=== PATIENT | male | born 1940 | race Caucasian/White ===

== ENCOUNTER → 2016-04-17 | Outpatient (CLI) | payer MEDICARE, OTHER ==
[~2016-04-17] MED LIST: AMLO5TAB2 PO; COUM10TA PO; COUM1TAB17 PO; COUM7.5T PO; FENO145T PO; FERR325T PO; FISH1000 PO; FLAG500T PO; GLIP-163 PO; LASI20TA PO; LASI40TA PO; LISI10TA4 PO; MAGN400T5 PO; METO-209 PO; SIMV40TA2 PO; SITA50TAB PO; SUCR1TA PO; SUCR1TAB56 PO; VITMTA PO; WARF-21 PO; WARF-23 PO; XALA0.002 OU; ZANT1TAB PO; ZETI10TA2 PO; ZYLO300T4 PO
--- NOTE | 2016-04-17 11:36 | REP ---
CHEST, TWO VIEWS: HISTORY: Bladder carcinoma. The lungs are clear. The heart is upper limits of normal in size. The pulmonary vasculature is normal in appearance. Degenerative change is present in the thoracic spine. A prosthetic heart valve is present. IMPRESSION: No acute disease. Signed by Gideon Pate MD 04/17/2016 11:41 A
[2016-04-17 14:20] LABS: MEAN CORPUSCULAR HEMOGLOBIN 30.2 pg (27.0-33.0); MEAN CORPUSCULAR VOLUME 91.5 fl (80.0-96.0); RED CELL DISTRIBUTION WIDTH 14.7 % (11.5-14.5); WHITE BLOOD COUNT 12.6 K/mm3 (4.0-10.0)
[2016-04-17 14:22] LABS: INR 2.14
[2016-04-17 14:42] LABS: CALCIUM LEVEL 9.1 MG/DL (8.8-10.2); CREATININE FOR GFR 1.6 MG/DL (0.70-1.30); GLOMERULAR FILTRATION RATE 45.1 (>42); POTASSIUM SERUM 4.6 MEQ/L (3.5-5.1)
== END ==
LOC: M SMT 10:49
PROVIDERS: ATTEND Specialist
DX: Z01.818 Encounter for other preprocedural examination (principal); C67.9 Malignant neoplasm of bladder, unspecified; Z79.899 Other long term (current) drug therapy

== ENCOUNTER → 2016-04-25 | Outpatient (CLI) | payer MEDICARE, OTHER ==
--- NOTE | 2016-04-25 13:34 | REP ---
Urinary tract sonography: History: Elevated creatinine. History of bladder cancer. Findings: Scanning at the level of the urinary bladder is only slightly filled. Renal cortical echogenicity pattern is normal and renal contours are smooth on both sides. Right kidney measures 13.3 x 6.1 x 5.7 cm and left renal dimensions are 12.7 x 6.3 x 6.2 cm. There is a 1.0 cm cyst in the lower pole left kidney. No mass or other cyst is seen on either side. No hydronephrosis or calculus seen. Impression: Small cyst lower pole left kidney. Otherwise negative urinary tract sonography. Signed by Neil Vaz MD 04/25/2016 04:22 P
== END ==
LOC: M RAD 12:06
PROVIDERS: ATTEND Specialist
DX: R79.89 Other specified abnormal findings of blood chemistry (principal)

== ENCOUNTER → 2016-05-12 | Day surgery (SDC) | payer MEDICARE, OTHER ==
[~2016-05-12] VITALS: Ht 172.7 cm; Wt 117.9 kg
[~2016-05-12] MED LIST changes: +ALBUTEROL SULFATE 2.5 MG/0.5 ML INH NEB SOLN As Ordered ONE; +ALBUTEROL SULFATE 2.5 MG/0.5 ML INH NEB SOLN INH ONE; +LIDOCAINE 2% 5ML JELLY UROJET As Ordered ONE; +LOVE0.6I2 SC; +LR 1,000 ML IV SCH; +ceFAZolin 2 GM/D5W 50 ML IV BAG (J0690) As Ordered ONE
[2016-05-12 06:24] VITALS: BP 154/74
[2016-05-12 06:49] LABS: MEAN CORPUSCULAR HGB CONC 33.4 g/dl (32.0-36.5); MEAN CORPUSCULAR VOLUME 92.9 fl (80.0-96.0); RED CELL DISTRIBUTION WIDTH 15.2 % (11.5-14.5); WHITE BLOOD COUNT 10.3 K/mm3 (4.0-10.0)
[2016-05-12 06:55] LABS: INR 1.24
--- NOTE | 2016-05-12 08:58 | REP ---
Bilateral lower extremity Duplex Doppler venous ultrasound: Real time compression and duplex Doppler interrogation of the bilateral lower extremity deep venous system is performed. Bilaterally, the common femoral, superficial femoral and popliteal veins are fully compressible with transducer pressure and demonstrate normal spontaneous and phasic flow, without evidence of deep venous thrombosis. Impression: No evidence of deep venous thrombosis of the bilateral lower extremity femoral popliteal venous system. Signed by Jeffrey Watt MD 05/12/2016 08:49 A
== END | disposition home or self-care (01) ==
LOC: M SDC 05:30
PROVIDERS: ATTEND Specialist
DX: C67.9 Malignant neoplasm of bladder, unspecified (principal); M79.89 Other specified soft tissue disorders; Z79.01 Long term (current) use of anticoagulants; Z53.09 Procedure and treatment not carried out because of other contraindication
CPT/HCPCS: 36415; 85027; 85610; 85730; 93970; J0690

== ENCOUNTER → 2016-05-16 | Day surgery (SDC) | payer MEDICARE, OTHER ==
[~2016-05-16] VITALS: Ht 172.7 cm; Wt 117.0 kg
[~2016-05-16] MED LIST changes: -ALBUTEROL SULFATE 2.5 MG/0.5 ML INH NEB SOLN As Ordered ONE; -ALBUTEROL SULFATE 2.5 MG/0.5 ML INH NEB SOLN INH ONE; +GLYCOPYRROLATE INJ 0.2 MG/ML 2 ML VIAL As Ordered ONE; +LIDOCAINE 2% 5ML JELLY UROJET XX ONE; +LIDOCAINE 2% INJ 100 MG/5 ML SDV (FOR ANES.) As Ordered ONE; +MEPERIDINE INJ 25 MG/ML VIAL (J2175) IV PRN; +METOCLOPRAMIDE INJ 10MG/2ML VIAL (J2765) IV PRN; +MIDAZOLAM INJ 2 MG/2 ML VIAL (J2250) As Ordered ONE; +NEOSTIGMINE 1MG/ML 5 ML SYRINGE (J2710) As Ordered ONE; +ONDANSETRON 4MG/2ML VIAL (J2405) As Ordered ONE; +ONDANSETRON 4MG/2ML VIAL (J2405) IV PRN; +PERCOCET 5MG/325MG TAB PO PRN; +PROPOFOL 200 MG/20 ML VIAL As Ordered ONE; +ROCURONIUM BROMIDE 50 MG/5 ML VIAL As Ordered ONE; -ceFAZolin 2 GM/D5W 50 ML IV BAG (J0690) As Ordered ONE; +ePHEDrine SULFATE 25 MG/5 ML(5MG/ML) SYRINGE As Ordered ONE; +fentaNYL 100 MCG/2 ML INJECTION (J3010) As Ordered ONE; +fentaNYL 100 MCG/2 ML INJECTION (J3010) IV PRN; +mitoMYcin 40 MG VIAL (J9280) INTRAVESIC ONE
[2016-05-16 18:40] VITALS: BP 138/62
--- NOTE | 2016-05-17 08:14 | RO ---
DATE OF PROCEDURE: 05/16/2016 PREPROCEDURE DIAGNOSIS: Recurrent transitional cell carcinoma of the bladder. POSTPROCEDURE DIAGNOSIS: Recurrent transitional cell carcinoma of the bladder. PROCEDURE: Cystoscopy, transurethral resection of bladder tumor and mitomycin instillation post procedurally. SURGEON: Dr. Wilma Aggarwal [employer]: ANESTHESIA: General. MEDICATIONS: Ancef 2 grams preoperatively and mitomycin 40 mg in 50 mL of normal saline. SPECIMEN: Bladder biopsy and TURBT specimen. DRAINS: The patient was sent to the postoperative area with an 18-Namibian Nunez catheter, which was plugged because the mitomycin was in the bladder. INDICATIONS FOR PROCEDURE: The patient is a 75-year-old gentleman who had come in for a surveillance cystoscopy on 04/12/2016 and was found to have recurrence of a transitional cell carcinoma of the bladder medial to his previous resection site on the left hand side. He had undergone a TURBT on 12/22/2015, which showed high-grade TCC of the bladder, probably a T1. He did have six treatments of BCG with very little reaction. Because of these findings it was decided to bring him back to the operating room for definitive management of the recurrence. All options, alternatives, risks and benefits were discussed and informed consent was obtained in both verbal and written form. PROCEDURE: The patient was brought into the operating room. Sequential compression devices and YAMILET stockings were in place. The patient was given preoperative antibiotics. Next, general anesthesia was induced. He was then placed in the lithotomy position and careful attention was paid that his pressure points were well padded and protected. He was prepped and draped in the usual fashion. Next, a 21-Namibian cystoscope was inserted and the urethra was noted to be open without any evidence of lesions or strictures. The prostatic urethra did have some bilateral hypertrophy and a slightly high bladder neck with some trilobular hypertrophy. Upon entering the bladder, both ureteral orifices were seen. There were no stones. There were two or three very small papillary lesions seen medial to the previous resection site, and the previous resection site has a small area of scar. At this point, a 25-Namibian continuous flow resectoscope was placed and the papillary tumors actually were easily scraped off and appeared to be very superficial. At this point though, using cutting, I used a loop to go into the first layer of the bladder to make sure this was completely removed. This area was then cauterized and the specimen is sent for pathology. The patient's bladder was emptied and a 16-Namibian Nunez catheter was placed. Next, mitomycin 40 mg in 50 mL of normal saline was placed in the bladder and this will be left in place for 60 minutes in the recovery room and then drained. The patient will come in for followup in several weeks and depending on the pathology we may want to continue with either maintenance BCG or another full course of BCG.
== END | disposition home or self-care (01) ==
LOC: M SDC 13:49
PROVIDERS: ATTEND Specialist
DX: C67.9 Malignant neoplasm of bladder, unspecified (principal); I12.9 Hypertensive chronic kidney disease with stage 1 through stage 4 chronic kidney disease, or unspecified chronic kidney disease; E78.5 Hyperlipidemia, unspecified; I48.91 Unspecified atrial fibrillation; I71.4 Abdominal aortic aneurysm, without rupture; I73.9 Peripheral vascular disease, unspecified; E11.9 Type 2 diabetes mellitus without complications; N18.9 Chronic kidney disease, unspecified; K21.9 Gastro-esophageal reflux disease without esophagitis; M12.9 Arthropathy, unspecified; M10.9 Gout, unspecified; Z79.899 Other long term (current) drug therapy; Z79.891 Long term (current) use of opiate analgesic; Z79.01 Long term (current) use of anticoagulants; Z87.19 Personal history of other diseases of the digestive system
CPT/HCPCS: 51720; 52234; 88305; J0690; J2250; J2405; J2710; J3010; J9280

== ENCOUNTER → 2016-05-31 | Outpatient (REF) | payer MEDICARE, OTHER ==
[~2016-05-31] MED LIST changes: -GLYCOPYRROLATE INJ 0.2 MG/ML 2 ML VIAL As Ordered ONE; -LIDOCAINE 2% 5ML JELLY UROJET As Ordered ONE; -LIDOCAINE 2% 5ML JELLY UROJET XX ONE; -LIDOCAINE 2% INJ 100 MG/5 ML SDV (FOR ANES.) As Ordered ONE; -LR 1,000 ML IV SCH; -MEPERIDINE INJ 25 MG/ML VIAL (J2175) IV PRN; -METOCLOPRAMIDE INJ 10MG/2ML VIAL (J2765) IV PRN; -MIDAZOLAM INJ 2 MG/2 ML VIAL (J2250) As Ordered ONE; -NEOSTIGMINE 1MG/ML 5 ML SYRINGE (J2710) As Ordered ONE; -ONDANSETRON 4MG/2ML VIAL (J2405) As Ordered ONE; -ONDANSETRON 4MG/2ML VIAL (J2405) IV PRN; -PERCOCET 5MG/325MG TAB PO PRN; -PROPOFOL 200 MG/20 ML VIAL As Ordered ONE; -ROCURONIUM BROMIDE 50 MG/5 ML VIAL As Ordered ONE; -ePHEDrine SULFATE 25 MG/5 ML(5MG/ML) SYRINGE As Ordered ONE; -fentaNYL 100 MCG/2 ML INJECTION (J3010) As Ordered ONE; -fentaNYL 100 MCG/2 ML INJECTION (J3010) IV PRN; -mitoMYcin 40 MG VIAL (J9280) INTRAVESIC ONE
[2016-05-31 14:22] LABS: BACTERIA, URINE NONE SEEN; HYALINE CAST, URINE NONE SEEN /lpf (0-1); MICROSCOPIC EXAM PERFORMED; SQUAMOUS EPITHELIAL CELL URINE SMALL AMOUNT /hpf (SMALL AMT)
== END ==
LOC: M SMT 13:08
PROVIDERS: ATTEND Specialist
DX: C67.9 Malignant neoplasm of bladder, unspecified (principal); R35.0 Frequency of micturition
CPT/HCPCS: 81015; 87086; G0463

== ENCOUNTER → 2016-07-10 | Outpatient (REF) | payer MEDICARE, OTHER | LOC: M SMT 17:09 | PROVIDERS: ATTEND Specialist | DX: C67.9 Malignant neoplasm of bladder, unspecified (principal); Z79.899 Other long term (current) drug therapy ==

== ENCOUNTER → 2016-07-13 | Outpatient (REF) | payer MEDICARE, OTHER ==
[2016-07-13 16:16] LABS: CREATININE FOR GFR 1.66 MG/DL (0.70-1.30); GLOMERULAR FILTRATION RATE 43.2 (>42)
== END ==
LOC: M LABDRAW1 15:37
PROVIDERS: ATTEND Orthopaedic Surgery
DX: M75.41 Impingement syndrome of right shoulder (principal)

== ENCOUNTER → 2016-07-28 | Outpatient (REF) | payer MEDICARE, OTHER | LOC: M SMT 16:48 | PROVIDERS: ATTEND Nurse Practitioner Women's Health | DX: N39.0 Urinary tract infection, site not specified (principal) ==

== ENCOUNTER → 2016-08-11 | Outpatient (REF) | payer MEDICARE, OTHER | LOC: M SMT 13:06 | PROVIDERS: ATTEND Nurse Practitioner Women's Health | DX: N39.0 Urinary tract infection, site not specified (principal) ==

== ENCOUNTER → 2016-09-15 | Outpatient (CLI) | payer MEDICARE, OTHER ==
[~2016-09-15] MED LIST changes: +PROBCAP4 PO; +VITA500C3 PO
[2016-09-15 13:31] LABS: MEAN CORPUSCULAR HEMOGLOBIN 31.6 pg (27.0-33.0); MEAN CORPUSCULAR HGB CONC 34.3 g/dl (32.0-36.5); MEAN CORPUSCULAR VOLUME 92.1 fl (80.0-96.0); RED CELL DISTRIBUTION WIDTH 14.5 % (11.5-14.5); WHITE BLOOD COUNT 10.9 K/mm3 (4.0-10.0)
[2016-09-15 14:34] LABS: ALBUMIN 3.2 GM/DL (3.2-5.2); ALBUMIN/GLOBULIN RATIO 0.86 (1.00-1.93); BILIRUBIN,TOTAL 0.7 MG/DL (0.2-1.0); CALCIUM LEVEL 8.6 MG/DL (8.8-10.2); CREATININE FOR GFR 1.38 MG/DL (0.70-1.30); GLOMERULAR FILTRATION RATE 53.5 (>42); POTASSIUM SERUM 4.7 MEQ/L (3.5-5.1); TOTAL PROTEIN 6.9 GM/DL (6.4-8.2)
== END ==
LOC: M SMT 10:12
PROVIDERS: ATTEND Specialist
DX: C67.9 Malignant neoplasm of bladder, unspecified (principal); Z79.899 Other long term (current) drug therapy

== ENCOUNTER 2016-09-19 17:11 | Emergency (ER) | payer MEDICARE, OTHER ==
[~2016-09-19] VITALS: Ht 172.7 cm; Wt 127.4 kg
[~2016-09-19 17:11] MED LIST changes: -PROBCAP4 PO; -VITA500C3 PO
[2016-09-19] MEDS ORDERED: PROBCAP4 PO (17:29)
[2016-09-19] MEDS ORDERED: VITA500C3 PO (17:29)
[2016-09-19 18:14] LABS: BASO % 0.3 % (0.0-1.0); EOS # 0.2 K/mm3 (0.0-0.50); EOS % 2.6 % (0.0-3.0); LARGE UNSTAINED CELL # 0.3 K/mm3 (0.0-0.4); LARGE UNSTAINED CELL % 3.6 % (0.0-4.0); LYMPH # 1.1 K/mm3 (1.5-4.5); LYMPH % 9.8 % (24.0-44.0); MEAN CORPUSCULAR HGB CONC 34.2 g/dl (32.0-36.5); MEAN CORPUSCULAR VOLUME 90.6 fl (80.0-96.0); MONO # 0.7 K/mm3 (0.0-0.8); MONO % 8.2 % (0.0-5.0); NEUTROPHILS # 6.3 K/mm3 (1.8-7.7); NEUTROPHILS % 75.5 % (36.0-66.0); PLATELET COUNT, AUTOMATED 159 k/mm3 (150-450); RED CELL DISTRIBUTION WIDTH 14.7 % (11.5-14.5); WHITE BLOOD COUNT 8.3 K/mm3 (4.0-10.0)
[2016-09-19 18:26] LABS: INR 1.25
[2016-09-19 18:28] VITALS: BP 124/60
[2016-09-19 18:49] LABS: ANION GAP 8 MEQ/L (8-16); BLOOD UREA NITROGEN 29 MG/DL (7-18); CALCIUM LEVEL 9.2 MG/DL (8.8-10.2); CARBON DIOXIDE LEVEL 31 MEQ/L (21-32); CHLORIDE LEVEL 96 MEQ/L (98-107); CREATININE FOR GFR 1.63 MG/DL (0.70-1.30); GLOMERULAR FILTRATION RATE 44.1 (>42); GLUCOSE, FASTING 130 MG/DL (83-110); POTASSIUM SERUM 3.4 MEQ/L (3.5-5.1); SODIUM LEVEL 135 MEQ/L (136-145)
== END 2016-09-19 19:40 | disposition home or self-care (01) ==
LOC: M ED 17:11
DX: N18.3 Chronic kidney disease, stage 3 (moderate) (principal); R53.1 Weakness; I25.10 Atherosclerotic heart disease of native coronary artery without angina pectoris; I12.9 Hypertensive chronic kidney disease with stage 1 through stage 4 chronic kidney disease, or unspecified chronic kidney disease; Z98.61 Coronary angioplasty status; Z79.01 Long term (current) use of anticoagulants

== ENCOUNTER → 2016-09-21 | Outpatient (CLI) | payer MEDICARE, OTHER ==
[~2016-09-21] MED LIST changes: +FERR1TAB8 PO; -FERR325T PO; -METO-209 PO; +METO1TAB33 PO; +PROBCAP4 PO; +VITA500C3 PO; -XALA0.002 OU; +XALA0.007 OU; -ZETI10TA2 PO; +ZETI10TA30 PO
== END ==
LOC: M LAB 14:37
PROVIDERS: ATTEND Emergency Medicine
DX: D50.9 Iron deficiency anemia, unspecified (principal); C67.9 Malignant neoplasm of bladder, unspecified
CPT/HCPCS: 36415; 51720; 85014; 85018; J9031

== ENCOUNTER → 2016-10-26 | Outpatient (REF) | payer MEDICARE, OTHER ==
[2016-10-26 16:42] LABS: CREATININE FOR GFR 1.71 MG/DL (0.70-1.30); GLOMERULAR FILTRATION RATE 41.6 (>42)
== END ==
LOC: M LABDRAW1 15:55
PROVIDERS: ATTEND Internal Medicine Endocrinology, Diabetes & Metabolism
DX: M54.5 Low back pain (principal)

== ENCOUNTER → 2016-11-03 | Outpatient (CLI) | payer MEDICARE, OTHER ==
--- NOTE | 2016-11-03 17:12 | REP ---
MRI THORACIC SPINE WITHOUT AND WITH CONTRAST: HISTORY: Back pain. CONTRAST: ProHance 12 mL A small central disc protrusion is present at the T7-8 level. There is minimal effacement of the thecal sac without spinal cord compression. The T7 neural foramina are patent. A small central disc protrusion is present at the T8-9 level. There is minimal effacement of the thecal sac without spinal cord compression. The T8 neural foramina are patent. A small central disc protrusion is present at the T9-10 level. There is minimal effacement of the thecal sac without spinal cord compression. The T9 neural foramina are patent. A small right paracentral disc protrusion is present at the T12-L1 level. There is minimal effacement of the thecal sac without spinal cord compression. The T12 neural foramina are patent. There is no other disc bulge or herniation. The remaining neural foramina are patent. The spinal cord is normal in signal intensity. Normal signal intensity is present in the thoracic vertebral bodies. IMPRESSION: Small disc protrusions at the T7-8 through T9-10 and T12-L1 levels without spinal cord compression. Signed by Gideon Pate MD 11/13/2016 08:41 A
--- NOTE | 2016-11-03 17:27 | REP ---
MRI LUMBAR SPINE WITHOUT AND WITH CONTRAST: HISTORY: Back pain. CONTRAST: ProHance 12 mL Decreased signal intensity on T2-weighted images is present in the L2-3 through L5-S1 intervertebral discs. The L3-4 through L5-S1 intervertebral discs are decreased in height. These findings are consistent with disc degeneration. There is no disc bulge or herniation at the L1-2 level. The L1 nerves exit the neural foramina without compression. A diffuse disc bulge is present at the L2-3 level. There is minimal compression of the thecal sac. There is hypertrophy of the posterior articulating facets. The L2 nerves exit the neural foramina without compression. A diffuse disc bulge is present at the L3-4 level. There is minimal compression of the thecal sac. There is hypertrophy of the posterior articulating facets. The L3 nerves exit the neural foramina without compression. A diffuse disc bulge and small right paracentral disc protrusion are present at the L4-5 level. There is minimal compression of the thecal sac. There is hypertrophy of the ligamenta flava and posterior articulating facets. The L4 nerves exit the neural foramina without compression. A diffuse disc bulge is present at the L5-S1 level. This abuts the thecal sac and S1 nerves. There is hypertrophy of the posterior articulating facets. The L5 nerves exit the neural foramina without compression. A small right paracentral disc protrusion is present at the T12-L1 level. There is minimal effacement of the thecal sac. The conus medullaris is normal in appearance terminating at the level of the T12-L1 intervertebral disc. Normal signal intensity is present in the lumbar vertebral bodies. IMPRESSION: 1. Diffuse disc bulges at the L2-3 and L3-4 levels with minimal thecal sac compression. 2. Diffuse disc bulge and small right paracentral disc protrusion at the L4-5 level with minimal thecal sac compression. 3. Diffuse disc bulge at the L5-S1 level. This abuts the thecal sac and S1 nerves. Signed by Gideon Pate MD 11/13/2016 08:42 A
== END ==
LOC: M RAD 14:14
PROVIDERS: ATTEND Orthopaedic Surgery
DX: M51.26 Other intervertebral disc displacement, lumbar region (principal); M51.27 Other intervertebral disc displacement, lumbosacral region; M51.24 Other intervertebral disc displacement, thoracic region; M51.25 Other intervertebral disc displacement, thoracolumbar region
CPT/HCPCS: 72157; 72158; A9576

== ENCOUNTER → 2016-11-09 | Outpatient (REF) | payer MEDICARE, OTHER ==
[2016-11-10 14:05] LABS: FREE T4 1.12 NG/DL (0.76-1.46)
== END ==
LOC: M LAB REF 15:20
PROVIDERS: ATTEND Internal Medicine Nephrology
DX: R60.0 Localized edema (principal)

== ENCOUNTER → 2017-02-09 | Outpatient (REF) | payer MEDICARE, OTHER ==
[2017-02-09 20:23] LABS: ALBUMIN 3.3 GM/DL (3.2-5.2); ALBUMIN/GLOBULIN RATIO 0.87 (1.00-1.93); BILIRUBIN,DIRECT 0.3 MG/DL (0.0-0.2); BILIRUBIN,TOTAL 0.6 MG/DL (0.2-1.0); TOTAL PROTEIN 7.1 GM/DL (6.4-8.2)
== END ==
LOC: M LAB REF 17:15
PROVIDERS: ATTEND Internal Medicine Nephrology
DX: Z01.818 Encounter for other preprocedural examination (principal)

== ENCOUNTER → 2017-03-20 | Outpatient (CLI) | payer MEDICARE, OTHER ==
[2017-03-20 16:33] LABS: MEAN CORPUSCULAR HEMOGLOBIN 29.6 pg (27.0-33.0); MEAN CORPUSCULAR HGB CONC 33.1 g/dl (32.0-36.5); MEAN CORPUSCULAR VOLUME 89.3 fl (80.0-96.0); PLATELET COUNT, AUTOMATED 218 10^3/uL (150-450); RED CELL DISTRIBUTION WIDTH 15.5 % (11.5-14.5); WHITE BLOOD COUNT 11.9 10^3/uL (4.0-10.0)
[2017-03-20 17:00] LABS: ALBUMIN 3.7 GM/DL (3.2-5.2); ALBUMIN/GLOBULIN RATIO 0.84 (1.00-1.93); BILIRUBIN,TOTAL 0.6 MG/DL (0.2-1.0); CALCIUM LEVEL 8.6 MG/DL (8.8-10.2); CREATININE FOR GFR 2.04 MG/DL (0.70-1.30); POTASSIUM SERUM 4.2 MEQ/L (3.5-5.1); TOTAL PROTEIN 8.1 GM/DL (6.4-8.2)
== END ==
LOC: M SMT 14:52
PROVIDERS: ATTEND Specialist
DX: C67.9 Malignant neoplasm of bladder, unspecified (principal); Z79.899 Other long term (current) drug therapy

== ENCOUNTER → 2017-07-18 | Outpatient (REF) | payer MEDICARE, OTHER ==
[2017-07-19 13:53] LABS: APPEARANCE, URINE CLEAR (CLEAR); BACTERIA, URINE AUTO NEGATIVE (NEGATIVE); BILIRUBIN, URINE AUTO NEGATIVE (NEGATIVE); BLOOD, URINE BLOOD NEGATIVE (NEGATIVE); COLOR, URINE STRAW (YELLOW); GLUCOSE, URINE (UA) AUTO 1+ mg/dL (NEGATIVE); KETONE, URINE AUTO NEGATIVE (NEGATIVE); LEUKOCYTE ESTERASE, URINE AUTO NEGATIVE (NEGATIVE); NITRITE, URINE AUTO NEGATIVE (NEGATIVE); PROTEIN, URINE AUTO NEGATIVE (NEGATIVE); RBC, URINE AUTO 0 /HPF (0-3); SPECIFIC GRAVITY URINE AUTO 1.008 (1.002-1.035); SQUAMOUS EPITHELIAL CELL UR AU 0 /HPF (0-6); UROBILINOGEN, URINE AUTO 0.2 mg/dL (0.0-2.0); WBC, URINE AUTO 0 /HPF (0-3)
== END ==
LOC: M SMT 07-19 13:10
DX: C67.9 Malignant neoplasm of bladder, unspecified (principal); R82.8 Abnormal findings on cytological and histological examination of urine
CPT/HCPCS: 81001

== ENCOUNTER → 2017-10-08 | Outpatient (REF) | payer MEDICARE, OTHER ==
[2017-10-08 15:57] LABS: HEMATOCRIT 46.1 % (42.0-52.0); HEMOGLOBIN 15.3 g/dl (13.5-17.5); MEAN CORPUSCULAR HGB CONC 33.2 g/dl (32.0-36.5); MEAN CORPUSCULAR VOLUME 90.4 fl (80.0-96.0); PLATELET COUNT, AUTOMATED 223 10^3/uL (150-450); RED CELL DISTRIBUTION WIDTH 14.6 % (11.5-14.5); WHITE BLOOD COUNT 10.2 10^3/uL (4.0-10.0)
[2017-10-08 16:21] LABS: ALBUMIN 3.5 GM/DL (3.2-5.2); ALBUMIN/GLOBULIN RATIO 0.92 (1.00-1.93); ALKALINE PHOSPHATASE 58 U/L (45-117); ALT/SGPT 23 U/L (12-78); ANION GAP 11 MEQ/L (8-16); AST/SGOT 37 U/L (7-37); BILIRUBIN,TOTAL 0.8 MG/DL (0.2-1.0); BLOOD UREA NITROGEN 47 MG/DL (7-18); CALCIUM LEVEL 9.1 MG/DL (8.8-10.2); CARBON DIOXIDE LEVEL 26 MEQ/L (21-32); CHLORIDE LEVEL 102 MEQ/L (98-107); GLOMERULAR FILTRATION RATE 41.9 (>42); GLUCOSE, FASTING 105 MG/DL (70-100); POTASSIUM SERUM 4.8 MEQ/L (3.5-5.1); SODIUM LEVEL 139 MEQ/L (136-145); TOTAL PROTEIN 7.3 GM/DL (6.4-8.2)
== END ==
LOC: M LABDRAW1 12:33
DX: C67.9 Malignant neoplasm of bladder, unspecified (principal)
CPT/HCPCS: 80053

== ENCOUNTER → 2017-11-01 | Outpatient (REF) | payer MEDICARE, OTHER | LOC: M SMT 17:07 | DX: C67.9 Malignant neoplasm of bladder, unspecified (principal) | CPT/HCPCS: 88108 ==

== ENCOUNTER → 2017-11-02 | Outpatient (REF) | payer MEDICARE, OTHER ==
[2017-11-02 11:04] LABS: HEMATOCRIT 46.1 % (42.0-52.0); HEMOGLOBIN 15.2 g/dl (13.5-17.5); MEAN CORPUSCULAR HEMOGLOBIN 29.7 pg (27.0-33.0); PLATELET COUNT, AUTOMATED 187 10^3/uL (150-450); RED BLOOD COUNT 5.12 10^6/uL (4.30-6.10); WHITE BLOOD COUNT 12.1 10^3/uL (4.0-10.0)
[2017-11-02 11:06] LABS: APPEARANCE, URINE CLEAR (CLEAR); BACTERIA, URINE AUTO NEGATIVE (NEGATIVE); BILIRUBIN, URINE AUTO NEGATIVE (NEGATIVE); BLOOD, URINE BLOOD NEGATIVE (NEGATIVE); COLOR, URINE YELLOW (YELLOW); GLUCOSE, URINE (UA) AUTO NEGATIVE (NEGATIVE); KETONE, URINE AUTO NEGATIVE (NEGATIVE); LEUKOCYTE ESTERASE, URINE AUTO NEGATIVE (NEGATIVE); NITRITE, URINE AUTO NEGATIVE (NEGATIVE); PROTEIN, URINE AUTO NEGATIVE (NEGATIVE); RBC, URINE AUTO 0 /HPF (0-3); SPECIFIC GRAVITY URINE AUTO 1.008 (1.002-1.035); SQUAMOUS EPITHELIAL CELL UR AU 0 /HPF (0-6); UROBILINOGEN, URINE AUTO 0.2 mg/dL (0.0-2.0); WBC, URINE AUTO 1 /HPF (0-3)
[2017-11-02 11:36] LABS: ALBUMIN 3.6 GM/DL (3.2-5.2); ALBUMIN/GLOBULIN RATIO 0.95 (1.00-1.93); ALKALINE PHOSPHATASE 55 U/L (45-117); ALT/SGPT 20 U/L (12-78); ANION GAP 7 MEQ/L (8-16); AST/SGOT 28 U/L (7-37); BILIRUBIN,TOTAL 0.6 MG/DL (0.2-1.0); BLOOD UREA NITROGEN 33 MG/DL (7-18); CALCIUM LEVEL 8.9 MG/DL (8.8-10.2); CARBON DIOXIDE LEVEL 27 MEQ/L (21-32); CHLORIDE LEVEL 105 MEQ/L (98-107); CREATININE FOR GFR 1.94 MG/DL (0.70-1.30); GLOMERULAR FILTRATION RATE 35.9 (>42); GLUCOSE, FASTING 109 MG/DL (70-100); POTASSIUM SERUM 4.4 MEQ/L (3.5-5.1); SODIUM LEVEL 139 MEQ/L (136-145); TOTAL PROTEIN 7.4 GM/DL (6.4-8.2)
== END ==
LOC: M LABDRAW1 10:41
DX: C67.9 Malignant neoplasm of bladder, unspecified (principal)
CPT/HCPCS: 80053

== ENCOUNTER → 2017-12-06 | Outpatient (CLI) | payer MEDICARE, OTHER | LOC: M RAD 12:48 | DX: C67.9 Malignant neoplasm of bladder, unspecified (principal); R79.89 Other specified abnormal findings of blood chemistry | CPT/HCPCS: 76775 ==

== ENCOUNTER → 2018-02-28 | Outpatient (CLI) | payer MEDICARE, OTHER ==
[2018-02-28 13:42] LABS: HEMATOCRIT 48.9 % (42.0-52.0); HEMOGLOBIN 15.6 g/dl (13.5-17.5); MEAN CORPUSCULAR HEMOGLOBIN 29.8 pg (27.0-33.0); MEAN CORPUSCULAR HGB CONC 31.9 g/dl (32.0-36.5); MEAN CORPUSCULAR VOLUME 93.5 fl (80.0-96.0); PLATELET COUNT, AUTOMATED 226 10^3/uL (150-450); RED BLOOD COUNT 5.23 10^6/uL (4.30-6.10); RED CELL DISTRIBUTION WIDTH 14.5 % (11.5-14.5); WHITE BLOOD COUNT 11.1 10^3/uL (4.0-10.0)
[2018-02-28 13:52] LABS: INR 3.01; PROTHROMBIN TIME 31.9 SECONDS (12.1-14.4)
[2018-02-28 13:53] LABS: PARTIAL THROMBOPLASTIN TIME 63.3 SECONDS (25.4-37.6)
[2018-02-28 14:05] LABS: ANION GAP 6 MEQ/L (8-16); BLOOD UREA NITROGEN 36 MG/DL (7-18); CALCIUM LEVEL 8.7 MG/DL (8.8-10.2); CARBON DIOXIDE LEVEL 31 MEQ/L (21-32); CHLORIDE LEVEL 104 MEQ/L (98-107); CREATININE FOR GFR 1.63 MG/DL (0.70-1.30); GLOMERULAR FILTRATION RATE 43.9 (>42); GLUCOSE, FASTING 82 MG/DL (70-100); POTASSIUM SERUM 5.1 MEQ/L (3.5-5.1); SODIUM LEVEL 141 MEQ/L (136-145)
== END ==
LOC: M SMT 10:19
DX: Z01.818 Encounter for other preprocedural examination (principal); C67.9 Malignant neoplasm of bladder, unspecified
CPT/HCPCS: 80048

== ENCOUNTER 2018-03-11 11:48 | Day surgery (SDC) | payer MEDICARE, OTHER ==
[~2018-03-11 11:48] MED LIST changes: -AMLO5TAB2 PO; -COUM10TA PO; -COUM1TAB17 PO; -COUM7.5T PO; -FENO145T PO; -FERR1TAB8 PO; -FISH1000 PO; -FLAG500T PO; -GLIP-163 PO; -LASI20TA PO; -LASI40TA PO; +LIDOCAINE 2% INJ 100 MG/5 ML SDV (FOR ANES.) As Ordered; -LISI10TA4 PO; -LOVE0.6I2 SC; -MAGN400T5 PO; -METO1TAB33 PO; +MIDAZOLAM INJ 2 MG/2 ML VIAL (J2250) As Ordered; -PROBCAP4 PO; +PROPOFOL 200 MG/20 ML VIAL As Ordered; -SIMV40TA2 PO; -SITA50TAB PO; -SUCR1TA PO; -SUCR1TAB56 PO; -VITA500C3 PO; -VITMTA PO; -WARF-21 PO; -WARF-23 PO; -XALA0.007 OU; -ZANT1TAB PO; -ZETI10TA30 PO; -ZYLO300T4 PO; +fentaNYL 250 MCG/5 ML INJECTION (J3010) As Ordered
[2018-03-11] MEDS: LR 1,000 ML IV (12:35)
[2018-03-11 12:44] LABS: BEDSIDE GLUCOSE 119 MG/DL (83-110)
[2018-03-11 12:50] LABS: INR 1.71; PROTHROMBIN TIME 20.4 SECONDS (12.1-14.4)
[2018-03-11] MEDS: LIDOCAINE 2% 5ML JELLY UROJET As Ordered (13:47)
[2018-03-11] MEDS: LIDOCAINE 1% MDV INJ 50 ML VIAL As Ordered (13:47)
[2018-03-11] MEDS ORDERED: KETOROLAC 60 MG/2 ML VIAL (J1885) As Ordered (13:56)
[2018-03-11] MEDS ORDERED: ONDANSETRON 4MG/2ML VIAL (J2405) As Ordered (13:56)
== END 2018-03-11 16:00 | disposition home or self-care (01) ==
LOC: M SDC 11:48
DX: D49.4 Neoplasm of unspecified behavior of bladder (principal); Z85.50 Personal history of malignant neoplasm of unspecified urinary tract organ; I10 Essential (primary) hypertension; I48.0 Paroxysmal atrial fibrillation; E11.51 Type 2 diabetes mellitus with diabetic peripheral angiopathy without gangrene; E78.5 Hyperlipidemia, unspecified; M10.9 Gout, unspecified; K21.9 Gastro-esophageal reflux disease without esophagitis; I73.9 Peripheral vascular disease, unspecified; R60.0 Localized edema; M12.9 Arthropathy, unspecified; R06.02 Shortness of breath; E66.9 Obesity, unspecified; Z68.39 Body mass index [BMI] 39.0-39.9, adult; Z79.899 Other long term (current) drug therapy; Z79.01 Long term (current) use of anticoagulants; Z95.4 Presence of other heart-valve replacement; Z95.5 Presence of coronary angioplasty implant and graft; Z87.891 Personal history of nicotine dependence; Z96.1 Presence of intraocular lens
CPT/HCPCS: 52214

== ENCOUNTER → 2018-03-25 | Outpatient (REF) | payer MEDICARE, OTHER ==
[~2018-03-25] MED LIST changes: +AMLO5TAB6 PO; +COUM10TA PO; +COUM1TAB17 PO; +COUM7.5T PO; +FENO145T13 PO; +FERR1TAB8 PO; +FISH1000 PO; +FISH120016 PO; +FISH7.5C PO; +FLAG500T PO; +GLIP-163 PO; +LASI20TA3 PO; +LASI40TA9 PO; -LIDOCAINE 2% INJ 100 MG/5 ML SDV (FOR ANES.) As Ordered; +LISI10TA4 PO; +LOVE0.6I2 SC; +MAGN400T5 PO; +METO1TAB33 PO; -MIDAZOLAM INJ 2 MG/2 ML VIAL (J2250) As Ordered; +PROBCAP4 PO; -PROPOFOL 200 MG/20 ML VIAL As Ordered; +SIMV40TA2 PO; +SITA50TAB PO; +SUCR1TA PO; +SUCR1TAB56 PO; +TIAZ1CAP4 PO; +VITA500C3 PO; +VITMTA PO; +WARF-21 PO; +WARF-23 PO; +XALA0.007 OU; +ZANT150T15 PO; +ZETI10TA30 PO; +ZYLO300T6 PO; -fentaNYL 250 MCG/5 ML INJECTION (J3010) As Ordered
[2018-03-25 14:59] LABS: APPEARANCE, URINE HAZY (CLEAR); BACTERIA, URINE AUTO 1+ (NEGATIVE); BILIRUBIN, URINE AUTO NEGATIVE (NEGATIVE); BLOOD, URINE BLOOD 3+ (NEGATIVE); COLOR, URINE YELLOW (YELLOW); GLUCOSE, URINE (UA) AUTO 1+ mg/dL (NEGATIVE); KETONE, URINE AUTO NEGATIVE (NEGATIVE); LEUKOCYTE ESTERASE, URINE AUTO 2+ (NEGATIVE); MUCUS, URINE SMALL (NEGATIVE); NITRITE, URINE AUTO NEGATIVE (NEGATIVE); PROTEIN, URINE AUTO 1+ mg/dL (NEGATIVE); RBC, URINE AUTO 63 /HPF (0-3); SPECIFIC GRAVITY URINE AUTO 1.013 (1.002-1.035); SQUAMOUS EPITHELIAL CELL UR AU 0 /HPF (0-6); UROBILINOGEN, URINE AUTO 0.2 mg/dL (0.0-2.0); WBC, URINE AUTO 53 /HPF (0-3)
== END ==
LOC: M SMT 13:01
PROVIDERS: ATTEND Specialist
DX: R30.0 Dysuria (principal)

== ENCOUNTER → 2018-04-08 | Outpatient (REF) | payer MEDICARE, OTHER ==
[2018-04-08 19:22] LABS: AMORPHOUS SEDIMENT SMALL (NEGATIVE); APPEARANCE, URINE CLOUDY (CLEAR); BACTERIA, URINE AUTO 1+ (NEGATIVE); BILIRUBIN, URINE AUTO NEGATIVE (NEGATIVE); BLOOD, URINE BLOOD 2+ (NEGATIVE); COLOR, URINE AMBER (YELLOW); GLUCOSE, URINE (UA) AUTO NEGATIVE (NEGATIVE); KETONE, URINE AUTO NEGATIVE (NEGATIVE); LEUKOCYTE ESTERASE, URINE AUTO 2+ (NEGATIVE); MUCUS, URINE SMALL (NEGATIVE); NITRITE, URINE AUTO NEGATIVE (NEGATIVE); PROTEIN, URINE AUTO 1+ mg/dL (NEGATIVE); RBC, URINE AUTO 26 /HPF (0-3); SPECIFIC GRAVITY URINE AUTO 1.016 (1.002-1.035); SQUAMOUS EPITHELIAL CELL UR AU 0 /HPF (0-6); WBC, URINE AUTO 77 /HPF (0-3)
== END ==
LOC: M SMT 17:23
PROVIDERS: ATTEND Nurse Practitioner Women's Health
DX: N39.0 Urinary tract infection, site not specified (principal)

== ENCOUNTER → 2018-05-27 | Outpatient (REF) | payer MEDICARE, OTHER ==
[2018-05-27 18:53] LABS: BACTERIA, URINE AUTO NEGATIVE (NEGATIVE); MUCUS, URINE SMALL (NEGATIVE); RBC, URINE AUTO TNTC /HPF (0-3); SQUAMOUS EPITHELIAL CELL UR AU 0 /HPF (0-6); WBC, URINE AUTO 22 /HPF (0-3)
== END ==
LOC: M SMT 17:19
PROVIDERS: ATTEND Specialist
DX: R31.0 Gross hematuria (principal)
CPT/HCPCS: 51798; 81015; 87086; 88108; G0463

== ENCOUNTER 2018-08-06 07:32 | Inpatient (IN) | payer MEDICARE, OTHER ==
[~2018-08-06] VITALS: Ht 172.7 cm; Wt 119.9 kg
[2018-08-06] MEDS ORDERED: ONDANSETRON 4MG/2ML VIAL (J2405) IV ONE (08:00)
[2018-08-06] MEDS: MORPHINE 4 MG/ML 1ML VIAL/SYRINGE (J2270) IV PRN ×3 (08:21→17:20)
[2018-08-06 08:32] LABS: BASO # 0.1 10^3/uL (0.0-0.2); BASO % 0.5 % (0.0-1.0); EOS # 0.3 10^3/uL (0.0-0.50); EOS % 3.1 % (0.0-3.0); HEMATOCRIT 31.6 % (42.0-52.0); HEMOGLOBIN 9.6 g/dl (13.5-17.5); LYMPH # 0.7 10^3/uL (1.5-4.5); LYMPH % 6.4 % (24.0-44.0); MEAN CORPUSCULAR HEMOGLOBIN 28.9 pg (27.0-33.0); MEAN CORPUSCULAR HGB CONC 30.4 g/dl (32.0-36.5); MEAN CORPUSCULAR VOLUME 95.2 fl (80.0-96.0); MONO # 0.8 10^3/uL (0.0-0.8); NEUTROPHILS # 9.1 10^3/uL (1.8-7.7); NEUTROPHILS % 82.6 % (36.0-66.0); PLATELET COUNT, AUTOMATED 262 10^3/uL (150-450); RED BLOOD COUNT 3.32 10^6/uL (4.30-6.10)
[2018-08-06 08:53] LABS: ALBUMIN 2.8 GM/DL (3.2-5.2); BILIRUBIN,TOTAL 0.5 MG/DL (0.2-1.0); C REACTIVE PROTEIN QUANTITATIV 2.13 MG/DL (0.00-0.30); CALCIUM LEVEL 8.5 MG/DL (8.8-10.2); CREATININE FOR GFR 1.73 MG/DL (0.70-1.30); POTASSIUM SERUM 4.1 MEQ/L (3.5-5.1); TOTAL PROTEIN 6.3 GM/DL (6.4-8.2)
[2018-08-06 09:01] LABS: ERYTHROCYTE SEDIMENTATION RATE 83 mm/hr (0-20)
[2018-08-06] MEDS ORDERED: ALIG4CAP (09:13)
[2018-08-06] MEDS ORDERED: ATOR80TA59 PO (09:13)
[2018-08-06] MEDS ORDERED: ENOX120I3 (09:13)
[2018-08-06] MEDS ORDERED: CARV6.25 (09:13)
[2018-08-06] MEDS ORDERED: CLOP75TA2 PO (09:13)
[2018-08-06] MEDS ORDERED: WARF-23 PO ×2 (09:13→14:46)
[2018-08-06] MEDS ORDERED: ASPI81TA21 PO (09:13)
[2018-08-06] MEDS ORDERED: SITA50TAB PO (09:13)
[2018-08-06] MEDS ORDERED: TIAZ1CAP2 (09:13)
[2018-08-06] MEDS ORDERED: TIZA2CAP6 PO (09:13)
[2018-08-06] MEDS ORDERED: PANT40TA3 PO (09:13)
[2018-08-06] MEDS ORDERED: NITR0.4S14 (09:13)
--- NOTE | 2018-08-06 09:30 | REP ---
Pelvis right hip: Three views. History: Pain. Right leg numbness. Findings: AP view of the pelvis shows an intact bony pelvic ring. There are multiple surgical clips in the periaortic region and in both inguinal regions. Vascular calcification is noted. No fractures seen. Sacrum appears intact. There are moderate osteoarthritic changes in the hips bilaterally. No acute bony abnormality is seen. Impression: Bilateral hip osteoarthritis. Periaortic and bilateral inguinal surgical clips. Vascular calcification. Electronically Signed by Neil Vaz MD 08/06/2018 09:22 A
[2018-08-06] MEDS ORDERED: HYDROMORPHONE HCL 0.5 MG/ 0.5 ML SYRINGE (J1170 PER 1) IV PRN (11:30)
[2018-08-06] MEDS ORDERED: MAALOX 30 ML SUSP *UDC PO PRN (14:45)
[2018-08-06] MEDS ORDERED: MOM 30ML SUSPENSION UDC PO PRN (14:45)
[2018-08-06] MEDS ORDERED: ACETAMINOPHEN TAB 650MG DOSE (2X325MG) PO PRN (14:45)
[2018-08-06] MEDS ORDERED: CARV12.5 PO (14:46)
[2018-08-06] MEDS ORDERED: TIZA2TAB4 PO (14:46)
[2018-08-06] MEDS ORDERED: ALIG4CAP PO (14:46)
[2018-08-06] MEDS ORDERED: ASPI81CH33 PO (14:46)
[2018-08-06] MEDS ORDERED: MAGN400T2 PO (14:46)
[2018-08-06] MEDS ORDERED: NITR4TASL SL (14:46)
[2018-08-06] MEDS ORDERED: PROAAER10 INH (14:46)
[2018-08-06] MEDS ORDERED: DILT90TA PO (14:46)
[2018-08-06] MEDS ORDERED: DAILTAB51 PO (14:46)
[2018-08-06 15:15] VITALS: BP_SYST 140; BP_SYST 146; BP_DIAS 74; BP_DIAS 84
--- NOTE | 2018-08-06 15:22 | HPEPDOC ---
General Date of Admission August 06, 2018 at 14:45 Attending Physician: RADHA FUENTES MD Chief Complaint The patient is a 77-year-old male admitted with a reason for visit of Paresthesia Of Rt Leg. Source: Patient Exam Limitations: No limitations Timing/Duration: Day(s) Severity: Severe Associated Symptoms: Other (weakness of the right lower extremity) Home Medications Scheduled Allopurinol (Zyloprim) 300 Mg Tab, 300 MG PO DAILY, (Reported) Aspirin (Aspirin) 81 Mg Tab.chew, 81 MG PO DAILY, (Reported) Atorvastatin Calcium (Atorvastatin Calcium) 80 Mg Tablet, 80 MG PO QHS, (Reported) Bifidobacterium Infantis (Align) 4 Mg Capsule, 4 MG PO DAILY, (Reported) Carvedilol (Carvedilol) 12.5 Mg Tablet, 12.5 MG PO BID, (Reported) Clopidogrel Bisulfate (Clopidogrel) 75 Mg Tablet, 75 MG PO DAILY, (Reported) Diltiazem HCl (Diltiazem HCl) 90 Mg Tablet, 90 MG PO Q8H, (Reported) Ezetimibe (Zetia) 10 Mg Tab, 10 MG PO DAILY, (Reported) Furosemide (Lasix) 40 Mg Tab, 40 MG PO DAILY Glipizide (Glipizide Xl) 2.5 Mg Tab, 2.5 MG PO DAILY, (Reported) Latanoprost (Xalatan) 0.005 % Sanjuana, 1 DROP OU QHS, (Reported) Magnesium Oxide (Magnesium Oxide) 400 Mg Tablet, 400 MG PO BID, (Reported) Multivitamin (Daily Mauro) 1 Each Tablet, 1 TAB PO DAILY, (Reported) Pantoprazole Sodium (Pantoprazole Sodium) 40 Mg Tablet.dr, 40 MG PO BID, (Reported) Sitagliptin (Januvia) 50 Mg Tablet, 50 MG PO DAILY, (Reported) Warfarin Sodium (Warfarin Sodium) 5 Mg Tablet, 5 MG PO 4XWK, (Reported) MON,WED,FRI,SUN Warfarin Sodium (Warfarin Sodium) 5 Mg Tablet, 7.5 MG PO 3XW, (Reported) TU,TH,SAT Scheduled PRN Albuterol Sulfate (Proair Hfa) 8.5 Gm Hfa.aer.ad, 2 PUFF INH Q4H PRN for SOB/WHEEZING, (Reported) Nitroglycerin (Nitrostat) 0.4 Mg Tab.subl, 0.4 MG SL NITRO PRN for CHEST PAIN, (Reported) Tizanidine HCl (Tizanidine HCl) 2 Mg Tablet, 2 MG PO Q8H PRN for MUSCLE SPASMS, (Reported) Allergies Coded Allergies: No Known Allergies (Verified , 09/19/16) Past Medical History Medical History Diabetes mellitus, CAD status post cardiac stents placed in, also stent in the stomach, coronary Surgical History Bilateral inguinal hernia repair Social History * Smoker: Denies Alcohol: Denies Drugs: denies A-FIB/CHADSVASC A-FIB History Current/History of A-Fib/PAF?: No Review of Systems Constitutional: Denies: Chills, Fever, Malaise, Night Sweats, Weakness, Fatigue, Weight Loss, Lethargy, Other Eyes: Denies: Pain, Vision change, Conjunctivae inflammation, Eyelid inflammation, Redness, Other ENT: Denies: Head Aches, Ear Pain, Dysphagia, Sinus Congestion, Post Nasal Dr ip, Sore Throat, Epistaxis, Other Symptoms Skin: Denies: Rash, Lesions, Jaundice, Bruising, Itching, Dry, Breakdown, Nail Changes, Other Pulmonary: Denies: Dyspnea, Cough, Pleuritic Chest Pain, Other Symptoms Cardiovascular: Denies: Chest Pain, Palpitations, Orthopnea, Paroxysmal Noc. Dyspnea, Edema, Lt Headedness, Other Symptoms Gastrointestinal: Denies: Nausea, Vomiting, Abdominal Pain, Diarrhea, Constipation, Melena, Hematochezia, Other Symptoms Genitourinary: Denies: Dysuria, Frequency, Incontinence, Hematuria, Retention, Other Symptoms Hematologic: Denies: Bruising, Bleeding Excessively, Petecchia, Purpura, Enlarged Lymph Nodes, Other Hematologic Endocrine: Denies: Polydipsia, Polyphagia, Polyuria, Heat Intolerance, Cold Intolerance, Other Endocrine Sx Musculoskeletal: Reports: Other Symptoms Neurological: Reports: Other Symptoms (sensory deficit from inguinal canal to just above the right knee and also motor deficit, 2/5 at the right upper extremity); Denies: Weakness, Numbness, Incoordination, Change in speech, Confusion, Seizures Physical Examination General Exam: Positive: Alert, Cooperative Eye Exam: Positive: PERRLA, Conjunctiva & lids normal ENT Exam: Positive: Atraumatic, Mucous membr. moist/pink Neck Exam: Positive: Supple Chest Exam: Positive: Clear to auscultation, Normal air movement Heart Exam: Positive: Rate Normal, Normal S1, Normal S2 Abdomen Exam: Positive: Normal bowel sounds, Soft, Tenderness, Hepatospenomegaly Skin Exam: Positive: Nl turgor and temperature Neuro Exam: Positive: Normal Speech, Other (motor strength 2/5 at the right lower extremity secondary to pain. Sensory deficit from right inguinal canal to just above the right knee on the right lower extremity. DTRs equal bilaterally) Psych Exam: Positive: Mental status NL, Mood NL Vital Signs Vital Signs Date Time Temp Pulse Resp B/P (MAP) Pulse Ox O2 Delivery O2 Flow Rate FiO2 08/06/18 11:35 16 08/06/18 11:32 52 96 08/06/18 11:31 131/63 (85) 08/06/18 07:38 97.5 Room Air Laboratory Data Labs 24H Laboratory Tests 2 08/06/18 08:05: 08/06/18 08:15: Immature Granulocyte % (Auto) 0.4, White Blood Count 11.0H, Red Blood Count 3.32L, Hemoglobin 9.6L, Hematocrit 31.6L, Mean Corpuscular Volume 95.2, Mean Corpuscular Hemoglobin 28.9, Mean Corpuscular Hemoglobin Concent 30.4L, Red Cell Distribution Width 16.6H, Platelet Count 262, Neutrophils (%) (Auto) 82.6H, Lymphocytes (%) (Auto) 6.4L, Monocytes (%) (Auto) 7.0H, Eosinophils (%) (Auto) 3.1H, Basophils (%) (Auto) 0.5, Neutrophils # (Auto) 9.1H, Lymphocytes # (Auto) 0.7L, Monocytes # (Auto) 0.8, Eosinophils # (Auto) 0.3, Basophils # (Auto) 0.1, Nucleated Red Blood Cells % (auto) 0.0, Erythrocyte Sedimentation Rate 83H, Anion Gap 6L, Glomerular Filtration Rate 41.0L, Blood Urea Nitrogen 26H, Creatinine 1.73H, Sodium Level 136, Potassium Level 4.1, Chloride Level 99, Carbon Dioxide Level 31, Calcium Level 8.5L, Aspartate Amino Transf (AST/SGOT) 24, Alanine Aminotransferase (ALT/SGPT) 17, Alkaline Phosphatase 86, Total Bilirubin 0.5, Total Protein 6.3L, Albumin 2.8L, C-Reactive Protein, Quantitative 2.13H, Albumin/Globulin Ratio 0.80L CBC/BMP Laboratory Tests 08/06/18 08:15 Red Blood Count 3.32 L, Mean Corpuscular Volume 95.2, Mean Corpuscular Hemoglobin 28.9, Mean Corpuscular Hemoglobin Concent 30.4 L, Red Cell Distribution Width 16.6 H, Neutrophils (%) (Auto) 82.6 H, Lymphocytes (%) (Auto) 6.4 L, Monocytes (%) (Auto) 7.0 H, Eosinophils (%) (Auto) 3.1 H, Basophils (%) (Auto) 0.5, Neutrophils # (Auto) 9.1 H, Lymphocytes # (Auto) 0.7 L, Monocytes # (Auto) 0.8, Eosinophils # (Auto) 0.3, Basophils # (Auto) 0.1, Calcium Level 8.5 L, Aspartate Amino Transf (AST/SGOT) 24, Alanine Aminotransferase (ALT/SGPT) 17, Alkaline Phosphatase 86, Total Bilirubin 0.5, Total Protein 6.3 L, Albumin 2.8 L Problems (1) Weakness Status: Acute Response to Treatment: Stable Problem Text: 77 years old white male with past medical history of diabetes mellitus, CAD status post cardiac stent and stomach stent placed in 2 weeks ago, came in with chief complaints of sudden onset of numbness of right lower extremity and difficulty eating out of recliner chair's. Patient is unable to ambulate is a right lower extremity due to severe pain. Patient being admitted to medical floor for further workup as etiology could not be as ascertained Admit to medical floor Nothing by mouth until further orders IVF normal saline 75 mL per hour Pain management with morphine sulfate Bed rest CT of right hip CT of brain Depending on the pending radiological work related request proper consultation Will review the home meds and if necessary will continue all DVT prophylaxis with Lovenox Plan / VTE VTE Prophylaxis Ordered?: Yes RADHA FUENTES MD August 06, 2018 15:22
[2018-08-06 15:31] LABS: FOLATE 14.3 NG/ML
--- NOTE | 2018-08-06 15:38 | REP ---
CT Head without contrast HISTORY: Right knee weakness COMPARISON: None Areas of decreased attenuation are present in the periventricular white matter. This represents small-vessel ischemic disease. There is no intraparenchymal hemorrhage, acute infarct, mass or midline shift. The ventricular system and cortical sulci are dilated consistent with mild volume loss. There is no extra cerebral collection. There is no fracture. The visualized sinuses are clear. IMPRESSION: 1. Small vessel ischemic disease. 2. Mild volume loss. Electronically Signed by Gideon Pate MD 08/06/2018 03:30 P
--- NOTE | 2018-08-06 15:53 | REP ---
MR LUMBAR SPINE WITHOUT CONTRAST: HISTORY: Weakness. Decreased signal intensity on T2-weighted images is present in the L4-5 and L5-S1 intervertebral discs. The L3-4 through L4-5 intervertebral discs are decreased in height. These findings are consistent with disc degeneration. There is no disc bulge or herniation at the L1-2 and L2-3 levels. The nerves exit the neural foramina without compression. There is hypertrophy of the posterior articulating facets at the L2-3 level. A diffuse disc bulge is present at the L3-4 level. There is minimal compression of the thecal sac. There is hypertrophy of the posterior articulating facets. The L3 nerves exit the neural foramina without compression. A diffuse disc bulge is present at the L4-5 level. There is minimal compression of the thecal sac. There is hypertrophy of the posterior articulating facets. The L4 nerves exit the neural foramina without compression. A diffuse disc bulge is present at the L5-S1 level. This abuts the thecal sac and S1 nerves. There is hypertrophy of the posterior articulating facets. The L5 nerves exit the neural foramina without compression. The conus medullaris is normal in appearance terminating at the level of the T12-L1 intervertebral disc. Normal signal intensity is present in the lumbar vertebral bodies. IMPRESSION: 1. Diffuse disc bulges at the L3-4 and L4-5 levels with minimal thecal sac compression. 2. Diffuse disc bulge at the L5-S1 level. This abuts the thecal sac and S1 nerves. Electronically Signed by Gideon Pate MD 08/06/2018 03:54 P
[2018-08-06 15:57] LABS: INR 1.19; PROTHROMBIN TIME 15.2 SECONDS (12.1-14.4)
[2018-08-06 16:01] VITALS: BP 149/84
--- NOTE | 2018-08-06 16:15 | REP ---
Right lower extremity deep vein duplex ultrasound: Comparison is 05/12/2016 (bilateral). The deep veins of the right lower extremity demonstrate normal compression, normal Doppler color flow and normal Doppler waveforms with respiration and augmentation from the popliteal vein to the common femoral vein. Impression: There is no right lower extremity deep vein thrombus. Electronically Signed by Jeffrey Max MD 08/06/2018 04:06 P
[2018-08-06] MEDS: ENOXAPARIN 40 MG/0.4 ML SYRINGE (J1650) SC SCH (16:32)
--- NOTE | 2018-08-06 17:17 | REP ---
CT study of the right hip without contrast: History: Pain. Comparison is made with imaging from CT study of the pelvis December 20, 2015. CT technique: Helical scanning is acquired. 3 mm axial images are generated reviewed at bone and soft-tissue window settings. Coronal and sagittal multiplanar reef May rios images are generated and reviewed. CT findings: There is a right iliac artery graft in place. Postsurgical changes are seen in the right groin. There are a few scattered normal-sized lymph nodes in the right groin. No soft tissue mass or cyst is seen. There is fairly advanced osteoarthritis of the right hip with superior joint space narrowing, well established femoral and acetabular osteophyte formation, subcortical cyst formation in the superior acetabulum and to a lesser extent superolateral femoral head. There is tendon insertion site spurring on the greater and lesser trochanters. There are are fragmented osteophytes medial and posterior to the femoral neck. These findings are not new. The joint space narrowing slightly more advanced than on the December 20, 2015 prior study. No bony destructive lesion or fracture is seen. Impression: Advanced right hip joint osteoarthritis. Electronically Signed by Neil Vaz MD 08/06/2018 05:08 P
[2018-08-06 22:00] VITALS: BP 128/70
[2018-08-06] MEDS ORDERED: D5W 1,000 ML IV ONE (22:15)
[2018-08-06] MEDS: DOCUSATE SODIUM 100 MG CAP PO SCH (22:23)
[2018-08-07] MEDS: MORPHINE 4 MG/ML 1ML VIAL/SYRINGE (J2270) IV PRN ×4 (00:19→18:41)
[2018-08-07] MEDS: ONDANSETRON 4MG/2ML VIAL (J2405) IV PRN ×3 (00:20→18:55)
[2018-08-07 06:00] VITALS: BP 132/68
[2018-08-07 06:20] LABS: HEMATOCRIT 29.7 % (42.0-52.0); HEMOGLOBIN 9.1 g/dl (13.5-17.5); MEAN CORPUSCULAR HEMOGLOBIN 28.6 pg (27.0-33.0); MEAN CORPUSCULAR HGB CONC 30.6 g/dl (32.0-36.5); MEAN CORPUSCULAR VOLUME 93.4 fl (80.0-96.0); PLATELET COUNT, AUTOMATED 217 10^3/uL (150-450); RED BLOOD COUNT 3.18 10^6/uL (4.30-6.10); WHITE BLOOD COUNT 10.2 10^3/uL (4.0-10.0)
[2018-08-07 06:45] LABS: CALCIUM LEVEL 8.5 MG/DL (8.8-10.2); CREATININE FOR GFR 1.26 MG/DL (0.70-1.30); GLOMERULAR FILTRATION RATE 59.1 (>42); MAGNESIUM LEVEL 1.9 MG/DL (1.8-2.4); POTASSIUM SERUM 3.9 MEQ/L (3.5-5.1)
[2018-08-07] MEDS ORDERED: DEXTROSE 50% 50 ML SYRINGE IV PRN (10:45)
[2018-08-07] MEDS ORDERED: GLUCAGON FOR INJ 1 MG VIAL (J1610) SC PRN (10:45)
[2018-08-07] MEDS ORDERED: GLUCOSE 4 GM CHEW TABLET PO PRN (10:45)
[2018-08-07] MEDS: DOCUSATE SODIUM 100 MG CAP PO SCH ×2 (11:09→22:15)
[2018-08-07] MEDS: ENOXAPARIN 40 MG/0.4 ML SYRINGE (J1650) SC SCH (11:09)
[2018-08-07] MEDS ORDERED: NITROGLYCERIN 0.4 MG SUBL TABLET SL PRN (12:30)
[2018-08-07 13:08] LABS: INR 1.2; PROTHROMBIN TIME 15.4 SECONDS (12.1-14.4)
--- NOTE | 2018-08-07 13:28 | IPNPDOC ---
Subjective Date Seen The patient was seen on 08/07/18. Subjective Chief Complaint/HPI Still feels numbness of the right lower extremity and unable to move his leg General: Denies: ROS Unobtainable, Chills, Night Sweats, Fatigue, Malaise, Normal Appetite, Other Symptoms Constitutional: Denies: Chills, Fever, Malaise, Night Sweats, Weakness, Fatigue, Weight Loss, Lethargy, Other Eyes: Denies: Pain, Vision change, Conjunctivae inflammation, Eyelid inflammation, Redness, Other ENT: Denies: Head Aches, Ear Pain, Dysphagia, Sinus Congestion, Post Nasal Drip, Sore Throat, Epistaxis, Other Symptoms Skin: Denies: Rash, Lesions, Jaundice, Bruising, Itching, Dry, Breakdown, Nail Changes, Other Pulmonary: Denies: Dyspnea, Cough, Pleuritic Chest Pain, Other Symptoms Cardiovascular: Denies: Chest Pain, Palpitations, Orthopnea, Paroxysmal Noc. Dyspnea, Edema, Lt Headedness, Other Symptoms Gastrointestinal: Denies: Nausea, Vomiting, Abdominal Pain, Diarrhea, Constipation, Melena, Hematochezia, Other Symptoms Genitourinary: Denies: Dysuria, Frequency, Incontinence, Hematuria, Retention, Other Symptoms Hematologic: Denies: Bruising, Bleeding Excessively, Petecchia, Purpura, Enlarged Lymph Nodes, Other Hematologic Musculoskeletal: Reports: Other Symptoms Neurological: Reports: Other Symptoms (and neck right hip, numbness, loss of sensory right leg and and weakness, right leg) Psych: Denies: Mood Normal, Anxiety, Depression, Memory Issues, Thoughts of Self Harm, Anger, Thoughts of Harming Other, Other Psych Objective Physical Examination General Exam: Positive: Alert, Cooperative Eye Exam: Positive: PERRLA, Conjunctiva & lids normal ENT Exam: Positive: Atraumatic, Mucous membr. moist/pink Neck Exam: Positive: Supple Chest Exam: Positive: Clear to auscultation, Normal air movement Heart Exam: Positive: Rate Normal, Normal S1, Normal S2 Abdomen Exam: Positive: Normal bowel sounds, Soft, Tenderness, Hepatospenomegaly Skin Exam: Positive: Nl turgor and temperature Neuro Exam: Positive: Normal Speech, Other (motor strength 2/5 at the right lower extremity secondary to pain. Sensory deficit from right inguinal canal to just above the right knee on the right lower extremity. DTRs equal bilaterally) Psych Exam: Positive: Mental status NL, Mood NL A-FIB/CHADSVASC A-FIB History Current/History of A-Fib/PAF?: No Assessment /Plan Problems (1) Weakness Status: Acute Response to Treatment: Stable Problem Text: 77 years old white male with past medical history of diabetes mellitus, CAD status post cardiac stent and stomach stent placed in 2 weeks ago, came in with chief complaints of sudden onset of numbness of right lower extre mity and difficulty eating out of recliner chair's. Patient is unable to ambulate is a right lower extremity due to severe pain. Patient being admitted to medical floor for further workup as etiology could not be as ascertained Patient is still a lot of pain secondary to right hip, unable to ambulate and also sensory loss of right lower extremity CT of the right hip shows advanced degenerative joint disease of right hip but no other abnormality Orthopedic consult, Dr. Dr. vo and neuro consult with Dr. Palm was called and discussed Awaiting input from consultants Continue all home meds , Coumadin 5 mg by mouth daily and will order INR daily and adjust dose accordingly PT was called to evaluate patient for weightbearing status Plan/VTE VTE Prophylaxis Ordered?: Yes VS, I&O, 24H, Fishbone Vital Signs/I&O Vital Signs Date Time Temp Pulse Resp B/P (MAP) Pulse Ox O2 Delivery O2 Flow Rate FiO2 08/07/18 06:37 18 08/07/18 06:00 98.5 101 132/68 (89) 91 08/06/18 15:55 Room Air I&O- Last 24 Hours up to 6 AM 08/07/18 06:00 Intake Total 580 ml Output Total 1050 ml Balance -470 ml Laboratory Data 24H LABS Laboratory Tests 2 08/06/18 15:40: Prothrombin Time 15.2H, Prothromb Time International Ratio 1.19 08/06/18 16:36: Bedside Glucose (Misc Panel) 113H 08/06/18 21:21: Bedside Glucose (Misc Panel) 76L 08/07/18 05:42: Nucleated Red Blood Cells % (auto) 0.0, Anion Gap 5L, Glomerular Filtration Rate 59.1, Blood Urea Nitrogen 20H, Creatinine 1.26, Sodium Level 135L, Potassium Level 3.9, Chloride Level 98, Carbon Dioxide Level 32, Calcium Level 8.5L, Magnesium Level 1.9 08/07/18 11:35: Bedside Glucose (Misc Panel) 126H 08/07/18 12:32: Prothrombin Time 15.4H, Prothromb Time International Ratio 1.20 CBC/BMP Laboratory Tests 08/07/18 05:42 Red Blood Count 3.18 L, Mean Corpuscular Volume 93.4, Mean Corpuscular Hemoglobin 28.6, Mean Corpuscular Hemoglobin Concent 30.6 L, Red Cell Distribution Width 16.8 H, Calcium Level 8.5 L RADHA FUENTES MD August 07, 2018 13:28
[2018-08-07] MEDS: HumaLOG INSULIN (NovoLOG) PER UNIT SC SCH ×3 (13:45→21:00)
[2018-08-07] MEDS: FUROSEMIDE 40 MG TAB PO SCH (13:48)
[2018-08-07] MEDS: CLOPIDOGREL 75 MG TAB PO SCH (13:49)
[2018-08-07] MEDS: MAGNESIUM OXIDE 400 MG TAB (MAG-OX) PO SCH (13:49)
[2018-08-07] MEDS: EZETIMIBE 10 MG TAB (ZETIA) PO SCH (13:49)
[2018-08-07] MEDS: PANTOPRAZOLE 40MG TAB (PROTONIX) PO SCH ×2 (13:49→22:15)
[2018-08-07] MEDS: ALLOPURINOL 300 MG TAB PO SCH (13:49)
[2018-08-07] MEDS: SITagliptin 50 MG TAB (JANUVIA) PO SCH (13:50)
[2018-08-07 14:00] VITALS: BP 119/56
--- NOTE | 2018-08-07 14:06 | CR ---
DATE OF CONSULTATION: 08/07/2018 REASON FOR CONSULTATION: I was asked to see the patient for right thigh numbness. HISTORY OF PRESENT ILLNESS: He is a 77-year-old male who was recently discharged from [facility] six days ago after undergoing a cardiac stent placement as well as some type of vascular procedure to his stomach, he describes. The stents were placed through his arm. The other procedure was done through the left groin. He was apparently doing okay until Sunday when he developed some soreness in his right hip area that he describes and then on Sunday he was walking around doing errands then he started having a feeling of weakness and numbness in that right leg associated with increasing pain. He was admitted through the emergency room and evaluated by the emergency room staff and admitted to the hospitalist service. He had extensive workup in the emergency room which consisted of a head CT, which was unremarkable and x-rays of his hip showing some arthritis as well as a CT scan showing no acute fractures. Lumbar spine MR scans showed some bulging discs in the lower levels, but no acute herniated discs. Bowel and bladder function were apparently unremarkable. He has gotten some relief from the pain from pain medicines but he has complained mainly of weakness and dense numbness in his right thigh he point to. So, the hospitalist called me this morning to evaluate this. He has an extensive past medical history of peripheral vascular disease status post abdominal aortic aneurysm repair in 2001, history of gout, history of hypercholesterolemia, hypertension, [id number]-[id number] diabetes, gastric reflux. His medications including allopurinol, baby aspirin, atorvastatin, carvedilol, Plavix, Coumadin, diltiazem, Zetia, Lasix, glipizide, Xalatan eye drops. He also has a history of some asthma and he takes albuterol as needed and nitroglycerin and tizanidine for muscle spasms. ALLERGIES: 1. CODEINE. Surgical history is hernia repair as well as abdominal aortic aneurysm repair. He does not smoke or drink alcohol excessively. He retired. He used to service [employer]. He lives here in [place]. Dr. Gilmore cares for his medically. When I examine him today, he is alert and he is oriented, lying in his bed, again complaining of mainly the numbness and weakness of that right leg. His temperature is 98.5, pulse is 101, respiratory rate 18, blood pressure 132/68, pulse 91. He a large longitudinal well healed incision anteriorly from cardiac bypasses and his aneurysm repair, and his umbilical hernia noted. Both lower extremities have chronic venous stasis changes around the lower legs, around his ankles. His pulses were not palpable, but I could get them easily with Doppler of the dorsalis pedis bilaterally and equally. Left leg was benign. He could lift it up off the bed without trouble or pain or soreness. The right leg he clearly had quadriceps muscle weakness and hip flexor weakness with dense numbness in the anterior aspect of the thigh and skin down to the lower leg on the outside part, and a little bit medially as well, but below the knee down along the lower leg the sensation was normal on the top of his foot and the plantar surface of his foot. He could dorsiflex and plantar flex his EHL well, good capillary refill noted. There was no significant severe irritability with logroll or internal/external rotation of the right hip. In other words, it did not appear to be synovitis in the hip joint. LABORATORY STUDIES: His white count was 10.2, hematocrit of 29.7, platelets 217. Sed rate was 83 yesterday with a CRP of 2.13, sodium 135, potassium 3.9, chloride 98, bicarb 32, BUN 20, creatinine 1.26, glucose 131, and calcium 8.5, magnesium 1.9. Ultrasound of his lower extremity did not show evidence of deep vein thrombosis (DVT). His hip and pelvis showed some arthritis of the hips. Lumbar spine MRI scan showed some basically some bulging discs at the lower lumbar levels. He has some discogenic narrowing at L5-S1 on my read. A large anterior syndesmophyte is seen on the CT scan. CT scan of the hip did not show a fracture, just some arthritis. IMPRESSION: 77-year-old male with right leg quadriceps and hip flexor weakness with numbness in the thigh, was associated with some pain in the right hip area. He does have some elevation of his sed rate and CRP, may be due to recent surgery. It does not appear to be an infected hip, it is not synovitic, although there is arthritis, but that would not explain the weakness in his leg and the numbness down the leg, and the reason why his leg ernesto making it difficult for him to walk. There may be some type of radiculopathic process or some type of a neurogenic process, or neuralgia. It is a bit unclear at this point. I think having the neurology evaluation to help us sort out the diagnosis and treatment recommendations are needed, and that apparently has been ordered by the hospitalist already because there was an order in the chart for a neurology consultation. I would recommend that for the time being we will follow him along clinically and see how his symptoms evolve. So, we look forward the neurology opinion and evaluation.
[2018-08-07] MEDS: WARFARIN SOD 5 MG TAB PO SCH (17:07)
--- NOTE | 2018-08-07 19:59 | REP ---
CT pelvis without contrast: History: Right lumbosacral plexopathy. Iliopsoas hematoma. Comparison CT study of the right hip is from August 06, 2018. Comparison CT abdomen and pelvis exam is from December 20, 2015. Technique: Helical scanning is acquired. 3 mm axial images are generated. Coronal and sagittal multiplanar reformation images are generated and reviewed. CT findings: There is heterogeneous swelling and increased attenuation in the right iliopsoas musculature along the anterolateral aspect of the right pelvic sidewall extending down in front of the femoral head to the level of the lesser trochanter of the right hip. This extends cranially to the level of the iliac crest. It is a new finding when compared with the 2016 study. It measures up to 3 cm in transverse dimension. No other hematoma is visible. The patient is status post aortobifemoral stent graft placement. Urinary bladder, seminal vesicles and prostate are unremarkable. There is sigmoid colon diverticulosis without CT evidence of diverticulitis. Bone window settings demonstrate fused anterior discogenic osteophyte formation along the right side anteriorly at the L5-S1 disc. These osteophytes are fairly large. There is osteoarthritic facet disease bilaterally at L4-5 and L5-S1. No bony destructive lesion is appreciated. There is moderate osteoarthritic hip articulation disease with joint space narrowing superiorly, right greater than left. Acetabular and femoral head osteophyte formation is seen again right more advanced than left. There are two or three periarticular ossicles medial to the femoral neck on the right. Sacrum and SI joints appear intact. Symphysis pubis is unremarkable. Impression: Somewhat elongate right iliopsoas hematoma as described above. No other acute abnormality. Moderate bilateral hip joint osteoarthritis. Electronically Signed by Neil Vaz MD 08/08/2018 07:44 A
[2018-08-07 22:00] VITALS: BP 139/67
[2018-08-07] MEDS: ATORVASTATIN 20 MG TAB PO SCH (22:05)
[2018-08-07] MEDS: CARVedilol 12.5 MG TAB PO SCH (22:12)
[2018-08-07] MEDS: LATANOPROST 0.005% OPHTH SOLN 2.5 ML OU SCH (22:15)
[2018-08-08] MEDS: MORPHINE 4 MG/ML 1ML VIAL/SYRINGE (J2270) IV PRN ×2 (01:05→15:34)
[2018-08-08] MEDS: ONDANSETRON 4MG/2ML VIAL (J2405) IV PRN (01:05)
[2018-08-08 06:48] VITALS: BP 102/58
[2018-08-08] MEDS: HumaLOG INSULIN (NovoLOG) PER UNIT SC SCH ×4 (07:30→21:00)
--- NOTE | 2018-08-08 07:31 | CR ---
DATE OF CONSULTATION: 08/07/2018 REFERRING PHYSICIAN: Dr. Constantino Sandoval REASON FOR CONSULTATION: Right leg numbness and weakness. HISTORY OF PRESENT ILLNESS: Mani Gomez is a 77-year-old man who was admitted at [facility] due to right leg pain, numbness and weakness. The patient had a cardiac catheterization on July 30 and had two cardiac stents. The next day he had catheterization and stent placed from his left groin into what sounds like mesenteric artery. The patient states that he had blockade of blood vessel in his abdomen or aorta. It was attempted through right groin but it could not be done. It was done through the left groin. It is unclear if it was cardiac or abdominal catheterization which was attempted through right groin. The patient was at his baseline state of health until Sunday night when he suddenly developed extreme right hip pain which was 10/10 in intensity, sharp and shooting in character and developed numbness and weakness in his right eye. He cannot stand on his right leg without assistance. He has had off and on the right hip pain but this pain is much different and much more severe. He has mild intermittent back pain. He denies any neck. Headaches. Problems in his arms or left leg. The patient has history of mechanical heart valve and has been on Coumadin since 2001. Coumadin was changed to Lovenox before his cardiac and abdominal catheterization and stents. He denies any falls or loss of consciousness. He denies dysphagia, dysarthria, diplopia, urinary incontinence, seizures or injuries. PAST MEDICAL HISTORY: Diabetes, mechanical heart valve, gout, dyslipidemia, diabetes type 2, coronary artery disease, intact arterial disease, bilateral inguinal hernia repair. CURRENT MEDICATIONS: Plavix 75 mg by mouth daily, Coumadin 5 mg alternating with 7.5 mg daily, Januvia 50 mg by mouth daily, Protonix 40 mg by mouth twice a day, multivitamin 1 tablet by mouth daily, magnesium oxide 400 mg by mouth twice a day, Xalatan eye drop, glipizide 2.5 mg by mouth daily, Lasix 40 mg by mouth daily, Zetia 10 mg by mouth daily, diltiazem 90 mg by mouth every 8 hours, carvedilol 12.5 mg by mouth twice a day, Lipitor 80 mg by mouth daily, aspirin 81 mg by mouth daily which she states he was supposed to stop, allopurinol 300 mg by mouth daily. SOCIAL HISTORY: He denies smoking, alcohol or illicit drugs. FAMILY HISTORY: Noncontributory. PHYSICAL EXAMINATION: Temperature 98.1, pulse 99, respiratory 80, blood pressure one 119/56, 92% saturation on room air. Heart: Regular rate rhythm. Lungs: Clear to auscultation. Abdomen: Soft, nontender, nondistended. No pedal edema. No musculoskeletal abnormalities. No rash. No signs of meningeal irritation. The patient is awake, alert, oriented to place, person and time. Normal speech comprehension and repetition. Extraoral muscles are intact. No facial weakness. Tongue and uvula are midline. No nystagmus. Recent and distant memory is intact. 5/5 strength in bilateral arms and left leg throughout. Strength in his right iliopsoas is 1-2/5 and right quadriceps is 3/5. Rest of the strength in his right leg is 5/5. He has decreased cold and pinprick sensation in his right thigh and medial aspect of right rios. The patient states the sensation is intact in his right foot. Sensation in the rest of his body is normal. Deep tendon flexes 1+ in arms and left knee and absent at the right knee and ankle. Plantars are downgoing. Gait is unsteady. He cannot stand without assistance. DIAGNOSTIC STUDIES: MRI scan of lumbosacral spine was reviewed and showed mild disc bulges at L3-L4, L4-L5, L5-S1 without spinal or foraminal stenosis. CRP was 2.13, erythrocyte sedimentation rate 83, blood glucose was 168 and creatinine was 1.7 but decreased to 1.2. Vitamin B12 level was 690 with folic acid 14.3. ASSESSMENT: 1. Right lumbar plexopathy. 2. 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 3. Rule out right iliopsoas hematoma causing right lumbar plexopathy as the patient had recent catheterization and has been on anticoagulation and aspirin and Plavix. 4. Right leg pain, numbness, weakness related to above. 5. Incidental mild lumbosacral spondylosis. PLAN: 1. CT scan of pelvis to rule out right iliopsoas hematoma. 2. Physical and occupational therapy. 3. Check Lyme antibody although my suspicion of index is low in the absence of typical rash for Lyme disease. 4. If iliopsoas hematoma is ruled out with may consider prednisone for 7-10 days for pain control. 5. Consider inpatient rehabilitation and follow with our office in 2-4 weeks after hospital discharge. 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
[2018-08-08] MEDS: SITagliptin 50 MG TAB (JANUVIA) PO SCH (09:14)
[2018-08-08] MEDS: FUROSEMIDE 40 MG TAB PO SCH (09:14)
[2018-08-08] MEDS: ALLOPURINOL 300 MG TAB PO SCH (09:14)
[2018-08-08] MEDS: DOCUSATE SODIUM 100 MG CAP PO SCH ×2 (09:14→21:49)
[2018-08-08] MEDS: MAGNESIUM OXIDE 400 MG TAB (MAG-OX) PO SCH (09:15)
[2018-08-08] MEDS: EZETIMIBE 10 MG TAB (ZETIA) PO SCH (09:15)
[2018-08-08] MEDS: CARVedilol 12.5 MG TAB PO SCH ×2 (09:15→21:50)
[2018-08-08] MEDS: ENOXAPARIN 40 MG/0.4 ML SYRINGE (J1650) SC SCH (09:16)
[2018-08-08] MEDS: PANTOPRAZOLE 40MG TAB (PROTONIX) PO SCH ×2 (09:16→21:49)
[2018-08-08] MEDS: CLOPIDOGREL 75 MG TAB PO SCH (09:16)
[2018-08-08 10:19] LABS: INR 1.2; PROTHROMBIN TIME 15.4 SECONDS (12.1-14.4)
--- NOTE | 2018-08-08 11:38 | IPNPDOC ---
Subjective Date Seen The patient was seen on 08/08/18. Subjective Chief Complaint/HPI Patient is slightly more strength in right lower extremity, but is still numbness. Positive General: Denies: ROS Unobtainable, Chills, Night Sweats, Fatigue, Malaise, Normal Appetite, Other Symptoms Constitutional: Denies: Chills, Fever, Malaise, Night Sweats, Weakness, Fatigue, Weight Loss, Lethargy, Other Eyes: Denies: Pain, Vision change, Conjunctivae inflammation, Eyelid inflammation, Redness, Other ENT: Denies: Head Aches, Ear Pain, Dysphagia, Sinus Congestion, Post Nasal Drip, Sore Throat, Epistaxis, Other Symptoms Pulmonary: Denies: Dyspnea, Cough, Pleuritic Chest Pain, Other Symptoms Cardiovascular: Denies: Chest Pain, Palpitations, Orthopnea, Paroxysmal Noc. Dyspnea, Edema, Lt Headedness, Other Symptoms Gastrointestinal: Denies: Nausea, Vomiting, Abdominal Pain, Diarrhea, Constipation, Melena, Hematochezia, Other Symptoms Genitourinary: Denies: Dysuria, Frequency, Incontinence, Hematuria, Retention, Other Symptoms Hematologic: Denies: Bruising, Bleeding Excessively, Petecchia, Purpura, Enlarged Lymph Nodes, Other Hematologic Endocrine: Denies: Polydipsia, Polyphagia, Polyuria, Heat Intolerance, Cold Intolerance, Other Endocrine Sx Musculoskeletal: Denies: Neck Pain, Back Pain, Shoulder Pain, Arm Pain, Hand Pain, Leg Pain, Foot Pain, Joint Pain, Muscle Pain, Spasms, Other Symptoms Neurological: Reports: Other Symptoms (numbness of right lower extremity and also weakness of right lower) Psych: Reports: Mood Normal Objective Physical Examination General Exam: Positive: Alert, Cooperative Eye Exam: Positive: PERRLA, Conjunctiva & lids normal ENT Exam: Positive: Atraumatic, Mucous membr. moist/pink Neck Exam: Positive: Supple Chest Exam: Positive: Clear to auscultation, Normal air movement Heart Exam: Positive: Rate Normal, Normal S1, Normal S2 Abdomen Exam: Positive: Normal bowel sounds, Soft, Tenderness, Hepatospenomegaly Skin Exam: Positive: Nl turgor and temperature Neuro Exam: Positive: Normal Speech, Other (motor strength 2/5 at the right lower extremity secondary to pain. Sensory deficit from right inguinal canal to just above the right knee on the right lower extremity. DTRs equal bilaterally) Psych Exam: Positive: Mental status NL, Mood NL A-FIB/CHADSVASC A-FIB History Current/History of A-Fib/PAF?: No Assessment /Plan Problems (1) Hematoma of iliopsoas muscle Status: Acute Problem Text: Iliopsoas hematoma of the right on right side secondary to possible complication of a procedure done 2 weeks ago as patient is on Coumadin as well as Plavix I discussed case with Dr. vo from orthopedic as no orthopedic intervention is needed at this time Neurology consult with Dr. Palm is greatly appreciated Secondary to patient's metallic prosthesis and recent history of stent placement. I'm reluctant to DC his Coumadin and Plavix I have placed a call to Dr. Howell [phone] , his intervention well tester to further discuss regarding anticoagulation in this patient's case. Callback is awaited Physical therapy and pain management will be continued Plan/VTE VTE Prophylaxis Ordered?: Yes VS, I&O, 24H, Fishbone Vital Signs/I&O Vital Signs Date Time Temp Pulse Resp B/P (MAP) Pulse Ox O2 Delivery O2 Flow Rate FiO2 08/08/18 09:15 60 115/60 08/08/18 06:48 98.4 18 92 08/06/18 15:55 Room Air I&O- Last 24 Hours up to 6 AM 08/08/18 06:00 Intake Total 1240 ml Output Total 1650 ml Balance -410 ml Laboratory Data 24H LABS Laboratory Tests 2 08/07/18 11:35: Bedside Glucose (Misc Panel) 126H 08/07/18 12:32: Prothrombin Time 15.4H, Prothromb Time International Ratio 1.20 08/07/18 16:53: Bedside Glucose (Misc Panel) 153H 08/07/18 20:33: Bedside Glucose (Misc Panel) 169H 08/08/18 09:44: Prothrombin Time 15.4H, Prothromb Time International Ratio 1.20 RADHA FUENTES MD August 08, 2018 11:38
[2018-08-08 14:00] VITALS: BP 140/67
[2018-08-08] MEDS ORDERED: WARFARIN SOD 7.5 MG TAB PO SCH (17:00)
--- NOTE | 2018-08-08 19:04 | ECGEPIP ---
Stationary ECG Study [facility] Test Date: 2018-08-07 Pat Name: BHUMI VICKERS Department: Room: [place] [address] Gender: M Vein Access Technician: TEA : [id number] Requested By: RADHA FUENTES Order Number: [id number] Reading MD: Segundo Cox Measurements Intervals [place] Rate: 100 P: -89 [place]: 196 QRS: 7 QRSD: 157 T: 8 QT: 442 QTc: 573 Interpretive Statements PROBABLY SINUS TACHYCARDIA RIGHT BUNDLE BRANCH BLOCK SINCE 12/20/15 HR IS FASTER AND P WAVES ARE LESS APPARENT Electronically Signed On 08-08-2018 19:04:27 EDT by Segundo Cox
[2018-08-08] MEDS: ATORVASTATIN 20 MG TAB PO SCH (21:54)
[2018-08-08] MEDS: LATANOPROST 0.005% OPHTH SOLN 2.5 ML OU SCH (21:55)
[2018-08-08 22:00] VITALS: BP 116/63
[2018-08-09 00:06] LABS: Lyme Disease IgG Ab 18 kDa Ban Present (.); Lyme Disease IgG Ab 23 kDa Ban Absent (.); Lyme Disease IgG Ab 28 kDa Ban Absent (.); Lyme Disease IgG Ab 30 kDa Ban Absent (.); Lyme Disease IgG Ab 39 kDa Ban Present (.); Lyme Disease IgG Ab 41 kDa Ban Present (.); Lyme Disease IgG Ab 45 kDa Ban Absent (.); Lyme Disease IgG Ab 58 kDa Ban Present (.); Lyme Disease IgG Ab 66 kDa Ban Absent (.); Lyme Disease IgG Ab 93 kDa Ban Absent (.); Lyme Disease IgG West Blot Int Negative (.); Lyme Disease IgG/IgM Antibodie 3.19 ISR (0.00-0.90); Lyme Disease IgM Ab 23 kDa Ban Present (.); Lyme Disease IgM Ab 39 kDa Ban Absent (.); Lyme Disease IgM Ab 41 kDa Ban Absent (.); Lyme Disease IgM Ab Quantitati 1.11 index (0.00-0.79); Lyme Disease IgM West Blot Int Negative (.)
[2018-08-09] MEDS: MORPHINE 4 MG/ML 1ML VIAL/SYRINGE (J2270) IV PRN ×2 (01:36→08:41)
[2018-08-09 06:00] VITALS: BP 102/65
[2018-08-09] MEDS ORDERED: glipiZIDE (GLUCOTROL) 5 MG TAB PO SCH (07:30)
[2018-08-09] MEDS ORDERED: MOM 30ML SUSPENSION UDC PO PRN (08:15)
[2018-08-09] MEDS ORDERED: BISACODYL 10 MG SUPP PR PRN (08:15)
[2018-08-09 08:24] LABS: BASO % 0.3 % (0.0-1.0); EOS # 0.3 10^3/uL (0.0-0.50); HEMATOCRIT 27.9 % (42.0-52.0); HEMOGLOBIN 8.6 g/dl (13.5-17.5); LYMPH # 0.6 10^3/uL (1.5-4.5); LYMPH % 5.8 % (24.0-44.0); MEAN CORPUSCULAR HEMOGLOBIN 28.9 pg (27.0-33.0); MEAN CORPUSCULAR HGB CONC 30.8 g/dl (32.0-36.5); MEAN CORPUSCULAR VOLUME 93.6 fl (80.0-96.0); MONO # 0.8 10^3/uL (0.0-0.8); MONO % 6.9 % (0.0-5.0); NEUTROPHILS # 9.2 10^3/uL (1.8-7.7); NEUTROPHILS % 83.7 % (36.0-66.0); PLATELET COUNT, AUTOMATED 189 10^3/uL (150-450); RED BLOOD COUNT 2.98 10^6/uL (4.30-6.10); WHITE BLOOD COUNT 10.9 10^3/uL (4.0-10.0)
[2018-08-09 08:34] LABS: INR 1.21; PROTHROMBIN TIME 15.5 SECONDS (12.1-14.4)
[2018-08-09 08:35] LABS: PARTIAL THROMBOPLASTIN TIME 43.5 SECONDS (25.4-37.6)
[2018-08-09 08:41] LABS: CALCIUM LEVEL 8.4 MG/DL (8.8-10.2); CREATININE FOR GFR 1.25 MG/DL (0.70-1.30); GLOMERULAR FILTRATION RATE 59.6 (>42); POTASSIUM SERUM 4.2 MEQ/L (3.5-5.1)
[2018-08-09] MEDS: HumaLOG INSULIN (NovoLOG) PER UNIT SC SCH ×4 (08:41→21:00)
[2018-08-09] MEDS: CARVedilol 12.5 MG TAB PO SCH ×2 (09:00→21:00)
[2018-08-09] MEDS ORDERED: BISACODYL 5 MG TAB PO SCH (10:00)
[2018-08-09] MEDS: MOM 30ML SUSPENSION UDC PO SCH (10:14)
[2018-08-09] MEDS: GABAPENTIN 100 MG CAP PO SCH ×3 (10:15→21:17)
[2018-08-09] MEDS: MAGNESIUM OXIDE 400 MG TAB (MAG-OX) PO SCH (10:15)
[2018-08-09] MEDS ORDERED: BISACODYL 5 MG TAB PO ONE (10:15)
[2018-08-09] MEDS: PANTOPRAZOLE 40MG TAB (PROTONIX) PO SCH ×2 (10:15→21:19)
[2018-08-09] MEDS: EZETIMIBE 10 MG TAB (ZETIA) PO SCH (10:15)
[2018-08-09] MEDS: SITagliptin 50 MG TAB (JANUVIA) PO SCH (10:15)
[2018-08-09] MEDS: ALLOPURINOL 300 MG TAB PO SCH (10:15)
[2018-08-09] MEDS: CLOPIDOGREL 75 MG TAB PO SCH (10:15)
[2018-08-09] MEDS: FUROSEMIDE 40 MG TAB PO SCH (10:16)
[2018-08-09] MEDS: tiZANidine 4 MG TAB PO SCH ×3 (10:16→21:17)
[2018-08-09] MEDS: ENOXAPARIN 40 MG/0.4 ML SYRINGE (J1650) SC SCH (10:20)
[2018-08-09] MEDS: glipiZIDE XL 5 MG TABCR PO SCH (10:24)
--- NOTE | 2018-08-09 10:52 | REP ---
CT pelvis without contrast: History: Iliopsoas hematoma. Comparison CT pelvis study is from [address] findings: The area of swelling and heterogeneous increased attenuation in the right iliopsoas muscle is again seen essentially unchanged from the study done August 07, 2018. No new hemorrhage is seen. Aortobifemoral vascular graft is again noted. No new bony abnormality is seen. Impression: Stable right iliopsoas hematoma. Electronically Signed by Neil Vaz MD 08/09/2018 06:22 P
[2018-08-09 14:00] VITALS: BP 132/67
--- NOTE | 2018-08-09 16:43 | IPNPDOC ---
Subjective Date Seen The patient was seen on 08/09/18. Subjective Chief Complaint/HPI Patient continues to complain of numbness and aching of his right leg, Pain and spasm when he moves around. No fever or chills, no bowel movemnt . No chest pain or shortness of breath. Objective Physical Examination General Exam: Positive: Alert, Cooperative, No Acute Distress Eye Exam: Positive: PERRLA, Conjunctiva & lids normal ENT Exam: Positive: Atraumatic, Mucous membr. moist/pink Neck Exam: Positive: Supple Chest Exam: Positive: Clear to auscultation, Normal air movement Heart Exam: Positive: Rate Normal, Normal S1, Normal S2; Negative: Murmurs, Rubs Abdomen Exam: Positive: Normal bowel sounds, Soft, Tenderness, Hepatospenomegaly Extremity Exam: Positive: Edema; Negative: Clubbing, Cyanosis Skin Exam: Positive: Nl turgor and temperature, Other skin issue (bilateral venous stasis changes. ) Neuro Exam: Positive: Normal Speech, Other (motor strength 2/5 at the right lower extremity secondary to pain. Sensory deficit from right inguinal canal to just above the right knee on the right lower extremity. 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 who was admitted at [facility] due to right leg pain, numbness and weakness. The patient had a cardiac catheterization on July 30 and had two cardiac stents. The next day he had catheterization and stent placed from his left groin into what sounds like mesenteric artery. The patient states that he had blockade of blood vessel in his abdomen or aorta. It was first attempted through right groin but it could not be done. It was done through the left groin. It is unclear if it was cardiac or abdominal catheterization which was attempted through right groin. The patient was at his baseline state of health until Sunday night 08/05/2018 when he suddenly developed extreme right hip pain which was 10/10 in intensity, sharp and shooting in character and developed numbness and weakness in his right leg. He could not stand on his right leg without assistance. He has had off and on the right hip pain but this pain is much different and much more severe. The patient has history of mechanical heart valve and has been on Coumadin since 2001. Coumadin was changed to Lovenox before his cardiac and abdominal catheterization and stents. He was found to have right ileopsoas hematoma causing right lumber plexopathy. Right ileopsoas hematoma causing right lumber plexopathy continue morphine prn. will also start percocet, tizanidine, gabapentin and bowel regimen continue Plavix and coumadin as patient with new stents and metallic cardiac valve. Monitor ileopsoas hematoma by follow up CT scan Follow up CT scan shows stable hematoma with no new bleeding. continue PT Diabetes with possible diabetic neuropathy continue januvia and glipizide lispro ac and hs CAD s/p cabg and cardiac stents continue plavix, statin, betablocker Hypertension continue diltiazem, coreg Hyperlipidemia continue zetia and statin metallic cardiac valve continue coumadin. INR subtherapeutic will adjust dose. Gout continue allopurinol GERD continue PPI, mylanta MARIANELA resolved Chronic bilateral venous stasis with stasis dermatitis. will continue lasix. Plan/VTE VTE Prophylaxis Ordered?: Yes VS, I&O, 24H, Fishbone Vital Signs/I&O Vital Signs Date Time Temp Pulse Resp B/P (MAP) Pulse Ox O2 Delivery O2 Flow Rate FiO2 08/09/18 06:00 97.9 101 19 102/65 (77) 92 08/06/18 15:55 Room Air I&O- Last 24 Hours up to 6 AM 08/09/18 06:00 Intake Total 1560 ml Output Total 2275 ml Balance -715 ml Laboratory Data 24H LABS Laboratory Tests 2 08/08/18 09:44: Prothrombin Time 15.4H, Prothromb Time International Ratio 1.20 08/08/18 11:39: Bedside Glucose (Misc Panel) 217H 08/08/18 16:36: Bedside Glucose (Misc Panel) 119H 08/08/18 19:42: Bedside Glucose (Misc Panel) 156H 08/09/18 05:45: Bedside Glucose (Misc Panel) 175H JESSENIA CLARK MD August 09, 2018 08:06
[2018-08-09] MEDS: WARFARIN SOD 5 MG TAB PO SCH (17:38)
[2018-08-09] MEDS: ATORVASTATIN 20 MG TAB PO SCH (21:17)
[2018-08-09] MEDS: SENOKOT S TAB PO SCH (21:18)
[2018-08-09] MEDS: PERCOCET 5MG/325MG TAB PO PRN (21:19)
[2018-08-09] MEDS: LATANOPROST 0.005% OPHTH SOLN 2.5 ML OU SCH (21:20)
[2018-08-09 22:00] VITALS: BP 113/56
[2018-08-10 06:00] VITALS: BP 122/67
[2018-08-10 06:52] VITALS: BP 126/62
[2018-08-10] MEDS: HumaLOG INSULIN (NovoLOG) PER UNIT SC SCH ×4 (08:34→23:33)
[2018-08-10] MEDS: ENOXAPARIN 40 MG/0.4 ML SYRINGE (J1650) SC SCH (08:34)
[2018-08-10] MEDS: glipiZIDE XL 5 MG TABCR PO SCH (08:35)
[2018-08-10] MEDS: PERCOCET 5MG/325MG TAB PO PRN ×2 (08:39→23:31)
[2018-08-10] MEDS ORDERED: BISACODYL 5 MG TAB PO PRN (09:00)
[2018-08-10 09:30] VITALS: BP 128/78
[2018-08-10 09:46] LABS: BASO % 0.4 % (0.0-1.0); EOS # 0.4 10^3/uL (0.0-0.50); EOS % 3.9 % (0.0-3.0); HEMATOCRIT 29.6 % (42.0-52.0); LYMPH % 10.3 % (24.0-44.0); MEAN CORPUSCULAR HEMOGLOBIN 29.8 pg (27.0-33.0); MEAN CORPUSCULAR HGB CONC 30.4 g/dl (32.0-36.5); MONO # 0.6 10^3/uL (0.0-0.8); MONO % 6.8 % (0.0-5.0); NEUTROPHILS # 7.4 10^3/uL (1.8-7.7); NEUTROPHILS % 78.4 % (36.0-66.0); PLATELET COUNT, AUTOMATED 214 10^3/uL (150-450); RED BLOOD COUNT 3.02 10^6/uL (4.30-6.10); WHITE BLOOD COUNT 9.5 10^3/uL (4.0-10.0)
[2018-08-10 09:56] LABS: INR 1.22; PROTHROMBIN TIME 15.6 SECONDS (12.1-14.4)
[2018-08-10 09:57] LABS: PARTIAL THROMBOPLASTIN TIME 47.7 SECONDS (25.4-37.6)
[2018-08-10] MEDS ORDERED: NITROGLYCERIN 0.4 MG SUBL TABLET SL PRN (10:00)
[2018-08-10] MEDS: HEPARIN DRIP 25,000 UNITS in APPROPRIATE DILUENT 1 EA IV SCH (10:08)
[2018-08-10 10:51] LABS: CALCIUM LEVEL 7.9 MG/DL (8.8-10.2); CREATININE FOR GFR 1.46 MG/DL (0.70-1.30); GLOMERULAR FILTRATION RATE 49.8 (>42); MAGNESIUM LEVEL 2.2 MG/DL (1.8-2.4); POTASSIUM SERUM 4.2 MEQ/L (3.5-5.1)
[2018-08-10] MEDS: SENOKOT S TAB PO SCH ×2 (11:14→23:28)
[2018-08-10] MEDS: MOM 30ML SUSPENSION UDC PO SCH (11:14)
[2018-08-10] MEDS: CLOPIDOGREL 75 MG TAB PO SCH (11:15)
[2018-08-10] MEDS: SITagliptin 50 MG TAB (JANUVIA) PO SCH (11:15)
[2018-08-10] MEDS: ALLOPURINOL 300 MG TAB PO SCH (11:16)
[2018-08-10] MEDS: MAGNESIUM OXIDE 400 MG TAB (MAG-OX) PO SCH (11:16)
[2018-08-10] MEDS: tiZANidine 4 MG TAB PO SCH ×3 (11:16→23:30)
[2018-08-10] MEDS: EZETIMIBE 10 MG TAB (ZETIA) PO SCH (11:17)
[2018-08-10] MEDS: PANTOPRAZOLE 40MG TAB (PROTONIX) PO SCH ×2 (11:17→23:32)
[2018-08-10] MEDS: CARVedilol 12.5 MG TAB PO SCH ×2 (11:18→23:32)
[2018-08-10] MEDS: FUROSEMIDE 40 MG TAB PO SCH (11:18)
[2018-08-10] MEDS: GABAPENTIN 100 MG CAP PO SCH ×3 (11:19→23:29)
--- NOTE | 2018-08-10 12:17 | IPNPDOC ---
Text Note Date of Service The patient was seen on 08/10/18. 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 on 07/31/18), HTN, DM2, DLP, Diabetic Neuropathy, Gout, AAA s/p repair (2001), Bilateral inguinal hernia repair who [facility] pain, numbness and weakness. Patient has reported that upon catheterization on 07/31/18 the had difficulty in the right groin and subsequently used the left groin. Patient was discharged home after procedures but presented on 08/05 with severe pain. Patient was found to have right ileopsoas hematoma causing right lumber plexopathy. . She was admitted to the hospital service for further evaluation and treatment. Orthopedic surgery and neurology were called on consultation. Patient was seen and examined at the bedside. Patient reports that his right leg pain has improved, however, his weakness and sensory loss have not changed significantly. Patient is continue to work with physical therapy in order to help improve his stability. . Currently, he denies chest pain, shortness of breath, palpitations, has not expense any nausea or vomiting and does not express any urinary discomfort. Objective: Vitals (See below) General: Lying in bed, no acute distress, comfortable, AAOx3 HEENT: NC, AT CVS: RRR, +S1S2 Lungs: Fair air entry b/l, -w/r/r Abdomen: Soft, ND, NT Extremities: - Edema, - Calf tenderness Neuro: 5/5 strength at R foot, 1/5 strength at R hip, 3-4/5 at R knee, 5/5 at entire LL Assessment and plan: Right leg pain / weakness / numbness - likely 2/2 Right iliopsoas hematoma with right lumber plexopathy - Patient is reported that there has been improvement in his right leg pain - Physical still reveals sensory loss and weakness - MRI lumbar spine 08/06: 1. Diffuse disc bulges at the L3-4 and L4-5 levels with minimal thecal sac compression. 2. Diffuse disc bulge at the L5-S1 level. This abuts the thecal sac and S1 nerves. - CT pelvis 08/07: Somewhat elongate right iliopsoas hematoma as described above. No other acute abnormality. Moderate bilateral hip joint osteoarthritis. - CT pelvis 08/09: Stable right iliopsoas hematoma. - c/w Dilaudid PRN, Percocet PRN, c/w Tizanidine and Gabapentin - c/w Plavix and Coumadin; dose has been increased to achieve therapeutic INR - c/w physical therapy s/p Leukocytosis - likely 2/2 reactive etiology; less likely 2/2 infectious etiology - No fevers noted - Has remained hemodynamically stable - will hold of antibiotic therapy s/p Constipation - c/w Bowel regimen DM2 with Diabetic neuropathy - c/w ISS and Gabapentin - c/w Sitagliptin and Glipizide CAD s/p CABG and stent (07/30/18) - c/w Plavix, Carvedilol, Atorvastatin HTN - BP appears well controlled - c/w Diltiazem and Carvedilol DLP - c/w Atorvastatin and Ezetimibe Mechanical Aortic valve - Model # [id number]; Serial # [id number] - Patient has indicated that his INR target is 2.5 to 3.5 - Currently he is sub-therapeutic - Will start Heparin drip - c/w Coumadin; will increase dose - I have discussed with the patient that starting anticoagulation may increase change of bleeding / worsen hematoma of his right leg; however the risk of clot development while having a sub-therapeutic INR is high; patient has verbalized understanding and would like to continue with anticoagulation at this time Gout - c/w Allopurinol GERD -c/w Protonix Elevation of Cr - likely 2/2 CKD3 - Baseline Cr of 1.3-1.6 - Currently appears to be at baseline Chronic bilateral venous stasis with stasis dermatitis. - c/w Furosemide DVT prophylaxis - Will DC Lovenox - c/w Coumadin; will start heparin drip Disposition: - Will continue with physical therapy Grant ARCE, I+O Grant ARCE, I+O Laboratory Tests 08/10/18 09:06 Red Blood Count 3.02 L, Mean Corpuscular Volume 98.0 H, Mean Corpuscular Hemoglobin 29.8, Mean Corpuscular Hemoglobin Concent 30.4 L, Red Cell Distribution Width 17.0 H, Neutrophils (%) (Auto) 78.4 H, Lymphocytes (%) (Auto) 10.3 L, Monocytes (%) (Auto) 6.8 H, Eosinophils (%) (Auto) 3.9 H, Basophils (%) (Auto) 0.4, Neutrophils # (Auto) 7.4, Lymphocytes # (Auto) 1.0 L, Monocytes # (Auto) 0.6, Eosinophils # (Auto) 0.4, Basophils # (Auto) 0.0, Calcium Level 7.9 L Vital Signs Date Time Temp Pulse Resp B/P (MAP) Pulse Ox O2 Delivery O2 Flow Rate FiO2 08/10/18 09:30 95.8 89 17 128/78 (95) 94 08/06/18 15:55 Room Air I&O- Last 24 Hours up to 6 AM 08/10/18 06:00 Intake Total 1450 ml Output Total 650 ml Balance 800 ml JA RUBIN MD August 10, 2018 12:17
[2018-08-10 14:00] VITALS: BP 111/59
[2018-08-10] MEDS: WARFARIN SOD 5 MG TAB PO SCH (16:55)
[2018-08-10 22:00] VITALS: BP 119/57
[2018-08-10] MEDS: ATORVASTATIN 20 MG TAB PO SCH (23:30)
[2018-08-11] MEDS: HEPARIN DRIP 25,000 UNITS in APPROPRIATE DILUENT 1 EA IV SCH (00:22)
[2018-08-11] MEDS: LATANOPROST 0.005% OPHTH SOLN 2.5 ML OU SCH ×2 (01:39→20:44)
[2018-08-11 06:00] VITALS: BP 107/61
[2018-08-11 06:41] LABS: BASO % 0.3 % (0.0-1.0); EOS # 0.4 10^3/uL (0.0-0.50); EOS % 4.7 % (0.0-3.0); HEMATOCRIT 27.2 % (42.0-52.0); HEMOGLOBIN 8.4 g/dl (13.5-17.5); LYMPH # 0.8 10^3/uL (1.5-4.5); LYMPH % 10.4 % (24.0-44.0); MEAN CORPUSCULAR HEMOGLOBIN 29.9 pg (27.0-33.0); MEAN CORPUSCULAR HGB CONC 30.9 g/dl (32.0-36.5); MEAN CORPUSCULAR VOLUME 96.8 fl (80.0-96.0); MONO # 0.6 10^3/uL (0.0-0.8); MONO % 7.3 % (0.0-5.0); NEUTROPHILS # 6.1 10^3/uL (1.8-7.7); NEUTROPHILS % 76.9 % (36.0-66.0); PLATELET COUNT, AUTOMATED 209 10^3/uL (150-450); RED BLOOD COUNT 2.81 10^6/uL (4.30-6.10); WHITE BLOOD COUNT 7.9 10^3/uL (4.0-10.0)
[2018-08-11 06:54] LABS: PARTIAL THROMBOPLASTIN TIME 106.9 SECONDS (25.4-37.6)
[2018-08-11 07:00] LABS: ALBUMIN 2.1 GM/DL (3.2-5.2); BILIRUBIN,TOTAL 0.6 MG/DL (0.2-1.0); CALCIUM LEVEL 8.1 MG/DL (8.8-10.2); CREATININE FOR GFR 1.44 MG/DL (0.70-1.30); GLOMERULAR FILTRATION RATE 50.6 (>42); MAGNESIUM LEVEL 2.5 MG/DL (1.8-2.4); POTASSIUM SERUM 4.7 MEQ/L (3.5-5.1); TOTAL PROTEIN 6.3 GM/DL (6.4-8.2)
[2018-08-11 07:39] LABS: INR 1.17; PROTHROMBIN TIME 15.1 SECONDS (12.1-14.4)
[2018-08-11] MEDS: SENOKOT S TAB PO SCH ×2 (08:33→20:44)
[2018-08-11] MEDS: CLOPIDOGREL 75 MG TAB PO SCH (08:33)
[2018-08-11] MEDS: tiZANidine 4 MG TAB PO SCH ×3 (08:34→20:44)
[2018-08-11] MEDS: MAGNESIUM OXIDE 400 MG TAB (MAG-OX) PO SCH (08:34)
[2018-08-11] MEDS: FUROSEMIDE 40 MG TAB PO SCH (08:34)
[2018-08-11] MEDS: SITagliptin 50 MG TAB (JANUVIA) PO SCH (08:34)
[2018-08-11] MEDS: EZETIMIBE 10 MG TAB (ZETIA) PO SCH (08:34)
[2018-08-11] MEDS: glipiZIDE XL 5 MG TABCR PO SCH (08:34)
[2018-08-11] MEDS: PANTOPRAZOLE 40MG TAB (PROTONIX) PO SCH ×2 (08:34→20:44)
[2018-08-11] MEDS: ALLOPURINOL 300 MG TAB PO SCH (08:34)
[2018-08-11] MEDS: HumaLOG INSULIN (NovoLOG) PER UNIT SC SCH ×4 (08:35→21:00)
[2018-08-11] MEDS: GABAPENTIN 100 MG CAP PO SCH ×3 (08:35→20:44)
[2018-08-11] MEDS: CARVedilol 12.5 MG TAB PO SCH ×2 (08:36→20:47)
[2018-08-11] MEDS: MOM 30ML SUSPENSION UDC PO SCH (08:37)
--- NOTE | 2018-08-11 11:20 | IPNPDOC ---
Text Note Date of Service The patient was seen on 08/11/18. 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 on 07/31/18), HTN, DM2, DLP, Diabetic Neuropathy, Gout, AAA s/p repair (2001), Bilateral inguinal hernia repair who presented to [facility] because of right leg pain, numbness and weakness. Patient has reported that upon catheterization on 07/31/18 the had difficulty in the right groin and subsequently used the left groin. Patient was discharged home after procedures but presented on 08/05 with severe pain. Patient was found to have right ileopsoas hematoma causing right lumber plexopathy. . She was admitted to the hospital service for further evaluation and treatment. Orthopedic surgery and neurology were called on consultation. Patient was seen and examined at the bedside. Patient reports that his right hip pain is doing significantly better. Still has loss of sensation and weakness of his right hip. Reports that his pain is tolerable with Percocet. He is looking for to working with physical therapy tomorrow. Advised him that he will likely require rehabilitation prior to discharge home. Test chest pain, shortness of breath or palpitations. Denies nausea, vomiting, abdominal pain or urinary discomfort. Objective: Vitals (See below) General: Lying in bed, no acute distress, comfortable, AAOx3 HEENT: NC, AT CVS: RRR, +S1S2 Lungs: Fair air entry b/l, no evidence of wheezing, rales or rhonchi Abdomen: Soft, ND, NT Extremities: No evidence of edema, - Calf tenderness Neuro: 5/5 strength at R foot, 1/5 strength at R hip, 3-4/5 at R knee, 5/5 at entire LL - remains unchanged Assessment and plan: Right leg pain / weakness / numbness - likely 2/2 Right iliopsoas hematoma with right lumber plexopathy - Patient is reported that there has been improvement in his right leg pain; still reports sensory loss - Physical remains relatively unchanged - MRI lumbar spine 08/06: 1. Diffuse disc bulges at the L3-4 and L4-5 levels with minimal thecal sac compression. 2. Diffuse disc bulge at the L5-S1 level. This abuts the thecal sac and S1 nerves. - CT pelvis 08/07: Somewhat elongate right iliopsoas hematoma as described above. No other acute abnormality. Moderate bilateral hip joint osteoarthritis. - CT pelvis 08/09: Stable right iliopsoas hematoma. - c/w Dilaudid PRN, Percocet PRN, c/w Tizanidine and Gabapentin - c/w Plavix and Coumadin; will provide higher dose today - c/w physical therapy s/p Leukocytosis - likely 2/2 reactive etiology; less likely 2/2 infectious etiology - No fevers noted - Has remained hemodynamically stable - Will hold of antibiotic therapy s/p Constipation - c/w Bowel regimen DM2 with Diabetic neuropathy - c/w ISS and Gabapentin - c/w Sitagliptin and Glipizide CAD s/p CABG and stent (07/30/18) - c/w Plavix, Carvedilol, Atorvastatin HTN - BP appears well controlled - c/w Diltiazem and Carvedilol DLP - c/w Atorvastatin and Ezetimibe Mechanical Aortic valve - Model # [id number]; Serial # [id number] - Patient has indicated that his INR target is 2.5 to 3.5 - Currently he is sub-therapeutic - c/w Coumadin; will again increase dose - c/w Heparin drip while INR is subtherapeutic - I have discussed with the patient that starting anticoagulation may increase change of bleeding / worsen hematoma of his right leg; however the risk of clot development while having a sub-therapeutic INR is high; patient has verbalized understanding and would like to continue with anticoagulation at this time Gout - c/w Allopurinol GERD -c/w Protonix Elevation of Cr - likely 2/2 CKD3 - Baseline Cr of 1.3-1.6 - Currently appears to be at baseline Chronic bilateral venous stasis with stasis dermatitis. - c/w Furosemide DVT prophylaxis - s/p Lovenox - c/w Coumadin (INR subtherapeutic) and Heparin drip Disposition: - Will continue with physical therapy - Anticipate rehabilitation VS,Fishbone, I+O VS, Fishbone, I+O Laboratory Tests 08/11/18 06:24 Red Blood Count 2.81 L, Mean Corpuscular Volume 96.8 H, Mean Corpuscular Hemoglobin 29.9, Mean Corpuscular Hemoglobin Concent 30.9 L, Red Cell Distribution Width 16.7 H, Neutrophils (%) (Auto) 76.9 H, Lymphocytes (%) (Auto) 10.4 L, Monocytes (%) (Auto) 7.3 H, Eosinophils (%) (Auto) 4.7 H, Basophils (%) (Auto) 0.3, Neutrophils # (Auto) 6.1, Lymphocytes # (Auto) 0.8 L, Monocytes # (Auto) 0.6, Eosinophils # (Auto) 0.4, Basophils # (Auto) 0.0, Calcium Level 8.1 L, Aspartate Amino Transf (AST/SGOT) 65 H, Alanine Aminotransferase (ALT/SGPT) 23, Alkaline Phosphatase 70, Total Bilirubin 0.6, Total Protein 6.3 L, Albumin 2.1 L Vital Signs Date Time Temp Pulse Resp B/P (MAP) Pulse Ox O2 Delivery O2 Flow Rate FiO2 08/11/18 08:36 84 116/62 08/11/18 06:00 97.3 18 92 08/06/18 15:55 Room Air I&O- Last 24 Hours up to 6 AM 08/11/18 06:00 Intake Total 1560 ml Output Total 1225 ml Balance 335 ml JA RUBIN MD August 11, 2018 11:19
[2018-08-11 14:00] VITALS: BP 117/58
[2018-08-11] MEDS ORDERED: WARFARIN SOD 5 MG TAB PO ONE (17:00)
[2018-08-11] MEDS: WARFARIN SOD 5 MG TAB PO SCH (17:27)
[2018-08-11] MEDS: HEPARIN SOD (PORCINE) 5000 UNITS/ML VIAL IV PRN (20:42)
[2018-08-11] MEDS: ATORVASTATIN 20 MG TAB PO SCH (20:44)
[2018-08-11] MEDS: PERCOCET 5MG/325MG TAB PO PRN (21:31)
[2018-08-11 22:00] VITALS: BP 119/57
[2018-08-12] MEDS: HEPARIN DRIP 25,000 UNITS in APPROPRIATE DILUENT 1 EA IV SCH (00:29)
[2018-08-12 02:58] LABS: BASO % 0.2 % (0.0-1.0); EOS # 0.4 10^3/uL (0.0-0.50); EOS % 4.8 % (0.0-3.0); HEMATOCRIT 27.3 % (42.0-52.0); HEMOGLOBIN 8.3 g/dl (13.5-17.5); LYMPH % 10.5 % (24.0-44.0); MEAN CORPUSCULAR HEMOGLOBIN 29.2 pg (27.0-33.0); MEAN CORPUSCULAR HGB CONC 30.4 g/dl (32.0-36.5); MEAN CORPUSCULAR VOLUME 96.1 fl (80.0-96.0); MONO # 0.6 10^3/uL (0.0-0.8); MONO % 7.1 % (0.0-5.0); NEUTROPHILS % 77.2 % (36.0-66.0); PLATELET COUNT, AUTOMATED 230 10^3/uL (150-450); RED BLOOD COUNT 2.84 10^6/uL (4.30-6.10); WHITE BLOOD COUNT 9.1 10^3/uL (4.0-10.0)
[2018-08-12 03:11] LABS: INR 1.41; PROTHROMBIN TIME 17.5 SECONDS (12.1-14.4)
[2018-08-12 04:06] LABS: ALBUMIN 2.3 GM/DL (3.2-5.2); BILIRUBIN,TOTAL 0.4 MG/DL (0.2-1.0); CALCIUM LEVEL 7.8 MG/DL (8.8-10.2); CREATININE FOR GFR 1.68 MG/DL (0.70-1.30); GLOMERULAR FILTRATION RATE 42.4 (>42); MAGNESIUM LEVEL 1.9 MG/DL (1.8-2.4); POTASSIUM SERUM 4.8 MEQ/L (3.5-5.1); TOTAL PROTEIN 5.8 GM/DL (6.4-8.2)
[2018-08-12 06:00] VITALS: BP 114/58
[2018-08-12] MEDS: PERCOCET 5MG/325MG TAB PO PRN ×2 (06:19→20:54)
[2018-08-12] MEDS: HumaLOG INSULIN (NovoLOG) PER UNIT SC SCH ×4 (08:26→20:48)
[2018-08-12] MEDS: EZETIMIBE 10 MG TAB (ZETIA) PO SCH (08:28)
[2018-08-12] MEDS: SENOKOT S TAB PO SCH ×2 (08:28→20:47)
[2018-08-12] MEDS: MOM 30ML SUSPENSION UDC PO SCH (08:28)
[2018-08-12] MEDS: MAGNESIUM OXIDE 400 MG TAB (MAG-OX) PO SCH (08:28)
[2018-08-12] MEDS: CLOPIDOGREL 75 MG TAB PO SCH (08:29)
[2018-08-12] MEDS: SITagliptin 50 MG TAB (JANUVIA) PO SCH (08:29)
[2018-08-12] MEDS: tiZANidine 4 MG TAB PO SCH ×3 (08:29→20:47)
[2018-08-12] MEDS: GABAPENTIN 100 MG CAP PO SCH ×3 (08:29→20:47)
[2018-08-12] MEDS: glipiZIDE XL 5 MG TABCR PO SCH (08:29)
[2018-08-12] MEDS: CARVedilol 12.5 MG TAB PO SCH ×2 (08:29→20:48)
[2018-08-12] MEDS: ALLOPURINOL 300 MG TAB PO SCH (08:30)
[2018-08-12] MEDS: PANTOPRAZOLE 40MG TAB (PROTONIX) PO SCH ×2 (08:30→20:47)
--- NOTE | 2018-08-12 11:40 | IPNPDOC ---
Text Note Date of Service The patient was seen on 08/12/18. 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 on 07/31/18), HTN, DM2, DLP, Diabetic Neuropathy, Gout, AAA s/p repair (2001), Bilateral inguinal hernia repair who presented to [facility] because of right leg pain, numbness and weakness. Patient has reported that upon catheterization on 07/31/18 the had difficulty in the right groin and subsequently used the left groin. Patient was discharged home after procedures but presented on 08/05 with severe pain. Patient was found to have right ileopsoas hematoma causing right lumber plexopathy. . She was admitted to the hospital service for further evaluation and treatment. Orthopedic surgery and neurology were called on consultation. Patient was seen and examined at the bedside. Patient reports that his pain is doing better. He will be continuing to work with physical therapy today, but that sensation and weakness appeared to be relatively unchanged. Denies chest pain, shortness of breath or palpitations. Has noted that the current pain medications are doing well. Denies any urinary discomfort. Objective: Vitals (See below) General: Lying in bed, no acute distress, comfortable, AAOx3 HEENT: NC, AT CVS: RRR, +S1S2 Lungs: Air entry is fair bilaterally without evidence of rhonchi, rales or wheezing Abdomen: Soft, ND, NT Extremities: Lower extremities are without edema and there does not appear to be any calf tenderness Neuro: Weakness of right leg noted; right foot with 5/5 strength; LLE is 5/5 Assessment and plan: Right leg pain / weakness / numbness - likely 2/2 Right iliopsoas hematoma with right lumber plexopathy - Patient is reported that there has been improvement in his right leg pain; still reports sensory loss - Physical remains relatively unchanged - MRI lumbar spine 08/06: 1. Diffuse disc bulges at the L3-4 and L4-5 levels with minimal thecal sac compression. 2. Diffuse disc bulge at the L5-S1 level. This abuts the thecal sac and S1 nerves. - CT pelvis 08/07: Somewhat elongate right iliopsoas hematoma as described above. No other acute abnormality. Moderate bilateral hip joint osteoarthritis. - CT pelvis 08/09: Stable right iliopsoas hematoma. - c/w Dilaudid PRN, Percocet PRN, c/w Tizanidine and Gabapentin - c/w Plavix and Coumadin; will provide higher dose today - c/w physical therapy; patient will continue to progress with physical therapy and will likely require rehabilitation moving forward s/p Leukocytosis - likely 2/2 reactive etiology; less likely 2/2 infectious etiology - No fevers noted - Has remained hemodynamically stable - Will hold of antibiotic therapy s/p Constipation - c/w Bowel regimen DM2 with Diabetic neuropathy - c/w ISS and Gabapentin - c/w Sitagliptin and Glipizide CAD s/p CABG and stent (07/30/18) - c/w Plavix, Carvedilol, Atorvastatin HTN - BP appears well controlled - c/w Diltiazem and Carvedilol DLP - c/w Atorvastatin and Ezetimibe Mechanical Aortic valve - Model # [id number]; Serial # [id number] - Patient has indicated that his INR target is 2.5 to 3.5 - Currently he is sub-therapeutic; although improving - c/w Coumadin; will again increase dose - c/w Heparin drip while INR is subther apeutic - I have discussed with the patient that starting anticoagulation may increase change of bleeding / worsen hematoma of his right leg; however the risk of clot development while having a sub-therapeutic INR is high; patient has verbalized understanding and would like to continue with anticoagulation at this time Gout - c/w Allopurinol GERD -c/w Protonix Elevation of Cr - likely 2/2 CKD3 - Baseline Cr of 1.3-1.6 - Currently appears to be at baseline; slightly elevated from baseline - Will hold diuretics Chronic bilateral venous stasis with stasis dermatitis - Will hold Furosemide DVT prophylaxis - s/p Lovenox - c/w Coumadin (INR subtherapeutic) and Heparin drip Disposition: - Will continue with physical therapy - Anticipate rehabilitation VS,Fishbone, I+O VS, Fishbone, I+O Laboratory Tests 08/12/18 02:47 Red Blood Count 2.84 L, Mean Corpuscular Volume 96.1 H, Mean Corpuscular Hemoglobin 29.2, Mean Corpuscular Hemoglobin Concent 30.4 L, Red Cell Distribution Width 16.7 H, Neutrophils (%) (Auto) 77.2 H, Lymphocytes (%) (Auto) 10.5 L, Monocytes (%) (Auto) 7.1 H, Eosinophils (%) (Auto) 4.8 H, Basophils (%) (Auto) 0.2, Neutrophils # (Auto) 7.0, Lymphocytes # (Auto) 1.0 L, Monocytes # (Auto) 0.6, Eosinophils # (Auto) 0.4, Basophils # (Auto) 0.0, Calcium Level 7.8 L, Aspartate Amino Transf (AST/SGOT) 59 H, Alanine Aminotransferase (ALT/SGPT) 23, Alkaline Phosphatase 67, Total Bilirubin 0.4, Total Protein 5.8 L, Albumin 2.3 L Vital Signs Date Time Temp Pulse Resp B/P (MAP) Pulse Ox O2 Delivery O2 Flow Rate FiO2 08/12/18 08:29 75 119/72 08/12/18 06:49 16 08/12/18 06:00 96.8 92 08/06/18 15:55 Room Air I&O- Last 24 Hours up to 6 AM 08/12/18 05:59 Intake Total 2125 ml Output Total 1450 ml Balance 675 ml JA RUBIN MD August 12, 2018 11:40
[2018-08-12 14:00] VITALS: BP 104/58
[2018-08-12] MEDS: WARFARIN SOD 5 MG TAB PO SCH (17:01)
[2018-08-12] MEDS: ATORVASTATIN 20 MG TAB PO SCH (20:47)
[2018-08-12] MEDS: LATANOPROST 0.005% OPHTH SOLN 2.5 ML OU SCH (20:49)
[2018-08-12 22:00] VITALS: BP 113/64
[2018-08-13] MEDS: HEPARIN DRIP 25,000 UNITS in APPROPRIATE DILUENT 1 EA IV SCH (00:23)
[2018-08-13 05:53] LABS: BASO % 0.5 % (0.0-1.0); EOS # 0.5 10^3/uL (0.0-0.50); EOS % 5.5 % (0.0-3.0); HEMATOCRIT 27.1 % (42.0-52.0); HEMOGLOBIN 8.2 g/dl (13.5-17.5); LYMPH % 11.8 % (24.0-44.0); MEAN CORPUSCULAR HEMOGLOBIN 29.2 pg (27.0-33.0); MEAN CORPUSCULAR HGB CONC 30.3 g/dl (32.0-36.5); MEAN CORPUSCULAR VOLUME 96.4 fl (80.0-96.0); MONO # 0.6 10^3/uL (0.0-0.8); MONO % 7.8 % (0.0-5.0); NEUTROPHILS # 6.1 10^3/uL (1.8-7.7); PLATELET COUNT, AUTOMATED 246 10^3/uL (150-450); RED BLOOD COUNT 2.81 10^6/uL (4.30-6.10); WHITE BLOOD COUNT 8.2 10^3/uL (4.0-10.0)
[2018-08-13 06:00] VITALS: BP 96/59
[2018-08-13 06:05] LABS: INR 1.65; PROTHROMBIN TIME 19.8 SECONDS (12.1-14.4)
[2018-08-13 06:27] LABS: ALBUMIN 2.2 GM/DL (3.2-5.2); BILIRUBIN,TOTAL 0.3 MG/DL (0.2-1.0); CALCIUM LEVEL 8.3 MG/DL (8.8-10.2); CREATININE FOR GFR 1.74 MG/DL (0.70-1.30); GLOMERULAR FILTRATION RATE 40.7 (>42); MAGNESIUM LEVEL 2.3 MG/DL (1.8-2.4); POTASSIUM SERUM 4.7 MEQ/L (3.5-5.1); TOTAL PROTEIN 6.3 GM/DL (6.4-8.2)
[2018-08-13 07:05] LABS: PARTIAL THROMBOPLASTIN TIME 124.3 SECONDS (25.4-37.6)
[2018-08-13] MEDS ORDERED: NS 1,000 ML IV SCH (07:15)
[2018-08-13] MEDS: HumaLOG INSULIN (NovoLOG) PER UNIT SC SCH ×4 (07:30→21:00)
[2018-08-13] MEDS: CLOPIDOGREL 75 MG TAB PO SCH (08:38)
[2018-08-13] MEDS: MOM 30ML SUSPENSION UDC PO SCH (08:38)
[2018-08-13] MEDS: GABAPENTIN 100 MG CAP PO SCH ×3 (08:38→21:53)
[2018-08-13] MEDS: glipiZIDE XL 5 MG TABCR PO SCH (08:38)
[2018-08-13] MEDS: EZETIMIBE 10 MG TAB (ZETIA) PO SCH (08:39)
[2018-08-13] MEDS: SENOKOT S TAB PO SCH ×2 (08:39→21:53)
[2018-08-13] MEDS: MAGNESIUM OXIDE 400 MG TAB (MAG-OX) PO SCH (08:40)
[2018-08-13] MEDS: PANTOPRAZOLE 40MG TAB (PROTONIX) PO SCH ×2 (08:40→21:52)
[2018-08-13] MEDS: tiZANidine 4 MG TAB PO SCH ×3 (08:40→21:53)
[2018-08-13] MEDS: SITagliptin 50 MG TAB (JANUVIA) PO SCH (08:40)
[2018-08-13] MEDS: ALLOPURINOL 300 MG TAB PO SCH (08:40)
[2018-08-13] MEDS: CARVedilol 12.5 MG TAB PO SCH ×2 (08:41→21:00)
--- NOTE | 2018-08-13 10:58 | IPNPDOC ---
Text Note Date of Service The patient was seen on 08/13/18. 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 Patient has reported that upon catheterization on 07/31/18 the had difficulty in the right groin and subsequently used the left groin. Patient was discharged home after procedures but presented on 08/05 with severe pain. Patient was found to have right ileopsoas hematoma causing right lumber plexopathy. . She was admitted to the hospital service for further evaluation and treatment. Orthopedic surgery and neurology were called on consultation. Patient was seen and examined at the bedside. Patient hasn't received that his right-sided hip pain is doing slightly better than yesterday. He has been working with physical therapy yesterday, and was able to sit up at the side of the bed. Denies any lightheadedness or dizziness. Denies any chest pain or shortness breath. . She does report dry mouth. Denies any lower extremity swelling. Continues to experience weakness of his right leg including sensory loss. This morning patient was noted to have a blood pressure that was on the lower limits of normal. Patient remains asymptomatic. Objective: Vitals (See below) General: Lying in bed, no acute distress, comfortable, AAOx3 HEENT: NC, AT CVS: RRR, +S1S2 Lungs: There appears to be fair air entry bilaterally, without auscultated evidence of rhonchi, rales or wheezing Abdomen: Abdomen remains soft without distention or tenderness, is obese Extremities: There is no calf tenderness, chronic venous stasis changes noted, no evidence of pitting edema Neuro: Weakness of right leg noted; right foot with 5/5 strength; LLE is 5/5 - neuro exam remains unchanged Assessment and plan: Right leg pain / weakness / numbness - likely 2/2 Right iliopsoas hematoma with right lumber plexopathy - Patient is reported that there has been improvement in his right leg pain; still reports sensory loss - Physical remains relatively unchanged - MRI lumbar spine 08/06: 1. Diffuse disc bulges at the L3-4 and L4-5 levels with minimal thecal sac compression. 2. Diffuse disc bulge at the L5-S1 level. This abuts the thecal sac and S1 nerves. - CT pelvis 08/07: Somewhat elongate right iliopsoas hematoma as described above. No other acute abnormality. Moderate bilateral hip joint osteoarthritis. - CT pelvis 08/09: Stable right iliopsoas hematoma. - Will repeat CT pelvis today for evaluation of hematoma - c/w Percocet PRN, c/w Tizanidine and Gabapentin; s/p Morphine and Dilaudid - c/w Plavix and Coumadin - c/w physical therapy; patient will continue to progress with physical therapy and will likely require rehabilitation moving forward s/p Leukocytosis - likely 2/2 reactive etiology; less likely 2/2 infectious etiology - No fevers noted - Has remained hemodynamically stable - Will hold of antibiotic therapy s/p Constipation - c/w Bowel regimen DM2 with Diabetic neuropathy - c/w ISS and Gabapentin - c/w Sitagliptin and Glipizide CAD s/p CABG and stent (07/30/18) - c/w Plavix, Carvedilol, Atorvastatin HTN - BP appears well controlled - In the lower limits of normal today - c/w Diltiazem and Carvedilol DLP - c/w Atorvastatin and Ezetimibe Mechanical Aortic valve - Model # [id number]; Serial # [id number] - Patient has indicated that his INR target is 2.5 to 3.5 - Currently he is sub-therapeutic; although improving - c/w Coumadin and Heparin drip while INR is subtherapeutic - I have discussed with the patient that starting anticoagulation may increase change of bleeding / worsen hematoma of his right leg; however the risk of clot development while having a sub-therapeutic INR is high; patient has verbalized understanding and would like to continue with anticoagulation at this time Gout - c/w Allopurinol GERD -c/w Protonix Elevation of Cr - likely 2/2 CKD3 - Baseline Cr of 1.3-1.6 - Currently appears to be at baseline; above baseline - Will hold diuretics and start IV fluid hydration (gentle) Chronic bilateral venous stasis with stasis dermatitis - Will hold Furosemide DVT prophylaxis - s/p Lovenox - c/w Coumadin (INR subtherapeutic) and Heparin drip Disposition: - Will continue with physical therapy - Awaiting therapeutic INR - Anticipate rehabilitation (SSV vs. ARU) VS,Fishbone, I+O VS, Fishbone, I+O Laboratory Tests 08/13/18 05:27 Red Blood Count 2.81 L, Mean Corpuscular Volume 96.4 H, Mean Corpuscular Hemoglobin 29.2, Mean Corpuscular Hemoglobin Concent 30.3 L, Red Cell Distribution Width 16.6 H, Neutrophils (%) (Auto) 74.0 H, Lymphocytes (%) (Auto) 11.8 L, Monocytes (%) (Auto) 7.8 H, Eosinophils (%) (Auto) 5.5 H, Basophils (%) (Auto) 0.5, Neutrophils # (Auto) 6.1, Lymphocytes # (Auto) 1.0 L, Monocytes # (Auto) 0.6, Eosinophils # (Auto) 0.5, Basophils # (Auto) 0.0, Calcium Level 8.3 L, Aspartate Amino Transf (AST/SGOT) 38 H, Alanine Aminotransferase (ALT/SGPT) 16, Alkaline Phosphatase 69, Total Bilirubin 0.3, Total Protein 6.3 L, Albumin 2.2 L Vital Signs Date Time Temp Pulse Resp B/P (MAP) Pulse Ox O2 Delivery O2 Flow Rate FiO2 08/13/18 08:41 92 99/61 08/13/18 06:00 97.8 17 92 I&O- Last 24 Hours up to 6 AM 08/13/18 05:59 Intake Total 1474 ml Output Total 900 ml Balance 574 ml JA RUBIN MD August 13, 2018 10:58
--- NOTE | 2018-08-13 12:21 | REP ---
CT PELVIS WITHOUT IV CONTRAST: CT pelvis performed without IV contrast. Sagittal and coronal reconstruction images are performed. Comparison is made to the prior study of 08/09/2018. Intramuscular hematoma involving the right iliac and iliopsoas muscle is unchanged compared to the prior study of 08/09/2018. There is again a small umbilical hernia containing fat. Tiny calcification again seen in the lower pole of the left renal collecting system. There are degenerative changes of the lower lumbar spine. Tiny amount of free fluid is seen in the posterior pelvis. There are no other new findings. IMPRESSION: Stable hematoma involving the right iliacus and iliopsoas muscles compared to prior CT of 08/09/2018. Electronically Signed by Jeffrey Watt MD 08/14/2018 09:15 A
[2018-08-13] MEDS ORDERED: WARF-22 PO (12:53)
[2018-08-13] MEDS ORDERED: TIZA4TAB4 PO (12:53)
[2018-08-13] MEDS ORDERED: GABA-1171 PO (12:53)
[2018-08-13] MEDS ORDERED: PERCOCET PO (12:53)
[2018-08-13] MEDS ORDERED: NS 500 ML IV ONE ×2 (13:00→14:45)
[2018-08-13 14:00] VITALS: BP 111/56
[2018-08-13] MEDS: HEPARIN SOD (PORCINE) 5000 UNITS/ML VIAL IV PRN (14:01)
[2018-08-13 14:46] VITALS: BP 90/52
[2018-08-13] MEDS ORDERED: NS 1,000 ML IV ONE (15:00)
[2018-08-13] MEDS: WARFARIN SOD 5 MG TAB PO SCH (16:17)
[2018-08-13] MEDS: NS 1,000 ML IV SCH (17:14)
[2018-08-13] MEDS: ATORVASTATIN 20 MG TAB PO SCH (21:54)
[2018-08-13] MEDS: LATANOPROST 0.005% OPHTH SOLN 2.5 ML OU SCH (21:55)
[2018-08-13] MEDS: PERCOCET 5MG/325MG TAB PO PRN (21:57)
[2018-08-13 22:00] VITALS: BP 122/63
[2018-08-14] MEDS: HEPARIN DRIP 25,000 UNITS in APPROPRIATE DILUENT 1 EA IV SCH ×2 (01:25→23:21)
[2018-08-14] MEDS: NS 1,000 ML IV SCH (01:39)
[2018-08-14 06:00] VITALS: BP 146/78
[2018-08-14 06:02] LABS: BASO % 0.5 % (0.0-1.0); EOS # 0.5 10^3/uL (0.0-0.50); EOS % 5.7 % (0.0-3.0); HEMATOCRIT 27.6 % (42.0-52.0); HEMOGLOBIN 8.4 g/dl (13.5-17.5); LYMPH # 0.8 10^3/uL (1.5-4.5); LYMPH % 9.6 % (24.0-44.0); MEAN CORPUSCULAR HEMOGLOBIN 29.5 pg (27.0-33.0); MEAN CORPUSCULAR HGB CONC 30.4 g/dl (32.0-36.5); MEAN CORPUSCULAR VOLUME 96.8 fl (80.0-96.0); MONO # 0.6 10^3/uL (0.0-0.8); MONO % 7.3 % (0.0-5.0); NEUTROPHILS # 6.3 10^3/uL (1.8-7.7); NEUTROPHILS % 76.4 % (36.0-66.0); PLATELET COUNT, AUTOMATED 273 10^3/uL (150-450); RED BLOOD COUNT 2.85 10^6/uL (4.30-6.10); WHITE BLOOD COUNT 8.2 10^3/uL (4.0-10.0)
[2018-08-14 06:10] LABS: INR 2.14; PROTHROMBIN TIME 24.3 SECONDS (12.1-14.4)
[2018-08-14 06:17] LABS: ALBUMIN 2.2 GM/DL (3.2-5.2); ALT/SGPT 16 U/L (12-78); BILIRUBIN,TOTAL 0.4 MG/DL (0.2-1.0); BLOOD UREA NITROGEN 36 MG/DL (7-18); CARBON DIOXIDE LEVEL 30 MEQ/L (21-32); CHLORIDE LEVEL 105 MEQ/L (98-107); CREATININE FOR GFR 1.14 MG/DL (0.70-1.30); GLOMERULAR FILTRATION RATE > 60.0 (>42); GLUCOSE, FASTING 106 MG/DL (70-100); MAGNESIUM LEVEL 2.4 MG/DL (1.8-2.4); POTASSIUM SERUM 4.7 MEQ/L (3.5-5.1); SODIUM LEVEL 139 MEQ/L (136-145); TOTAL PROTEIN 6.6 GM/DL (6.4-8.2)
[2018-08-14] MEDS: glipiZIDE XL 5 MG TABCR PO SCH (07:30)
[2018-08-14] MEDS: GABAPENTIN 100 MG CAP PO SCH ×3 (10:19→21:39)
[2018-08-14] MEDS: EZETIMIBE 10 MG TAB (ZETIA) PO SCH (10:19)
[2018-08-14] MEDS: SENOKOT S TAB PO SCH ×2 (10:19→21:39)
[2018-08-14] MEDS: ALLOPURINOL 300 MG TAB PO SCH (10:19)
[2018-08-14] MEDS: MOM 30ML SUSPENSION UDC PO SCH (10:19)
[2018-08-14] MEDS: tiZANidine 4 MG TAB PO SCH ×3 (10:20→21:39)
[2018-08-14] MEDS: CLOPIDOGREL 75 MG TAB PO SCH (10:20)
[2018-08-14] MEDS: SITagliptin 50 MG TAB (JANUVIA) PO SCH (10:20)
[2018-08-14] MEDS ORDERED: WARF-22 PO (10:20)
[2018-08-14] MEDS: MAGNESIUM OXIDE 400 MG TAB (MAG-OX) PO SCH (10:21)
[2018-08-14] MEDS: PANTOPRAZOLE 40MG TAB (PROTONIX) PO SCH ×2 (10:21→21:40)
[2018-08-14] MEDS: CARVedilol 12.5 MG TAB PO SCH ×2 (10:21→21:40)
[2018-08-14] MEDS ORDERED: LASI40TA9 PO (10:22)
[2018-08-14] MEDS: HumaLOG INSULIN (NovoLOG) PER UNIT SC SCH ×4 (10:22→21:00)
[2018-08-14] MEDS: PERCOCET 5MG/325MG TAB PO PRN ×2 (10:28→21:41)
--- NOTE | 2018-08-14 10:42 | DS.PDOC ---
Discharge Summary General Date of Admission August 07, 2018 at 13:22 Date of Discharge 08/14/2018 Discharge Summary PROCEDURES PERFORMED DURING STAY: [None]. ADMITTING DIAGNOSES / DISCHARGE DIAGNOSES: Right leg pain / weakness / numbness - likely 2/2 Right iliopsoas hematoma with right lumber plexopathy s/p Leukocytosis - likely 2/2 reactive etiology; less likely 2/2 infectious etiology s/p Constipation DM2 with Diabetic neuropathy CAD s/p CABG and stent (07/30/18) HTN DLP Mechanical Aortic valve Gout GERD Elevation of Cr - likely 2/2 CKD3 Chronic bilateral venous stasis with stasis dermatitis DVT prophylaxis COMPLICATIONS/CHIEF COMPLAINT: Numbness / Weakness of leg HISTORY OF PRESENT ILLNESS: Patient is a 77-year-old male with a PMHx of Mechanical AV replacement (2001 - on Coumadin), CAD s/p stent x2 (07/30/18), PVD, 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 on 07/31/18), HTN, DM2, DLP, Diabetic Neuropathy, Gout, AAA s/p repair (2001), Bilateral inguinal hernia repair who presented to [facility] because of right leg pain, numbness and weakness. Patient has reported that upon catheterization on 07/31/18 the had difficulty in the right groin and subsequently used the left groin. Patient was discharged home after procedures but presented on 08/05 with severe pain. Patient was found to have right ileopsoas hematoma causing right lumber plexopathy. . She was admitted to the hospital service for further evaluation and treatment. Orthopedic surgery and neurology were called on consultation. HOSPITAL COURSE: Right leg pain / weakness / numbness - likely 2/2 Right iliopsoas hematoma with right lumber plexopathy - Patient is reported that there has been improvement in his right leg pain; still reports sensory loss - Physical remains relatively unchanged - MRI lumbar spine 08/06: 1. Diffuse disc bulges at the L3-4 and L4-5 levels with minimal thecal sac compression. 2. Diffuse disc bulge at the L5-S1 level. This abuts the thecal sac and S1 nerves. - CT pelvis 08/07: Somewhat elongate right iliopsoas hematoma as described above. No other acute abnormality. Moderate bilateral hip joint osteoarthritis. - CT pelvis 08/09: Stable right iliopsoas hematoma. - Will repeat CT pelvis today for evaluation of hematoma - c/w Percocet PRN, c/w Tizanidine and Gabapentin; s/p Morphine and Dilaudid - c/w Plavix and Coumadin - c/w Physical therapy; patient will continue with PT at ARU s/p Leukocytosis - likely 2/2 reactive etiology; less likely 2/2 infectious etiology - No fevers noted - Has remained hemodynamically stable - Will hold of antibiotic therapy s/p Constipation - c/w Bowel regimen DM2 with Diabetic neuropathy - c/w ISS and Gabapentin - c/w Sitagliptin and Glipizide CAD s/p CABG and stent (07/30/18) - c/w Plavix, Carvedilol, Atorvastatin HTN - BP appears well controlled - In the lower limits of normal today - c/w Diltiazem and Carvedilol DLP - c/w Atorvastatin and Ezetimibe Mechanical Aortic valve - Model # [id number]; Serial # [id number] - Patient has indicated that his INR target is 2.5 to 3.5 - Currently he is sub-therapeutic; has been approaching therapeutic range - c/w Coumadin and Heparin drip while INR is subtherapeutic; Coumadin dose will be 10mg for now - will need to be adjusted - I have discussed with the patient that starting anticoagulation may increase change of bleeding / worsen hematoma of his right leg; however the risk of clot development while having a sub-therapeutic INR is high; patient has verbalized understanding and would like to continue with anticoagulation at this time Gout - c/w Allopurinol GERD -c/w Protonix Elevation of Cr - likely 2/2 CKD3 - Baseline Cr of 1.3-1.6 - Cr has improved significantly - Will DC IV fluids and resume standing Furosemide tomorrow (08/15/18) Chronic bilateral venous stasis with stasis dermatitis - Will restart Furosemide DVT prophylaxis - s/p Lovenox - c/w Coumadin (INR subtherapeutic) and Heparin drip DISCHARGE MEDICATIONS: Please see below. ALLERGIES: Please see below. PHYSICAL EXAMINATION ON DISCHARGE: Vitals (See below) General: Lying in bed, no acute distress, comfortable, AAOx3 HEENT: NC, AT CVS: RRR, +S1S2 Lungs: There appears to be fair air entry bilaterally, without auscultated evidence of rhonchi, rales or wheezing Abdomen: Abdomen remains soft without distention or tenderness, is obese Extremities: There is no calf tenderness, chronic venous stasis changes noted, no evidence of pitting edema Neuro: Weakness of right leg noted; right foot with 5/5 strength; LLE is 5/5 - neuro exam remains unchanged LABORATORY DATA: Please see below. ACTIVITY: [As tolerated]. DISCHARGE PLAN: Follow up with Dr. Espinal in ARU Remain compliant with treatment plan and medications Return to the ER if you experience any problems DISPOSITION: Transfer to ARU DISCHARGE CONDITION: [Stable]. TIME SPENT ON DISCHARGE: 39 minutes Vital Signs/I&Os Vital Signs Date Time Temp Pulse Resp B/P (MAP) Pulse Ox O2 Delivery O2 Flow Rate FiO2 08/14/18 10:28 18 08/14/18 10:21 96 142/72 08/14/18 06:00 98.1 93 I&O- Last 24 Hours up to 6 AM 08/14/18 06:00 Intake Total 2595 ml Output Total 3370 ml Balance -775 ml Laboratory Data Labs 24H Laboratory Tests 2 08/13/18 12:16: Bedside Glucose (Misc Panel) 153H 08/13/18 12:54: Activated Partial Thromboplast Time 55.8H 08/13/18 16:45: Bedside Glucose (Misc Panel) 138H 08/13/18 20:13: Activated Partial Thromboplast Time 83.0H 08/13/18 20:47: Bedside Glucose (Misc Panel) 139H 08/14/18 01:46: Activated Partial Thromboplast Time 118.8H 08/14/18 05:32: Immature Granulocyte % (Auto) 0.5, White Blood Count 8.2, Red Blood Count 2.85L, Hemoglobin 8.4L, Hematocrit 27.6L, Mean Corpuscular Volume 96.8H, Mean Corpuscular Hemoglobin 29.5, Mean Corpuscular Hemoglobin Concent 30.4L, Red Cell Distribution Width 16.7H, Platelet Count 273, Neutrophils (%) (Auto) 76.4H, Lymphocytes (%) (Auto) 9.6L, Monocytes (%) (Auto) 7.3H, Eosinophils (%) (Auto) 5.7H, Basophils (%) (Auto) 0.5, Neutrophils # (Auto) 6.3, Lymphocytes # (Auto) 0.8L, Monocytes # (Auto) 0.6, Eosinophils # (Auto) 0.5, Basophils # (Auto) 0.0, Nucleated Red Blood Cells % (auto) 0.0, Prothrombin Time 24.3H, Prothromb Time International Ratio 2.14, Anion Gap 4L, Glomerular Filtration Rate > 60.0, Blood Urea Nitrogen 36H, Creatinine 1.14, Sodium Level 139, Potassium Level 4.7, Chloride Level 105, Carbon Dioxide Level 30, Calcium Level 8.0L, Aspartate Amino Transf (AST/SGOT) 32, Alanine Aminotransferase (ALT/SGPT) 16, Alkaline Ph osphatase 71, Total Bilirubin 0.4, Total Protein 6.6, Albumin 2.2L, Magnesium Level 2.4, Albumin/Globulin Ratio 0.50L 08/14/18 07:50: Activated Partial Thromboplast Time 83.5H CBC/BMP Laboratory Tests 08/14/18 05:32 Red Blood Count 2.85 L, Mean Corpuscular Volume 96.8 H, Mean Corpuscular Hemoglobin 29.5, Mean Corpuscular Hemoglobin Concent 30.4 L, Red Cell Distribution Width 16.7 H, Neutrophils (%) (Auto) 76.4 H, Lymphocytes (%) (Auto) 9.6 L, Monocytes (%) (Auto) 7.3 H, Eosinophils (%) (Auto) 5.7 H, Basophils (%) (Auto) 0.5, Neutrophils # (Auto) 6.3, Lymphocytes # (Auto) 0.8 L, Monocytes # (Auto) 0.6, Eosinophils # (Auto) 0.5, Basophils # (Auto) 0.0, Calcium Level 8.0 L, Aspartate Amino Transf (AST/SGOT) 32, Alanine Aminotransferase (ALT/SGPT) 16, Alkaline Phosphatase 71, Total Bilirubin 0.4, Total Protein 6.6, Albumin 2.2 L FSBS Laboratory Tests Test 08/13/18 12:16 08/13/18 16:45 08/13/18 20:47 Range/Units Bedside Glucose (Misc Panel) 153 138 139 83-110 MG/DL Microbiology Microbiology 08/12/18 Stool Occult Blood (GUILHERME) - Final, Complete 08/10/18 Stool Occult Blood (GUILHERME) - Final, Complete Discharge Medications Scheduled Allopurinol (Zyloprim) 300 Mg Tab, 300 MG PO DAILY, (Reported) Aspirin (Aspirin) 81 Mg Tab.chew, 81 MG PO DAILY, (Reported) Atorvastatin Calcium (Atorvastatin Calcium) 80 Mg Tablet, 80 MG PO QHS, (Reported) Bifidobacterium Infantis (Align) 4 Mg Capsule, 4 MG PO DAILY, (Reported) Carvedilol (Carvedilol) 12.5 Mg Tablet, 12.5 MG PO BID, (Reported) Clopidogrel Bisulfate (Clopidogrel) 75 Mg Tablet, 75 MG PO DAILY, (Reported) Diltiazem HCl (Diltiazem HCl) 90 Mg Tablet, 90 MG PO Q8H, (Reported) Ezetimibe (Zetia) 10 Mg Tab, 10 MG PO DAILY, (Reported) Furosemide (Lasix) 40 Mg Tab, 40 MG PO BID Gabapentin (Gabapentin) 100 Mg Capsule, 200 MG PO TID Glipizide (Glipizide Xl) 2.5 Mg Tab, 5 MG PO DAILY, (Reported) Latanoprost (Xalatan) 0.005 % Sanjuana, 1 DROP OU QHS, (Reported) Magnesium Oxide (Magnesium Oxide) 400 Mg Tablet, 400 MG PO DAILY, (Reported) Multivitamin (Daily Mauro) 1 Each Tablet, 1 TAB PO DAILY, (Reported) Pantoprazole Sodium (Pantoprazole Sodium) 40 Mg Tablet.dr, 40 MG PO BID, (Reported) Sitagliptin (Januvia) 50 Mg Tablet, 50 MG PO DAILY, (Reported) Tizanidine HCl (Tizanidine HCl) 4 Mg Tablet, 2 MG PO TID Warfarin Sodium (Warfarin Sodium) 10 Mg Tablet, 10 MG PO DAILY Scheduled PRN Albuterol Sulfate (Proair Hfa) 8.5 Gm Hfa.aer.ad, 2 PUFF INH Q4H PRN for SOB/WHEEZING, (Reported) Nitroglycerin (Nitrostat) 0.4 Mg Tab.subl, 0.4 MG SL NITRO PRN for CHEST PAIN, (Reported) Oxycodone/Acetaminophen (Oxycodone-Acetaminophen 5-325) 1 Each Tablet, 1-2 TAB PO Q6HP PRN for SEVERE PAIN (PS 8-10) Tizanidine HCl (Tizanidine HCl) 2 Mg Tablet, 2 MG PO Q8H PRN for MUSCLE SPASMS Allergies Coded Allergies: No Known Allergies (Verified , 09/19/16) JA RUBIN MD August 14, 2018 10:42
[2018-08-14 12:10] VITALS: BP 139/73
[2018-08-14 14:00] VITALS: BP 135/69
[2018-08-14] MEDS ORDERED: LEVALBUTEROL 1.25 MG/0.5 ML CONCENTRATE NEB NEB STA (14:07)
[2018-08-14] MEDS: HEPARIN SOD (PORCINE) 5000 UNITS/ML VIAL IV PRN (15:35)
[2018-08-14] MEDS ORDERED: FUROSEMIDE 40 MG/4 ML VIAL (J1940) IV ONE ×2 (16:00→21:30)
--- NOTE | 2018-08-14 16:14 | REP ---
Chest one-view HISTORY: Wheezing Comparison: 04/17/2016 Patchy densities are present in the lower lobes consistent with bibasilar atelectasis or infiltrates. The heart is normal in size. The pulmonary vasculature is normal in appearance. Impression: Bibasilar atelectasis or infiltrates. Electronically Signed by Gidoen Pate MD 08/14/2018 04:04 P
--- NOTE | 2018-08-14 16:27 | IPNPDOC ---
Text Note Date of Service The patient was seen on 08/14/18. 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 on 07/31/18), HTN, DM2, DLP, Diabetic Neuropathy, Gout, AAA s/p repair (2001), Bilateral inguinal hernia repair who presented to [facility] because of right leg pain, numbness and weakness. Patient has reported that upon catheterization on 07/31/18 the had difficulty in the right groin and subsequently used the left groin. Patient was discharged home after procedures but presented on 08/05 with severe pain. Patient was found to have right ileopsoas hematoma causing right lumber plexopathy. . She was admitted to the hospital service for further evaluation and treatment. Orthopedic surgery and neurology were called on consultation. Patient was seen and examined at the bedside. Patient had no new events overnight. He has continued to work with physical therapy. Has been making transitions to the chair during the day. Denies any nausea, vomiting. Denies abdominal pain. Does experience some shortness of breath and cough. Reports some LE swelling. Objective: Vitals (See below) General: Lying in bed, no acute distress, comfortable, AAOx3 HEENT: NC, AT CVS: RRR, +S1S2 Lungs: There appears to be fair air entry bilaterally, without auscultated evidence of rhonchi, rales or wheezing Abdomen: No distention or tenderness, remains soft Extremities: There is no calf tenderness, venous stasis changes noted, trace edema noted Neuro: Improvement of strength and sensation noted on right side Assessment and plan: Right leg pain / weakness / numbness - likely 2/2 Right iliopsoas hematoma with right lumber plexopathy - Patient is reported that there has been improvement in his right leg pain; still reports sensory loss - Physical remains relatively unchanged - MRI lumbar spine 08/06: 1. Diffuse disc bulges at the L3-4 and L4-5 levels with minimal thecal sac compression. 2. Diffuse disc bulge at the L5-S1 level. This abuts the thecal sac and S1 nerves. - CT pelvis 08/07: Somewhat elongate right iliopsoas hematoma as described above. No other acute abnormality. Moderate bilateral hip joint osteoarthritis. - CT pelvis 08/09: Stable right iliopsoas hematoma. - Will repeat CT pelvis today for evaluation of hematoma - c/w Percocet PRN, c/w Tizanidine and Gabapentin; s/p Morphine and Dilaudid - c/w Plavix and Coumadin - c/w Physical therapy; patient will continue with PT at ARU s/p Leukocytosis - likely 2/2 reactive etiology; less likely 2/2 infectious etiology - No fevers noted - Has remained hemodynamically stable - Will hold of antibiotic therapy s/p Constipation - c/w Bowel regimen DM2 with Diabetic neuropathy - c/w ISS and Gabapentin - c/w Sitagliptin and Glipizide CAD s/p CABG and stent (07/30/18) - c/w Plavix, Carvedilol, Atorvastatin HTN - BP appears well controlled - In the lower limits of normal today - c/w Diltiazem and Carvedilol DLP - c/w Atorvastatin and Ezetimibe Mechanical Aortic valve - Model # [id number]; Serial # [id number] - Patient has indicated that his INR target is 2.5 to 3.5 - Currently he is sub-therapeutic; has been approaching therapeutic range - c/w Coumadin and Heparin drip while INR is subtherapeutic; Coumadin dose will be 10mg for now - will need to be adjusted - I have discussed with the patient that starting anticoagulation may increase change of bleeding / worsen hematoma of his right leg; however the risk of clot development while having a sub-therapeutic INR is high; patient has verbalized understanding and would like to continue with anticoagulation at this time Gout - c/w Allopurinol GERD -c/w Protonix Elevation of Cr - likely 2/2 CKD3 - Baseline Cr of 1.3-1.6 - Cr has improved significantly - Will DC IV fluids and resume standing Furosemide tomorrow (08/15/18) Chronic bilateral venous stasis with stasis dermatitis - Will restart Furosemide; will give low dose Furosemide today DVT prophylaxis - s/p Lovenox - c/w Coumadin (INR subtherapeutic) and Heparin drip Disposition: - Will continue with physical therapy - Awaiting therapeutic INR - Anticipate rehabilitation (SSV vs. ARU); has been rescheduled until tomorrow VS,Curtbone, I+O VS, Curtbone, I+O Laboratory Tests 08/14/18 05:32 Red Blood Count 2.85 L, Mean Corpuscular Volume 96.8 H, Mean Corpuscular Hemoglobin 29.5, Mean Corpuscular Hemoglobin Concent 30.4 L, Red Cell Distribution Width 16.7 H, Neutrophils (%) (Auto) 76.4 H, Lymphocytes (%) (Auto) 9.6 L, Monocytes (%) (Auto) 7.3 H, Eosinophils (%) (Auto) 5.7 H, Basophils (%) (Auto) 0.5, Neutrophils # (Auto) 6.3, Lymphocytes # (Auto) 0.8 L, Monocytes # (Auto) 0.6, Eosinophils # (Auto) 0.5, Basophils # (Auto) 0.0, Calcium Level 8.0 L, Aspartate Amino Transf (AST/SGOT) 32, Alanine Aminotransferase (ALT/SGPT) 16, Alkaline Phosphatase 71, Total Bilirubin 0.4, Total Protein 6.6, Albumin 2.2 L Vital Signs Date Time Temp Pulse Resp B/P (MAP) Pulse Ox O2 Delivery O2 Flow Rate FiO2 08/14/18 14:22 100 156/75 08/14/18 12:10 97.6 15 93 I&O- Last 24 Hours up to 6 AM 08/14/18 06:00 Intake Total 2595 ml Output Total 3370 ml Balance -775 ml JA RUBIN MD August 14, 2018 16:27
[2018-08-14] MEDS: WARFARIN SOD 5 MG TAB PO SCH (16:49)
[2018-08-14] MEDS: ALBUTEROL 90 MCG/ACT 8GM HFA INHALER INH PRN (21:14)
[2018-08-14] MEDS: LATANOPROST 0.005% OPHTH SOLN 2.5 ML OU SCH (21:37)
[2018-08-14] MEDS: ATORVASTATIN 20 MG TAB PO SCH (21:37)
[2018-08-14 22:00] VITALS: BP 137/75
[2018-08-15 04:52] LABS: BASO % 0.4 % (0.0-1.0); EOS # 0.6 10^3/uL (0.0-0.50); EOS % 6.3 % (0.0-3.0); HEMATOCRIT 30.1 % (42.0-52.0); HEMOGLOBIN 8.9 g/dl (13.5-17.5); LYMPH # 0.9 10^3/uL (1.5-4.5); LYMPH % 10.2 % (24.0-44.0); MEAN CORPUSCULAR HEMOGLOBIN 28.8 pg (27.0-33.0); MEAN CORPUSCULAR HGB CONC 29.6 g/dl (32.0-36.5); MEAN CORPUSCULAR VOLUME 97.4 fl (80.0-96.0); MONO # 0.8 10^3/uL (0.0-0.8); MONO % 8.4 % (0.0-5.0); NEUTROPHILS # 6.8 10^3/uL (1.8-7.7); NEUTROPHILS % 74.4 % (36.0-66.0); PLATELET COUNT, AUTOMATED 313 10^3/uL (150-450); RED BLOOD COUNT 3.09 10^6/uL (4.30-6.10); WHITE BLOOD COUNT 9.2 10^3/uL (4.0-10.0)
[2018-08-15 05:02] LABS: INR 2.37; PROTHROMBIN TIME 26.4 SECONDS (12.1-14.4)
[2018-08-15 05:03] LABS: PARTIAL THROMBOPLASTIN TIME 63.5 SECONDS (25.4-37.6)
[2018-08-15 05:12] LABS: ALBUMIN 2.5 GM/DL (3.2-5.2); BILIRUBIN,TOTAL 0.4 MG/DL (0.2-1.0); CALCIUM LEVEL 8.6 MG/DL (8.8-10.2); CREATININE FOR GFR 1.29 MG/DL (0.70-1.30); GLOMERULAR FILTRATION RATE 57.5 (>42); MAGNESIUM LEVEL 2.1 MG/DL (1.8-2.4); POTASSIUM SERUM 4.9 MEQ/L (3.5-5.1); TOTAL PROTEIN 6.8 GM/DL (6.4-8.2)
[2018-08-15 06:00] VITALS: BP 146/81
[2018-08-15] MEDS: ALBUTEROL 90 MCG/ACT 8GM HFA INHALER INH PRN (08:01)
[2018-08-15] MEDS: PANTOPRAZOLE 40MG TAB (PROTONIX) PO SCH (09:42)
[2018-08-15] MEDS: MOM 30ML SUSPENSION UDC PO SCH (09:42)
[2018-08-15] MEDS: EZETIMIBE 10 MG TAB (ZETIA) PO SCH (09:42)
[2018-08-15] MEDS: GABAPENTIN 100 MG CAP PO SCH (09:42)
[2018-08-15 09:43] VITALS: BP 153/80
[2018-08-15] MEDS: CARVedilol 12.5 MG TAB PO SCH (09:43)
[2018-08-15] MEDS: ALLOPURINOL 300 MG TAB PO SCH (09:43)
[2018-08-15] MEDS: SENOKOT S TAB PO SCH (09:43)
[2018-08-15] MEDS: SITagliptin 50 MG TAB (JANUVIA) PO SCH (09:45)
[2018-08-15] MEDS: tiZANidine 4 MG TAB PO SCH (09:45)
[2018-08-15] MEDS: CLOPIDOGREL 75 MG TAB PO SCH (09:45)
[2018-08-15] MEDS: MAGNESIUM OXIDE 400 MG TAB (MAG-OX) PO SCH (09:45)
[2018-08-15] MEDS: glipiZIDE XL 5 MG TABCR PO SCH (09:46)
[2018-08-15] MEDS: HumaLOG INSULIN (NovoLOG) PER UNIT SC SCH (09:47)
[2018-08-15] MEDS ORDERED: TIZA2TAB4 PO (10:04)
[2018-08-15] MEDS ORDERED: LASI40TA9 PO (10:04)
--- NOTE | 2018-08-15 14:51 | DS.PDOC ---
Discharge Summary General Date of Admission August 07, 2018 at 13:22 Date of Discharge 08/15/2018 Discharge Summary PROCEDURES PERFORMED DURING STAY: [None]. ADMITTING DIAGNOSES / DISCHARGE DIAGNOSES: Right leg pain / weakness / numbness - likely 2/2 Right iliopsoas hematoma with right lumber plexopathy s/p Leukocytosis - likely 2/2 reactive etiology; less likely 2/2 infectious etiology s/p Constipation DM2 with Diabetic neuropathy CAD s/p CABG and stent (07/30/18) HTN DLP Mechanical Aortic valve Gout GERD Elevation of Cr - likely 2/2 CKD3 Chronic bilateral venous stasis with stasis dermatitis DVT prophylaxis COMPLICATIONS/CHIEF COMPLAINT: Numbness / Weakness of leg HISTORY OF PRESENT ILLNESS: Patient is a 77-year-old male with a PMHx of Mechanical AV replacement (2001 - on Coumadin), CAD s/p stent x2 (07/30/18), PVD, 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 Patient has reported that upon catheterization on 07/31/18 the had difficulty in the right groin and subsequently used the left groin. Patient was discharged home after procedures but presented on 08/05 with severe pain. Patient was found to have right ileopsoas hematoma causing right lumber plexopathy. . She was admitted to the hospital service for further evaluation and treatment. Orthopedic surgery and neurology were called on consultation. HOSPITAL COURSE: Right leg pain / weakness / numbness - likely 2/2 Right iliopsoas hematoma with right lumber plexopathy - Patient has had clinical improvement and has noted improvement - MRI lumbar spine 08/06: 1. Diffuse disc bulges at the L3-4 and L4-5 levels with minimal thecal sac compression. 2. Diffuse disc bulge at the L5-S1 level. This abuts the thecal sac and S1 nerves. - CT pelvis 08/07: Somewhat elongate right iliopsoas hematoma as described above. No other acute abnormality. Moderate bilateral hip joint osteoarthritis. - CT pelvis 08/09: Stable right iliopsoas hematoma. - c/w Percocet PRN, c/w Tizanidine and Gabapentin; s/p Morphine and Dilaudid - c/w Plavix and Coumadin - c/w Physical therapy; patient will continue with PT at ARU s/p Leukocytosis - likely 2/2 reactive etiology; less likely 2/2 infectious etiology - No fevers noted - Has remained hemodynamically stable - Will hold of antibiotic therapy s/p Constipation - c/w Bowel regimen DM2 with Diabetic neuropathy - c/w ISS and Gabapentin - c/w Sitagliptin and Glipizide CAD s/p CABG and stent (07/30/18) - c/w Plavix, Carvedilol, Atorvastatin HTN - BP appears well controlled - c/w Diltiazem and Carvedilol DLP - c/w Atorvastatin and Ezetimibe Mechanical Aortic valve - Model # [id number]; Serial # [id number] - Patient has indicated that his INR target is 2.5 to 3.5 - Currently he is sub-therapeutic; has been approaching therapeutic range - c/w Coumadin and Heparin drip; INR close to therapeutic - I have discussed with the patient that starting anticoagulation may increase change of bleeding / worsen hematoma of his right leg; however the risk of clot development while having a sub-therapeutic INR is high; patient has verbalized understanding and would like to continue with anticoagulation at this time Gout - c/w Allopurinol GERD -c/w Protonix Elevation of Cr - likely 2/2 CKD3 - Baseline Cr of 1.3-1.6 - Cr has improved significantly - s/p fluids; c/w Furosemide Chronic bilateral venous stasis with stasis dermatitis - c/w Furosemide DVT prophylaxis - s/p Lovenox - c/w Coumadin (INR subtherapeutic) and Heparin drip DISCHARGE MEDICATIONS: Please see below. ALLERGIES: Please see below. PHYSICAL EXAMINATION ON DISCHARGE: Vitals (See below) General: Lying in bed, no acute distress, comfortable, AAOx3 HEENT: NC, AT CVS: RRR, +S1S2 Lungs: Fair b/l, no rhonchi / rales / wheezing Abdomen: Soft, -distention / tenderness, midline scar Extremities: There is no calf tenderness, chronic venous stasis changes noted, - edema Neuro: Weakness of right leg noted; right foot with 5/5 strength; LLE is 5/5 - neuro exam remains unchanged LABORATORY DATA: Please see below. ACTIVITY: [As tolerated]. DISCHARGE PLAN: Follow up with Dr. Espinal in ARU Remain compliant with treatment plan and medications Return to the ER if you experience any problems DISPOSITION: Transfer to ARU DISCHARGE CONDITION: [Stable]. TIME SPENT ON DISCHARGE: 40 minutes Vital Signs/I&Os Vital Signs Date Time Temp Pulse Resp B/P (MAP) Pulse Ox O2 Delivery O2 Flow Rate FiO2 08/15/18 09:43 100 153/80 08/15/18 06:00 96.8 17 97 2.0 I&O- Last 24 Hours up to 6 AM 08/15/18 06:00 Intake Total 2040 ml Output Total 3325 ml Balance -1285 ml Laboratory Data Labs 24H Laboratory Tests 2 08/14/18 17:05: Bedside Glucose (Misc Panel) 141H 08/14/18 20:16: Bedside Glucose (Misc Panel) 129H 08/14/18 21:37: Activated Partial Thromboplast Time 144.6*H 08/15/18 04:36: Activated Partial Thromboplast Time 63.5H, Immature Granulocyte % (Auto) 0.3, White Blood Count 9.2, Red Blood Count 3.09L, Hemoglobin 8.9L, Hematocrit 30.1L, Mean Corpuscular Volume 97.4H, Mean Corpuscular Hemoglobin 28.8, Mean Corpuscular Hemoglobin Concent 29.6L, Red Cell Distribution Width 17.1H, Platelet Count 313, Neutrophils (%) (Auto) 74.4H, Lymphocytes (%) (Auto) 10.2L, Monocytes (%) (Auto) 8.4H, Eosinophils (%) (Auto) 6.3H, Basophils (%) (Auto) 0.4, Neutrophils # (Auto) 6.8, Lymphocytes # (Auto) 0.9L, Monocytes # (Auto) 0.8, Eosinophils # (Auto) 0.6H, Basophils # (Auto) 0.0, Nucleated Red Blood Cells % (auto) 0.0, Prothrombin Time 26.4H, Prothromb Time International Ratio 2.37, Anion Gap 5L, Glomerular Filtration Rate 57.5, Blood Urea Nitrogen 32H, Creatinine 1.29, Sodium Level 142, Potassium Level 4.9, Chloride Level 104, Carbon Dioxide Level 33H, Calcium Level 8.6L, Aspartate Amino Transf (AST/SGOT) 32, Alanine Aminotransferase (ALT/SGPT) 19, Alkaline Phosphatase 77, Total Bilirubin 0.4, Total Protein 6.8, Albumin 2.5L, Magnesium Level 2.1, Albumin /Globulin Ratio 0.58L 08/15/18 10:14: Activated Partial Thromboplast Time 69.6H CBC/BMP Laboratory Tests 08/15/18 04:36 Red Blood Count 3.09 L, Mean Corpuscular Volume 97.4 H, Mean Corpuscular Hemoglobin 28.8, Mean Corpuscular Hemoglobin Concent 29.6 L, Red Cell Distribution Width 17.1 H, Neutrophils (%) (Auto) 74.4 H, Lymphocytes (%) (Auto) 10.2 L, Monocytes (%) (Auto) 8.4 H, Eosinophils (%) (Auto) 6.3 H, Basophils (%) (Auto) 0.4, Neutrophils # (Auto) 6.8, Lymphocytes # (Auto) 0.9 L, Monocytes # (Auto) 0.8, Eosinophils # (Auto) 0.6 H, Basophils # (Auto) 0.0, Calcium Level 8.6 L, Aspartate Amino Transf (AST/SGOT) 32, Alanine Aminotransferase (ALT/SGPT) 19, Alkaline Phosphatase 77, Total Bilirubin 0.4, Total Protein 6.8, Albumin 2.5 L FSBS Laboratory Tests Test 08/14/18 17:05 08/14/18 20:16 Range/Units Bedside Glucose (Misc Panel) 141 129 83-110 MG/DL Microbiology Microbiology 08/12/18 Stool Occult Blood (GUILHERME) - Final, Complete 08/10/18 Stool Occult Blood (GUILHERME) - Final, Complete Discharge Medications Scheduled Allopurinol (Zyloprim) 300 Mg Tab, 300 MG PO DAILY, (Reported) Aspirin (Aspirin) 81 Mg Tab.chew, 81 MG PO DAILY, (Reported) Atorvastatin Calcium (Atorvastatin Calcium) 80 Mg Tablet, 80 MG PO QHS, (Reported) Bifidobacterium Infantis (Align) 4 Mg Capsule, 4 MG PO DAILY, (Reported) Carvedilol (Carvedilol) 12.5 Mg Tablet, 12.5 MG PO BID, (Reported) Clopidogrel Bisulfate (Clopidogrel) 75 Mg Tablet, 75 MG PO DAILY, (Reported) Diltiazem HCl (Diltiazem HCl) 90 Mg Tablet, 90 MG PO Q8H, (Reported) Ezetimibe (Zetia) 10 Mg Tab, 10 MG PO DAILY, (Reported) Furosemide (Lasix) 40 Mg Tab, 40 MG PO BID Gabapentin (Gabapentin) 100 Mg Capsule, 200 MG PO TID Glipizide (Glipizide Xl) 2.5 Mg Tab, 5 MG PO DAILY, (Reported) Latanoprost (Xalatan) 0.005 % Sanjuana, 1 DROP OU QHS, (Reported) Magnesium Oxide (Magnesium Oxide) 400 Mg Tablet, 400 MG PO DAILY, (Reported) Multivitamin (Daily Mauro) 1 Each Tablet, 1 TAB PO DAILY, (Reported) Pantoprazole Sodium (Pantoprazole Sodium) 40 Mg Tablet.dr, 40 MG PO BID, (Reported) Sitagliptin (Januvia) 50 Mg Tablet, 50 MG PO DAILY, (Reported) Tizanidine HCl (Tizanidine HCl) 4 Mg Tablet, 2 MG PO TID Warfarin Sodium (Warfarin Sodium) 10 Mg Tablet, 10 MG PO DAILY Scheduled PRN Albuterol Sulfate (Proair Hfa) 8.5 Gm Hfa.aer.ad, 2 PUFF INH Q4H PRN for SOB/WHEEZING, (Reported) Nitroglycerin (Nitrostat) 0.4 Mg Tab.subl, 0.4 MG SL NITRO PRN for CHEST PAIN, (Reported) Oxycodone/Acetaminophen (Oxycodone-Acetaminophen 5-325) 1 Each Tablet, 1-2 TAB PO Q6HP PRN for SEVERE PAIN (PS 8-10) Tizanidine HCl (Tizanidine HCl) 2 Mg Tablet, 2 MG PO Q8H PRN for MUSCLE SPASMS Allergies Coded Allergies: No Known Allergies (Verified , 09/19/16) JA RUBIN MD August 15, 2018 14:51
[2018-08-15] MEDS ORDERED: WARFARIN SOD 5 MG TAB PO SCH (17:00)
== END 2018-08-15 11:27 | DRG 315 ==
LOC: M ED 07:32 → EDBD 07:32 → M ED INP 14:45 → M MSPAV 16:01 → OBSVTOIN 08-07 13:22
PROVIDERS: ADMIT Internal Medicine; ATTEND Internal Medicine
DX: T82.898A Other specified complication of vascular prosthetic devices, implants and grafts, initial encounter (principal); N17.9 Acute kidney failure, unspecified; M96.841 Postprocedural hematoma of a musculoskeletal structure following other procedure; E11.44 Type 2 diabetes mellitus with diabetic amyotrophy; E11.51 Type 2 diabetes mellitus with diabetic peripheral angiopathy without gangrene; I25.10 Atherosclerotic heart disease of native coronary artery without angina pectoris; M10.9 Gout, unspecified; E78.5 Hyperlipidemia, unspecified; I12.9 Hypertensive chronic kidney disease with stage 1 through stage 4 chronic kidney disease, or unspecified chronic kidney disease; R53.1 Weakness; E11.42 Type 2 diabetes mellitus with diabetic polyneuropathy; K21.9 Gastro-esophageal reflux disease without esophagitis; M16.0 Bilateral primary osteoarthritis of hip; N18.3 Chronic kidney disease, stage 3 (moderate); M47.817 Spondylosis without myelopathy or radiculopathy, lumbosacral region; E11.22 Type 2 diabetes mellitus with diabetic chronic kidney disease; K59.00 Constipation, unspecified; R26.81 Unsteadiness on feet; J45.909 Unspecified asthma, uncomplicated; Z88.5 Allergy status to narcotic agent; Z79.02 Long term (current) use of antithrombotics/antiplatelets; Z95.2 Presence of prosthetic heart valve; Z95.5 Presence of coronary angioplasty implant and graft; Z79.82 Long term (current) use of aspirin; Z79.01 Long term (current) use of anticoagulants; Z79.84 Long term (current) use of oral hypoglycemic drugs; Z79.899 Other long term (current) drug therapy; Y83.1 Surgical operation with implant of artificial internal device as the cause of abnormal reaction of the patient, or of later complication, without mention of misadventure at the time of the procedure

== ENCOUNTER 2018-08-14 09:45 | Inpatient (IN) | payer MEDICARE, OTHER ==
[~2018-08-14] VITALS: Ht 172.7 cm; Wt 113.5 kg
[~2018-08-14 09:45] MED LIST changes: +ALIG4CAP; +ALIG4CAP PO; +ASPI81CH33 PO; +ASPI81TA21 PO; +ATOR80TA59 PO; +CARV12.5 PO; +CARV6.25; +CLOP75TA2 PO; +DAILTAB51 PO; +DILT90TA PO; +ENOX120I3; +GABA-1171 PO; +MAGN400T2 PO; +NITR0.4S14; +NITR4TASL SL; +PANT40TA3 PO; +PERCOCET PO; +PROAAER10 INH; +TIAZ1CAP2; +TIZA2CAP6 PO; +TIZA2TAB4 PO; +TIZA4TAB4 PO; +WARF-22 PO
[2018-08-14] MEDS ORDERED: WARF-22 PO (10:20)
[2018-08-14] MEDS ORDERED: LASI40TA9 PO (10:22)
[2018-08-15] MEDS ORDERED: LASI40TA9 PO (10:04)
[2018-08-15] MEDS ORDERED: TIZA2TAB4 PO (10:04)
[2018-08-15] MEDS ORDERED: GLUCAGON FOR INJ 1 MG VIAL (J1610) SC PRN (11:15)
[2018-08-15] MEDS ORDERED: NITROGLYCERIN 0.4 MG SUBL TABLET SL PRN (11:15)
[2018-08-15] MEDS ORDERED: DEXTROSE 50% 50 ML SYRINGE IV PRN (11:15)
[2018-08-15] MEDS ORDERED: ACETAMINOPHEN TAB 650MG DOSE (2X325MG) PO PRN (11:15)
[2018-08-15] MEDS ORDERED: MAALOX 30 ML SUSP *UDC PO PRN (11:15)
[2018-08-15] MEDS ORDERED: oxyCODONE 5MG TAB PO PRN (11:15)
[2018-08-15] MEDS ORDERED: BISACODYL 10 MG SUPP PR PRN (11:15)
[2018-08-15] MEDS ORDERED: GLUCOSE 4 GM CHEW TABLET PO PRN (11:15)
[2018-08-15] MEDS ORDERED: MOM 30ML SUSPENSION UDC PO PRN (11:15)
[2018-08-15 11:30] VITALS: BP 121/62
[2018-08-15] MEDS: ALBUTEROL SULFATE 2.5 MG/0.5 ML INH NEB SOLN NEB SCH ×2 (12:00→22:29)
[2018-08-15] MEDS: HumaLOG INSULIN (NovoLOG) PER UNIT SC SCH ×3 (13:48→21:00)
[2018-08-15 14:00] VITALS: BP 122/58
[2018-08-15] MEDS ORDERED: HEPARIN SOD (PORCINE) 5000 UNITS/ML VIAL IV ONE ×2 (14:00→14:15)
[2018-08-15] MEDS ORDERED: HEPARIN DRIP 25,000 UNITS in APPROPRIATE DILUENT 1 EA IV SCH ×4 (14:05)
[2018-08-15] MEDS ORDERED: HEPARIN SOD (PORCINE) 5000 UNITS/ML VIAL IV PRN (14:15)
[2018-08-15 14:35] LABS: HEMATOCRIT 32.3 % (42.0-52.0); HEMOGLOBIN 9.5 g/dl (13.5-17.5); MEAN CORPUSCULAR HEMOGLOBIN 29.1 pg (27.0-33.0); MEAN CORPUSCULAR HGB CONC 29.4 g/dl (32.0-36.5); MEAN CORPUSCULAR VOLUME 98.8 fl (80.0-96.0); PLATELET COUNT, AUTOMATED 369 10^3/uL (150-450); RED BLOOD COUNT 3.27 10^6/uL (4.30-6.10); WHITE BLOOD COUNT 11.6 10^3/uL (4.0-10.0)
--- NOTE | 2018-08-15 15:22 | CR.PDOC ---
General Date of Consultation: August 15, 2018 Consultation REASON FOR CONSULTATION/CHIEF COMPLAINT: Right thigh and lower extremity pain from right ilopsoas hematoma HISTORY OF PRESENT ILLNESS: Patient is a 77-year-old male with a PMHx of Mechanical AV replacement, CAD s/p stent x2, PVD, Intraabdominal arterial disease, HTN, DM2, DLP, Diabetic Neuropathy, Gout, s/p AAA s/p repair, and s/p ilateral inguinal hernia repair who presented to [facility] because of sudden on-set sharp/shooting intermittent 10/10 right hip pain with numbness and weakness on 08/05. Patient reported he underwent catheterization on 07/31/18 with 2 stents placement; there was difficulty in the right groin thus the the left groin was used instead. Patient was discharged home after procedures but presented on 08/05 with severe pain. He was found to have right ileopsoas hematoma causing right lumber plexopathy. Orthopedic surgery and neurology were called on consultation. He was found to be sub-therapeutic for his mechanical valve with INR 1.19 thus was started on IV heparin bridging to warfarin. Pt was then subsequently d/c to rehab. Pt currently reported numbness even when sitting still, and 6/10 burning pain in medial and lateral right thigh while walking /movement only. Denies any fever, chills, nausea, vomiting, abdominal pain, diarrhea, constipation, hematochezia, or melena ALLERGIES: Please see below. HOME MEDICATIONS: Please see below. PAST MEDICAL HISTORY: 1. Right leg pain / weakness / numbness, likely 2/2 Right iliopsoas hematoma with right lumber plexopathy 2. Constipation 3. DM2 with Diabetic neuropathy 4. CAD s/p CABG and stent (07/30/18) 5. HTN 6. DLP 7. Mechanical Aortic valve 8. Gout 9. GERD 10. Elevation of Cr - likely 2/2 CKD3 11. Chronic bilateral venous stasis with stasis dermatitis PAST SURGICAL HISTORY: 1. CABG and 2 stents placement 2. Bilateral inguinal hernia repair 3. Stent placement likely in mesenteric artery FAMILY HISTORY: Sister has lung cancer, and one sister has cholecystectomy SOCIAL HISTORY: Denies smoking, alcohol, or recreational drug use REVIEW OF SYSTEMS: CONSTITUTIONAL: Denies fever or chills CARDIOVASCULAR: Denies any chest pain, palpation RESPIRATORY: Denies any dyspnea GENITOURINARY: Denies any urinary retention MUSCULOSKELETAL: Reported right anterior lateral and medial thigh pain during activities GASTROINTESTINAL: Denies abdominal pain, diarrhea, constipation, hematochezia, or melena SKIN: Denies any ecchymosis NEUROLOGICAL: Numbness and tingling in dorsal right foot, right leg, and medial and lateral right thigh HEMATOLOGIC/LYMPHATIC: Denies easy bruising/easy bleeding PHYSICAL EXAMINATION: VITAL SIGNS: Please see below. GENERAL APPEARANCE: alert and awake, not in acute distress HEENT: Head normocephalic, atraumatic, conjunctiva and lids normal RESPIRATORY: CTA b/l, no rales, wheezing, or rhonchi CARDIOVASCULAR: RRR, no murmur, normal S1 and S2 ABDOMEN: soft, no guarding, bowel sound aus in all 4 quadrants EXTREMITIES: No obvious ecchymosis or lesions noted in b/l lower extremities. Chronic stasis dermatitis noted NEUROLOGICAL: Decreased sensation in anterior right leg and dorsal right foot SKIN: No obvious ecchymosis in lumbar region LABORATORY DATA: Please see below. ASSESSMENT/PLAN: 1. Right leg pain / weakness / numbness, 2/2 right iliopsoas hematoma with right lumber plexopathy - Patient is reported right thigh pain during movement has been no change compared to 2 days ago; still reports sensory loss and numbness - Physical remains relatively unchanged - MRI lumbar spine showed diffuse disc bulges at the L3-4 and L4-5 levels with minimal thecal sac compression and diffuse disc bulge at the L5-S1 level - CT pelvis 08/07 showed elongate right iliopsoas hematoma; no other acute abnormality. Moderate bilateral hip joint OA - CT pelvis 08/09 repeat showed stable right iliopsoas hematoma. - Cont Percocet PRN, c/w Tizanidine and Gabapentin; s/p Morphine and Dilaudid - Cont Plavix. On heparin drip bridging to Coumadin; once INR wnl goal range 2.5-3.5; will d/c heparin drip - Cont Physical therapy; patient will continue with PT at ARU 2. DM2 with Diabetic neuropathy - Cont ISS and Gabapentin - Cont Sitagliptin and Glipizide 3. CAD s/p CABG and stent (07/30/18) - Cont Plavix, Carvedilol, Atorvastatin 4. HTN - BP grossly wnl - Cont Diltiazem and Carvedilol 5. DLP - Cont Atorvastatin and Ezetimibe 6. Mechanical Aortic valve - Model # [id number]; Serial # [id number] - Patient has indicated that his INR target is 2.5 to 3.5 - Initially presented as sub-therapeutic; has been approaching therapeutic range after started on heparin drip - Cont Coumadin and Heparin drip while INR is subtherapeutic; Coumadin dose will be 10mg for now - will need to be adjusted based on INR 7. Gout - Cont Allopurinol 8. GERD -Cont Protonix 9. Elevation of Cr - likely due to MARIANELA - GFR 56; >60 yesterday, cont to monitor with BMP - Cr has returned to normal range - s/p IV fluids; home med Furosemide resumed 10. Chronic bilateral venous stasis with stasis dermatitis - Cont home med Furosemide DVT prophylaxis - s/p Lovenox - Cont Coumadin; cont heparin drip until INR wnl goal range 2.5 to 3.5 Vital Signs/I&O Vital Signs Date Time Temp Pulse Resp B/P (MAP) Pulse Ox O2 Delivery O2 Flow Rate FiO2 08/15/18 13:48 85 122/58 08/15/18 11:30 96.9 18 93 Laboratory Data Labs 24H Laboratory Tests 2 08/15/18 12:04: Bedside Glucose (Misc Panel) 127H 08/15/18 14:19: Nucleated Red Blood Cells % (auto) 0.0, Activated Partial Thromboplast Time 66.5H CBC/BMP Laboratory Tests 08/15/18 14:19 Red Blood Count 3.27 L, Mean Corpuscular Volume 98.8 H, Mean Corpuscular Hem oglobin 29.1, Mean Corpuscular Hemoglobin Concent 29.4 L, Red Cell Distribution Width 17.0 H Allergies Coded Allergies: No Known Allergies (Verified , 09/19/16) Home Medications Scheduled Allopurinol (Zyloprim) 300 Mg Tab, 300 MG PO DAILY, (Reported) Aspirin (Aspirin) 81 Mg Tab.chew, 81 MG PO DAILY, (Reported) Atorvastatin Calcium (Atorvastatin Calcium) 80 Mg Tablet, 80 MG PO QHS, (Reported) Bifidobacterium Infantis (Align) 4 Mg Capsule, 4 MG PO DAILY, (Reported) Carvedilol (Carvedilol) 12.5 Mg Tablet, 12.5 MG PO BID, (Reported) Clopidogrel Bisulfate (Clopidogrel) 75 Mg Tablet, 75 MG PO DAILY, (Reported) Diltiazem HCl (Diltiazem HCl) 90 Mg Tablet, 90 MG PO Q8H, (Reported) Ezetimibe (Zetia) 10 Mg Tab, 10 MG PO DAILY, (Reported) Furosemide (Lasix) 40 Mg Tab, 40 MG PO BID, #60 Gabapentin (Gabapentin) 100 Mg Capsule, 200 MG PO TID for 30 Days, #180 Glipizide (Glipizide Xl) 2.5 Mg Tab, 5 MG PO DAILY, (Reported) Latanoprost (Xalatan) 0.005 % Sanjuana, 1 DROP OU QHS, (Reported) Magnesium Oxide (Magnesium Oxide) 400 Mg Tablet, 400 MG PO DAILY, (Reported) Multivitamin (Daily Mauro) 1 Each Tablet, 1 TAB PO DAILY, (Reported) Pantoprazole Sodium (Pantoprazole Sodium) 40 Mg Tablet.dr, 40 MG PO BID, (Reported) Sitagliptin (Januvia) 50 Mg Tablet, 50 MG PO DAILY, (Reported) Tizanidine HCl (Tizanidine HCl) 4 Mg Tablet, 2 MG PO TID for 5 Days, #30 Warfarin Sodium (Warfarin Sodium) 10 Mg Tablet, 10 MG PO DAILY for 10 Days, #10 Scheduled PRN Albuterol Sulfate (Proair Hfa) 8.5 Gm Hfa.aer.ad, 2 PUFF INH Q4H PRN for SOB/WHEEZING, (Reported) Nitroglycerin (Nitrostat) 0.4 Mg Tab.subl, 0.4 MG SL NITRO PRN for CHEST PAIN, (Reported) Oxycodone/Acetaminophen (Oxycodone-Acetaminophen 5-325) 1 Each Tablet, 1-2 TAB PO Q6HP PRN for SEVERE PAIN (PS 8-10) for 5 Days, #30 Tizanidine HCl (Tizanidine HCl) 2 Mg Tablet, 2 MG PO Q8H PRN for MUSCLE SPASMS, #15 GME ATTESTATION GME ATTESTATION My faculty preceptor for this patient encounter was physically present during the encounter and was fully available. All aspects of the patient interview, examination, medical decision making process, and medical care plan development were reviewed and approved by the faculty preceptor. The faculty preceptor is aware and concurs with the plan as stated in the body of this note and will attest to such by his/her cosignature. ATTENDING NOTE I, Eveline Rubin, have both independently examined this patient as well as reviewed the documentation. I have discussed in detail with the resident the findings and plan of treatment as documented by the resident. I agree with their findings and treatment plan. I will continue to follow the patient and offer fu rther guidance to the patients care as necessary during this hospital stay. JOHN DEAN DO August 15, 2018 15:22 EVELINE RUBIN MD August 15, 2018 16:54
[2018-08-15] MEDS ORDERED: WARFARIN SOD 5 MG TAB PO ONE (17:00)
[2018-08-15] MEDS: GABAPENTIN 100 MG CAP PO SCH ×2 (18:03→20:19)
[2018-08-15 19:34] LABS: INR 2.47; PROTHROMBIN TIME 27.3 SECONDS (12.1-14.4)
[2018-08-15 19:36] LABS: PARTIAL THROMBOPLASTIN TIME 74.3 SECONDS (25.4-37.6)
[2018-08-15] MEDS ORDERED: FUROSEMIDE 20 MG/2 ML VIAL (J1940) IV ONE (19:45)
[2018-08-15 20:00] VITALS: BP 147/65
[2018-08-15] MEDS: ACETAMINOPHEN 500 MG TAB PO SCH (20:19)
[2018-08-15] MEDS: ATORVASTATIN 20 MG TAB PO SCH (20:20)
[2018-08-15] MEDS: CARVedilol 12.5 MG TAB PO SCH (20:20)
[2018-08-15] MEDS: DOCUSATE SODIUM 100 MG CAP PO SCH (20:20)
[2018-08-15] MEDS: LATANOPROST 0.005% OPHTH SOLN 2.5 ML OU SCH (20:21)
[2018-08-15] MEDS: PANTOPRAZOLE 40MG TAB (PROTONIX) PO SCH (20:34)
[2018-08-15] MEDS: SENNA 8.6 MG TAB (SENOKOT) PO SCH (20:34)
[2018-08-16] MEDS: ALBUTEROL 90 MCG/ACT 8GM HFA INHALER INH PRN ×2 (04:19→11:11)
[2018-08-16 06:00] VITALS: BP 137/64
[2018-08-16 07:04] LABS: APPEARANCE, URINE CLEAR (CLEAR); BACTERIA, URINE AUTO 1+ (NEGATIVE); BILIRUBIN, URINE AUTO NEGATIVE (NEGATIVE); BLOOD, URINE BLOOD NEGATIVE (NEGATIVE); COLOR, URINE YELLOW (YELLOW); GLUCOSE, URINE (UA) AUTO NEGATIVE (NEGATIVE); KETONE, URINE AUTO NEGATIVE (NEGATIVE); LEUKOCYTE ESTERASE, URINE AUTO NEGATIVE (NEGATIVE); NITRITE, URINE AUTO NEGATIVE (NEGATIVE); PROTEIN, URINE AUTO NEGATIVE (NEGATIVE); RBC, URINE AUTO 0 /HPF (0-3); SPECIFIC GRAVITY URINE AUTO 1.013 (1.002-1.035); SQUAMOUS EPITHELIAL CELL UR AU 0 /HPF (0-6); UROBILINOGEN, URINE AUTO 0.2 mg/dL (0.0-2.0); WBC, URINE AUTO 1 /HPF (0-3)
[2018-08-16] MEDS: HumaLOG INSULIN (NovoLOG) PER UNIT SC SCH ×4 (07:30→21:00)
[2018-08-16 07:50] LABS: BASO % 0.5 % (0.0-1.0); EOS # 0.5 10^3/uL (0.0-0.50); EOS % 5.5 % (0.0-3.0); HEMATOCRIT 30.7 % (42.0-52.0); LYMPH # 0.8 10^3/uL (1.5-4.5); LYMPH % 9.6 % (24.0-44.0); MEAN CORPUSCULAR HEMOGLOBIN 28.8 pg (27.0-33.0); MEAN CORPUSCULAR HGB CONC 29.3 g/dl (32.0-36.5); MEAN CORPUSCULAR VOLUME 98.1 fl (80.0-96.0); MONO # 0.6 10^3/uL (0.0-0.8); MONO % 7.1 % (0.0-5.0); NEUTROPHILS # 6.7 10^3/uL (1.8-7.7); NEUTROPHILS % 76.8 % (36.0-66.0); PLATELET COUNT, AUTOMATED 324 10^3/uL (150-450); RED BLOOD COUNT 3.13 10^6/uL (4.30-6.10); WHITE BLOOD COUNT 8.8 10^3/uL (4.0-10.0)
[2018-08-16] MEDS: ALBUTEROL SULFATE 2.5 MG/0.5 ML INH NEB SOLN NEB SCH (07:56)
[2018-08-16 08:07] LABS: INR 2.51; PROTHROMBIN TIME 27.6 SECONDS (12.1-14.4)
[2018-08-16 08:10] LABS: ALBUMIN 2.6 GM/DL (3.2-5.2); BILIRUBIN,TOTAL 0.4 MG/DL (0.2-1.0); CALCIUM LEVEL 8.6 MG/DL (8.8-10.2); CREATININE FOR GFR 1.28 MG/DL (0.70-1.30); POTASSIUM SERUM 4.6 MEQ/L (3.5-5.1); TOTAL PROTEIN 6.9 GM/DL (6.4-8.2)
[2018-08-16] MEDS: DOCUSATE SODIUM 100 MG CAP PO SCH ×2 (08:36→22:01)
[2018-08-16] MEDS: ALLOPURINOL 300 MG TAB PO SCH (08:37)
[2018-08-16] MEDS: glipiZIDE XL 5 MG TABCR PO SCH (08:37)
[2018-08-16] MEDS: GABAPENTIN 100 MG CAP PO SCH ×3 (08:37→22:01)
[2018-08-16] MEDS: ACETAMINOPHEN 500 MG TAB PO SCH ×3 (08:38→22:02)
[2018-08-16] MEDS: SITagliptin 50 MG TAB (JANUVIA) PO SCH (08:39)
[2018-08-16] MEDS: MAGNESIUM OXIDE 400 MG TAB (MAG-OX) PO SCH (08:39)
[2018-08-16] MEDS: PANTOPRAZOLE 40MG TAB (PROTONIX) PO SCH ×2 (08:39→22:03)
[2018-08-16] MEDS: CARVedilol 12.5 MG TAB PO SCH ×2 (08:39→22:03)
[2018-08-16] MEDS: EZETIMIBE 10 MG TAB (ZETIA) PO SCH (08:39)
[2018-08-16] MEDS: CLOPIDOGREL 75 MG TAB PO SCH (08:44)
[2018-08-16 11:15] VITALS: BP 135/70
[2018-08-16] MEDS: FUROSEMIDE 40 MG TAB PO SCH ×2 (11:16→17:15)
--- NOTE | 2018-08-16 11:50 | IPNPDOC ---
Text Note Date of Service The patient was seen on 08/16/18. NOTE REASON FOR CONSULTATION/CHIEF COMPLAINT: Right thigh and lower extremity pain from right ilopsoas hematoma HISTORY OF PRESENT ILLNESS: Patient is a 77-year-old male with a PMHx of Mechanical AV replacement, CAD s/p stent x2, PVD, Intraabdominal arterial disease, HTN, DM2, DLP, Diabetic Neuropathy, Gout, s/p AAA s/p repair, and s/p ilateral inguinal hernia repair who presented to [facility] because of sudden on-set sharp/shooting intermittent 10/10 right hip pain with numbness and weakness on 08/05. Patient reported he underwent catheterization on 07/31/18 with 2 stents placement; there was difficulty in the right groin thus the the left groin was used instead. Patient was discharged home after procedures but presented on 08/05 with severe pain. He was found to have right ileopsoas hematoma causing right lumber plexopathy. Orthopedic surgery and neurology were called on consultation. He was found to be sub-therapeutic for his mechanical valve with INR 1.19 thus was started on IV heparin bridging to warfarin. Pt was then subsequently d/c to rehab. Pt continue to report numbness even when sitting still, and burning pain in medial and lateral right thigh while walking/movement only. He reported that his thigh pain has increased mildly after activities yesterday. Denies any fever, chills, nausea, vomiting, abdominal pain, diarrhea, or constipation REVIEW OF SYSTEMS: CONSTITUTIONAL: Denies fever or chills CARDIOVASCULAR: Denies any chest pain RESPIRATORY: Denies any dyspnea MUSCULOSKELETAL: Reported right anterior lateral and medial thigh pain during activities GASTROINTESTINAL: Denies abdominal pain, diarrhea, or constipation SKIN: Denies any ecchymosis NEUROLOGICAL: Numbness and tingling in dorsal right foot, right leg, and medial and lateral right thigh. Pain in medial and lateral right thigh with activities HEMATOLOGIC/LYMPHATIC: Denies easy bruising/easy bleeding PHYSICAL EXAMINATION: VITAL SIGNS: Please see below. GENERAL APPEARANCE: alert and awake, not in acute distress. He is sitting on the chair at the time of examination HEENT: Head normocephalic, atraumatic, conjunctiva and lids normal RESPIRATORY: Mild b/l wheezing aus, no rales or rhonchi CARDIOVASCULAR: RRR, no murmur, normal S1 and S2 ABDOMEN: soft, no guarding, bowel sound aus in all 4 quadrants EXTREMITIES: No obvious ecchymosis or lesions noted in b/l lower extremities. Chronic stasis dermatitis noted. Trace non-pitting edema about NEUROLOGICAL: Decreased sensation in anterior right leg and dorsal right foot SKIN: No obvious ecchymosis in lumbar region LABORATORY DATA: Please see below. ASSESSMENT/PLAN: 1. Right leg pain / weakness / numbness, 2/2 right iliopsoas hematoma with right lumber plexopathy - Patient is reported right thigh pain during movement has mildly increased compared to yesterday; still reports sensory loss and numbness - Physical remains relatively unchanged - MRI lumbar spine showed diffuse disc bulges at the L3-4 and L4-5 levels with minimal thecal sac compression and diffuse disc bulge at the L5-S1 level - CT pelvis 08/07 showed elongate right iliopsoas hematoma; no other acute abnormality. Moderate bilateral hip joint OA - CT pelvis 08/09 repeat showed stable right iliopsoas hematoma. - Cont Percocet PRN, c/w Tizanidine and Gabapentin; s/p Morphine and Dilaudid - Cont Plavix. S/p heparin drip bridging to Coumadin; heparin drip d/c as most recent INR 2.51. - Cont Physical therapy; patient will continue with PT at ARU 2. DM2 with Diabetic neuropathy - Cont ISS and Gabapentin - Cont Sitagliptin and Glipizide 3. CAD s/p CABG and stent (07/30/18) - Cont Plavix, Carvedilol, Atorvastatin 4. HTN - BP grossly wnl - Cont Diltiazem and Carvedilol 5. DLP - Cont Atorvastatin and Ezetimibe 6. Mechanical Aortic valve - Model # [id number]; Serial # [id number] - Patient has indicated that his INR target is 2.5 to 3.5 - Initially presented as sub-therapeutic; S/p heparin drip. Heparin drip d/c as pt most recent INR 2.51, within therapeutic range. - Cont Coumadin dose 10mg, will need to be adjusted based on INR 7. Gout - Cont Allopurinol 8. GERD - Cont Protonix 9. Elevation of Cr - likely due to MARIANELA - GFR 58, improved compared to yesterday; >60 on 08/14, cont to monitor with BMP - Cr has returned to normal range - s/p IV fluids; home med Furosemide resumed 10. Chronic bilateral venous stasis with stasis dermatitis - Cont home med Furosemide - Trace non-pitting edema in b/l lower extremities. DVT prophylaxis - s/p Lovenox - S/p heparin drip, d/c as INR within therapeutic range. Cont Coumadin and follow up with INR A-FIB/CHADSVASC A-FIB History Current/History of A-Fib/PAF?: No VS,Fishbone, I+O VS, Fishbone, I+O Laboratory Tests 08/15/18 14:19 Red Blood Count 3.27 L, Mean Corpuscular Volume 98.8 H, Mean Corpuscular Hemoglobin 29.1, Mean Corpuscular Hemoglobin Concent 29.4 L, Red Cell Distribution Width 17.0 H 08/16/18 07:23 Red Blood Count 3.13 L, Mean Corpuscular Volume 98.1 H, Mean Corpuscular Hemoglobin 28.8, Mean Corpuscular Hemoglobin Concent 29.3 L, Red Cell Distribution Width 17.1 H, Neutrophils (%) (Auto) 76.8 H, Lymphocytes (%) (Auto) 9.6 L, Monocytes (%) (Auto) 7.1 H, Eosinophils (%) (Auto) 5.5 H, Basophils (%) (Auto) 0.5, Neutrophils # (Auto) 6.7, Lymphocytes # (Auto) 0.8 L, Monocytes # (Auto) 0.6, Eosinophils # (Auto) 0.5, Basophils # (Auto) 0.0, Calcium Level 8.6 L, Aspartate Amino Transf (AST/SGOT) 29, Alanine Aminotransferase (ALT/SGPT) 14, Alkaline Phosphatase 80, Total Bilirubin 0.4, Total Protein 6.9, Albumin 2.6 L Vital Signs Date Time Temp Pulse Resp B/P (MAP) Pulse Ox O2 Delivery O2 Flow Rate FiO2 08/16/18 11:15 70 22 135/70 (91) 96 1.0 08/16/18 06:00 97.8 I&O- Last 24 Hours up to 6 AM 08/16/18 05:59 Intake Total 600 ml Output Total 975 ml Balance -375 ml GME ATTESTATION GME ATTESTATION My faculty preceptor for this patient encounter was physically present during the encounter and was fully available. All aspects of the patient interview, examination, medical decision making process, and medical care plan development were reviewed and approved by the faculty preceptor. The faculty preceptor is a bernard and concurs with the plan as stated in the body of this note and will attest to such by his/her cosignature. ATTENDING NOTE I, Eveline Rubin, have both independently examined this patient as well as reviewed the documentation. I have discussed in detail with the resident the findings and plan of treatment as documented by the resident. I agree with their findings and treatment plan. I will continue to follow the patient and offer further guidance to the patients care as necessary during this hospital stay. JOHN DEAN DO August 16, 2018 11:50 EVELINE RUBIN MD August 16, 2018 15:43
[2018-08-16 14:00] VITALS: BP 131/59
--- NOTE | 2018-08-16 14:03 | HPEPDOC ---
Disease Case Manager Note DATE OF ADMISSION: August 15, 2018 at 11:30 SOURCE OF ADMISSION INFORMATION: patient and [facility] records CHIEF COMPLAINT: acute right lumbosacral compression plexopathy in setting of iliopsoas hematoma HISTORY OF PRESENT ILLNESS: 77M pmh DM, mechanical aortic valve, CAD s/p and mesenteric artery stenting July 30, 2018 with catheterization through the right groin after which he developed onset of right lower extremity weakness, pain, and paresthesias presenting to [facility] ED on 08/06/18. Upon arrival lumbar MRI was ordered which was unremarkable for neural- foramina compression, hip X-ray revealed hip osteoarthritis, Doppler was negative for DVT, and CTH was unremarkable. 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 Patient was also found to have a subtherapeutic INR on admission and was placed on a heparin drip while his Coumadin dosing was adjusted, with repeat CT pelvis showing stable size in hematoma. He developed fluid overload and was diuresed, provided with breathing treatments and supplemental oxygen. Lyme titers were ordered as well per neuro recs which came back positive. Patient was evaluated by therapy, found to have significant right lower extremity weakness, difficulty ambulating and performing ADLs. He was considered medically appropriate and an excellent candidate ARU level of care where he was discharged to on 08/15/18. REVIEW OF SYSTEMS: The following is a completed review of systems and has been reviewed. Review of systems otherwise unremarkable. PAIN: Patient self reports ache in right leg EYES: Negative for recent vision changes EARS, NOSE, & THROAT: denies dysphagia, hearing difficulty, or throat pain CARDIOVASCULAR: denies chest pain or palpitations PULMONARY: denies cough, +mild dyspnea at rest GASTROINTESTINAL: Negative for diarrhea or constipation GENITOURINARY: Negative for dysuria MUSCULOSKELETAL: right LE weakness NEUROLOGICAL: right lumbosacral plexopathy SKIN: +hyperpigmented calves PSYCHIATRIC: Unremarkable All other review of systems found to be negative. PAST MEDICAL HISTORY: as per HPI PAST SURGICAL HISTORY: as per HPI ALLERGIES: Please see below. MEDICATIONS: Please see below. SOCIAL HISTORY: smoked 1-2 packs a day up until one year ago, +ETOH use, no illicit drugs DIET: low sodium, 1800cc fluid restrict PHYSICAL EXAMINATION: VITAL SIGNS: Please see below. GENERAL: Pleasant and cooperative. No acute distress. HEENT: PERRL. Extraocular movements intact. Clear conjunctiva CARDIOVASCULAR: Regular rate and rhythm. No murmurs, rubs, or gallops LUNGS: decreased breath sounds at bases. No wheezes. No rhonchi ABDOMEN: Soft, nontender, nondistended. Positive bowel sounds. Normal active bowel sounds NEUROLOGICAL: Alert and oriented times three. Cranial nerves II through XII grossly intact. Sensation grossly intact in bilat UE and left LE, diminished in the anterior right thigh and lateral calf EXTREMITIES: 5\5 strength bilateral upper extremities. 5\5 strength right ankle DF, EHL and PF, 2/5 hip flexion and knee extension 5/5 strength in left lower extremity. -bilat LE edema SKIN: +hyperpigmented calves with IMAGING: Imaging documentation personally reviewed by record FUNCTIONAL STATUS: Premorbid: Independent with all activities of daily life as well as mobility On Admission: Min assist for functional transfers, total assist for ambulation due to right leg weakness, total for dressing. GOALS: Mod-I with walker for ambulation household distances, Mod- for functional transfers, bed mobility, toileting, bathing, grooming, medical optimization, assess for DMEs, home eval, caregiver training, possible bracing. ASSESSMENT:77-year-old M with past medical history of mechanical aortic valve replacement who presents status post cardiac/mesenteric artery stenting complicated by iliopsoas hematoma with right lumbosacral plexopathy PLAN: 1. rehab: PT, OT, assess for DMEs 2. Neuro: acute onset right lumbosacral compression plexothapy causing profound RLE paralysis and decreased sensation- will refer to outpatient neurology for NCS/EMG 3. CArdio: pmh mechanical aortic valve- on heparin drip bridging to couamdin, c/u to monitor APTT and d/c drip once at goal INR 2.5-3.5- medicine consulted - clinical suspicion for congestive heart failure- patient currently short of breath at rest, will order IV lasix x1 -c/u home meds 4. Resp: ex-smoker with COPD, c/u breathing treatments and supplemental oxygen 5. Endo: pmh DM c/u home meds and ISS- monitor and adjust prn 6. GI px: protnix BID 7. DVT ppx: on warfarin 8. Pain: change tizanidine to prn for recent drops in BPs while on inpatient, avoid opioids, add tylenol 1000mg standing and c/u gabapentin -trazodone prn for insomnia 9. Dispo: tbd POST ADMISSION PHYSICIAN EVALUATION: Medical and functional status: Description of medical status, medical assessment: As above. Rehabilitation diagnosis and current and prior cold morbid medical conditions as above. Risk of complications and plans to mitigate them as above. Description of functional status current status is as above. Prior status as above. Status compared to preadmission: There are no clinically significant differences between the patient's current status and the information described on the preadmission screening document. Treatment plan anticipated: Treatment plan is as described above. Required disciplines including physical therapy, occupational therapy, others as noted above Intensity of services: 3 hours a day, 6 days a week. Special considerations: There are no specific special or safety considerations that would likely preclude immediate implementation of an intensive rehabilita tion program or subsequently influence the plan of care ATTESTATION: Considering all the information above, it is my best judgment that this patient requires intensive rehabilitation therapy as described above and an inpatient hospital environment due to the complexity of nursing, medical, and rehabilitation needs required by the patient. Furthermore, this patient can reasonably be expected to participate in an benefit from an inpatient rehabilitation stay with an interdisciplinary team approach to the delivery of rehabilitation care under the direction and supervision of rehabilitation physi joyce PROGNOSIS: Excellent ESTIMATED LENGTH OF STAY:14-16 days. PROJECTED DISCHARGE DESTINATION: Home with family support and any durable medical equipment required to increase functional safety and mobility TIME SPENT COUNSELING AND COORDINATING INITIAL CARE: Greater than 70 minutes. Vital Signs Vital Sign - Last 24 Hours 08/15/18 08/15/18 08/15/18 08/15/18 13:48 14:00 20:00 20:00 Temp 97.1 97.1 Pulse 85 85 72 Resp 18 18 B/P (MAP) 122/58 122/58 (79) 147/65 (92) Pulse Ox 92 97 O2 Flow Rate 2.0 2.0 08/15/18 08/15/18 08/16/18 08/16/18 20:20 22:16 06:00 06:07 Temp 97.8 Pulse 72 93 80 80 Resp 18 B/P (MAP) 147/65 134/60 137/64 (88) 137/64 Pulse Ox 95 O2 Flow Rate 2.0 08/16/18 08/16/18 08:39 11:15 Pulse 80 70 Resp 22 B/P (MAP) 137/64 135/70 (91) Pulse Ox 96 O2 Flow Rate 1.0 Laboratory Data CBC/BMP Laboratory Tests 08/15/18 14:19 Red Blood Count 3.27 L, Mean Corpuscular Volume 98.8 H, Mean Corpuscular Hemoglobin 29.1, Mean Corpuscular Hemoglobin Concent 29.4 L, Red Cell Distribution Width 17.0 H 08/16/18 07:23 Red Blood Count 3.13 L, Mean Corpuscular Volume 98.1 H, Mean Corpuscular Hemoglobin 28.8, Mean Corpuscular Hemoglobin Concent 29.3 L, Red Cell Distribution Width 17.1 H, Neutrophils (%) (Auto) 76.8 H, Lymphocytes (%) (Auto) 9.6 L, Monocytes (%) (Auto) 7.1 H, Eosinophils (%) (Auto) 5.5 H, Basophils (%) (Auto) 0.5, Neutrophils # (Auto) 6.7, Lymphocytes # (Auto) 0.8 L, Monocytes # (Auto) 0.6, Eosinophils # (Auto) 0.5, Basophils # (Auto) 0.0, Calcium Level 8.6 L, Aspartate Amino Transf (AST/SGOT) 29, Alanine Aminotransferase (ALT/SGPT) 14, Alkaline Phosphatase 80, Total Bilirubin 0.4, Total Protein 6.9, Albumin 2.6 L Labs 24H Laboratory Tests 2 08/15/18 14:19: Nucleated Red Blood Cells % (auto) 0.0, Activated Partial Thromboplast Time 66. 5H 08/15/18 17:03: Bedside Glucose (Misc Panel) 133H 08/15/18 19:11: Activated Partial Thromboplast Time 74.3H, Prothrombin Time 27.3H, Prothromb Time International Ratio 2.47 08/15/18 20:31: Bedside Glucose (Misc Panel) 134H 08/16/18 06:46: Urine Appearance CLEAR, Urine Color YELLOW, Urine pH 5.0, Urine Specific [place] 1.013, Urine Protein NEGATIVE, Urine Glucose (UA) NEGATIVE, Urine Ketones NEGATIVE, Urine Urobilinogen 0.2, Urine Bilirubin NEGATIVE, Urine Leukocyte Esterase NEGATIVE, Urine Blood NEGATIVE, Urine Nitrite NEGATIVE, Urine WBC (Auto) 1, Urine RBC (Auto) 0, Urine Hyaline Casts (Auto) 1, Urine Bacteria (Auto) 1+H, Urine Squamous Epithelial Cells 0, Urine Sperm (Auto) 08/16/18 07:09: Bedside Glucose (Misc Panel) 104 08/16/18 07:23: Immature Granulocyte % (Auto) 0.5, White Blood Count 8.8, Red Blood Count 3.13L, Hemoglobin 9.0L, Hematocrit 30.7L, Mean Corpuscular Volume 98.1H, Mean Corpuscular Hemoglobin 28.8, Mean Corpuscular Hemoglobin Concent 29.3L, Red Cell Distribution Width 17.1H, Platelet Count 324, Neutrophils (%) (Auto) 76.8H, Lymphocytes (%) (Auto) 9.6L, Monocytes (%) (Auto) 7.1H, Eosinophils (%) (Auto) 5.5H, Basophils (%) (Auto) 0.5, Neutrophils # (Auto) 6.7, Lymphocytes # (Auto) 0.8L, Monocytes # (Auto) 0.6, Eosinophils # (Auto) 0.5, Basophils # (Auto) 0.0, Nucleated Red Blood Cells % (auto) 0.0, Prothrombin Time 27.6H, Prothromb Time International Ratio 2.51, Activated Partial Thromboplast Time 111.0H, Anion Gap 5L, Glomerular Filtration Rate 58.0, Blood Urea Nitrogen 35H, Creatinine 1.28, Sodium Level 141, Potassium Level 4.6, Chloride Level 103, Carbon Dioxide Level 33H, Calcium Level 8.6L, Aspartate Amino Transf (AST/SGOT) 29, Alanine Aminotransferase (ALT/SGPT) 14, Alkaline Phosphatase 80, Total Bilirubin 0.4, Total Protein 6.9, Albumin 2.6L, Albumin/Globulin Ratio 0.60L 08/16/18 12:43: Bedside Glucose (Misc Panel) 130H FSBS Laboratory Tests Test 08/15/18 17:03 08/15/18 20:31 08/16/18 07:09 08/16/18 12:43 Range/Units Bedside Glucose (Misc Panel) 133 134 104 130 83-110 MG/DL Microbiology Microbiology 08/16/18 Urine Culture, Received Pending Home Medications Scheduled Allopurinol (Zyloprim) 300 Mg Tab, 300 MG PO DAILY, (Reported) Aspirin (Aspirin) 81 Mg Tab.chew, 81 MG PO DAILY, (Reported) Atorvastatin Calcium (Atorvastatin Calcium) 80 Mg Tablet, 80 MG PO QHS, (Reported) Bifidobacterium Infantis (Align) 4 Mg Capsule, 4 MG PO DAILY, (Reported) Carvedilol (Carvedilol) 12.5 Mg Tablet, 12.5 MG PO BID, (Reported) Clopidogrel Bisulfate (Clopidogrel) 75 Mg Tablet, 75 MG PO DAILY, (Reported) Diltiazem HCl (Diltiazem HCl) 90 Mg Tablet, 90 MG PO Q8H, (Reported) Ezetimibe (Zetia) 10 Mg Tab, 10 MG PO DAILY, (Reported) Furosemide (Lasix) 40 Mg Tab, 40 MG PO BID Gabapentin (Gabapentin) 100 Mg Capsule, 200 MG PO TID Glipizide (Glipizide Xl) 2.5 Mg Tab, 5 MG PO DAILY, (Reported) Latanoprost (Xalatan) 0.005 % Sanjuana, 1 DROP OU QHS, (Reported) Magnesium Oxide (Magnesium Oxide) 400 Mg Tablet, 400 MG PO DAILY, (Reported) Multivitamin (Daily Mauro) 1 Each Tablet, 1 TAB PO DAILY, (Reported) Pantoprazole Sodium (Pantoprazole Sodium) 40 Mg Tablet.dr, 40 MG PO BID, (Reported) Sitagliptin (Januvia) 50 Mg Tablet, 50 MG PO DAILY, (Reported) Tizanidine HCl (Tizanidine HCl) 4 Mg Tablet, 2 MG PO TID Warfarin Sodium (Warfarin Sodium) 10 Mg Tablet, 10 MG PO DAILY Scheduled PRN Albuterol Sulfate (Proair Hfa) 8.5 Gm Hfa.aer.ad, 2 PUFF INH Q4H PRN for SOB/WHEEZING, (Reported) Nitroglycerin (Nitrostat) 0.4 Mg Tab.subl, 0.4 MG SL NITRO PRN for CHEST PAIN, (Reported) Oxycodone/Acetaminophen (Oxycodone-Acetaminophen 5-325) 1 Each Tablet, 1-2 TAB PO Q6HP PRN for SEVERE PAIN (PS 8-10) Tizanidine HCl (Tizanidine HCl) 2 Mg Tablet, 2 MG PO Q8H PRN for MUSCLE SPASMS Allergies Coded Allergies: No Known Allergies (Verified , 09/19/16) A-FIB/CHADSVASC A-FIB History Current/History of A-Fib/PAF?: No THIERRY PRICE MD August 16, 2018 14:03
--- NOTE | 2018-08-16 14:08 | IPNPDOC ---
PM&R Progress Note DATE OF SERVICE: August 16, 2018 Machine Finisher Progress Note Subjective: APtient reports he did not sleep well last night because he felt short of breath. REVIEW OF SYSTEMS: The following is a completed review of systems and has been reviewed. Review of systems otherwise unremarkable. PAIN: Patient self reports ache in right leg EYES: Negative for recent vision changes EARS, NOSE, & THROAT: denies dysphagia, hearing difficulty, or throat pain CARDIOVASCULAR: denies chest pain or palpitations PULMONARY: denies cough, +mild dyspnea at rest GASTROINTESTINAL: Negative for diarrhea or constipation GENITOURINARY: Negative for dysuria MUSCULOSKELETAL: right LE weakness NEUROLOGICAL: right lumbosacral plexopathy SKIN: +hyperpigmented calves PSYCHIATRIC: Unremarkable All other review of systems found to be negative. PHYSICAL EXAMINATION: VITAL SIGNS: Please see below. GENERAL: Pleasant and cooperative. No acute distress. HEENT: PERRL. Extraocular movements intact. Clear conjunctiva CARDIOVASCULAR: Regular rate and rhythm. No murmurs, rubs, or gallops LUNGS: decreased breath sounds at bases. + wheezes. No rhonchi ABDOMEN: Soft, nontender, nondistended. Positive bowel sounds. Normal active bowel sounds NEUROLOGICAL: Alert and oriented times three. Cranial nerves II through XII grossly intact. Sensation grossly intact in bilat UE and left LE, diminished in the anterior right thigh and lateral calf EXTREMITIES: 5\5 strength bilateral upper extremities. 5\5 strength right ankle DF, EHL and PF, 2/5 hip flexion and knee extension 5/5 strength in left lower extremity. -bilat LE edema SKIN: +hyperpigmented calves with ASSESSMENT:77-year-old M with past medical history of mechanical aortic valve replacement who presents status post cardiac/mesenteric artery stenting complicated by iliopsoas hematoma with right lumbosacral plexopathy PLAN: 1. rehab: PT, OT, assess for DMEs, encourage RLE bracing for knee support and hip-hiking techniques in therapy to clear right leg for ambulation safely 2. Neuro: acute onset right lumbosacral compression plexothapy causing profound RLE paralysis and decreased sensation- will refer to outpatient neurology for NCS/EMG -positive Lyme titers, will discuss results with ID 3. CArdio: pmh mechanical aortic valve- on heparin drip bridging to Coumadin, c/u to monitor APTT and d/c drip once at goal INR 2.5-3.5- medicine consulted - clinical suspicion for congestive heart failure- patient currently short of breath at rest s/p IV lasix last night, medicine ordered 40mg po BID- recs appreciated -c/u home meds 4. Resp: ex-smoker with COPD, c/u breathing treatments and supplemental oxygen, will increase frequency of Duonebs 5. Endo: pmh DM c/u home meds and ISS- monitor and adjust prn 6. GI px: protnix BID 7. DVT ppx: on warfarin 8. Pain: change tizanidine to prn for recent drops in BPs while on inpatient, avoid opioids, add tylenol 1000mg standing and c/u gabapentin -trazodone prn for insomnia 9. Skin: acewrap and elevate legs while in bed 9. Dispo: tbd Allergies Coded Allergies: No Known Allergies (Verified , 09/19/16) Vital Signs Vital Signs Date Time Temp Pulse Resp B/P (MAP) Pulse Ox O2 Delivery O2 Flow Rate FiO2 08/16/18 11:15 70 22 135/70 (91) 96 1.0 08/16/18 06:00 97.8 Laboratory Data CBC/BMP Laboratory Tests 08/15/18 14:19 Red Blood Count 3.27 L, Mean Corpuscular Volume 98.8 H, Mean Corpuscular Hemoglobin 29.1, Mean Corpuscular Hemoglobin Concent 29.4 L, Red Cell Distribution Width 17.0 H 08/16/18 07:23 Red Blood Count 3.13 L, Mean Corpuscular Volume 98.1 H, Mean Corpuscular Hem oglobin 28.8, Mean Corpuscular Hemoglobin Concent 29.3 L, Red Cell Distribution Width 17.1 H, Neutrophils (%) (Auto) 76.8 H, Lymphocytes (%) (Auto) 9.6 L, Monocytes (%) (Auto) 7.1 H, Eosinophils (%) (Auto) 5.5 H, Basophils (%) (Auto) 0.5, Neutrophils # (Auto) 6.7, Lymphocytes # (Auto) 0.8 L, Monocytes # (Auto) 0.6, Eosinophils # (Auto) 0.5, Basophils # (Auto) 0.0, Calcium Level 8.6 L, Aspartate Amino Transf (AST/SGOT) 29, Alanine Aminotransferase (ALT/SGPT) 14, Alkaline Phosphatase 80, Total Bilirubin 0.4, Total Protein 6.9, Albumin 2.6 L Labs 24H Laboratory Tests 2 08/15/18 14:19: Nucleated Red Blood Cells % (auto) 0.0, Activated Partial Thromboplast Time 66.5H 08/15/18 17:03: Bedside Glucose (Misc Panel) 133H 08/15/18 19:11: Activated Partial Thromboplast Time 74.3H, Prothrombin Time 27.3H, Prothromb Tera e International Ratio 2.47 08/15/18 20:31: Bedside Glucose (Misc Panel) 134H 08/16/18 06:46: Urine Appearance CLEAR, Urine Color YELLOW, Urine pH 5.0, Urine Specific [place] 1.013, Urine Protein NEGATIVE, Urine Glucose (UA) NEGATIVE, Urine Ketones NEGATIVE, Urine Urobilinogen 0.2, Urine Bilirubin NEGATIVE, Urine Leukocyte Esterase NEGATIVE, Urine Blood NEGATIVE, Urine Nitrite NEGATIVE, Urine WBC (Auto) 1, Urine RBC (Auto) 0, Urine Hyaline Casts (Auto) 1, Urine Bacteria (Auto) 1+H, Urine Squamous Epithelial Cells 0, Urine Sperm (Auto) 08/16/18 07:09: Bedside Glucose (Misc Panel) 104 08/16/18 07:23: Immature Granulocyte % (Auto) 0.5, White Blood Count 8.8, Red Blood Count 3.13L, Hemoglobin 9.0L, Hematocrit 30.7L, Mean Corpuscular Volume 98.1H, Mean Corpuscular Hemoglobin 28.8, Mean Corpuscular Hemoglobin Concent 29.3L, Red Cell Distribution Width 17.1H, Platelet Count 324, Neutrophils (%) (Auto) 76.8H, Lym phocytes (%) (Auto) 9.6L, Monocytes (%) (Auto) 7.1H, Eosinophils (%) (Auto) 5.5H, Basophils (%) (Auto) 0.5, Neutrophils # (Auto) 6.7, Lymphocytes # (Auto) 0.8L, Monocytes # (Auto) 0.6, Eosinophils # (Auto) 0.5, Basophils # (Auto) 0.0, Nucleated Red Blood Cells % (auto) 0.0, Prothrombin Time 27.6H, Prothromb Time International Ratio 2.51, Activated Partial Thromboplast Time 111.0H, Anion Gap 5L, Glomerular Filtration Rate 58.0, Blood Urea Nitrogen 35H, Creatinine 1.28, Sodium Level 141, Potassium Level 4.6, Chloride Level 103, Carbon Dioxide Level 33H, Calcium Level 8.6L, Aspartate Amino Transf (AST/SGOT) 29, Alanine Aminotransferase (ALT/SGPT) 14, Alkaline Phosphatase 80, Total Bilirubin 0.4, Total Protein 6.9, Albumin 2.6L, Albumin/Globulin Ratio 0.60L 08/16/18 12:43: Bedside Glucose (Misc Panel) 130H Microbiology Microbiology 08/16/18 Urine Culture, Received Pending Current Medications Current Medications Current Medications Acetaminophen (Tylenol Tab) 650 mg Q4HP PRN PO MILD PAIN (PS 1-4); Start 08/15/18 at 11:15; Stop 08/15/18 at 19:45; Status DC Acetaminophen (Tylenol Tab) 1,000 mg TID PO Last administered on 08/16/18at 08:38; Start 08/15/18 at 21:00 Al Hydrox/Mg Hydrox/Simethicone (Mylanta) 30 ml Q4HP PRN PO DYSPEPSIA; Start 08/15/18 at 11:15 Albuterol Sulfate (Proventil Neb) 2.5 mg RBID NEB Last administered on 08/15/18at 12:00; Start 08/15/18 at 20:00 Albuterol Sulfate (Proventil, Ventolin Hfa) 2 puff Q4HP PRN INH SHORTNESS OF BREATH Last administered on 08/16/18at 11:11; Start 08/15/18 at 11:15 Allopurinol (Zyloprim) 300 mg DAILY PO Last administered on 08/16/18at 08:37; Start 08/16/18 at 09:00 Atorvastatin Calcium (Lipitor) 80 mg QHS PO Last administered on 08/15/18at 20:20; Start 08/15/18 at 21:00 Bisacodyl (Dulcolax Suppository) 10 mg DAILYPRN PRN MA CONSTIPATION; Start 08/15/18 at 11:15 Carvedilol (COReg) 12.5 mg BID PO Last administered on 08/16/18at 08:39; Start 08/15/18 at 21:00 Clopidogrel Bisulfate (PLAVix) 75 mg DAILY PO Last administered on 08/16/18at 08:44; Start 08/16/18 at 09:00 Dextrose (Dextrose 50%) 25 ml ASDIRECTED PRN IV SEE LABEL COMMENTS; Start 08/15/18 at 11:15 Diltiazem HCl (Cardizem) 90 mg Q8H PO Last administered on 08/16/18at 06:07; Start 08/15/18 at 14:00 Docusate Sodium (Colace) 100 mg BID PO Last administered on 08/16/18at 08:36; Start 08/15/18 at 21:00 EZETIMIBE (Zetia) 10 mg DAILY PO Last administered on 08/16/18at 08:39; Start 08/16/18 at 09:00 Furosemide (Lasix) 40 mg BID@09,17 PO Last administered on 08/16/18at 11:16; Start 08/16/18 at 09:00 Gabapentin (Neurontin) 200 mg TID PO Last administered on 08/16/18at 08:37; Start 08/15/18 at 16:00 Glipizide (Glucotrol Xl) 5 mg DAILY@0730 PO Last administered on 08/16/18at 08:37; Start 08/16/18 at 07:30 Glucagon (Glucagon) 1 mg ASDIRECTED PRN SC SEE LABEL COMMENTS; Start 08/15/18 at 11:15 Glucose (Glucose) 16 GM ASDIRECTED PRN PO SEE LABEL COMMENTS; Start 08/15/18 at 11:15 Heparin Sodium (Porcine) (Heparin) ASDIRECTED PRN IV SEE LABEL COMMENTS; Start 08/15/18 at 14:15; Stop 08/16/18 at 08:34; Status DC Heparin Sodium (Porcine) 57201 units/IV Miscellaneous Supplies 250 ml @ 0 mls/hr Q0M IV Last administered on 08/15/18at 12:00; Start 08/15/18 at 14:05; Stop 08/16/18 at 08:34; Status DC Heparin Sodium (Porcine) 11826 units/IV Miscellaneous Supplies 250 ml @ 0 mls/hr Q0M IV ; Start 08/15/18 at 14:05; Status UNV Insulin Human Lispro (HumaLOG INSULIN) SEE PROTOCOL TABLE AC SC Last administered on 08/16/18at 12:55; Start 08/15/18 at 12:00 Insulin Human Lispro (HumaLOG INSULIN) SEE PROTOCOL TABLE QHS SC ; Start 9 at 21:00 Latanoprost (Xalatan 0.005% Op Soln) 1 drop QHS OU Last administered on 08/15/18at 20:21; Start 08/15/18 at 21:00 Magnesium Hydroxide (Milk Of Magnesia) 30 ml DAILYPRN PRN PO CONSTIPATION; Start 08/15/18 at 11:15 Magnesium Oxide (Mag-Ox) 400 mg DAILY PO Last administered on 08/16/18at 08:39; Start 08/16/18 at 09:00 Nitroglycerin (Nitrostat (1/ 150)) 0.4 mg Q5MP PRN SL CHEST PAIN; Start 08/15/18 at 11:15 Non-Formulary Medication (Heparin Iv Rate Change Documentation ml/ Hr) ASDIRECT ED XX ; Start 08/15/18 at 14:15; Stop 08/16/18 at 08:34; Status DC Oxycodone HCl (Roxicodone, Oxyir) 5 mg Q4HP PRN PO PAIN; Start 08/15/18 at 11:15; Stop 08/15/18 at 19:45; Status DC Pantoprazole Sodium (Protonix) 40 mg BID PO Last administered on 08/16/18 08:39; Start 08/15/18 at 21:00 Senna (Senokot) 1 tab QHS PO Last administered on 08/15/18at 20:34; Start 08/15/18 at 21:00 Sitagliptin Phosphate (Januvia) 50 mg DAILY PO Last administered on 08/16/18at 08:39; Start 08/16/18 at 09:00 Tizanidine HCl (Zanaflex) 2 mg TIDP PRN PO SPASMS; Start 08/15/18 at 11:15 Warfarin Sodium (Coumadin) 10 mg DAILY@1700 PO ; Start 08/16/18 at 17:00 THIERRY PRICE MD August 16, 2018 14:08
[2018-08-16] MEDS ORDERED: WARFARIN SOD 5 MG TAB PO SCH (17:00)
[2018-08-16] MEDS: IPRATROPIUM 0.5MG/ALBUTEROL 2.5MG INH SOL UD 3ML (DUONEB)(J7620) NEB SCH (19:57)
[2018-08-16 20:00] VITALS: BP 131/66
[2018-08-16] MEDS: ATORVASTATIN 20 MG TAB PO SCH (22:01)
[2018-08-16] MEDS: LATANOPROST 0.005% OPHTH SOLN 2.5 ML OU SCH (22:02)
[2018-08-16] MEDS: SENNA 8.6 MG TAB (SENOKOT) PO SCH (22:03)
[2018-08-17 06:00] VITALS: BP 107/58
[2018-08-17 07:01] LABS: INR 2.79
[2018-08-17 08:11] VITALS: BP 118/58
[2018-08-17] MEDS: HumaLOG INSULIN (NovoLOG) PER UNIT SC SCH ×4 (08:12→21:00)
[2018-08-17] MEDS: PANTOPRAZOLE 40MG TAB (PROTONIX) PO SCH ×2 (08:12→21:44)
[2018-08-17] MEDS: DOCUSATE SODIUM 100 MG CAP PO SCH ×2 (08:13→21:44)
[2018-08-17] MEDS: ALLOPURINOL 300 MG TAB PO SCH (08:13)
[2018-08-17] MEDS: ACETAMINOPHEN 500 MG TAB PO SCH ×3 (08:13→21:44)
[2018-08-17] MEDS: GABAPENTIN 100 MG CAP PO SCH ×3 (08:13→21:44)
[2018-08-17] MEDS: FUROSEMIDE 40 MG TAB PO SCH ×2 (08:13→17:00)
[2018-08-17] MEDS: CLOPIDOGREL 75 MG TAB PO SCH (08:13)
[2018-08-17] MEDS: MAGNESIUM OXIDE 400 MG TAB (MAG-OX) PO SCH (08:13)
[2018-08-17] MEDS: SITagliptin 50 MG TAB (JANUVIA) PO SCH (08:13)
[2018-08-17] MEDS: CARVedilol 12.5 MG TAB PO SCH ×2 (08:14→21:43)
[2018-08-17] MEDS: EZETIMIBE 10 MG TAB (ZETIA) PO SCH (08:14)
[2018-08-17] MEDS: glipiZIDE XL 5 MG TABCR PO SCH (08:14)
[2018-08-17] MEDS: IPRATROPIUM 0.5MG/ALBUTEROL 2.5MG INH SOL UD 3ML (DUONEB)(J7620) NEB SCH ×3 (08:24→20:10)
[2018-08-17 14:00] VITALS: BP 119/63
[2018-08-17 16:59] VITALS: BP 114/59
[2018-08-17] MEDS ORDERED: WARFARIN SOD 2.5 MG TAB PO SCH (17:00)
[2018-08-17 21:30] VITALS: BP 126/54
[2018-08-17] MEDS: SENNA 8.6 MG TAB (SENOKOT) PO SCH (21:43)
[2018-08-17] MEDS: ATORVASTATIN 20 MG TAB PO SCH (21:43)
[2018-08-17] MEDS: LATANOPROST 0.005% OPHTH SOLN 2.5 ML OU SCH (21:44)
[2018-08-18 06:08] VITALS: BP 135/65
[2018-08-18 07:51] LABS: INR 2.47; PROTHROMBIN TIME 27.3 SECONDS (12.1-14.4)
[2018-08-18] MEDS: IPRATROPIUM 0.5MG/ALBUTEROL 2.5MG INH SOL UD 3ML (DUONEB)(J7620) NEB SCH ×3 (08:01→20:52)
[2018-08-18] MEDS: FUROSEMIDE 40 MG TAB PO SCH ×2 (08:27→16:49)
[2018-08-18] MEDS: CARVedilol 12.5 MG TAB PO SCH ×2 (08:27→21:04)
[2018-08-18] MEDS: ALLOPURINOL 300 MG TAB PO SCH (08:27)
[2018-08-18] MEDS: DOCUSATE SODIUM 100 MG CAP PO SCH ×2 (08:27→21:00)
[2018-08-18] MEDS: EZETIMIBE 10 MG TAB (ZETIA) PO SCH (08:27)
[2018-08-18] MEDS: GABAPENTIN 100 MG CAP PO SCH ×3 (08:27→21:05)
[2018-08-18] MEDS: SITagliptin 50 MG TAB (JANUVIA) PO SCH (08:27)
[2018-08-18] MEDS: CLOPIDOGREL 75 MG TAB PO SCH (08:27)
[2018-08-18] MEDS: HumaLOG INSULIN (NovoLOG) PER UNIT SC SCH ×4 (08:27→21:00)
[2018-08-18] MEDS: ACETAMINOPHEN 500 MG TAB PO SCH ×3 (08:28→21:05)
[2018-08-18] MEDS: glipiZIDE XL 5 MG TABCR PO SCH (08:28)
[2018-08-18] MEDS: MAGNESIUM OXIDE 400 MG TAB (MAG-OX) PO SCH (08:28)
[2018-08-18] MEDS: PANTOPRAZOLE 40MG TAB (PROTONIX) PO SCH ×2 (08:28→21:03)
--- NOTE | 2018-08-18 08:31 | IPN ---
DATE OF SERVICE: 08/17/2018 Mani Gomze is a 77-year-old male who was admitted to the acute rehabilitation unit on the . He has a history of mechanical AV valve replacement, coronary artery disease status-post stent times two. Peripheral vascular disease, intraabdominal arterial disease, hypertension, diabetes type [id number] dependant, diabetic neuropathy, gout, history of abdominal aortic aneurysm repair and history of bilateral inguinal hernia repair who came to the ER secondary to intense sharp, shooting pain intermittently in his right hip. He has undergone a cardiac cath 07/31/2018 with two stent placements. There were difficulty in the right groin and the left groin was used. Patient was discharged home after procedures but presented on 08/15 with severe pain. He was found to have an iliopsoas hematoma causing right lumbar plexopathy. He has been stabilized and admitted to the acute rehabilitation. REVIEW OF SYSTEMS: Today he states that he is feeling better. He still has minimal feeling and has numbness in the right thigh and lower leg but is slightly improving. Otherwise review of systems was essentially negative. LABS: INR was 2.79. He was to receive 10 mg of Coumadin was decreased to 7.5. Will need to continue to monitor the INR as he has a valve but needs to be 2.5-3.5. WBC was 8.8, hemoglobin 9, hematocrit 30.7, platelets were 324, electrolytes were normal. BUN 35, creatinine 1.25, fasting blood sugar was 128. OBJECTIVE: Blood pressure 118/58, pulse 90, respirations 18, oxygen saturation 95% on 1 liter. Patient is alert and oriented times three. Pharynx, tongue, and gums are pink and moist. Tongue is midline. Neck is supple without lymphadenopathy. Carotids were 2+ without bruit. Chest has decreased breath sounds. No wheezes or retractions. Heart is regular. Abdomen is benign, bowel sounds are positive. and rectal not done. Extremities bilateral chronic stasis dermatitis noted. No open areas. Continued decreased sensation in the anterior right lower leg and foot. IMPRESSION AND PLAN: Right leg pain weakness an numbness secondary to hematoma with right lung plexopathy. Continue with physical therapy. Diabetic neuropathy continue diet. Continue Januvia and glipizide. Currently clinically stable. Coronary artery disease status-post CABG and stent. Continue Plavix, Coreg, Atorvastatin. Clinically stable and no complaints of chest pain. Hypertension stable continue medications. Hypercholesterolemia continue atorvastatin mechanical valve. Continue Warfarin, monitor PT/INR target 2.5-3.5. Gout no recent flare ups. Continue allopurinol. GERD continue Protonix. Elevation in BUN and creatinine secondary to chronic kidney disease. Patient follows with nephrology. Currently clinically stable. Venous stasis dermatitis. DVT prophylaxis. Currently on Coumadin. Continue followup and monitor INR. Adjust as needed. Patient is clinically stable doing well.
[2018-08-18 13:47] VITALS: BP 128/62
--- NOTE | 2018-08-18 14:20 | IPNPDOC ---
Text Note Date of Service The patient was seen on 08/18/18. 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 on 07/31/18), HTN, DM2, DLP, Diabetic Neuropathy, Gout, AAA s/p repair (2001), Bilateral inguinal hernia repair who presented to [facility] because of right leg pain, numbness and weakness. Patient has reported that upon catheterization on 07/31/18 the had difficulty in the right groin and subsequently used the left groin. Patient was discharged home after procedures but presented on 08/05 with severe pain. Patient was found to have right ileopsoas hematoma causing right lumber plexopathy. He was admitted to the hospital service for further evaluation and treatment. Orthopedic surgery and neurology were called on consultation. He was transitioned to ARU on 08/15 under the care of Dr. Espinal for continued rehabilitation. Patient was seen and examined at the bedside. Currently reports that he's feeling better, has been making progress with physical therapy. Denies any lightheadedness, dizziness, still reports some right hip pain. Denies nausea, vomiting, abdominal pain, constipation, diarrhea, or urinary discomfort. Objective: Vitals (See below) General: Sitting up in chair, appears comfortable, no acute distress, AAOx3 HEENT: NC, AT CVS: RRR, +S1S2 Lungs: Air entry is fair bilaterally without rhonchi, rales or wheezing Abdomen: No distention or tenderness, remains soft Extremities: There is no calf tenderness, venous stasis changes noted, again there is trace edema still appreciated Imaging: - MRI lumbar spine 08/06: 1. Diffuse disc bulges at the L3-4 and L4-5 levels with minimal thecal sac compression. 2. Diffuse disc bulge at the L5-S1 level. This abuts the thecal sac and S1 nerves. - CT pelvis 08/07: Somewhat elongate right iliopsoas hematoma as described above. No other acute abnormality. Moderate bilateral hip joint osteoarthritis. - CT pelvis 08/09: Stable right iliopsoas hematoma. - CT pelvis 08/13: Stable hematoma involving the right iliacus and iliopsoas muscles compared to prior CT of 08/09/2018. Assessment and plan: Right leg pain / weakness / numbness - likely 2/2 Right iliopsoas hematoma with right lumber plexopathy - Patient is reported that there has been improvement in his right leg pain; still reports sensory loss - Physical remains relatively unchanged - c/w Tizanidine and Gabapentin - pain control as per ARU / Dr. Espinal - c/w Plavix and Coumadin - c/w Physical therapy as per ARU / Dr. Espinal s/p Leukocytosis - likely 2/2 reactive etiology; less likely 2/2 infectious etiology - No fevers noted s/p Constipation - c/w Bowel regimen DM2 with Diabetic neuropathy - c/w ISS and Gabapentin - c/w Sitagliptin and Glipizide CAD s/p CABG and stent (07/30/18) - c/w Plavix, Carvedilol, Atorvastatin HTN - BP appears well controlled - In the lower limits of normal today - c/w Diltiazem and Carvedilol DLP - c/w Atorvastatin and Ezetimibe Mechanical Aortic valve - Model # [id number]; Serial # [id number] - Patient has indicated that his INR target is 2.5 to 3.5 - INR has been within normal range; will adjust Coumadin today to maintain therapeutic levels - s/p Heparin drip Gout - c/w Allopurinol GERD -c/w Protonix Elevation of Cr - likely 2/2 CKD3 - Baseline Cr of 1.3-1.6 - Cr has improved significantly - s/p IV fluids Chronic bilateral venous stasis with stasis dermatitis - c/w Furosemide 40 BID DVT prophylaxis - c/w Coumadin Disposition: - c/w PT / OT - Disposition plan as per ARU VS,Curtbone, I+O VS, Fishbone, I+O Vital Signs Date Time Temp Pulse Resp B/P (MAP) Pulse Ox O2 Delivery O2 Flow Rate FiO2 08/18/18 13:49 97 128/62 08/18/18 13:47 97.3 18 94 08/18/18 06:08 1.0 I&O- Last 24 Hours up to 6 AM 08/18/18 06:00 Intake Total 1620 ml Output Total 3050 ml Balance -1430 ml JA RUBIN MD August 18, 2018 14:20
[2018-08-18] MEDS: WARFARIN SOD 5 MG TAB PO SCH (16:49)
[2018-08-18 20:00] VITALS: BP 117/55
[2018-08-18] MEDS: SENNA 8.6 MG TAB (SENOKOT) PO SCH (21:00)
[2018-08-18] MEDS: RAMELTEON 8 MG TAB (ROZEREM) PO SCH (21:03)
[2018-08-18] MEDS: tiZANidine 4 MG TAB PO PRN (21:03)
[2018-08-18] MEDS: ATORVASTATIN 20 MG TAB PO SCH (21:04)
[2018-08-18] MEDS: LATANOPROST 0.005% OPHTH SOLN 2.5 ML OU SCH (21:06)
[2018-08-19 06:00] VITALS: BP 118/56
[2018-08-19] MEDS: IPRATROPIUM 0.5MG/ALBUTEROL 2.5MG INH SOL UD 3ML (DUONEB)(J7620) NEB SCH ×3 (07:07→20:03)
[2018-08-19 07:40] LABS: CREATININE FOR GFR 1.34 MG/DL (0.70-1.30)
[2018-08-19 07:41] LABS: CALCIUM LEVEL 8.5 MG/DL (8.8-10.2); INR 2.23; MAGNESIUM LEVEL 1.6 MG/DL (1.8-2.4); PROTHROMBIN TIME 25.1 SECONDS (12.1-14.4)
[2018-08-19] MEDS: CLOPIDOGREL 75 MG TAB PO SCH (08:06)
[2018-08-19] MEDS: SITagliptin 50 MG TAB (JANUVIA) PO SCH (08:06)
[2018-08-19] MEDS: ALLOPURINOL 300 MG TAB PO SCH (08:06)
[2018-08-19] MEDS: glipiZIDE XL 5 MG TABCR PO SCH (08:06)
[2018-08-19] MEDS: PANTOPRAZOLE 40MG TAB (PROTONIX) PO SCH ×2 (08:07→21:05)
[2018-08-19] MEDS: FUROSEMIDE 40 MG TAB PO SCH ×2 (08:07→16:54)
[2018-08-19] MEDS: EZETIMIBE 10 MG TAB (ZETIA) PO SCH (08:07)
[2018-08-19] MEDS: GABAPENTIN 100 MG CAP PO SCH ×3 (08:07→21:04)
[2018-08-19] MEDS: CARVedilol 12.5 MG TAB PO SCH ×2 (08:07→21:09)
[2018-08-19] MEDS: ACETAMINOPHEN 500 MG TAB PO SCH ×3 (08:07→21:05)
[2018-08-19] MEDS: MAGNESIUM OXIDE 400 MG TAB (MAG-OX) PO SCH ×2 (08:07→21:08)
[2018-08-19] MEDS: DOCUSATE SODIUM 100 MG CAP PO SCH ×2 (08:08→21:00)
[2018-08-19] MEDS: HumaLOG INSULIN (NovoLOG) PER UNIT SC SCH ×4 (08:08→21:00)
[2018-08-19 14:00] VITALS: BP 115/54
[2018-08-19 14:10] VITALS: BP 121/59
[2018-08-19] MEDS: WARFARIN SOD 5 MG TAB PO SCH (16:54)
[2018-08-19 20:00] VITALS: BP 111/54
[2018-08-19] MEDS: SENNA 8.6 MG TAB (SENOKOT) PO SCH (21:00)
[2018-08-19] MEDS: ATORVASTATIN 20 MG TAB PO SCH (21:04)
[2018-08-19] MEDS: tiZANidine 4 MG TAB PO PRN (21:04)
[2018-08-19] MEDS: LATANOPROST 0.005% OPHTH SOLN 2.5 ML OU SCH (21:04)
[2018-08-19] MEDS: RAMELTEON 8 MG TAB (ROZEREM) PO SCH (21:05)
[2018-08-20 05:44] VITALS: BP 121/58
[2018-08-20 06:40] LABS: INR 2.28; PROTHROMBIN TIME 25.6 SECONDS (12.1-14.4)
[2018-08-20 06:59] LABS: CALCIUM LEVEL 8.1 MG/DL (8.8-10.2); CREATININE FOR GFR 1.34 MG/DL (0.70-1.30); POTASSIUM SERUM 3.9 MEQ/L (3.5-5.1)
[2018-08-20] MEDS: IPRATROPIUM 0.5MG/ALBUTEROL 2.5MG INH SOL UD 3ML (DUONEB)(J7620) NEB SCH ×3 (07:18→19:03)
[2018-08-20] MEDS: MAGNESIUM OXIDE 400 MG TAB (MAG-OX) PO SCH ×2 (08:42→20:20)
[2018-08-20] MEDS: glipiZIDE XL 5 MG TABCR PO SCH (08:42)
[2018-08-20] MEDS: ALLOPURINOL 300 MG TAB PO SCH (08:43)
[2018-08-20] MEDS: SITagliptin 50 MG TAB (JANUVIA) PO SCH (08:43)
[2018-08-20] MEDS: FUROSEMIDE 40 MG TAB PO SCH ×2 (08:43→16:57)
[2018-08-20] MEDS: PANTOPRAZOLE 40MG TAB (PROTONIX) PO SCH ×2 (08:43→20:19)
[2018-08-20] MEDS: EZETIMIBE 10 MG TAB (ZETIA) PO SCH (08:43)
[2018-08-20] MEDS: CLOPIDOGREL 75 MG TAB PO SCH (08:43)
[2018-08-20] MEDS: ACETAMINOPHEN 500 MG TAB PO SCH ×3 (08:43→20:19)
[2018-08-20] MEDS: CARVedilol 12.5 MG TAB PO SCH ×2 (08:43→20:20)
[2018-08-20] MEDS: HumaLOG INSULIN (NovoLOG) PER UNIT SC SCH ×4 (08:44→20:07)
[2018-08-20] MEDS: DOCUSATE SODIUM 100 MG CAP PO SCH ×2 (08:44→20:19)
[2018-08-20] MEDS: GABAPENTIN 100 MG CAP PO SCH ×3 (08:44→20:20)
[2018-08-20] MEDS: tiZANidine 4 MG TAB PO PRN (08:52)
[2018-08-20 14:00] VITALS: BP 135/60
[2018-08-20] MEDS ORDERED: WARFARIN SOD 4 MG TAB PO ONE (17:00)
--- NOTE | 2018-08-20 17:28 | IPNPDOC ---
PM&R Progress Note DATE OF SERVICE: August 20, 2018 Senior Sales Director Progress Note Subjective: Patient reports he is breathing better during the day, but feels short of breath at night even with head of bed up. He would like to try nocturnal 02. REVIEW OF SYSTEMS: The following is a completed review of systems and has been reviewed. Review of systems otherwise unremarkable. PAIN: Patient self reports ache in right leg EYES: Negative for recent vision changes EARS, NOSE, & THROAT: denies dysphagia, hearing difficulty, or throat pain CARDIOVASCULAR: denies chest pain or palpitations PULMONARY: denies cough, +mild dyspnea at rest (improving during the day) GASTROINTESTINAL: Negative for diarrhea or constipation GENITOURINARY: Negative for dysuria MUSCULOSKELETAL: right LE weakness (gradually improving) NEUROLOGICAL: right lumbosacral plexopathy SKIN: +hyperpigmented calves PSYCHIATRIC: Unremarkable All other review of systems found to be negative. PHYSICAL EXAMINATION: VITAL SIGNS: Please see below. GENERAL: Pleasant and cooperative. No acute distress. HEENT: PERRL. Extraocular movements intact. Clear conjunctiva CARDIOVASCULAR: Regular rate and rhythm. No murmurs, rubs, or gallops LUNGS: decreased breath sounds at bases. no wheeze, No rhonchi ABDOMEN: Soft, nontender, nondistended. Positive bowel sounds. Normal active bowel sounds NEUROLOGICAL: Alert and oriented times three. Cranial nerves II through XII grossly intact. Sensation grossly intact in bilat UE and left LE, diminished in the anterior right thigh and lateral calf EXTREMITIES: 5\5 strength bilateral upper extremities. 5\5 strength right ankle DF, EHL and PF, 2/5 hip flexion and 3-/5 knee extension 5/5 strength in left lower extremity. -bilat LE edema SKIN: +hyperpigmented calves ASSESSMENT:77-year-old M with past medical history of mechanical aortic valve replacement who presents status post cardiac/mesenteric artery stenting complicated by iliopsoas hematoma with right lumbosacral plexopathy PLAN: 1. rehab: PT, OT, assess for DMEs, encourage RLE bracing for knee support and hip-hiking techniques in therapy to clear right leg for ambulation safely 2. Neuro: acute onset right lumbosacral compression plexothapy causing profound RLE paralysis and decreased sensation- will refer to outpatient neurology for NCS/EMG -positive Lyme titers, will discuss results with ID 3. CArdio: pmh mechanical aortic valve-s/p heparin drip bridge, now on COumadin goal 2.5-3.5 medicine consulted to manage - clinical suspicion for congestive heart failure- c/u lasix 40mg po BID- recs appreciated, patient requesting oxygen at night- will order CXR and c/u fluid restrict -c/u home meds 4. Resp: ex-smoker with COPD, c/u breathing treatments and supplemental oxygen, c/u Duonebs, patient requesting oxygen at night 5. Endo: pmh DM c/u home meds and ISS- monitor and adjust prn 6. GI px: protnix BID 7. DVT ppx: on warfarin 8. Pain: avoid opioids, c/u tylenol 1000mg standing and c/u gabapentin, stopped tizanidine as not effective -trazodone standing for insomnia 9. Skin: acewrap and elevate legs while in bed, moisturize with Eucerin 9. Dispo: 08/30/18 to home Allergies Coded Allergies: No Known Allergies (Verified , 09/19/16) Vital Signs Vital Signs Date Time Temp Pulse Resp B/P (MAP) Pulse Ox O2 Delivery O2 Flow Rate FiO2 08/20/18 14:46 96 135/60 08/20/18 14:00 97.1 18 95 08/18/18 06:08 1.0 Laboratory Data CBC/BMP Laboratory Tests 08/20/18 06:07 Calcium Level 8.1 L Labs 24H Laboratory Tests 2 08/19/18 20:20: Bedside Glucose (Misc Panel) 148H 08/20/18 06:07: Prothrombin Time 25.6H, Prothromb Time International Ratio 2.28, Anion Gap 7L, Glomerular Filtration Rate 55.0, Blood Urea Nitrogen 42H, Creatinine 1.34H, Sodium Level 141, Potassium Level 3.9, Chloride Level 102, Carbon Dioxide Level 32, Calcium Level 8.1L 08/20/18 11:41: Bedside Glucose (Misc Panel) 166H 08/20/18 16:31: Bedside Glucose (Misc Panel) 100 Microbiology Microbiology 08/16/18 Urine Culture - Final, Complete Current Medications Current Medications Current Medications Acetaminophen (Tylenol Tab) 650 mg Q4HP PRN PO MILD PAIN (PS 1-4); Start 08/15/18 at 11:15; Stop 08/15/18 at 19:45; Status DC Acetaminophen (Tylenol Tab) 1,000 mg TID PO Last administered on 08/20/18 16:57; Start 08/15/18 at 21:00 Al Hydrox/Mg Hydrox/Simethicone (Mylanta) 30 ml Q4HP PRN PO DYSPEPSIA; Start 08/15/18 at 11:15 Albuterol Sulfate (Proventil Neb) 2.5 mg RBID NEB Last administered on 08/15/18at 12:00; Start 08/15/18 at 20:00; Stop 08/16/18 at 16:59; Status DC Albuterol Sulfate (Proventil, Ventolin Hfa) 2 puff Q4HP PRN INH SHORTNESS OF BREATH Last administered on 08/16/18 11:11; Start 08/15/18 at 11:15 Albuterol/ Ipratropium (Duoneb (Ipr 0.5mg/Alb 2.5mg)) 3 ml RTID NEB Last administered on 08/20/18 13:58; Start 08/16/18 at 20:00 Allopurinol (Zyloprim) 300 mg DAILY PO Last administered on 08/20/18 08:43; Start 08/16/18 at 09:00 Atorvastatin Calcium (Lipitor) 80 mg QHS PO Last administered on 08/19/18 21:04; Start 08/15/18 at 21:00 Bisacodyl (Dulcolax Suppository) 10 mg DAILYPRN PRN [place] CONSTIPATION; Start 08/15/18 at 11:15 Carvedilol (COReg) 12.5 mg BID PO Last administered on 08/20/18 08:43; Start 08/15/18 at 21:00 Clopidogrel Bisulfate (PLAVix) 75 mg DAILY PO Last administered on 08/20/18 08:43; Start 08/16/18 at 09:00 Dextrose (Dextrose 50%) 25 ml ASDIRECTED PRN IV SEE LABEL COMMENTS; Start 08/15/18 at 11:15 Diltiazem HCl (Cardizem) 90 mg Q8H PO Last administered on 08/20/18 14:46; Start 08/15/18 at 14:00 Docusate Sodium (Colace) 100 mg BID PO Last administered on 08/17/18 21:44; Start 08/15/18 at 21:00 EZETIMIBE (Zetia) 10 mg DAILY PO Last administered on 08/20/18at 08:43; Start 08/16/18 at 09:00 Furosemide (Lasix) 40 mg BID@09,17 PO Last administered on 08/20/18at 16:57; Start 08/16/18 at 09:00 Gabapentin (Neurontin) 200 mg TID PO Last administered on 08/20/18at 16:57; Start 08/15/18 at 16:00 Glipizide (Glucotrol Xl) 5 mg DAILY@0730 PO Last administered on 08/20/18at 08:42; Start 08/16/18 at 07:30 Glucagon (Glucagon) 1 mg ASDIRECTED PRN SC SEE LABEL COMMENTS; Start 08/15/18 at 11:15 Glucose (Glucose) 16 GM ASDIRECTED PRN PO SEE LABEL COMMENTS; Start 08/15/18 at 11:15 Heparin Sodium (Porcine) (Heparin) ASDIRECTED PRN IV SEE LABEL COMMENTS; Start 08/15/18 at 14:15; Stop 08/16/18 at 08:34; Status DC Heparin Sodium (Porcine) 24629 units/IV Miscellaneous Supplies 250 ml @ 0 mls/hr Q0M IV Last administered on 08/15/18at 12:00; Start 08/15/18 at 14:05; Stop 08/16/18 at 08:34; Status DC Heparin Sodium (Porcine) 18395 units/IV Miscellaneous Supplies 250 ml @ 0 mls/hr Q0M IV ; Start 08/15/18 at 14:05; Status UNV Insulin Human Lispro (HumaLOG INSULIN) SEE PROTOCOL TABLE AC SC Last administered on 08/20/18at 12:21; Start 08/15/18 at 12:00 Insulin Human Lispro (HumaLOG INSULIN) SEE PROTOCOL TABLE QHS SC ; Start 08/15/18 at 21:00 Latanoprost (Xalatan 0.005% Op Soln) 1 drop QHS OU Last administered on 08/19/18at 21:04; Start 08/15/18 at 21:00 Magnesium Hydroxide (Milk Of Magnesia) 30 ml DAILYPRN PRN PO CONSTIPATION; Start 08/15/18 at 11:15 Magnesium Oxide (Mag-Ox) 400 mg BID PO Last administered on 08/20/18 08:42; Start 08/19/18 at 21:00 Magnesium Oxide (Mag-Ox) 400 mg DAILY PO Last administered on 08/19/18at 08:07; Start 08/16/18 at 09:00; Stop 08/19/18 at 09:58; Status DC Menthol/Methyl Salicylate (Bengay Cream) right upper thigh TID TOP ; Start 08/20/18 at 16:00 Nitroglycerin (Nitrostat (1/ 150)) 0.4 mg Q5MP PRN SL CHEST PAIN; Start 08/15/18 at 11:15 Non-Formulary Medication (Heparin Iv Rate Change Documentation ml/ Hr) ASDIRECTED XX ; Start 08/15/18 at 14:15; Stop 08/16/18 at 08:34; Status DC Oxycodone HCl (Roxicodone, Oxyir) 5 mg Q4HP PRN PO PAIN; Start 08/15/18 at 11:15; Stop 08/15/18 at 19:45; Status DC Pantoprazole Sodium (Protonix) 40 mg BID PO Last administered on 08/20/18at 08:43; Start 08/15/18 at 21:00 Ramelteon (Rozerem) 8 mg QHS PO Last administered on 08/19/18at 21:05; Start 08/18/18 at 21:00; Stop 08/20/18 at 16:18; Status DC Senna (Senokot) 1 tab QHS PO Last administered on 08/17/18at 21:43; Start 08/15/18 at 21:00 Sitagliptin Phosphate (Januvia) 50 mg DAILY PO Last administered on 08/20/18at 08:43; Start 08/16/18 at 09:00 Tizanidine HCl (Zanaflex) 2 mg TIDP PRN PO SPASMS Last administered on 08/20/18 08:52; Start 08/15/18 at 11:15; Stop 08/20/18 at 16:18; Status DC Trazodone HCl (Desyrel) 50 mg QHS PO ; Start 08/20/18 at 21:00 Warfarin Sodium (Coumadin) 7.5 mg DAILY@1700 PO Last administered on 08/17/18at 17:02; Start 08/17/18 at 17:00; Stop 08/18/18 at 09:39; Status DC Warfarin Sodium (Coumadin) 10 mg DAILY@1700 PO Last administered on 08/16/18at 17:15; Start 08/16/18 at 17:00; Stop 08/17/18 at 09:25; Status DC Warfarin Sodium (Coumadin) 10 mg DAILY@1700 PO Last administered on 08/19/18at 16:54; Start 08/18/18 at 17:00; Stop 08/20/18 at 08:38; Status DC Warfarin Sodium (Coumadin) 10 mg DAILY@1700 PO ; Start 08/21/18 at 17:00 THIERRY PRICE MD August 20, 2018 17:28
[2018-08-20] MEDS: ANALGESIC BALM CRM 120 GM TOP SCH ×2 (18:08→20:21)
--- NOTE | 2018-08-20 18:12 | REP ---
Clinical: Dyspnea. Technique: PA and lateral. Comparison: 08/14/2018. Findings: Cardiomegaly and pulmonary vascular congestion with interstitial edema including bibasilar atelectasis and pleural effusions noted. Evidence of prior sternotomy and aortic valve repair. Skeletal structures intact. Impression: Cardiomegaly and pulmonary interstitial edema with basilar atelectasis and pleural effusions. Electronically Signed by Gerson Morrison MD 08/20/2018 06:03 P
--- NOTE | 2018-08-20 19:15 | IPNPDOC ---
Subjective Date Seen The patient was seen on 08/20/18. Subjective Chief Complaint/HPI Right thigh pain/swelling, iliopsoas hematoma Events since last encounter The patient reports the right thigh swelling is unchanged from last few days. Reports some pain associated with the sameunchanged. Denies any problems with chest pain. No shortness of breath this time, however seems to have problems lying down at nighttime. No fevers/chills or sweats. No nausea or vomiting. Tolerating oral intake. Objective Physical Examination General Exam: Positive: Alert, Cooperative, No Acute Distress Eye Exam: Positive: PERRLA Chest Exam: Positive: Clear to auscultation; Negative: Rales, Rhonchi, Wheezing Heart Exam: Positive: Other (S1, S2 heard, no rubs or gallops) Abdomen Exam: Positive: Soft; Negative: Tenderness Extremity Exam: Positive: Other (right thigh appears swollen compared to left thigh.) Neuro Exam: Positive: Other (awake, alert, answering questions appropriately) Assessment /Plan Assessment CXR: Impression: Cardiomegaly and pulmonary interstitial edema with basilar atelectasis and pleural effusions. Current Medications Acetaminophen (Tylenol Tab) 650 mg Q4HP PRN PO MILD PAIN (PS 1-4); Start 08/15/18 at 11:15; Stop 08/15/18 at 19:45; Status DC Acetaminophen (Tylenol Tab) 1,000 mg TID PO Last administered on 08/20/18at 16:57; Start 08/15/18 at 21:00 Al Hydrox/Mg Hydrox/Simethicone (Mylanta) 30 ml Q4HP PRN PO DYSPEPSIA; Start 08/15/18 at 11:15 Albuterol Sulfate (Proventil Neb) 2.5 mg RBID NEB Last administered on 08/15/18at 12:00; Start 08/15/18 at 20:00; Stop 08/16/18 at 16:59; Status DC Albuterol Sulfate (Proventil, Ventolin Hfa) 2 puff Q4HP PRN INH SHORTNESS OF BREATH Last administered on 08/16/18at 11:11; Start 08/15/18 at 11:15 Albuterol/ Ipratropium (Duoneb (Ipr 0.5mg/Alb 2.5mg)) 3 ml RTID NEB Last administered on 08/20/18at 19:03; Start 08/16/18 at 20:00 Allopurinol (Zyloprim) 300 mg DAILY PO Last administered on 08/20/18 08:43; Start 08/16/18 at 09:00 Atorvastatin Calcium (Lipitor) 80 mg QHS PO Last administered on 08/19/18 21:04; Start 08/15/18 at 21:00 Bisacodyl (Dulcolax Suppository) 10 mg DAILYPRN PRN [place] CONSTIPATION; Start 08/15/18 at 11:15 Carvedilol (COReg) 12.5 mg BID PO Last administered on 08/20/18 08:43; Start 08/15/18 at 21:00 Clopidogrel Bisulfate (PLAVix) 75 mg DAILY PO Last administered on 08/20/18 08:43; Start 08/16/18 at 09:00 Dextrose (Dextrose 50%) 25 ml ASDIRECTED PRN IV SEE LABEL COMMENTS; Start 08/15/18 at 11:15 Diltiazem HCl (Cardizem) 90 mg Q8H PO Last administered on 08/20/18 14:46; Start 08/15/18 at 14:00 Docusate Sodium (Colace) 100 mg BID PO Last administered on 08/17/18 21:44; Start 08/15/18 at 21:00 EZETIMIBE (Zetia) 10 mg DAILY PO Last administered on 08/20/18 08:43; Start 08/16/18 at 09:00 Furosemide (Lasix) 40 mg BID@09,17 PO Last administered on 08/20/18 16:57; Start 08/16/18 at 09:00 Gabapentin (Neurontin) 200 mg TID PO Last administered on 08/20/18 16:57; Start 08/15/18 at 16:00 Glipizide (Glucotrol Xl) 5 mg DAILY@0730 PO Last administered on 08/20/18 08:42; Start 08/16/18 at 07:30 Glucagon (Glucagon) 1 mg ASDIRECTED PRN SC SEE LABEL COMMENTS; Start 08/15/18 at 11:15 Glucose (Glucose) 16 GM ASDIRECTED PRN PO SEE LABEL COMMENTS; Start 08/15/18 at 11:15 Heparin Sodium (Porcine) (Heparin) ASDIRECTED PRN IV SEE LABEL COMMENTS; Start 08/15/18 at 14:15; Stop 08/16/18 at 08:34; Status DC Heparin Sodium (Porcine) 27397 units/IV Miscellaneous Supplies 250 ml @ 0 mls/hr Q0M IV Last administered on 08/15/18at 12:00; Start 08/15/18 at 14:05; Stop at 08:34; Status DC Heparin Sodium (Porcine) 69431 units/IV Miscellaneous Supplies 250 ml @ 0 mls/hr Q0M IV ; Start 08/15/18 at 14:05; Status UNV Insulin Human Lispro (HumaLOG INSULIN) SEE PROTOCOL TABLE AC SC Last administered on 08/20/18at 12:21; Start 08/15/18 at 12:00 Insulin Human Lispro (HumaLOG INSULIN) SEE PROTOCOL TABLE QHS SC ; Start 08/15/18 at 21:00 Latanoprost (Xalatan 0.005% Op Soln) 1 drop QHS OU Last administered on 08/19/18at 21:04; Start 08/15/18 at 21:00 Magnesium Hydroxide (Milk Of Magnesia) 30 ml DAILYPRN PRN PO CONSTIPATION; Start 08/15/18 at 11:15 Magnesium Oxide (Mag-Ox) 400 mg BID PO Last administered on 08/20/18at 08:42; Start 08/19/18 at 21:00 Magnesium Oxide (Mag-Ox) 400 mg DAILY PO Last administered on 08/19/18at 08:07; Start 08/16/18 at 09:00; Stop 08/19/18 at 09:58; Status DC Menthol/Methyl Salicylate (Bengay Cream) right upper thigh TID TOP Last administered on 08/20/18at 18:08; Start 08/20/18 at 16:00 Nitroglycerin (Nitrostat (1/ 150)) 0.4 mg Q5MP PRN SL CHEST PAIN; Start 08/15/18 at 11:15 Non-Formulary Medication (Heparin Iv Rate Change Documentation ml/ Hr) ASDIRECTED XX ; Start 08/15/18 at 14:15; Stop 08/16/18 at 08:34; Status DC Oxycodone HCl (Roxicodone, Oxyir) 5 mg Q4HP PRN PO PAIN; Start 08/15/18 at 11:15; Stop 08/15/18 at 19:45; Status DC Pantoprazole Sodium (Protonix) 40 mg BID PO Last administered on 08/20/18 08:43; Start 08/15/18 at 21:00 Ramelteon (Rozerem) 8 mg QHS PO Last administered on 08/19/18 21:05; Start 08/18/18 at 21:00; Stop 08/20/18 at 16:18; Status DC Senna (Senokot) 1 tab QHS PO Last administered on 08/17/18 21:43; Start 08/15/18 at 21:00 Sitagliptin Phosphate (Januvia) 50 mg DAILY PO Last administered on 08/20/18 08:43; Start 08/16/18 at 09:00 Spironolactone (Aldactone) 25 mg QAM PO ; Start 08/20/18 at 19:15; Status UNV Tizanidine HCl (Zanaflex) 2 mg TIDP PRN PO SPASMS Last administered on 08/20/18at 08:52; Start 08/15/18 at 11:15; Stop 08/20/18 at 16:18; Status DC Trazodone HCl (Desyrel) 50 mg QHS PO ; Start 08/20/18 at 21:00 Warfarin Sodium (Coumadin) 7.5 mg DAILY@1700 PO Last administered on 08/17/18 17:02; Start 08/17/18 at 17:00; Stop 08/18/18 at 09:39; Status DC Warfarin Sodium (Coumadin) 10 mg DAILY@1700 PO Last administered on 08/16/18at 17:15; Start 08/16/18 at 17:00; Stop 08/17/18 at 09:25; Status DC Warfarin Sodium (Coumadin) 10 mg DAILY@1700 PO Last administered on 08/19/18at 16:54; Start 08/18/18 at 17:00; Stop 08/20/18 at 08:38; Status DC Warfarin Sodium (Coumadin) 10 mg DAILY@1700 PO ; Start 08/21/18 at 17:00 Right leg pain / weakness / numbness - likely 2/2 Right iliopsoas hematoma with right lumber plexopathy -Continue warfarin and Plavix -Recheck hemoglobin in a.m. 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 Monitor. Gout -Ct Allopurinol GERD -Ct Protonix CKD 3 -Creatinine at baseline. 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 -Ct Furosemide 40 BID and added spironolactone as noted above DVT prophylaxis -Ct Coumadin Plan/VTE VTE Prophylaxis Ordered?: Yes VS, I&O, 24H, Fishbone Vital Signs/I&O Vital Signs Date Time Temp Pulse Resp B/P (MAP) Pulse Ox O2 Delivery O2 Flow Rate FiO2 08/20/18 14:46 96 135/60 08/20/18 14:00 97.1 18 95 08/18/18 06:08 1.0 I&O- Last 24 Hours up to 6 AM 08/20/18 05:59 Intake Total 1195 ml Output Total 2575 ml Balance -1380 ml Laboratory Data 24H LABS Laboratory Tests 2 08/19/18 20:20: Bedside Glucose (Misc Panel) 148H 08/20/18 06:07: Prothrombin Time 25.6H, Prothromb Time International Ratio 2.28, Anion Gap 7L, Glomerular Filtration Rate 55.0, Blood Urea Nitrogen 42H, Creatinine 1.34H, Sodium Level 141, Potassium Level 3.9, Chloride Level 102, Carbon Dioxide Level 32, Calcium Level 8.1L 08/20/18 11:41: Bedside Glucose (Misc Panel) 166H 08/20/18 16:31: Bedside Glucose (Misc Panel) 100 CBC/BMP Laboratory Tests 5/28/19 06:07 Calcium Level 8.1 L Microbiology Microbiology 08/16/18 Urine Culture - Final, Complete HECTORPREMA Reyes MD August 20, 2018 19:15
[2018-08-20 20:00] VITALS: BP 130/60
[2018-08-20] MEDS: SPIRONOLACTONE 25 MG TAB PO SCH (20:19)
[2018-08-20] MEDS: ATORVASTATIN 20 MG TAB PO SCH (20:19)
[2018-08-20] MEDS: SENNA 8.6 MG TAB (SENOKOT) PO SCH (20:20)
[2018-08-20] MEDS: LATANOPROST 0.005% OPHTH SOLN 2.5 ML OU SCH (20:21)
[2018-08-20] MEDS: traZODone 50 MG TAB PO SCH (21:50)
[2018-08-21 06:00] VITALS: BP 137/60
[2018-08-21 07:02] LABS: BASO # 0.1 10^3/uL (0.0-0.2); BASO % 0.5 % (0.0-1.0); EOS # 0.4 10^3/uL (0.0-0.50); EOS % 4.4 % (0.0-3.0); HEMOGLOBIN 9.2 g/dl (13.5-17.5); LYMPH # 0.7 10^3/uL (1.5-4.5); LYMPH % 7.4 % (24.0-44.0); MEAN CORPUSCULAR HEMOGLOBIN 28.1 pg (27.0-33.0); MEAN CORPUSCULAR HGB CONC 29.7 g/dl (32.0-36.5); MEAN CORPUSCULAR VOLUME 94.8 fl (80.0-96.0); MONO # 0.5 10^3/uL (0.0-0.8); MONO % 5.2 % (0.0-5.0); NEUTROPHILS # 7.9 10^3/uL (1.8-7.7); NEUTROPHILS % 82.1 % (36.0-66.0); PLATELET COUNT, AUTOMATED 323 10^3/uL (150-450); RED BLOOD COUNT 3.27 10^6/uL (4.30-6.10); WHITE BLOOD COUNT 9.7 10^3/uL (4.0-10.0)
[2018-08-21 07:08] LABS: INR 2.44
[2018-08-21 07:27] LABS: CALCIUM LEVEL 8.2 MG/DL (8.8-10.2); CREATININE FOR GFR 1.29 MG/DL (0.70-1.30); GLOMERULAR FILTRATION RATE 57.5 (>42); POTASSIUM SERUM 4.1 MEQ/L (3.5-5.1)
[2018-08-21] MEDS: HumaLOG INSULIN (NovoLOG) PER UNIT SC SCH ×4 (07:50→20:33)
[2018-08-21] MEDS: ACETAMINOPHEN 500 MG TAB PO SCH ×3 (07:50→20:33)
[2018-08-21] MEDS: CLOPIDOGREL 75 MG TAB PO SCH (07:51)
[2018-08-21] MEDS: CARVedilol 12.5 MG TAB PO SCH ×2 (07:51→20:32)
[2018-08-21] MEDS: DOCUSATE SODIUM 100 MG CAP PO SCH ×2 (07:51→20:33)
[2018-08-21] MEDS: FUROSEMIDE 40 MG TAB PO SCH ×2 (07:51→17:47)
[2018-08-21] MEDS: ALLOPURINOL 300 MG TAB PO SCH (07:51)
[2018-08-21] MEDS: PANTOPRAZOLE 40MG TAB (PROTONIX) PO SCH ×2 (07:51→20:32)
[2018-08-21] MEDS: SPIRONOLACTONE 25 MG TAB PO SCH (07:51)
[2018-08-21] MEDS: EZETIMIBE 10 MG TAB (ZETIA) PO SCH (07:52)
[2018-08-21] MEDS: GABAPENTIN 100 MG CAP PO SCH (07:52)
[2018-08-21] MEDS: glipiZIDE XL 5 MG TABCR PO SCH (07:52)
[2018-08-21] MEDS: MAGNESIUM OXIDE 400 MG TAB (MAG-OX) PO SCH ×2 (07:52→20:30)
[2018-08-21] MEDS: ANALGESIC BALM CRM 120 GM TOP SCH ×3 (07:53→20:34)
[2018-08-21] MEDS: SITagliptin 50 MG TAB (JANUVIA) PO SCH (07:59)
[2018-08-21] MEDS: IPRATROPIUM 0.5MG/ALBUTEROL 2.5MG INH SOL UD 3ML (DUONEB)(J7620) NEB SCH ×3 (07:59→17:50)
[2018-08-21] MEDS ORDERED: FUROSEMIDE 20 MG/2 ML VIAL (J1940) IV PRN (13:00)
--- NOTE | 2018-08-21 13:27 | IPNPDOC ---
PM&R Progress Note DATE OF SERVICE: August 21, 2018 [employer]visor [employer] Progress Note Subjective: Patient reports he is still having trouble breathing at night and the burning sensation in his anterior thigh is persisting despite being on Gabapentin.. REVIEW OF SYSTEMS: The following is a completed review of systems and has been reviewed. Review of systems otherwise unremarkable. PAIN: Patient self reports ache in right leg EYES: Negative for recent vision changes EARS, NOSE, & THROAT: denies dysphagia, hearing difficulty, or throat pain CARDIOVASCULAR: denies chest pain or palpitations PULMONARY: denies cough, +mild dyspnea at rest (improving during the day) GASTROINTESTINAL: Negative for diarrhea or constipation GENITOURINARY: Negative for dysuria MUSCULOSKELETAL: right LE weakness (gradually improving) NEUROLOGICAL: right lumbosacral plexopathy SKIN: +hyperpigmented calves PSYCHIATRIC: Unremarkable All other review of systems found to be negative. PHYSICAL EXAMINATION: VITAL SIGNS: Please see below. GENERAL: Pleasant and cooperative. No acute distress. HEENT: PERRL. Extraocular movements intact. Clear conjunctiva CARDIOVASCULAR: Regular rate and rhythm. No murmurs, rubs, or gallops LUNGS: decreased breath sounds at bases. no wheeze, No rhonchi, +crackle left lower lung field ABDOMEN: Soft, nontender, nondistended. Positive bowel sounds. Normal active bowel sounds NEUROLOGICAL: Alert and oriented times three. Cranial nerves II through XII grossly intact. Sensation grossly intact in bilat UE and left LE, diminished in the anterior right thigh and lateral calf EXTREMITIES: 5\\5 strength bilateral upper extremities. 5\\5 strength right ankle DF, EHL and PF, 2/5 hip flexion and 3-/5 knee extension 5/5 strength in left lower extremity. -bilat LE edema SKIN: +hyperpigmented calves ASSESSMENT:77-year-old M with past medical history of mechanical aortic valve replacement who presents status post cardiac/mesenteric artery stenting complicated by iliopsoas hematoma with right lumbosacral plexopathy PLAN: 1. rehab: PT, OT, assess for DMEs, encourage RLE bracing for knee support and hip-hiking techniques in therapy to clear right leg for ambulation safely 2. Neuro: acute onset right lumbosacral compression plexothapy causing profound RLE paralysis and decreased sensation- will refer to outpatient neurology for NCS/EMG -positive Lyme titers, will discuss results with ID-consulted and will be seen tomorrow 3. CArdio: pmh mechanical aortic valve-s/p heparin drip bridge, now on COumadin goal 2.5-3.5 medicine consulted to manage - clinical suspicion for congestive heart failure- c/u Lasix 40mg po BID- recs appreciated, patient requesting oxygen at night-CXR 08/20/18- "Cardiomegaly and pulmonary interstitial edema with basilar atelectasis and pleural effusions."- will give one time dose IV lasix 20mg today, medicine added Spironolactone- recs appreciated -c/u fluid restriction 4. Resp: ex-smoker with COPD, c/u breathing treatments and supplemental oxygen, c/u Duonebs, patient requesting oxygen at night c/u 5. Endo: pmh DM c/u home meds and ISS- monitor and adjust prn 6. GI px: protonix BID 7. DVT ppx: on warfarin 8. Pain: avoid opioids, c/u tylenol 1000mg standing and will increase gabapentin from 200mg to 400mg TID, stopped tizanidine as not effective- will add Elavil 25mg qhs for neuropathic pain -trazodone standing for insomnia 9. Skin: acewrap and elevate legs while in bed, moisturize with Eucerin 9. Dispo: 08/30/18 to home Allergies Coded Allergies: No Known Allergies (Verified , 09/19/16) Vital Signs Vital Signs Date Time Temp Pulse Resp B/P (MAP) Pulse Ox O2 Delivery O2 Flow Rate FiO2 08/21/18 07:51 96 137/60 08/21/18 06:00 97.5 18 96 2.5 Laboratory Data CBC/BMP Laboratory Tests 08/21/18 06:14 Red Blood Count 3.27 L, Mean Corpuscular Volume 94.8, Mean Corpuscular Hemoglobin 28.1, Mean Corpuscular Hemoglobin Concent 29.7 L, Red Cell Distribution Width 17.4 H, Neutrophils (%) (Auto) 82.1 H, Lymphocytes (%) (Auto) 7.4 L, Monocytes (%) (Auto) 5.2 H, Eosinophils (%) (Auto) 4.4 H, Basophils (%) (Auto) 0.5, Neutrophils # (Auto) 7.9 H, Lymphocytes # (Auto) 0.7 L, Monocytes # (Auto) 0.5, Eosinophils # (Auto) 0.4, Basophils # (Auto) 0.1, Calcium Level 8.2 L Labs 24H Laboratory Tests 2 08/20/18 16:31: Bedside Glucose (Misc Panel) 100 08/20/18 20:06: Bedside Glucose (Misc Panel) 159H 08/21/18 06:14: Immature Granulocyte % (Auto) 0.4, White Blood Count 9.7, Red Blood Count 3.27L, Hemoglobin 9.2L, Hematocrit 31.0L, Mean Corpuscular Volume 94.8, Mean Corpuscular Hemoglobin 28.1, Mean Corpuscular Hemoglobin Concent 29.7L, Red Cell Distribution Width 17.4H, Platelet Count 323, Neutrophils (%) (Auto) 82.1H, Lymphocytes (%) (Auto) 7.4L, Monocytes (%) (Auto) 5.2H, Eosinophils (%) (Auto) 4.4H, Basophils (%) (Auto) 0.5, Neutrophils # (Auto) 7.9H, Lymphocytes # (Auto) 0.7L, Monocytes # (Auto) 0.5, Eosinophils # (Auto) 0.4, Basophils # (Auto) 0.1, Nucleated Red Blood Cells % (auto) 0.0, Prothrombin Time 27.0H, Prothromb Time International Ratio 2.44, Anion Gap 8, Glomerular Filtration Rate 57.5, Blood Urea Nitrogen 39H, Creatinine 1.29, Sodium Level 141, Potassium Level 4.1, Chloride Level 103, Carbon Dioxide Level 30, Calcium Level 8.2L 08/21/18 11:28: Bedside Glucose (Misc Panel) 96 Microbiology Microbiology 08/16/18 Urine Culture - Final, Complete Current Medications Current Medications Current Medications Acetaminophen (Tylenol Tab) 650 mg Q4HP PRN PO MILD PAIN (PS 1-4); Start 08/15/18 at 11:15; Stop 08/15/18 at 19:45; Status DC Acetaminophen (Tylenol Tab) 1,000 mg TID PO Last administered on 08/21/18at 07:5 0; Start 08/15/18 at 21:00 Al Hydrox/Mg Hydrox/Simethicone (Mylanta) 30 ml Q4HP PRN PO DYSPEPSIA; Start 08/15/18 at 11:15 Albuterol Sulfate (Proventil Neb) 2.5 mg RBID NEB Last administered on 12:00; Start 08/15/18 at 20:00; Stop 08/16/18 at 16:59; Status DC Albuterol Sulfate (Proventil, Ventolin Hfa) 2 puff Q4HP PRN INH SHORTNESS OF BREATH Last administered on 08/16/18at 11:11; Start 08/15/18 at 11:15 Albuterol/ Ipratropium (Duoneb (Ipr 0.5mg/Alb 2.5mg)) 3 ml RTID NEB Last administered on 08/21/18 07:59; Start 08/16/18 at 20:00 Allopurinol (Zyloprim) 300 mg DAILY PO Last administered on 08/21/18 07:51; Start 08/16/18 at 09:00 Amitriptyline HCl (Elavil) 25 mg QHS PO ; Start 08/21/18 at 21:00 Atorvastatin Calcium (Lipitor) 80 mg QHS PO Last administered on 08/20/18 20:19; Start 08/15/18 at 21:00 Bisacodyl (Dulcolax Suppository) 10 mg DAILYPRN PRN [place] CONSTIPATION; Start 08/15/18 at 11:15 Carvedilol (COReg) 12.5 mg BID PO Last administered on 08/21/18 07:51; Start 08/15/18 at 21:00 Clopidogrel Bisulfate (PLAVix) 75 mg DAILY PO Last administered on 08/21/18 07:51; Start 08/16/18 at 09:00 Dextrose (Dextrose 50%) 25 ml ASDIRECTED PRN IV SEE LABEL COMMENTS; Start 08/15/18 at 11:15 Diltiazem HCl (Cardizem) 90 mg Q8H PO Last administered on 08/21/18 06:35; Start 08/15/18 at 14:00 Docusate Sodium (Colace) 100 mg BID PO Last administered on 08/21/18 07:51; Start 08/15/18 at 21:00 EZETIMIBE (Zetia) 10 mg DAILY PO Last administered on 08/21/18 07:52; Start 08/16/18 at 09:00 Furosemide (LASIX injection) 20 mg ASDIRECTED PRN IV SEE LABEL COMMENTS; Start 08/21/18 at 13:00 Furosemide (Lasix) 40 mg BID@09,17 PO Last administered on 08/21/18at 07:51; Start 08/16/18 at 09:00 Gabapentin (Neurontin) 200 mg TID PO Last administered on 08/21/18at 07:52; Start 08/15/18 at 16:00; Stop 08/21/18 at 12:57; Status DC Gabapentin (Neurontin) 400 mg TID PO ; Start 08/21/18 at 16:00 Glipizide (Glucotrol Xl) 5 mg DAILY@0730 PO Last administered on 08/21/18at 07:52; Start 08/16/18 at 07:30 Glucagon (Glucagon) 1 mg ASDIRECTED PRN SC SEE LABEL COMMENTS; Start 08/15/18 at 11:15 Glucose (Glucose) 16 GM ASDIRECTED PRN PO SEE LABEL COMMENTS; Start 08/15/18 at 11:15 Heparin Sodium (Porcine) (Heparin) ASDIRECTED PRN IV SEE LABEL COMMENTS; Start 08/15/18 at 14:15; Stop 08/16/18 at 08:34; Status DC Heparin Sodium (Porcine) 46009 units/IV Miscellaneous Supplies 250 ml @ 0 mls/hr Q0M IV Last administered on 08/15/18at 12:00; Start 08/15/18 at 14:05; Stop 08/16/18 at 08:34; Status DC Heparin Sodium (Porcine) 85598 units/IV Miscellaneous Supplies 250 ml @ 0 mls/hr Q0M IV ; Start 08/15/18 at 14:05; Status UNV Insulin Human Lispro (HumaLOG INSULIN) SEE PROTOCOL TABLE AC SC Last administered on 08/21/18at 07:50; Start 08/15/18 at 12:00 Insulin Human Lispro (HumaLOG INSULIN) SEE PROTOCOL TABLE QHS SC ; Start 08/15/18 at 21:00 Latanoprost (Xalatan 0.005% Op Soln) 1 drop QHS OU Last administered on 08/20/18at 20:21; Start 08/15/18 at 21:00 Magnesium Hydroxide (Milk Of Magnesia) 30 ml DAILYPRN PRN PO CONSTIPATION; Start 08/15/18 at 11:15 Magnesium Oxide (Mag-Ox) 400 mg BID PO Last administered on 08/21/18 07:52; Start 08/19/18 at 21:00 Magnesium Oxide (Mag-Ox) 400 mg DAILY PO Last administered on 08/19/18 08:07; Start 08/16/18 at 09:00; Stop 08/19/18 at 09:58; Status DC Menthol/Methyl Salicylate (Bengay Cream) right upper thigh TID TOP Last adminis tered on 08/21/18at 07:53; Start 08/20/18 at 16:00 Nitroglycerin (Nitrostat (1/ 150)) 0.4 mg Q5MP PRN SL CHEST PAIN; Start 08/15/18 at 11:15 Non-Formulary Medication (Heparin Iv Rate Change Documentation ml/ Hr) ASDIRECTED XX ; Start 08/15/18 at 14:15; Stop 08/16/18 at 08:34; Status DC Oxycodone HCl (Roxicodone, Oxyir) 5 mg Q4HP PRN PO PAIN; Start 08/15/18 at 11:15; Stop 08/15/18 at 19:45; Status DC Pantoprazole Sodium (Protonix) 40 mg BID PO Last administered on 08/21/18 07:51; Start 08/15/18 at 21:00 Ramelteon (Rozerem) 8 mg QHS PO Last administered on 08/19/18at 21:05; Start 08/18/18 at 21:00; Stop 08/20/18 at 16:18; Status DC Senna (Senokot) 1 tab QHS PO Last administered on 08/20/18at 20:20; Start 08/15/18 at 21:00 Sitagliptin Phosphate (Januvia) 50 mg DAILY PO Last administered on 08/21/18 07:59; Start 08/16/18 at 09:00 Spironolactone (Aldactone) 25 mg QAM PO Last administered on 08/21/18 07:51; Start 08/20/18 at 19:15 Tizanidine HCl (Zanaflex) 2 mg TIDP PRN PO SPASMS Last administered on 08/20/18 08:52; Start 08/15/18 at 11:15; Stop 08/20/18 at 16:18; Status DC Trazodone HCl (Desyrel) 50 mg QHS PO Last administered on 08/20/18at 21:50; Start 08/20/18 at 21:00 Warfarin Sodium (Coumadin) 7.5 mg DAILY@1700 PO Last administered on 08/17/18at 17:02; Start 08/17/18 at 17:00; Stop 08/18/18 at 09:39; Status DC Warfarin Sodium (Coumadin) 10 mg DAILY@1700 PO Last administered on 08/16/18at 17:15; Start 08/16/18 at 17:00; Stop 08/17/18 at 09:25; Status DC Warfarin Sodium (Coumadin) 10 mg DAILY@1700 PO Last administered on 08/19/18at 16:54; Start 08/18/18 at 17:00; Stop 08/20/18 at 08:38; Status DC Warfarin Sodium (Coumadin) 10 mg DAILY@1700 PO ; Start 08/21/18 at 17:00 THIERRY PRICE MD August 21, 2018 13:27
[2018-08-21] MEDS ORDERED: FUROSEMIDE 20 MG/2 ML VIAL (J1940) IV ONE (14:00)
[2018-08-21] MEDS ORDERED: SLF 3 ML SYR IV PRN (14:15)
[2018-08-21 14:30] VITALS: BP 108/60
[2018-08-21] MEDS: WARFARIN SOD 5 MG TAB PO SCH (16:30)
[2018-08-21] MEDS: GABAPENTIN 400 MG CAP PO SCH ×2 (16:30→20:32)
--- NOTE | 2018-08-21 18:55 | IPNPDOC ---
Subjective Date Seen The patient was seen on 08/21/18. Subjective Chief Complaint/HPI Right thigh pain/swelling , iliopsoas hematoma Events since last encounter Patient reports he is still having pain involving the right thighwas to palpation/touch or with movement and better at rest. No change in the swelling itself. Denies any pulse or dizziness or lightheadedness. Reports some shortness of breath at nighttime when he lays down. Denies any chest pain. No fevers/chills or sweats. No nausea or vomiting. Tolerating oral intake. Denies impulsive bladder/bowel habits. Objective Physical Examination General Exam: Positive: Alert, Cooperative, No Acute Distress, Other (sitting up in chair) Eye Exam: Positive: PERRLA Chest Exam: Positive: Clear to auscultation, Other (diminished air entry at lung bases); Negative: Rales, Rhonchi, Wheezing Heart Exam: Positive: Other (S1, S2 heard, no rubs or gallops) Abdomen Exam: Positive: Soft; Negative: Tenderness Extremity Exam: Positive: Other (edema extending up to thighs bilaterally. Right thigh swelling unchanged from yesterdayit is more swollen than the left eye.) Neuro Exam: Positive: Other (strength is 5 over 5 in bilateral ankles. 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 Gout -Ct Allopurinol GERD -Ct Protonix CKD 3 -Creatinine at baseline. 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 -Ct Furosemide 40 BID and spironolactone DVT prophylaxis -Ct Coumadin Plan/VTE VTE Prophylaxis Ordered?: Yes VS, I&O, 24H, Fishbone Vital Signs/I&O Vital Signs Date Time Temp Pulse Resp B/P (MAP) Pulse Ox O2 Delivery O2 Flow Rate FiO2 08/21/18 14:30 97.9 62 20 108/60 (76) 95 08/21/18 06:00 2.5 I&O- Last 24 Hours up to 6 AM 08/21/18 06:00 Intake Total 960 ml Output Total 2325 ml Balance -1365 ml Laboratory Data 24H LABS Laboratory Tests 2 08/20/18 20:06: Bedside Glucose (Misc Panel) 159H 08/21/18 06:14: Immature Granulocyte % (Auto) 0.4, White Blood Count 9.7, Red Blood Count 3.27L, Hemoglobin 9.2L, Hematocrit 31.0L, Mean Corpuscular Volume 94.8, Mean Corpuscular Hemoglobin 28.1, Mean Corpuscular Hemoglobin Concent 29.7L, Red Cell Distribution Width 17.4H, Platelet Count 323, Neutrophils (%) (Auto) 82.1H, Ly mphocytes (%) (Auto) 7.4L, Monocytes (%) (Auto) 5.2H, Eosinophils (%) (Auto) 4.4H, Basophils (%) (Auto) 0.5, Neutrophils # (Auto) 7.9H, Lymphocytes # (Auto) 0.7L, Monocytes # (Auto) 0.5, Eosinophils # (Auto) 0.4, Basophils # (Auto) 0.1, Nucleated Red Blood Cells % (auto) 0.0, Prothrombin Time 27.0H, Prothromb Time International Ratio 2.44, Anion Gap 8, Glomerular Filtration Rate 57.5, Blood Urea Nitrogen 39H, Creatinine 1.29, Sodium Level 141, Potassium Level 4.1, Chloride Level 103, Carbon Dioxide Level 30, Calcium Level 8.2L 08/21/18 11:28: Bedside Glucose (Misc Panel) 96 08/21/18 17:24: Bedside Glucose (Misc Panel) 107 CBC/BMP Laboratory Tests 08/21/18 06:14 Red Blood Count 3.27 L, Mean Corpuscular Volume 94.8, Mean Corpuscular Hemoglobin 28.1, Mean Corpuscular Hemoglobin Concent 29.7 L, Red Cell Distribution Width 17.4 H, Neutrophils (%) (Auto) 82.1 H, Lymphocytes (%) (Auto) 7.4 L, Monocytes (%) (Auto) 5.2 H, Eosinophils (%) (Auto) 4.4 H, Basophils (%) (Auto) 0.5, Neutrophils # (Auto) 7.9 H, Lymphocytes # (Auto) 0.7 L, Monocytes # (Auto) 0.5, Eosinophils # (Auto) 0.4, Basophils # (Auto) 0.1, Calcium Level 8.2 L Microbiology Microbiology 08/16/18 Urine Culture - Final, Complete HECTOR,PREMA Solano MD August 21, 2018 18:55
[2018-08-21 20:00] VITALS: BP 132/66
[2018-08-21] MEDS: SENNA 8.6 MG TAB (SENOKOT) PO SCH (20:30)
[2018-08-21] MEDS: ATORVASTATIN 20 MG TAB PO SCH (20:31)
[2018-08-21] MEDS: traZODone 50 MG TAB PO SCH (20:32)
[2018-08-21] MEDS: AMITRIPTYLINE 25 MG TAB PO SCH (20:33)
[2018-08-21] MEDS: LATANOPROST 0.005% OPHTH SOLN 2.5 ML OU SCH (20:34)
[2018-08-21] MEDS: SLF 3 ML SYR IV SCH (20:34)
[2018-08-22] MEDS: SLF 3 ML SYR IV SCH ×3 (05:42→21:04)
[2018-08-22 05:44] VITALS: BP 150/78
[2018-08-22 06:26] LABS: INR 2.78; PROTHROMBIN TIME 29.9 SECONDS (12.1-14.4)
[2018-08-22 06:27] VITALS: BP 140/80
[2018-08-22] MEDS: SPIRONOLACTONE 25 MG TAB PO SCH (07:32)
[2018-08-22] MEDS: CARVedilol 12.5 MG TAB PO SCH ×2 (07:32→20:31)
[2018-08-22] MEDS: GABAPENTIN 400 MG CAP PO SCH ×3 (07:32→20:31)
[2018-08-22] MEDS: FUROSEMIDE 40 MG TAB PO SCH ×2 (07:32→16:49)
[2018-08-22] MEDS: PANTOPRAZOLE 40MG TAB (PROTONIX) PO SCH ×2 (07:32→20:31)
[2018-08-22] MEDS: SITagliptin 50 MG TAB (JANUVIA) PO SCH (07:32)
[2018-08-22] MEDS: DOCUSATE SODIUM 100 MG CAP PO SCH ×2 (07:32→20:31)
[2018-08-22] MEDS: ALLOPURINOL 300 MG TAB PO SCH (07:32)
[2018-08-22] MEDS: CLOPIDOGREL 75 MG TAB PO SCH (07:32)
[2018-08-22] MEDS: ACETAMINOPHEN 500 MG TAB PO SCH ×3 (07:33→20:30)
[2018-08-22] MEDS: glipiZIDE XL 5 MG TABCR PO SCH (07:33)
[2018-08-22] MEDS: HumaLOG INSULIN (NovoLOG) PER UNIT SC SCH ×4 (07:33→19:50)
[2018-08-22] MEDS: MAGNESIUM OXIDE 400 MG TAB (MAG-OX) PO SCH ×2 (07:33→20:31)
[2018-08-22] MEDS: EZETIMIBE 10 MG TAB (ZETIA) PO SCH (07:34)
[2018-08-22] MEDS: ANALGESIC BALM CRM 120 GM TOP SCH ×3 (07:34→20:32)
[2018-08-22] MEDS: IPRATROPIUM 0.5MG/ALBUTEROL 2.5MG INH SOL UD 3ML (DUONEB)(J7620) NEB SCH ×3 (09:05→20:00)
--- NOTE | 2018-08-22 13:49 | IPNPDOC ---
PM&R Progress Note DATE OF SERVICE: August 22, 2018 Mainframe Programmer Progress Note Subjective: Patient seen in PT, stating his right leg owens a little less today and his breathing feels improved. REVIEW OF SYSTEMS: The following is a completed review of systems and has been reviewed. Review of systems otherwise unremarkable. PAIN: Patient self reports ache in right leg EYES: Negative for recent vision changes EARS, NOSE, & THROAT: denies dysphagia, hearing difficulty, or throat pain CARDIOVASCULAR: denies chest pain or palpitations PULMONARY: denies cough, +mild dyspnea at rest (improving during the day) GASTROINTESTINAL: Negative for diarrhea or constipation GENITOURINARY: Negative for dysuria MUSCULOSKELETAL: right LE weakness (gradually improving) NEUROLOGICAL: right lumbosacral plexopathy SKIN: +hyperpigmented calves PSYCHIATRIC: Unremarkable All other review of systems found to be negative. PHYSICAL EXAMINATION: VITAL SIGNS: Please see below. GENERAL: Pleasant and cooperative. No acute distress. HEENT: PERRL. Extraocular movements intact. Clear conjunctiva CARDIOVASCULAR: Regular rate and rhythm. No murmurs, rubs, or gallops LUNGS: decreased breath sounds at bases. no wheeze, No rhonchi, +crackle left lower lung field ABDOMEN: Soft, nontender, nondistended. Positive bowel sounds. Normal active bowel sounds NEUROLOGICAL: Alert and oriented times three. Cranial nerves II through XII grossly intact. Sensation grossly intact in bilat UE and left LE, diminished in the anterior right thigh and lateral calf EXTREMITIES: 5\\5 strength bilateral upper extremities. 5\\5 strength right ankle DF, EHL and PF, 2/5 hip flexion and 3-/5 knee extension 5/5 strength in left lower extremity. -bilat LE edema SKIN: +hyperpigmented calves ASSESSMENT:77-year-old M with past medical history of mechanical aortic valve replacement who presents status post cardiac/mesenteric artery stenting complicated by iliopsoas hematoma with right lumbosacral plexopathy PLAN: 1. rehab: PT, OT, assess for DMEs, knee buckling improving without bracing in PT, fatiguing in OT, will attempt to space out therapies 2. Neuro: acute onset right lumbosacral compression plexothapy causing profound RLE paralysis and decreased sensation- will refer to outpatient neurology for NCS/EMG -positive Lyme titers, will discuss results with ID-consulted 3. CArdio: [facility] mechanical aortic valve-s/p heparin drip bridge, now on COumadin goal 2.5-3.5 medicine consulted to manage - clinical suspicion for congestive heart failure- c/u Lasix 40mg po BID- recs appreciated, patient requesting oxygen at night-CXR 08/20/18- "Cardiomegaly and pulmonary interstitial edema with basilar atelectasis and pleural effusions."- s/p 1x IV lasix 20mg yesterday, breathing improved today -medicine added Spironolactone- recs appreciated -c/u fluid restriction 4. Resp: ex-smoker with COPD, c/u breathing treatments and supplemental oxygen, c/u Duonebs, patient requesting oxygen at night c/u 5. Endo: pmh DM c/u home meds and ISS- monitor and adjust prn 6. GI px: protonix BID 7. DVT ppx: on warfarin 8. Pain: avoid opioids, c/u tylenol 1000mg standing, increased gabapentin from 200mg to 400mg TID and added Elavil 25mg qhs for neuropathic pain-mild improvement today -trazodone standing for insomnia 9. Skin: acewrap and elevate legs while in bed, moisturize with Eucerin 9. Dispo: 08/30/18 to home, progressing towards goals Allergies Coded Allergies: No Known Allergies (Verified , 09/19/16) Vital Signs Vital Signs Date Time Temp Pulse Resp B/P (MAP) Pulse Ox O2 Delivery O2 Flow Rate FiO2 08/22/18 09:05 93 08/22/18 07:32 140/80 08/22/18 05:44 97.5 16 95 2.0 Laboratory Data Labs 24H Laboratory Tests 2 08/21/18 17:24: Bedside Glucose (Misc Panel) 107 08/21/18 19:36: Bedside Glucose (Misc Panel) 142H 08/22/18 05:52: Prothrombin Time 29.9H, Prothromb Time International Ratio 2.78 08/22/18 06:14: Bedside Glucose (Misc Panel) 120H 08/22/18 11:44: Bedside Glucose (Misc Panel) 120H Microbiology Microbiology 08/16/18 Urine Culture - Final, Complete Current Medications Current Medications Current Medications Acetaminophen (Tylenol Tab) 650 mg Q4HP PRN PO MILD PAIN (PS 1-4); Start 08/15/18 at 11:15; Stop 08/15/18 at 19:45; Status DC Acetaminophen (Tylenol Tab) 1,000 mg TID PO Last administered on 08/22/18 07:33; Start 08/15/18 at 21:00 Al Hydrox/Mg Hydrox/Simethicone (Mylanta) 30 ml Q4HP PRN PO DYSPEPSIA; Start 08/15/18 at 11:15 Albuterol Sulfate (Proventil Neb) 2.5 mg RBID NEB Last administered on 08/15/18at 12:00; Start 08/15/18 at 20:00; Stop 08/16/18 at 16:59; Status DC Albuterol Sulfate (Proventil, Ventolin Hfa) 2 puff Q4HP PRN INH SHORTNESS OF BREATH Last administered on 08/16/18 11:11; Start 08/15/18 at 11:15 Albuterol/ Ipratropium (Duoneb (Ipr 0.5mg/Alb 2.5mg)) 3 ml RTID NEB Last administered on 08/22/18 09:05; Start 08/16/18 at 20:00 Allopurinol (Zyloprim) 300 mg DAILY PO Last administered on 08/22/18 07:32; Start 08/16/18 at 09:00 Amitriptyline HCl (Elavil) 25 mg QHS PO Last administered on 08/21/18 20:33; Start 08/21/18 at 21:00 Atorvastatin Calcium (Lipitor) 80 mg QHS PO Last administered on 08/21/18 20:31; Start 08/15/18 at 21:00 Bisacodyl (Dulcolax Suppository) 10 mg DAILYPRN PRN GA CONSTIPATION; Start 08/15/18 at 11:15 Carvedilol (COReg) 12.5 mg BID PO Last administered on 08/22/18 07:32; Start 08/15/18 at 21:00 Clopidogrel Bisulfate (PLAVix) 75 mg DAILY PO Last administered on 08/22/18 07:32; Start 08/16/18 at 09:00 Dextrose (Dextrose 50%) 25 ml ASDIRECTED PRN IV SEE LABEL COMMENTS; Start 08/15/18 at 11:15 Diltiazem HCl (Cardizem) 90 mg Q8H PO Last administered on 08/22/18at 05:43; Start 08/15/18 at 14:00 Docusate Sodium (Colace) 100 mg BID PO Last administered on 08/22/18at 07:32; Start 08/15/18 at 21:00 EZETIMIBE (Zetia) 10 mg DAILY PO Last administered on 08/22/18at 07:34; Start 08/16/18 at 09:00 Furosemide (LASIX injection) 20 mg ASDIRECTED PRN IV SEE LABEL COMMENTS; Start 08/21/18 at 13:00; Stop 08/21/18 at 13:26; Status DC Furosemide (Lasix) 40 mg BID@09,17 PO Last administered on 08/22/18at 07:32; Start 08/16/18 at 09:00 Gabapentin (Neurontin) 200 mg TID PO Last administered on 08/21/18at 07:52; Start 08/15/18 at 16:00; Stop 08/21/18 at 12:57; Status DC Gabapentin (Neurontin) 400 mg TID PO Last administered on 08/22/18at 07:32; Start 08/21/18 at 16:00 Glipizide (Glucotrol Xl) 5 mg DAILY@0730 PO Last administered on 08/22/18at 07:33; Start 08/16/18 at 07:30 Glucagon (Glucagon) 1 mg ASDIRECTED PRN SC SEE LABEL COMMENTS; Start 08/15/18 at 11:15 Glucose (Glucose) 16 GM ASDIRECTED PRN PO SEE LABEL COMMENTS; Start 08/15/18 at 11:15 Heparin Sodium (Porcine) (Heparin) ASDIRECTED PRN IV SEE LABEL COMMENTS; Start 08/15/18 at 14:15; Stop 08/16/18 at 08:34; Status DC Heparin Sodium (Porcine) 54706 units/IV Miscellaneous Supplies 250 ml @ 0 mls/hr Q0M IV Last administered on 08/15/18at 12:00; Start 08/15/18 at 14:05; Stop 08/16/18 at 08:34; Status DC Heparin Sodium (Porcine) 79317 units/IV Miscellaneous Supplies 250 ml @ 0 mls/hr Q0M IV ; Start 08/15/18 at 14:05; Status UNV Insulin Human Lispro (HumaLOG INSULIN) SEE PROTOCOL TABLE AC SC Last administe red on 08/22/18at 11:58; Start 08/15/18 at 12:00 Insulin Human Lispro (HumaLOG INSULIN) SEE PROTOCOL TABLE QHS SC ; Start 9 at 21:00 Latanoprost (Xalatan 0.005% Op Soln) 1 drop QHS OU Last administered on 08/21/18at 20:34; Start 08/15/18 at 21:00 Magnesium Hydroxide (Milk Of Magnesia) 30 ml DAILYPRN PRN PO CONSTIPATION; Start 08/15/18 at 11:15 Magnesium Oxide (Mag-Ox) 400 mg BID PO Last administered on 08/22/18 07:33; Start 08/19/18 at 21:00 Magnesium Oxide (Mag-Ox) 400 mg DAILY PO Last administered on 08/19/18at 08:07; Start 08/16/18 at 09:00; Stop 08/19/18 at 09:58; Status DC Menthol/Methyl Salicylate (Bengay Cream) right upper thigh TID TOP Last administered on 08/22/18at 07:34; Start 08/20/18 at 16:00 Nitroglycerin (Nitrostat (1/ 150)) 0.4 mg Q5MP PRN SL CHEST PAIN; Start 08/15/18 at 11:15 Non-Formulary Medication (Heparin Iv Rate Change Documentation ml/ Hr) ASDIRECT ED XX ; Start 08/15/18 at 14:15; Stop 08/16/18 at 08:34; Status DC Oxycodone HCl (Roxicodone, Oxyir) 5 mg Q4HP PRN PO PAIN; Start 08/15/18 at 11:15; Stop 08/15/18 at 19:45; Status DC Pantoprazole Sodium (Protonix) 40 mg BID PO Last administered on 08/22/18at 07:32; Start 08/15/18 at 21:00 Ramelteon (Rozerem) 8 mg QHS PO Last administered on 08/19/18at 21:05; Start 08/18/18 at 21:00; Stop 08/20/18 at 16:18; Status DC Senna (Senokot) 1 tab QHS PO Last administered on 08/21/18at 20:30; Start 08/15/18 at 21:00 Sitagliptin Phosphate (Januvia) 50 mg DAILY PO Last administered on 08/22/18 07:32; Start 08/16/18 at 09:00 Sodium Chloride (Saline Lock Flush) 2 ml ASDIRECTED PRN IV SEE LABEL COMMENTS; Start 08/21/18 at 14:15 Sodium Chloride (Saline Lock Flush) 2 ml SLF IV Last administered on 08/22/18 05:42; Start 08/21/18 at 22:00 Spironolactone (Aldactone) 25 mg QAM PO Last administered on 08/22/18 07:32; Start 08/20/18 at 19:15 Tizanidine HCl (Zanaflex) 2 mg TIDP PRN PO SPASMS Last administered on 08/20/18 t 08:52; Start 08/15/18 at 11:15; Stop 08/20/18 at 16:18; Status DC Trazodone HCl (Desyrel) 50 mg QHS PO Last administered on 08/21/18 20:32; Start 08/20/18 at 21:00 Warfarin Sodium (Coumadin) 7.5 mg DAILY@1700 PO Last administered on 08/17/18 17:02; Start 08/17/18 at 17:00; Stop 08/18/18 at 09:39; Status DC Warfarin Sodium (Coumadin) 10 mg DAILY@1700 PO Last administered on 08/16/18 17:15; Start 08/16/18 at 17:00; Stop 08/17/18 at 09:25; Status DC Warfarin Sodium (Coumadin) 10 mg DAILY@1700 PO Last administered on 08/19/18 16:54; Start 08/18/18 at 17:00; Stop 08/20/18 at 08:38; Status DC Warfarin Sodium (Coumadin) 10 mg DAILY@1700 PO Last administered on 08/21/18 16:30; Start 08/21/18 at 17:00 THIERRY PRICE MD August 22, 2018 13:48
[2018-08-22 14:00] VITALS: BP 114/56
[2018-08-22] MEDS: WARFARIN SOD 5 MG TAB PO SCH (16:49)
--- NOTE | 2018-08-22 19:49 | IPNPDOC ---
Subjective Date Seen The patient was seen on 08/22/18. Subjective Chief Complaint/HPI Right thigh pain/swelling , iliopsoas hematoma Events since last encounter The patient reports a right thigh pain seems better although he does have some back pain and could not sleep well last night. Denies any prostate chest pain or shortness of breath. Right thigh swelling is unchanged. No problems with bladder/bowel habits. Tolerating oral intake well. No dizziness or lightheadedness. Objective Physical Examination General Exam: Positive: Alert, Cooperative, No Acute Distress, Other (sitting up in chair) Eye Exam: Positive: PERRLA Chest Exam: Positive: Clear to auscultation, Other (slight crackles right lung base); Negative: Rales, Rhonchi, Wheezing Heart Exam: Positive: Other (S1, S2 heard, no rubs or gallops) Abdomen Exam: Positive: Soft; Negative: Tenderness Extremity Exam: Positive: Other (bilateral lower except pitting edema extending up to thighs2+. Right thigh more swollen than leftunchanged from yesterday) Assessment /Plan Assessment Right leg pain / weakness / numbness - likely 2/2 Right iliopsoas hematoma with right lumber plexopathy -Continue warfarin and Plavix -Hemoglobin was stablerepeat labs have been ordered for tomorrow -Swelling unchanged -Continue tizanidine and gabapentin as well as when necessary oxycodone for pain control Shortness of breath: -Continued furosemide and spironolactone -Patient reports some improvement in his shortness of breath -Monitor BMP to watch for any hyperkalemia and monitor creatinine - labs have been ordered for tomorrow Leukocytosis: -Resolved Constipation -Resolved 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 Monitor - EMB has been ordered for tomorrow Chronic bilateral venous stasis with stasis dermatitis -Ct Furosemide 40 BID and spironolactone DVT prophylaxis -Ct Coumadin Plan/VTE VTE Prophylaxis Ordered?: Yes VS, I&O, 24H, Fishbone Vital Signs/I&O Vital Signs Date Time Temp Pulse Resp B/P (MAP) Pulse Ox O2 Delivery O2 Flow Rate FiO2 08/22/18 14:17 103 114/56 08/22/18 14:00 98.0 18 98 08/22/18 05:44 2.0 I&O- Last 24 Hours up to 6 AM 08/22/18 06:00 Intake Total 1400 ml Output Total 3350 ml Balance -1950 ml Laboratory Data 24H LABS Laboratory Tests 2 08/22/18 05:52: Prothrombin Time 29.9H, Prothromb Time International Ratio 2.78 08/22/18 06:14: Bedside Glucose (Misc Panel) 120H 08/22/18 11:44: Bedside Glucose (Misc Panel) 120H 08/22/18 16:35: Bedside Glucose (Misc Panel) 114H Microbiology Microbiology 08/16/18 Urine Culture - Final, Complete PREMA HECTOR MD August 22, 2018 19:49
[2018-08-22 20:00] VITALS: BP 125/67
[2018-08-22] MEDS: ATORVASTATIN 20 MG TAB PO SCH (20:29)
[2018-08-22] MEDS: LATANOPROST 0.005% OPHTH SOLN 2.5 ML OU SCH (20:31)
[2018-08-22] MEDS: AMITRIPTYLINE 25 MG TAB PO SCH (20:31)
[2018-08-22] MEDS: traZODone 50 MG TAB PO SCH (20:31)
[2018-08-22] MEDS: DOXYCYCLINE HYCLATE 100 MG TAB PO SCH (20:31)
[2018-08-22] MEDS: SENNA 8.6 MG TAB (SENOKOT) PO SCH (20:31)
[2018-08-23 06:00] VITALS: BP 132/83
[2018-08-23] MEDS: SLF 3 ML SYR IV SCH ×3 (06:11→22:05)
[2018-08-23 06:48] LABS: INR 3.18; PROTHROMBIN TIME 33.3 SECONDS (12.1-14.4)
[2018-08-23 06:58] LABS: C REACTIVE PROTEIN QUANTITATIV 1.64 MG/DL (0.00-0.30); CALCIUM LEVEL 8.6 MG/DL (8.8-10.2); CREATININE FOR GFR 1.35 MG/DL (0.70-1.30); GLOMERULAR FILTRATION RATE 54.6 (>42); POTASSIUM SERUM 4.1 MEQ/L (3.5-5.1)
[2018-08-23 07:45] VITALS: BP 127/70
[2018-08-23] MEDS: IPRATROPIUM 0.5MG/ALBUTEROL 2.5MG INH SOL UD 3ML (DUONEB)(J7620) NEB SCH ×3 (07:47→20:04)
[2018-08-23] MEDS: GABAPENTIN 400 MG CAP PO SCH (08:12)
[2018-08-23] MEDS: CLOPIDOGREL 75 MG TAB PO SCH (08:12)
[2018-08-23] MEDS: HumaLOG INSULIN (NovoLOG) PER UNIT SC SCH ×4 (08:12→21:00)
[2018-08-23] MEDS: PANTOPRAZOLE 40MG TAB (PROTONIX) PO SCH ×2 (08:12→22:02)
[2018-08-23] MEDS: DOCUSATE SODIUM 100 MG CAP PO SCH ×2 (08:12→22:02)
[2018-08-23] MEDS: MAGNESIUM OXIDE 400 MG TAB (MAG-OX) PO SCH ×2 (08:13→22:02)
[2018-08-23] MEDS: glipiZIDE XL 5 MG TABCR PO SCH (08:13)
[2018-08-23] MEDS: ALLOPURINOL 300 MG TAB PO SCH (08:13)
[2018-08-23] MEDS: ACETAMINOPHEN 500 MG TAB PO SCH ×3 (08:13→22:03)
[2018-08-23] MEDS: FUROSEMIDE 40 MG TAB PO SCH (08:13)
[2018-08-23] MEDS: DOXYCYCLINE HYCLATE 100 MG TAB PO SCH ×2 (08:13→22:02)
[2018-08-23] MEDS: SITagliptin 50 MG TAB (JANUVIA) PO SCH (08:13)
[2018-08-23] MEDS: EZETIMIBE 10 MG TAB (ZETIA) PO SCH (08:13)
[2018-08-23] MEDS: CARVedilol 12.5 MG TAB PO SCH ×2 (08:14→21:00)
[2018-08-23] MEDS: ANALGESIC BALM CRM 120 GM TOP SCH ×3 (08:15→22:05)
[2018-08-23] MEDS: SPIRONOLACTONE 25 MG TAB PO SCH (09:14)
--- NOTE | 2018-08-23 09:25 | IPNPDOC ---
Subjective Date Seen The patient was seen on 08/23/18. Subjective Chief Complaint/HPI Patient is a 77 year old male admitted for further management of of right iliopsoas hematoma. Patient has past medical history significant for valvular heart disease, status post mechanical valve placement on anticoagulation therapy with Coumadin Events since last encounter Today he denies chest pain, SOB, staff reports patient had mental status change this am. Having trouble with speech and was weaker than usual Objective Physical Examination General Exam: Positive: Alert, Cooperative, No Acute Distress, Other (sitting up in chair) Eye Exam: Positive: PERRLA, EOMI ENT Exam: Positive: Atraumatic, Mucous membr. moist/pink Neck Exam: Positive: Supple; Negative: JVD Chest Exam: Positive: Rales, Rhonchi (with inspiration in posterior gonzales) Heart Exam: Positive: Other (S1, S2 heard, no rubs or gallops) Abdomen Exam: Positive: Soft; Negative: Tenderness Extremity Exam: Positive: Edema, Other (3+ edema to BLE with venous stasis changes, rubor) Neuro Exam: Positive: Normal Speech, Strength at 5/5 X4 ext Psych Exam: Positive: Mental status NL, Mood NL, Oriented x 3 Assessment /Plan Assessment Altered Mental Status -CT brain without contrast negative for acute intracranial process -Patient's medications were adjusted last night which may have contributed to symptoms this morning -continue to monitor Right leg pain / weakness / numbness - 2/2 Right iliopsoas hematoma with right lumber plexopathy -Continued on tizanidine, gabapentin, oxycodone PRN for pain control -currently in rehab unit for mobilization/strengthening by primary team Valvular Heart disease -S/P Mechanical Aortic valve placement (Model # [id number]-505; Serial # [id number]) -INR target is 2.5 to 3.5 -INR 3.1 todaycontinue warfarin 10 mg daily 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 -fingerstick checks ACHS -Continue sitagliptin, glipizide, sliding scale and gabapentin Hypertension -blood pressure monitoring per unit protocol -target SBP<140mmHg -Diltiazem, Carvedilol, furosemide, spironolactone CAD s/p CABG and stent (07/30/18) -Continue Plavix, Carvedilol, Atorvastatin CKD -Stable, avoid nephrotoxic medications -cautious diuresis DVT prophylaxis -fully anticoagulated on Coumadin Plan/VTE VTE Prophylaxis Ordered?: Yes VS, I&O, 24H, Fishbone Vital Signs/I&O Vital Signs Date Time Temp Pulse Resp B/P (MAP) Pulse Ox O2 Delivery O2 Flow Rate FiO2 08/23/18 08:14 73 127/70 08/23/18 07:45 97.8 18 97 3.0 I&O- Last 24 Hours up to 6 AM 08/23/18 06:00 Intake Total 840 ml Output Total 2350 ml Balance -1510 ml Laboratory Data 24H LABS Laboratory Tests 2 08/22/18 11:44: Bedside Glucose (Misc Panel) 120H 08/22/18 16:35: Bedside Glucose (Misc Panel) 114H 08/22/18 19:48: Bedside Glucose (Misc Panel) 118H 08/23/18 06:23: Erythrocyte Sedimentation Rate 61H, Prothrombin Time 33.3H, Prothromb Time International Ratio 3.18, Anion Gap 4L, Glomerular Filtration Rate 54.6, Blood Urea Nitrogen 40H, Creatinine 1.35H, Sodium Level 143, Potassium Level 4.1, Chloride Level 106, Carbon Dioxide Level 33H, Calcium Level 8.6L, C-Reactive Protein, Quantitative 1.64H CBC/BMP Laboratory Tests 08/23/18 06:23 Calcium Level 8.6 L Microbiology Microbiology 08/16/18 Urine Culture - Final, Complete JURGEN FERGUSON August 23, 2018 09:25
--- NOTE | 2018-08-23 10:13 | REP ---
CT Head without contrast HISTORY: Neurologic change COMPARISON: 08/06/2018 An area of decreased attenuation is present in the left basal ganglia. This represents an old lacunar infarction. Areas of decreased attenuation are present in the periventricular white matter. This represents small-vessel ischemic disease. There is no intraparenchymal hemorrhage, acute infarct, mass or midline shift. The ventricular system and cortical sulci are dilated consistent with mild volume loss. There is no extra cerebral collection. There is no fracture. The visualized sinuses are clear. IMPRESSION: 1. Old left basal ganglia lacunar infarction. 2. Small vessel ischemic disease per 3. Mild volume loss. Electronically Signed by Gideon Pate MD 08/23/2018 10:04 A
--- NOTE | 2018-08-23 11:59 | IPNPDOC ---
PM&R Progress Note DATE OF SERVICE: August 23, 2018 Funeral Driver Progress Note Subjective: Patient reports he woke up feeling drunk and his right arm was shaking. He reports feeling confused, denies chest pain, fevers, or chills, stating he slept like a rock. CT scan was ordered. REVIEW OF SYSTEMS: The following is a completed review of systems and has been reviewed. Review of systems otherwise unremarkable. PAIN: Patient self reports ache in right leg EYES: Negative for recent vision changes EARS, NOSE, & THROAT: denies dysphagia, hearing difficulty, or throat pain CARDIOVASCULAR: denies chest pain or palpitations PULMONARY: denies cough, +mild dyspnea at rest (improving during the day) GASTROINTESTINAL: Negative for diarrhea or constipation GENITOURINARY: Negative for dysuria MUSCULOSKELETAL: right LE weakness (gradually improving) NEUROLOGICAL: right lumbosacral plexopathy SKIN: +hyperpigmented calves PSYCHIATRIC: Unremarkable All other review of systems found to be negative. PHYSICAL EXAMINATION: VITAL SIGNS: Please see below. GENERAL: Pleasant and cooperative. No acute distress. HEENT: PERRL. Extraocular movements intact. Clear conjunctiva. + mildly slurred speech with dry appearing tongue, no facial droop CARDIOVASCULAR: Regular rate and rhythm. No murmurs, rubs, or gallops LUNGS: CTA. no wheeze, No rhonchi ABDOMEN: Soft, nontender, nondistended. Positive bowel sounds. Normal active bowel sounds NEUROLOGICAL: Alert and oriented times three. Cranial nerves II through XII grossly intact. Sensation grossly intact in bilat UE and left LE, diminished in the anterior right thigh and lateral calf EXTREMITIES: 5\\5 strength bilateral upper extremities. 5\\5 strength right ankle DF, EHL and PF, 2/5 hip flexion and 3-/5 knee extension 5/5 strength in left lower extremity. -bilat LE edema SKIN: +hyperpigmented calves ASSESSMENT:77-year-old M with past medical history of mechanical aortic valve replacement who presents status post cardiac/mesenteric artery stenting complicated by iliopsoas hematoma with right lumbosacral plexopathy PLAN: 1. rehab: PT, OT, assess for DMEs, knee buckling improving without bracing in PT, fatiguing in OT, will attempt to space out therapies 2. Neuro: acute onset right lumbosacral compression plexothapy causing profound RLE paralysis and decreased sensation- will refer to outpatient neurology for NCS/EMG -positive Lyme titers, will discuss results with ID-consulted c/u 3 week course of doxycycline, recs appreciated -stat CT negative for acute bleed, pt has mechanical valve, will obtain Op report from [facility] and defer to radiology if safe to order MRI -suspect trazodone and recent addition of Elavil contributing to morning confusion, will stop and monitor 3. CArdio: pmh mechanical aortic valve-s/p heparin drip bridge, now on COumadin goal 2.5-3.5 medicine consulted to manage - clinical suspicion for congestive heart failure- c/u Lasix 40mg po BID- recs appreciated, patient requesting oxygen at night-CXR 08/20/18- "Cardiomegaly and pulmonary interstitial edema with basilar atelectasis and pleural effusions."- -medicine added Spironolactone- recs appreciated -c/u fluid restriction 4. Resp: ex-smoker with COPD, c/u breathing treatments and supplemental oxygen, c/u Duonebs, patient requesting oxygen at night c/u 5. Endo: pmh DM c/u home meds and ISS- monitor and adjust prn 6. GI px: protonix BID 7. DVT ppx: on warfarin 8. Pain: avoid opioids, c/u tylenol 1000mg standing, will reduce gabapentin back down to 200mg TID to avoid, d/c Elavil as can cause confusion and dizziness, will also hold trazodone as suspect these meds contributed to patient's confusion today 9. Skin: acewrap and elevate legs while in bed, moisturize with Eucerin 9. Dispo: 08/30/18 to home, progressing towards goals Allergies Coded Allergies: No Known Allergies (Verified , 09/19/16) Vital Signs Vital Signs Date Time Temp Pulse Resp B/P (MAP) Pulse Ox O2 Delivery O2 Flow Rate FiO2 08/23/18 08:14 73 127/70 08/23/18 07:45 97.8 18 97 3.0 Laboratory Data CBC/BMP Laboratory Tests 08/23/18 06:23 Calcium Level 8.6 L Labs 24H Laboratory Tests 2 08/22/18 16:35: Bedside Glucose (Misc Panel) 114H 08/22/18 19:48: Bedside Glucose (Misc Panel) 118H 08/23/18 06:23: Erythrocyte Sedimentation Rate 61H, Prothrombin Time 33.3H, Prothromb Time I nternational Ratio 3.18, Anion Gap 4L, Glomerular Filtration Rate 54.6, Blood Urea Nitrogen 40H, Creatinine 1.35H, Sodium Level 143, Potassium Level 4.1, Chloride Level 106, Carbon Dioxide Level 33H, Calcium Level 8.6L, C-Reactive Protein, Quantitative 1.64H Microbiology Microbiology 08/16/18 Urine Culture - Final, Complete Current Medications Current Medications Current Medications Acetaminophen (Tylenol Tab) 650 mg Q4HP PRN PO MILD PAIN (PS 1-4); Start 08/15/18 at 11:15; Stop 08/15/18 at 19:45; Status DC Acetaminophen (Tylenol Tab) 1,000 mg TID PO Last administered on 08/23/18at 08:13; Start 08/15/18 at 21:00 Al Hydrox/Mg Hydrox/Simethicone (Mylanta) 30 ml Q4HP PRN PO DYSPEPSIA; Start 08/15/18 at 11:15 Albuterol Sulfate (Proventil Neb) 2.5 mg RBID NEB Last administered on 08/15/18at 12:00; Start 08/15/18 at 20:00; Stop 08/16/18 at 16:59; Status DC Albuterol Sulfate (Proventil, Ventolin Hfa) 2 puff Q4HP PRN INH SHORTNESS OF BREATH Last administered on 08/16/18at 11:11; Start 08/15/18 at 11:15 Albuterol/ Ipratropium (Duoneb (Ipr 0.5mg/Alb 2.5mg)) 3 ml RTID NEB Last administered on 08/23/18at 07:47; Start 08/16/18 at 20:00 Allopurinol (Zyloprim) 300 mg DAILY PO Last administered on 08/23/18 08:13; Start 08/16/18 at 09:00 Amitriptyline HCl (Elavil) 25 mg QHS PO Last administered on 08/22/18 20:31; Start 08/21/18 at 21:00; Stop 08/23/18 at 10:31; Status DC Atorvastatin Calcium (Lipitor) 80 mg QHS PO Last administered on 08/22/18at 20:29; Start 08/15/18 at 21:00 Bisacodyl (Dulcolax Suppository) 10 mg DAILYPRN PRN MD CONSTIPATION; Start 08/15/18 at 11:15 Carvedilol (COReg) 12.5 mg BID PO Last administered on 08/23/18at 08:14; Start 08/15/18 at 21:00 Clopidogrel Bisulfate (PLAVix) 75 mg DAILY PO Last administered on 08/23/18 08:12; Start 08/16/18 at 09:00 Dextrose (Dextrose 50%) 25 ml ASDIRECTED PRN IV SEE LABEL COMMENTS; Start 08/15/18 at 11:15 Diltiazem HCl (Cardizem) 90 mg Q8H PO Last administered on 08/23/18 06:13; Start 08/15/18 at 14:00 Docusate Sodium (Colace) 100 mg BID PO Last administered on 08/23/18 08:12; Start 08/15/18 at 21:00 Doxycycline Hyclate (Vibramycin) 100 mg BID PO Last administered on 08/23/18 08:13; Start 08/22/18 at 21:00 EZETIMIBE (Zetia) 10 mg DAILY PO Last administered on 08/23/18 08:13; Start 08/16/18 at 09:00 Furosemide (LASIX injection) 20 mg ASDIRECTED PRN IV SEE LABEL COMMENTS; Start 08/21/18 at 13:00; Stop 08/21/18 at 13:26; Status DC Furosemide (Lasix) 40 mg BID@09,17 PO Last administered on 08/23/18 08:13; Start 08/16/18 at 09:00 Gabapentin (Neurontin) 200 mg TID PO Last administered on 08/21/18at 07:52; Start 08/15/18 at 16:00; Stop 08/21/18 at 12:57; Status DC Gabapentin (Neurontin) 200 mg TID PO ; Start 08/23/18 at 16:00 Gabapentin (Neurontin) 400 mg TID PO Last administered on 08/23/18at 08:12; Start 08/21/18 at 16:00; Stop 08/23/18 at 10:17; Status DC Glipizide (Glucotrol Xl) 5 mg DAILY@0730 PO Last administered on 08/23/18at 08:13; Start 08/16/18 at 07:30 Glucagon (Glucagon) 1 mg ASDIRECTED PRN SC SEE LABEL COMMENTS; Start 08/15/18 at 11:15 Glucose (Glucose) 16 GM ASDIRECTED PRN PO SEE LABEL COMMENTS; Start 08/15/18 at 11:15 Heparin Sodium (Porcine) (Heparin) ASDIRECTED PRN IV SEE LABEL COMMENTS; Start 08/15/18 at 14:15; Stop 08/16/18 at 08:34; Status DC Heparin Sodium (Porcine) 96062 units/IV Miscellaneous Supplies 250 ml @ 0 mls/hr Q0M IV Last administered on 08/15/18at 12:00; Start 08/15/18 at 14:05; Stop 08/16/18 at 08:34; Status DC Heparin Sodium (Porcine) 75447 units/IV Miscellaneous Supplies 250 ml @ 0 mls/hr Q0M IV ; Start 08/15/18 at 14:05; Status UNV Insulin Human Lispro (HumaLOG INSULIN) SEE PROTOCOL TABLE AC SC Last administered on 08/23/18at 08:12; Start 08/15/18 at 12:00 Insulin Human Lispro (HumaLOG INSULIN) SEE PROTOCOL TABLE QHS SC ; Start 9 at 21:00 Latanoprost (Xalatan 0.005% Op Soln) 1 drop QHS OU Last administered on 08/22/18at 20:31; Start 08/15/18 at 21:00 Magnesium Hydroxide (Milk Of Magnesia) 30 ml DAILYPRN PRN PO CONSTIPATION; Start 08/15/18 at 11:15 Magnesium Oxide (Mag-Ox) 400 mg BID PO Last administered on 08/23/18at 08:13; Start 08/19/18 at 21:00 Magnesium Oxide (Mag-Ox) 400 mg DAILY PO Last administered on 08/19/18at 08:07; Start 08/16/18 at 09:00; Stop 08/19/18 at 09:58; Status DC Menthol/Methyl Salicylate (Bengay Cream) right upper thigh TID TOP Last administered on 08/23/18at 08:15; Start 08/20/18 at 16:00 Nitroglycerin (Nitrostat (1/ 150)) 0.4 mg Q5MP PRN SL CHEST PAIN; Start 08/15/18 at 11:15 Non-Formulary Medication (Heparin Iv Rate Change Documentation ml/ Hr) ASDIRECTED XX ; Start 08/15/18 at 14:15; Stop 08/16/18 at 08:34; Status DC Oxycodone HCl (Roxicodone, Oxyir) 5 mg Q4HP PRN PO PAIN; Start 08/15/18 at 11:15; Stop 08/15/18 at 19:45; Status DC Pantoprazole Sodium (Protonix) 40 mg BID PO Last administered on 08/23/18 08:12; Start 08/15/18 at 21:00 Ramelteon (Rozerem) 8 mg QHS PO Last administered on 08/19/18at 21:05; Start 08/18/18 at 21:00; Stop 08/20/18 at 16:18; Status DC Senna (Senokot) 1 tab QHS PO Last administered on 08/22/18 20:31; Start 08/15/18 at 21:00 Sitagliptin Phosphate (Januvia) 50 mg DAILY PO Last administered on 08/23/18at 08:13; Start 08/16/18 at 09:00 Sodium Chloride (Saline Lock Flush) 2 ml ASDIRECTED PRN IV SEE LABEL COMMENTS; Start 08/21/18 at 14:15 Sodium Chloride (Saline Lock Flush) 2 ml SLF IV Last administered on 08/23/18at 06:11; Start 08/21/18 at 22:00 Spironolactone (Aldactone) 25 mg QAM PO Last administered on 08/23/18at 09:14; Start 08/20/18 at 19:15 Tizanidine HCl (Zanaflex) 2 mg TIDP PRN PO SPASMS Last administered on 08/20/18 08:52; Start 08/15/18 at 11:15; Stop 08/20/18 at 16:18; Status DC Trazodone HCl (Desyrel) 50 mg QHS PO Last administered on 08/22/18 20:31; Start 08/20/18 at 21:00; Stop 08/23/18 at 10:17; Status DC Warfarin Sodium (Coumadin) 7.5 mg DAILY@1700 PO Last administered on 08/17/18at 17:02; Start 08/17/18 at 17:00; Stop 08/18/18 at 09:39; Status DC Warfarin Sodium (Coumadin) 10 mg DAILY@1700 PO Last administered on 08/16/18at 17:15; Start 08/16/18 at 17:00; Stop 08/17/18 at 09:25; Status DC Warfarin Sodium (Coumadin) 10 mg DAILY@1700 PO Last administered on 08/19/18at 16:54; Start 08/18/18 at 17:00; Stop 08/20/18 at 08:38; Status DC Warfarin Sodium (Coumadin) 10 mg DAILY@1700 PO Last administered on 08/22/18at 16:49; Start 08/21/18 at 17:00 THIERRY PRICE MD August 23, 2018 11:59
[2018-08-23 14:00] VITALS: BP 128/82
--- NOTE | 2018-08-23 14:41 | REP ---
Clinical: Dyspnea. Comparison: 08/20/2018. Findings: Pulmonary vascular congestion with edema including bibasilar opacities and pleural effusions appear slightly increased from prior examination. Underlying chronic interstitial changes and cardiomegaly noted. Prior sternotomy with valve repair identified. Impression: Pulmonary edema with bibasilar opacities and small pleural effusions increased from prior examination. Electronically Signed by Gerson Morrison MD 08/23/2018 02:32 P
--- NOTE | 2018-08-23 15:55 | REP ---
Clinical: Right lower extremity pain and swelling . Technique: Watt scale and color Doppler evaluation using linear high frequency transducer. Findings: Right subcutaneous edema. Ultrasound examination of the right and left lower extremity deep venous structures from the common femoral vein to the popliteal vein demonstrates normal compressibility flow and wave patterns in response to respiration and augmentation. There is no evidence for deep venous thrombosis. Impression: No evidence for deep venous thrombosis bilateral lower extremities . Electronically Signed by Gerson Morrison MD 08/23/2018 03:47 P
[2018-08-23] MEDS ORDERED: FUROSEMIDE 40 MG/4 ML VIAL (J1940) IV ONE (16:15)
[2018-08-23] MEDS: GABAPENTIN 100 MG CAP PO SCH ×2 (16:24→22:02)
[2018-08-23] MEDS: WARFARIN SOD 5 MG TAB PO SCH (17:22)
[2018-08-23 20:00] VITALS: BP 144/65
[2018-08-23] MEDS: ATORVASTATIN 20 MG TAB PO SCH (22:01)
[2018-08-23] MEDS: SENNA 8.6 MG TAB (SENOKOT) PO SCH (22:02)
[2018-08-23] MEDS: LATANOPROST 0.005% OPHTH SOLN 2.5 ML OU SCH (22:04)
[2018-08-24] MEDS: SLF 3 ML SYR IV SCH ×3 (05:55→21:27)
[2018-08-24 06:10] LABS: BASO % 0.4 % (0.0-1.0); EOS # 0.4 10^3/uL (0.0-0.50); EOS % 4.1 % (0.0-3.0); HEMATOCRIT 31.2 % (42.0-52.0); HEMOGLOBIN 9.3 g/dl (13.5-17.5); LYMPH # 0.7 10^3/uL (1.5-4.5); LYMPH % 7.5 % (24.0-44.0); MEAN CORPUSCULAR HEMOGLOBIN 28.3 pg (27.0-33.0); MEAN CORPUSCULAR HGB CONC 29.8 g/dl (32.0-36.5); MEAN CORPUSCULAR VOLUME 94.8 fl (80.0-96.0); MONO # 0.5 10^3/uL (0.0-0.8); MONO % 5.4 % (0.0-5.0); NEUTROPHILS # 7.9 10^3/uL (1.8-7.7); NEUTROPHILS % 82.2 % (36.0-66.0); PLATELET COUNT, AUTOMATED 252 10^3/uL (150-450); RED BLOOD COUNT 3.29 10^6/uL (4.30-6.10); WHITE BLOOD COUNT 9.6 10^3/uL (4.0-10.0)
[2018-08-24 06:22] LABS: INR 3.41; PROTHROMBIN TIME 35.2 SECONDS (12.1-14.4)
[2018-08-24 06:33] LABS: BLOOD UREA NITROGEN 37 MG/DL (7-18); CALCIUM LEVEL 8.4 MG/DL (8.8-10.2); CARBON DIOXIDE LEVEL 33 MEQ/L (21-32); CHLORIDE LEVEL 105 MEQ/L (98-107); CREATININE FOR GFR 1.04 MG/DL (0.70-1.30); GLOMERULAR FILTRATION RATE > 60.0 (>42); GLUCOSE, FASTING 127 MG/DL (70-100); NT-PRO BNP 1157 PG/ML (<450); POTASSIUM SERUM 3.9 MEQ/L (3.5-5.1); SODIUM LEVEL 141 MEQ/L (136-145)
[2018-08-24] MEDS: IPRATROPIUM 0.5MG/ALBUTEROL 2.5MG INH SOL UD 3ML (DUONEB)(J7620) NEB SCH ×3 (08:00→20:26)
[2018-08-24] MEDS: CARVedilol 12.5 MG TAB PO SCH ×2 (08:36→21:24)
--- NOTE | 2018-08-24 09:18 | CR ---
DATE OF CONSULTATION: 08/23/2018 INFECTIOUS DISEASE CONSULT REQUESTING PROVIDER: Ashlee Kim SERVICE REQUESTED: Infectious disease. REASON FOR CONSULT: Positive Lyme titers. HISTORY OF THE PRESENT ILLNESS: Mr. Gomez is a 77-year-old male with extensive past medical history as listed below, who had presented to [facility] for severe sharp pain in the right hip with associated numbness and weakness that started on 08/05/2018, approximately 2 weeks after he had cardiac stents placed at [facility] ([facility]). He reportedly went under cardiac catheterization on 07/31/2018, and there was reportedly resistance met during the process in the right groin and thus the left groin was used instead. He is currently in rehabilitation (rehab) after he was found to have a right iliopsoas hematoma causing right lumbar plexopathy with imaging positive for disc bulges in the lumbar spine with minimal thecal sac compression. He continues with physical therapy. Infectious disease has been consulted due to positive Lyme titers that were drawn on initial emergency room (ER) visit for workup of his paresthesias and weakness. His overall titers are at 3.19. However, overall Lyme IgG and IgM Western Blot interpretations are negative. He denies any fevers, chills, nausea, vomiting, lightheadedness, dizziness, skin rashes, or any tick bites. However, he does endorse mowing his lawn at his house in [place]. Denies any history of hiking, camping, or hunting. Denies any history of swollen or painful joints, or ever having been tested for Lyme in the past. Currently he has no other complaints besides generalized weakness, right hip pain from the hematoma. Denies any coughing, wheezing, shortness of breath, or chest discomfort. ALLERGIES: No known allergies. CURRENT MEDICATIONS: - doxycycline 100 mg by mouth twice a day, started on 08/22/2018, currently on day #2. 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 Chronic constipation. Coronary artery disease, status post coronary artery bypass graft (CABG) and two stents on 08/09/2018 at [facility]. Hypertension. Dyslipidemia. Mechanical aortic valve. Gout. Gastroesophageal reflux disease (GERD). Chronic kidney disease III. Chronic venous stasis dermatitis. PAST SURGICAL HISTORY: CABG with two stents placed. Bilateral inguinal hernia repair. Stent placement, likely the mesenteric artery. FAMILY HISTORY: Noncontributory. SOCIAL HISTORY: Denies tobacco, alcohol, or illicit substances. REVIEW OF SYSTEMS: Negative, as per history of the present illness. PHYSICAL EXAMINATION: VITAL SIGNS: Temperature 97.8, pulse 73, respirations 18, blood pressure 127/70 with a mean arterial pressure (MAP) of 89, pulse oximetry 97% on three liters nasal cannula. GENERAL: Alert and oriented times three, resting comfortably in bed, no acute distress. HEENT: Normocephalic, atraumatic. Anicteric sclerae. Moist mucous membranes. No oral lesions. LUNGS: Rhonchi throughout that clear with coughing, otherwise clear lung sounds. CARDIOVASCULAR: Regular rate and rhythm. No appreciable murmurs. There is a systolic click present, likely from his history of mechanical aortic valve. ABDOMEN: Soft, nondistended, nontender. Normal bowel sounds. EXTREMITIES: 2+ pitting edema bilateral lower extremities with chronic venous stasis changes. NEUROLOGIC: Able to move all extremities without any deficits or weakness. MUSCULOSKELETAL: 5/5 strength in all extremities except for right lower extremity which is 4/5 strength, he is guarding due to the pain at the right hip. SKIN: No visible lesions/rashes. LABORATORY: WBC 9.7, platelets 323, ESR 61. Sodium and potassium 143 and 4.1. BUN and creatinine 40 and 1.35. CRP is 1.64. Serology: Lyme disease IgG/IgM titers 3.19, Lyme IgG positive in four bands and then Lyme IgM positive in one band. Overall both Western Blots are negative. IMAGING: Chest x-ray from 08/20/2018 shows cardiomegaly with pulmonary interstitial edema with basilar atelectasis and pleural effusions. Head CT on 08/23/2018 shows an old left basal ganglia lacunar infarct, small vessel ischemic disease, mild volume loss. ASSESSMENT AND PLAN: A 77-year-old male here for right hip hematoma, currently in rehab, found to have positive Lyme titers on admission for workup of his weakness. Although he has no history of a tick bite or camping, hiking, or hunting, or any recent travels, given the elevation of his Lyme titers at 3.19 and his risk of developing Lyme arthritis down the line, we will treat for 21 days with oral doxycycline twice a day, which we have started him on as of yesterday, 08/22/2018. His end date will be approximately 09/11/2018. He has been counseled on the risk of photosensitivity and encouraged to use sun precautions with this medication. Plan of care was relayed to the patient, as well as to the primary team. Thank you for this consult. Please reach out to us again if we can be of further assistance. VICKI
[2018-08-24] MEDS: DOXYCYCLINE HYCLATE 100 MG TAB PO SCH ×2 (09:46→21:24)
[2018-08-24] MEDS: GABAPENTIN 100 MG CAP PO SCH ×3 (09:46→21:24)
[2018-08-24] MEDS: glipiZIDE XL 5 MG TABCR PO SCH (09:46)
[2018-08-24] MEDS: SPIRONOLACTONE 25 MG TAB PO SCH (09:47)
[2018-08-24] MEDS: ALLOPURINOL 300 MG TAB PO SCH (09:47)
[2018-08-24] MEDS: EZETIMIBE 10 MG TAB (ZETIA) PO SCH (09:47)
[2018-08-24] MEDS: DOCUSATE SODIUM 100 MG CAP PO SCH ×2 (09:47→21:25)
[2018-08-24] MEDS: MAGNESIUM OXIDE 400 MG TAB (MAG-OX) PO SCH ×2 (09:47→21:25)
[2018-08-24] MEDS: SITagliptin 50 MG TAB (JANUVIA) PO SCH (09:47)
[2018-08-24] MEDS: HumaLOG INSULIN (NovoLOG) PER UNIT SC SCH ×4 (09:47→21:00)
[2018-08-24] MEDS: CLOPIDOGREL 75 MG TAB PO SCH (09:47)
[2018-08-24] MEDS: PANTOPRAZOLE 40MG TAB (PROTONIX) PO SCH ×2 (09:47→21:24)
[2018-08-24] MEDS: FUROSEMIDE 40 MG/4 ML VIAL (J1940) IV SCH (09:48)
[2018-08-24] MEDS: ANALGESIC BALM CRM 120 GM TOP SCH ×3 (09:48→21:27)
[2018-08-24] MEDS: ACETAMINOPHEN 500 MG TAB PO SCH ×3 (09:48→21:25)
--- NOTE | 2018-08-24 12:18 | IPNPDOC ---
Subjective Date Seen The patient was seen on 08/24/18. Subjective Chief Complaint/HPI Patient is a 77 year old male admitted for further management of of right iliopsoas hematoma. Patient has past medical history significant for valvular heart disease, status post mechanical valve placement on anticoagulation therapy with Coumadin Events since last encounter Staff report patient slumped this morning and also had oxygen desaturation to the 70s. Patient denies weaness, chest pain, chills, SOB Objective Physical Examination General Exam: Positive: Alert, Cooperative, No Acute Distress, Other (sitting up in chair) Eye Exam: Positive: PERRLA, EOMI ENT Exam: Positive: Atraumatic, Mucous membr. moist/pink Neck Exam: Positive: Supple; Negative: JVD Chest Exam: Positive: Rales, Rhonchi (with inspiration in posterior gonzales) Heart Exam: Positive: Other (S1, S2 heard, no rubs or gallops) Abdomen Exam: Positive: Soft; Negative: Tenderness Extremity Exam: Positive: Edema, Other (3+ edema to BLE with venous stasis changes, rubor) Neuro Exam: Positive: Normal Speech, Strength at 5/5 X4 ext Psych Exam: Positive: Mental status NL, Mood NL, Oriented x 3 Assessment /Plan Assessment Altered Mental Status -resolved -CT brain without contrast negative for acute intracranial process -Patient's medications were adjusted last night which may have contributed to symptoms -continue to monitor Right leg pain - 2/2 Right iliopsoas hematoma with right lumber plexopathy -Continued on tizanidine, gabapentin, oxycodone PRN for pain control -currently in rehab unit for mobilization/strengthening by primary team Diastolic heart Failure -lasix for changed to IV to aid better volume control -sound less congested today -reduce to 20IV daily Valvular Heart disease -S/P Mechanical Aortic valve placement (Model # [id number]; Serial # [id number]) -INR target is 2.5 to 3.5 -INR 3.4 today reduce warfarin to 7mg today -continue warfarin 10 mg daily tomorrow 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 -fingerstick checks ACHS -Continue sitagliptin, glipizide, sliding scale and gabapentin Hypertension -poorly controlled blood pressure at this time -target SBP<140mmHg -Diltiazem, Carvedilol, furosemide, spironolactone CAD s/p CABG -stenting (07/30/18) -Continue Plavix, Carvedilol, Atorvastatin CKD -Stable, avoid nephrotoxic medications -cautious diuresis DVT prophylaxis -fully anticoagulated on Coumadin Plan/VTE VTE Prophylaxis Ordered?: Yes VS, I&O, 24H, Fishbone Vital Signs/I&O Vital Signs Date Time Temp Pulse Resp B/P (MAP) Pulse Ox O2 Delivery O2 Flow Rate FiO2 08/24/18 08:36 59 160/76 08/23/18 21:00 3.0 08/23/18 20:04 Nasal Cannula 08/23/18 20:00 97.6 18 97 I&O- Last 24 Hours up to 6 AM 08/24/18 06:00 Intake Total 1210 ml Output Total 1950 ml Balance -740 ml Laboratory Data 24H LABS Laboratory Tests 2 08/23/18 17:25: Bedside Glucose (Misc Panel) 106 08/23/18 20:34: Bedside Glucose (Misc Panel) 92 08/24/18 05:47: Immature Granulocyte % (Auto) 0.4, White Blood Count 9.6, Red Blood Count 3.29L, Hemoglobin 9.3L, Hematocrit 31.2L, Mean Corpuscular Volume 94.8, Mean Corpuscular Hemoglobin 28.3, Mean Corpuscular Hemoglobin Concent 29.8L, Red Cell Distribution Width 17.2H, Platelet Count 252, Neutrophils (%) (Auto) 82.2H, Lymphocytes (%) (Auto) 7.5L, Monocytes (%) (Auto) 5.4H, Eosinophils (%) (Auto) 4.1H, Basophils (%) (Auto) 0.4, Neutrophils # (Auto) 7.9H, Lymphocytes # (Auto) 0.7L, Monocytes # (Auto) 0.5, Eosinophils # (Auto) 0.4, Basophils # (Auto) 0.0, Nucleated Red Blood Cells % (auto) 0.0, Prothrombin Time 35.2H, Prothromb Time International Ratio 3.41, Anion Gap 3L, Glomerular Filtration Rate > 60.0, Blood Urea Nitrogen 37H, Creatinine 1.04, Sodium Level 141, Potassium Level 3.9, Chloride Level 105, Carbon Dioxide Level 33H, Calcium Level 8.4L, HO-Whx-[id number]-Type Natriuretic Peptide 1157H 08/24/18 06:33: Bedside Glucose (Misc Panel) 115H 08/24/18 12:03: Bedside Glucose (Misc Panel) 87 CBC/BMP Laboratory Tests 08/24/18 05:47 Red Blood Count 3.29 L, Mean Corpuscular Volume 94.8, Mean Corpuscular Hemoglobin 28.3, Mean Corpuscular Hemoglobin Concent 29.8 L, Red Cell Distribution Width 17.2 H, Neutrophils (%) (Auto) 82.2 H, Lymphocytes (%) (Auto) 7.5 L, Monocytes (%) (Auto) 5.4 H, Eosinophils (%) (Auto) 4.1 H, Basophils (%) (Auto) 0.4, Neutrophils # (Auto) 7.9 H, Lymphocytes # (Auto) 0.7 L, Monocytes # (Auto) 0.5, Eosinophils # (Auto) 0.4, Basophils # (Auto) 0.0, Calcium Level 8.4 L Microbiology Microbiology 08/16/18 Urine Culture - Final, Complete JURGEN FERGUSON Aug 24, 2018 12:18
--- NOTE | 2018-08-24 12:33 | NOCOX ---
DATE OF PROCEDURE: 08/23/2018 Study was initially started on room air, and patient was later placed on 4 liters nasal cannula overnight. Total study duration was 5 hours and 42 minutes. The highest oxygen saturation was 98% with the lowest oxygen saturation of 78%. The highest heart rate was 107, and the lowest heart rate was 50. Time spent with an oxygen saturation less than 88% was 22 minutes and 16 seconds. Patient's oxygen desaturation event index was approximately 5.8. After nasal cannula supplementation was started, patient did have a few episodes still of periodic desaturation. The patient was also noted later on in the evening to have episodes of heart rate variability and bradycardia. IMPRESSION: Abnormal nocturnal oximetry study. Patient was initially on room air; however, he had significant desaturation and was started on 4 liters nasal cannula supplementation overnight. On the 4 liters nasal cannula, he did have a few episodes of O2 sat variability and desaturation. 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 Patient would qualify for nasal cannula oxygen supplementation at night; however, can also consider formal sleep testing to evaluate for possible obstructive sleep apnea if clinically indicated. VICKI
[2018-08-24 14:00] VITALS: BP 110/51
[2018-08-24] MEDS: WARFARIN SOD 5 MG TAB PO SCH (16:56)
[2018-08-24] MEDS ORDERED: WARFARIN SOD 2 MG TAB PO SCH (17:00)
[2018-08-24 20:00] VITALS: BP 136/86
[2018-08-24] MEDS: ATORVASTATIN 20 MG TAB PO SCH (21:24)
[2018-08-24] MEDS: SENNA 8.6 MG TAB (SENOKOT) PO SCH (21:25)
[2018-08-24] MEDS: LATANOPROST 0.005% OPHTH SOLN 2.5 ML OU SCH (21:26)
[2018-08-25 05:40] VITALS: BP 147/77
[2018-08-25] MEDS: SLF 3 ML SYR IV SCH ×3 (05:51→21:14)
[2018-08-25 07:15] LABS: INR 3.12; PROTHROMBIN TIME 32.8 SECONDS (12.1-14.4)
[2018-08-25] MEDS: IPRATROPIUM 0.5MG/ALBUTEROL 2.5MG INH SOL UD 3ML (DUONEB)(J7620) NEB SCH ×3 (07:23→20:26)
[2018-08-25] MEDS: SITagliptin 50 MG TAB (JANUVIA) PO SCH (09:20)
[2018-08-25] MEDS: glipiZIDE XL 5 MG TABCR PO SCH (09:20)
[2018-08-25] MEDS: FUROSEMIDE 40 MG/4 ML VIAL (J1940) IV SCH (09:20)
[2018-08-25] MEDS: CARVedilol 12.5 MG TAB PO SCH ×2 (09:21→21:06)
[2018-08-25] MEDS: CLOPIDOGREL 75 MG TAB PO SCH (09:21)
[2018-08-25] MEDS: MAGNESIUM OXIDE 400 MG TAB (MAG-OX) PO SCH ×2 (09:21→21:06)
[2018-08-25] MEDS: GABAPENTIN 100 MG CAP PO SCH ×3 (09:21→21:06)
[2018-08-25] MEDS: EZETIMIBE 10 MG TAB (ZETIA) PO SCH (09:21)
[2018-08-25] MEDS: ALLOPURINOL 300 MG TAB PO SCH (09:22)
[2018-08-25] MEDS: SPIRONOLACTONE 25 MG TAB PO SCH (09:22)
[2018-08-25] MEDS: DOCUSATE SODIUM 100 MG CAP PO SCH ×2 (09:22→21:06)
[2018-08-25] MEDS: DOXYCYCLINE HYCLATE 100 MG TAB PO SCH ×2 (09:22→21:04)
[2018-08-25] MEDS: PANTOPRAZOLE 40MG TAB (PROTONIX) PO SCH ×2 (09:22→21:06)
[2018-08-25] MEDS: ACETAMINOPHEN 500 MG TAB PO SCH ×3 (09:23→21:05)
[2018-08-25] MEDS: ANALGESIC BALM CRM 120 GM TOP SCH ×3 (09:24→21:14)
[2018-08-25] MEDS: HumaLOG INSULIN (NovoLOG) PER UNIT SC SCH ×4 (09:24→21:00)
--- NOTE | 2018-08-25 10:01 | IPNPDOC ---
Subjective Date Seen The patient was seen on 08/25/18. Subjective Chief Complaint/HPI Patient is a 77 year old male admitted for further management of of right iliopsoas hematoma. Patient has past medical history significant for valvular heart disease, status post mechanical valve placement on anticoagulation therapy with Coumadin Events since last encounter Up to chair at bedside, no complaints at this time, no chest pain, no worsening of shortness of breath, no worsening of weakness, as well as persistent right thigh pain Objective Physical Examination General Exam: Positive: Alert, Cooperative, No Acute Distress, Other (sitting up in chair) Eye Exam: Positive: PERRLA, EOMI ENT Exam: Positive: Atraumatic, Mucous membr. moist/pink Neck Exam: Positive: Supple; Negative: JVD Chest Exam: Positive: Rales, Rhonchi (with inspiration in posterior gonzales) Heart Exam: Positive: Other (S1, S2 heard, no rubs or gallops) Abdomen Exam: Positive: Soft; Negative: Tenderness Extremity Exam: Positive: Edema, Other (3+ edema to BLE with venous stasis changes, rubor) Neuro Exam: Positive: Normal Speech, Strength at 5/5 X4 ext Psych Exam: Positive: Mental status NL, Mood NL, Oriented x 3 Assessment /Plan Assessment Right leg pain - 2/2 Right iliopsoas hematoma with right lumber plexopathy -Continued on tizanidine, gabapentin, oxycodone PRN for pain control -currently in rehab unit for mobilization/strengthening by primary team Diastolic heart Failure -reduce Lasix to 20 mg IV daily. 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 -fingerstick checks ACHS -Continue sitagliptin, glipizide, sliding scale and gabapentin Hypertension - controlled -target SBP<140mmHg -continue Diltiazem, Carvedilol, furosemide, spironolactone CAD s/p CABG -stenting (07/30/18) -Continue Plavix, Carvedilol, Atorvastatin CKD -Stable, avoid nephrotoxic medications -cautious diuresis Tachycardia -at rest -patient denies symptoms -one time dose digoxin -12 led EKG now -monitor for response Altered Mental Status -resolved -CT brain without contrast negative for acute intracranial process -Patient's medications were adjusted last night which may have contributed to symptoms -continue to monitor DVT prophylaxis -fully anticoagulated on Coumadin Plan/VTE VTE Prophylaxis Ordered?: Yes VS, I&O, 24H, Fishbone Vital Signs/I&O Vital Signs Date Time Temp Pulse Resp B/P (MAP) Pulse Ox O2 Delivery O2 Flow Rate FiO2 08/25/18 09:21 101 147/77 08/25/18 05:40 97.4 18 96 08/24/18 21:30 3.0 08/24/18 20:26 Nasal Cannula I&O- Last 24 Hours up to 6 AM 08/25/18 06:00 Intake Total 890 ml Output Total 2300 ml Balance -1410 ml Laboratory Data 24H LABS Laboratory Tests 2 08/24/18 12:03: Bedside Glucose (Misc Panel) 87 08/24/18 16:52: Bedside Glucose (Misc Panel) 131H 08/24/18 20:46: Bedside Glucose (Misc Panel) 112H 08/25/18 06:08: Prothrombin Time 32.8H, Prothromb Time International Ratio 3.12 08/25/18 06:31: Bedside Glucose (Misc Panel) 124H Microbiology Microbiology 08/16/18 Urine Culture - Final, Complete JURGEN FERGUSON Aug 25, 2018 10:01
[2018-08-25 13:46] VITALS: BP 121/62
[2018-08-25] MEDS ORDERED: DIGOXIN INJ 0.5 MG/2 ML AMP (J1160) IV STA (13:48)
[2018-08-25] MEDS: WARFARIN SOD 5 MG TAB PO SCH ×2 (18:04→18:05)
--- NOTE | 2018-08-25 18:45 | ECGEPIP ---
[facility] Test Date: 2018-08-25 Pat Name: BHUMI VICKERS Department: Room: [place] [address] Gender: Male Stave Block Roller: TEA : 1940 Requested By: JURGEN ELLIOTT Order Number: [id number] Reading MD: Segundo Cox Measurements Intervals [place] Rate: 105 P: 113 CO: 195 QRS: QRSD: 151 T: 27 QT: 331 QTc: 438 Interpretive Statements SINUS TACHYCARDIA RIGHT BUNDLE BRANCH BLOCK MINIMAL CHANGES COMPARED TO 08/07/18 Electronically Signed on 08-25-2018 18:45:24 EDT by Segundo Cox
[2018-08-25 20:00] VITALS: BP 115/56
[2018-08-25] MEDS: ATORVASTATIN 20 MG TAB PO SCH (21:04)
[2018-08-25] MEDS: SENNA 8.6 MG TAB (SENOKOT) PO SCH (21:06)
[2018-08-25] MEDS: LATANOPROST 0.005% OPHTH SOLN 2.5 ML OU SCH (21:14)
[2018-08-25 21:23] VITALS: BP 150/76
[2018-08-26 05:46] VITALS: BP 108/54
[2018-08-26] MEDS: SLF 3 ML SYR IV SCH ×3 (05:52→20:20)
[2018-08-26 06:00] VITALS: BP 123/64
[2018-08-26 06:55] LABS: HEMATOCRIT 31.1 % (42.0-52.0); HEMOGLOBIN 9.1 g/dl (13.5-17.5); MEAN CORPUSCULAR HEMOGLOBIN 27.2 pg (27.0-33.0); MEAN CORPUSCULAR HGB CONC 29.3 g/dl (32.0-36.5); MEAN CORPUSCULAR VOLUME 93.1 fl (80.0-96.0); PLATELET COUNT, AUTOMATED 241 10^3/uL (150-450); RED BLOOD COUNT 3.34 10^6/uL (4.30-6.10); WHITE BLOOD COUNT 9.5 10^3/uL (4.0-10.0)
[2018-08-26 07:30] LABS: ALBUMIN 2.8 GM/DL (3.2-5.2); ALT/SGPT 11 U/L (12-78); BILIRUBIN,TOTAL 0.4 MG/DL (0.2-1.0); BLOOD UREA NITROGEN 29 MG/DL (7-18); CALCIUM LEVEL 9.1 MG/DL (8.8-10.2); CARBON DIOXIDE LEVEL 33 MEQ/L (21-32); CHLORIDE LEVEL 106 MEQ/L (98-107); CREATININE FOR GFR 1.08 MG/DL (0.70-1.30); GLOMERULAR FILTRATION RATE > 60.0 (>42); GLUCOSE, FASTING 104 MG/DL (70-100); POTASSIUM SERUM 4.2 MEQ/L (3.5-5.1); SODIUM LEVEL 143 MEQ/L (136-145); TOTAL PROTEIN 6.9 GM/DL (6.4-8.2)
[2018-08-26] MEDS: HumaLOG INSULIN (NovoLOG) PER UNIT SC SCH ×4 (07:30→21:00)
[2018-08-26] MEDS: MAGNESIUM OXIDE 400 MG TAB (MAG-OX) PO SCH ×2 (08:11→20:19)
[2018-08-26] MEDS: DOCUSATE SODIUM 100 MG CAP PO SCH ×2 (08:11→20:18)
[2018-08-26] MEDS: ALLOPURINOL 300 MG TAB PO SCH (08:11)
[2018-08-26] MEDS: DOXYCYCLINE HYCLATE 100 MG TAB PO SCH ×2 (08:11→20:19)
[2018-08-26] MEDS: PANTOPRAZOLE 40MG TAB (PROTONIX) PO SCH ×2 (08:11→20:18)
[2018-08-26] MEDS: glipiZIDE XL 5 MG TABCR PO SCH (08:11)
[2018-08-26] MEDS: SPIRONOLACTONE 25 MG TAB PO SCH (08:11)
[2018-08-26] MEDS: CARVedilol 12.5 MG TAB PO SCH ×2 (08:12→20:18)
[2018-08-26] MEDS: EZETIMIBE 10 MG TAB (ZETIA) PO SCH (08:12)
[2018-08-26] MEDS: CLOPIDOGREL 75 MG TAB PO SCH (08:12)
[2018-08-26] MEDS: GABAPENTIN 100 MG CAP PO SCH ×3 (08:12→20:19)
[2018-08-26] MEDS: ACETAMINOPHEN 500 MG TAB PO SCH ×3 (08:13→20:17)
[2018-08-26] MEDS: FUROSEMIDE 20 MG/2 ML VIAL (J1940) IV SCH (08:13)
[2018-08-26] MEDS: SITagliptin 50 MG TAB (JANUVIA) PO SCH (08:14)
[2018-08-26] MEDS: ANALGESIC BALM CRM 120 GM TOP SCH ×3 (08:15→20:19)
[2018-08-26] MEDS: IPRATROPIUM 0.5MG/ALBUTEROL 2.5MG INH SOL UD 3ML (DUONEB)(J7620) NEB SCH ×3 (08:31→20:11)
--- NOTE | 2018-08-26 08:38 | REP ---
MR BRAIN WITHOUT CONTRAST: HISTORY: Confusion. COMPARISON: CT 08/23/2018. A punctate focus of increased signal intensity on diffusion and T2-weighted images is present in the right parietal lobe. This is isointense in signal intensity on ADC images and is consistent with a subacute infarction. Areas of increased signal intensity on T2-weighted images are present in the periventricular and subcortical white matter. This represents small vessel ischemic disease. There is no intraparenchymal hemorrhage, acute infarct, mass, or midline shift. The ventricular system and cortical sulci are dilated consistent with minimal volume loss. There is no extracerebral collection. Minimal mucosal thickening is present in the left maxillary sinus. IMPRESSION: 1. There is a punctate subacute infarction in the right parietal lobe. 2. Small vessel ischemic disease. 3. Minimal volume loss. Electronically Signed by Gideon Pate MD 08/26/2018 08:48 A
--- NOTE | 2018-08-26 09:38 | IPNPDOC ---
Subjective Date Seen The patient was seen on 08/26/18. Subjective Chief Complaint/HPI Patient is a 77 year old male admitted for further management of of right iliopsoas hematoma. Patient has past medical history significant for valvular heart disease, status post mechanical valve placement on anticoagulation therapy with Coumadin Events since last encounter Seen in therapy, no acute issues, heart rate is back to baseline today. denies chest pain, denies SOB Objective Physical Examination General Exam: Positive: Alert, Cooperative, No Acute Distress, Other (sitting up in chair) Eye Exam: Positive: PERRLA, EOMI ENT Exam: Positive: Atraumatic, Mucous membr. moist/pink Neck Exam: Positive: Supple; Negative: JVD Chest Exam: Positive: Rales, Rhonchi (with inspiration in posterior gonzales) Heart Exam: Positive: Rate Normal, Regular Rhythm, Other (S1, S2 heard, no rubs or gallops) Abdomen Exam: Positive: Normal bowel sounds, Soft; Negative: Tenderness Extremity Exam: Positive: Edema, Other (3+ edema to BLE with venous stasis changes, rubor) Skin Exam: Positive: Other skin issue (BLE stasis changes) Neuro Exam: Positive: Normal Speech, Strength at 5/5 X4 ext Psych Exam: Positive: Mental status NL, Mood NL, Oriented x 3 Assessment /Plan Assessment Right leg pain - 2/2 Right iliopsoas hematoma with right lumber plexopathy -Continued on tizanidine, gabapentin, oxycodone PRN for pain control -continued in rehab unit for mobilization/strengthening by primary team Diastolic heart Failure -no IV access at this time -lasix dose was reduced to 20mg IV daily with fluid restriction -continue fluid restriction, low sodium diet, other GDMT for treatment of heart failure Valvular Heart disease -S/P Mechanical Aortic valve placement (Model # [id number]-505; Serial # [id number]) -INR target is 2.5 to 3.5 -continue warfarin 10 mg daily 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 -fingerstick checks ACHS -Continue sitagliptin, glipizide, sliding scale and gabapentin Hypertension - controlled -target SBP<140mmHg -continue Diltiazem, Carvedilol, furosemide, spironolactone CAD s/p CABG -stenting (07/30/18) -no signs of angina -Continue Plavix, Carvedilol, Atorvastatin CKD -Stable, avoid nephrotoxic medications -cautious diuresis Tachycardia -12 lead EKG showed sinus tachycardia -was given one dose digoxin yesterday -continue coreg, respiratory support -periordic monitoring Altered Mental Status -resolved -CT brain without contrast negative for acute intracranial process -Patient's medications were adjusted last night which may have contributed to symptoms -continue to monitor DVT prophylaxis -fully anticoagulated on Coumadin Plan/VTE VTE Prophylaxis Ordered?: Yes VS, I&O, 24H, Fishbone Vital Signs/I&O Vital Signs Date Time Temp Pulse Resp B/P (MAP) Pulse Ox O2 Delivery O2 Flow Rate FiO2 08/26/18 08:12 70 123/64 08/26/18 06:00 97.5 18 96 3.0 08/24/18 20:26 Nasal Cannula I&O- Last 24 Hours up to 6 AM 08/26/18 06:00 Intake Total 900 ml Output Total 1400 ml Balance -500 ml Laboratory Data 24H LABS Laboratory Tests 2 08/25/18 11:17: Bedside Glucose (Misc Panel) 185H 08/25/18 17:13: Bedside Glucose (Misc Panel) 80L 08/25/18 20:10: Bedside Glucose (Misc Panel) 103 08/26/18 06:29: Nucleated Red Blood Cells % (auto) 0.0, Anion Gap 4L, Glomerular Filtration Rate > 60.0, Blood Urea Nitrogen 29H, Creatinine 1.08, Sodium Level 143, Potassium Level 4.2, Chloride Level 106, Carbon Dioxide Level 33H, Calcium Level 9.1, Aspartate Amino Transf (AST/SGOT) 20, Alanine Aminotransferase (ALT/SGPT) 11L, Alkaline Phosphatase 82, Total Bilirubin 0.4, Total Protein 6.9, Albumin 2.8L, Albumin/Globulin Ratio 0.68L 08/26/18 06:43: Bedside Glucose (Misc Panel) 100 CBC/BMP Laboratory Tests 08/26/18 06:29 Red Blood Count 3.34 L, Mean Corpuscular Volume 93.1, Mean Corpuscular Hemoglobin 27.2, Mean Corpuscular Hemoglobin Concent 29.3 L, Red Cell Distribution Width 17.2 H, Calcium Level 9.1, Aspartate Amino Transf (AST/SGOT) 20, Alanine Aminotransferase (ALT/SGPT) 11 L, Alkaline Phosphatase 82, Total Bilirubin 0.4, Total Protein 6.9, Albumin 2.8 L Microbiology Microbiology 08/25/18 Blood Culture, Received Pending 08/16/18 Urine Culture - Final, Complete JURGEN FERGUSON [facility] Aug 26, 2018 09:38
[2018-08-26 10:14] LABS: INR 2.97; PROTHROMBIN TIME 31.6 SECONDS (12.1-14.4)
[2018-08-26 14:00] VITALS: BP 110/59
[2018-08-26] MEDS: WARFARIN SOD 5 MG TAB PO SCH ×2 (16:32)
[2018-08-26 19:57] VITALS: BP 145/69
[2018-08-26] MEDS: SENNA 8.6 MG TAB (SENOKOT) PO SCH (20:17)
[2018-08-26] MEDS: ATORVASTATIN 20 MG TAB PO SCH (20:19)
[2018-08-26] MEDS: LATANOPROST 0.005% OPHTH SOLN 2.5 ML OU SCH (20:19)
[2018-08-27] MEDS: SLF 3 ML SYR IV SCH ×3 (05:47→21:17)
[2018-08-27 05:55] VITALS: BP 154/80
[2018-08-27 06:06] LABS: HEMATOCRIT 34.7 % (42.0-52.0); HEMOGLOBIN 10.3 g/dl (13.5-17.5); MEAN CORPUSCULAR HEMOGLOBIN 28.1 pg (27.0-33.0); MEAN CORPUSCULAR HGB CONC 29.7 g/dl (32.0-36.5); MEAN CORPUSCULAR VOLUME 94.8 fl (80.0-96.0); PLATELET COUNT, AUTOMATED 235 10^3/uL (150-450); RED BLOOD COUNT 3.66 10^6/uL (4.30-6.10); WHITE BLOOD COUNT 8.6 10^3/uL (4.0-10.0)
[2018-08-27 06:26] LABS: INR 3.03; PROTHROMBIN TIME 32.1 SECONDS (12.1-14.4)
[2018-08-27 06:35] LABS: ALBUMIN 3.1 GM/DL (3.2-5.2); ALT/SGPT 19 U/L (12-78); BILIRUBIN,TOTAL 0.4 MG/DL (0.2-1.0); BLOOD UREA NITROGEN 29 MG/DL (7-18); CARBON DIOXIDE LEVEL 33 MEQ/L (21-32); CHLORIDE LEVEL 104 MEQ/L (98-107); CREATININE FOR GFR 1.01 MG/DL (0.70-1.30); GLOMERULAR FILTRATION RATE > 60.0 (>42); GLUCOSE, FASTING 101 MG/DL (70-100); MAGNESIUM LEVEL 1.9 MG/DL (1.8-2.4); POTASSIUM SERUM 4.1 MEQ/L (3.5-5.1); SODIUM LEVEL 142 MEQ/L (136-145); TOTAL PROTEIN 7.6 GM/DL (6.4-8.2)
[2018-08-27] MEDS: HumaLOG INSULIN (NovoLOG) PER UNIT SC SCH ×4 (07:26→21:00)
[2018-08-27] MEDS: IPRATROPIUM 0.5MG/ALBUTEROL 2.5MG INH SOL UD 3ML (DUONEB)(J7620) NEB SCH ×3 (08:33→21:16)
[2018-08-27] MEDS: ALLOPURINOL 300 MG TAB PO SCH (09:25)
[2018-08-27] MEDS: GABAPENTIN 100 MG CAP PO SCH ×3 (09:25→21:15)
[2018-08-27] MEDS: MAGNESIUM OXIDE 400 MG TAB (MAG-OX) PO SCH ×2 (09:25→21:14)
[2018-08-27] MEDS: DOXYCYCLINE HYCLATE 100 MG TAB PO SCH ×2 (09:25→21:16)
[2018-08-27] MEDS: FUROSEMIDE 20 MG/2 ML VIAL (J1940) IV SCH (09:25)
[2018-08-27] MEDS: CLOPIDOGREL 75 MG TAB PO SCH (09:25)
[2018-08-27] MEDS: SITagliptin 50 MG TAB (JANUVIA) PO SCH (09:25)
[2018-08-27] MEDS: DOCUSATE SODIUM 100 MG CAP PO SCH ×2 (09:25→21:16)
[2018-08-27] MEDS: SPIRONOLACTONE 25 MG TAB PO SCH (09:25)
[2018-08-27] MEDS: CARVedilol 12.5 MG TAB PO SCH ×2 (09:26→21:15)
[2018-08-27] MEDS: PANTOPRAZOLE 40MG TAB (PROTONIX) PO SCH ×2 (09:26→21:16)
[2018-08-27] MEDS: ACETAMINOPHEN 500 MG TAB PO SCH ×3 (09:26→21:15)
[2018-08-27] MEDS: EZETIMIBE 10 MG TAB (ZETIA) PO SCH (09:26)
[2018-08-27] MEDS: ANALGESIC BALM CRM 120 GM TOP SCH ×3 (09:33→21:17)
--- NOTE | 2018-08-27 12:58 | IPNPDOC ---
PM&R Progress Note DATE OF SERVICE: Aug 27, 2018 Licensed Psychologist Director Progress Note Subjective: Patient seen in gym stating he no longer is waking up feeling as groggy and disoriented as he did on Sunday. He reports his breathing is still difficult, but manageable. He was told about his MRI findings and educated on modifiable risk factors to prevent another small stroke. He is agreeable to joining a gym and is interested in aquatherapy. REVIEW OF SYSTEMS: The following is a completed review of systems and has been reviewed. Review of systems otherwise unremarkable. PAIN: Patient self reports ache in right leg EYES: Negative for recent vision changes EARS, NOSE, & THROAT: denies dysphagia, hearing difficulty, or throat pain CARDIOVASCULAR: denies chest pain or palpitations PULMONARY: denies cough, +mild dyspnea at rest (improving during the day) GASTROINTESTINAL: Negative for diarrhea or constipation GENITOURINARY: Negative for dysuria MUSCULOSKELETAL: right LE weakness (gradually improving) NEUROLOGICAL: right lumbosacral plexopathy SKIN: +hyperpigmented calves PSYCHIATRIC: Unremarkable All other review of systems found to be negative. PHYSICAL EXAMINATION: VITAL SIGNS: Please see below. GENERAL: Pleasant and cooperative. No acute distress. HEENT: PERRL. Extraocular movements intact. Clear conjunctiva. + mildly slurred speech with dry appearing tongue, no facial droop CARDIOVASCULAR: Regular rate and rhythm. No murmurs, rubs, or gallops LUNGS: CTA. no wheeze, No rhonchi ABDOMEN: Soft, nontender, nondistended. Positive bowel sounds. Normal active bowel sounds NEUROLOGICAL: Alert and oriented times three. Cranial nerves II through XII grossly intact. Sensation grossly intact in bilat UE and left LE, diminished in the anterior right thigh and lateral calf EXTREMITIES: 5\\5 strength bilateral upper extremities. 5\\5 strength right ankle DF, EHL and PF, 2/5 hip flexion and 3-/5 knee extension 5/5 strength in left lower extremity. -bilat LE edema (slightly better) SKIN: +hyperpigmented calves ASSESSMENT:77-year-old M with past medical history of mechanical aortic valve replacement who presents status post cardiac/mesenteric artery stenting complicated by iliopsoas hematoma with right lumbosacral plexopathy PLAN: 1. rehab: PT, OT, assess for DMEs, knee buckling improving without bracing in PT, fatiguing in OT, will attempt to space out therapies 2. Neuro: acute onset right lumbosacral compression plexothapy causing profound RLE paralysis and decreased sensation- will refer to outpatient neurology for NCS/EMG -positive Lyme titers, will discuss results with ID-consulted c/u 3 week course of doxycycline, recs appreciated -On 08/23/18 patient reported confusion and feeling drunk-stat CT negative for acute bleed, pt has mechanical valve so cleared valve and mesenteric artery stent with radiology - 08/23/18 MRI- punctate subacute infarction in the right parietal lobe, patient already on statin and Eliquis, will optimize his blood pressure and refer to neurology outpatient, his clinical symptoms at this time do not correlate with the lesion seen on MRI- discussed and educated patient on m odifiable risk factors today -suspect trazodone and recent addition of Elavil contributing to morning confusion-improved now off meds 3. CArdio: pmh mechanical aortic valve-s/p heparin drip bridge, now on COumadin goal 2.5-3.5 medicine consulted to manage - clinical suspicion for congestive heart failure- c/u IV lasix, spironolactone, fluid restriction-medicine recs appreciated -patient with sinus tachycardia s/p one time dose of Digoxin, c/u carvedilol and diltiazem, will consider increasing 4. Resp: ex-smoker with COPD, c/u breathing treatments and supplemental oxygen, c/u Duonebs, patient requesting oxygen at night c/u -noc-ox test 08/24/18 showed, "Time spent with an oxygen saturation less than 88% was 22 minutes and 16 seconds" will re-order 24 hours prior to discharge to set up coverage for home nocturnal oxygen -repeat CXR 08/23/18 showed increased vascular congestion, started on IV Lasix, discussed with medicine who is managing at this time 5. Endo: pmh DM c/u Januvia, d/c'd glipizide for low FS, and ISS- c/u to monitor and adjust prn 6. GI px: protonix BID 7. DVT ppx: on warfarin 8. Pain: avoid opioids, c/u tylenol 1000mg standing, c/u gabapentin back down to 200mg TID to avoid, d/c'd Elavil on 08/23/18 as can cause confusion and dizzi ness, c/u to hold trazodone as suspect these meds contributed to patient's earlier confusion-resolved 9. Skin: acewrap and elevate legs while in bed, moisturize with Eucerin 9. Dispo: 08/30/18 to home, progressing towards goals however may need to stay longer for more diuresis Allergies Coded Allergies: No Known Allergies (Verified , 09/19/16) Vital Signs Vital Signs Date Time Temp Pulse Resp B/P (MAP) Pulse Ox O2 Delivery O2 Flow Rate FiO2 08/27/18 09:26 101 154/80 08/27/18 08:00 3.0 08/27/18 05:55 97.8 18 99 08/24/18 20:26 Nasal Cannula Laboratory Data CBC/BMP Laboratory Tests 08/27/18 05:36 Red Blood Count 3.66 L, Mean Corpuscular Volume 94.8, Mean Corpuscular Hemoglobin 28.1, Mean Corpuscular Hemoglobin Concent 29.7 L, Red Cell Distribution Width 17.2 H, Calcium Level 9.0, Aspartate Amino Transf (AST/SGOT) 18, Alanine Aminotransferase (ALT/SGPT) 19, Alkaline Phosphatase 94, Total Bilirubin 0.4, Total Protein 7.6, Albumin 3.1 L Labs 24H Laboratory Tests 2 08/26/18 17:01: Bedside Glucose (Misc Panel) 74L 08/26/18 20:16: Bedside Glucose (Misc Panel) 123H 08/27/18 05:36: Nucleated Red Blood Cells % (auto) 0.0, Prothrombin Time 32.1H, Prothromb Time International Ratio 3.03, Anion Gap 5L, Glomerular Filtration Rate > 60.0, Blood Urea Nitrogen 29H, Creatinine 1.01, Sodium Level 142, Potassium Level 4.1, Chloride Level 104, Carbon Dioxide Level 33H, Calcium Level 9.0, Aspartate Amino Transf (AST/SGOT) 18, Alanine Aminotransferase (ALT/SGPT) 19, Alkaline Phosphatase 94, Total Bilirubin 0.4, Total Protein 7.6, Albumin 3.1L, Magnesium Level 1.9, Albumin/Globulin Ratio 0.69L 08/27/18 05:49: Bedside Glucose (Misc Panel) 98 08/27/18 11:18: Bedside Glucose (Misc Panel) 134H Microbiology Microbiology 08/25/18 Blood Culture - Preliminary, Resulted No Growth after 48 hours. All Specime... Current Medications Current Medications Current Medications Acetaminophen (Tylenol Tab) 650 mg Q4HP PRN PO MILD PAIN (PS 1-4); Start 08/15/18 at 11:15; Stop 08/15/18 at 19:45; Status DC Acetaminophen (Tylenol Tab) 1,000 mg TID PO Last administered on 08/27/18 09:26; Start 08/15/18 at 21:00 Al Hydrox/Mg Hydrox/Simethicone (Mylanta) 30 ml Q4HP PRN PO DYSPEPSIA; Start 08/15/18 at 11:15 Albuterol Sulfate (Proventil Neb) 2.5 mg RBID NEB Last administered on 08/15/18at 12:00; Start 08/15/18 at 20:00; Stop 08/16/18 at 16:59; Status DC Albuterol Sulfate (Proventil, Ventolin Hfa) 2 puff Q4HP PRN INH SHORTNESS OF BREATH Last administered on 08/16/18at 11:11; Start 08/15/18 at 11:15 Albuterol/ Ipratropium (Duoneb (Ipr 0.5mg/Alb 2.5mg)) 3 ml RTID NEB Last administered on 08/27/18 08:33; Start 08/16/18 at 20:00 Allopurinol (Zyloprim) 300 mg DAILY PO Last administered on 08/27/18 09:25; Start 08/16/18 at 09:00 Amitriptyline HCl (Elavil) 25 mg QHS PO Last administered on 08/22/18 20:31; Start 08/21/18 at 21:00; Stop 08/23/18 at 10:31; Status DC Atorvastatin Calcium (Lipitor) 80 mg QHS PO Last administered on 08/26/18 20:19; Start 08/15/18 at 21:00 Bisacodyl (Dulcolax Suppository) 10 mg DAILYPRN PRN OK CONSTIPATION; Start 08/15/18 at 11:15 Carvedilol (COReg) 12.5 mg BID PO Last administered on 08/27/18 09:26; Start 08/15/18 at 21:00; Stop 08/27/18 at 10:08; Status DC Carvedilol (COReg) 25 mg BID PO ; Start 08/27/18 at 21:00 Clopidogrel Bisulfate (PLAVix) 75 mg DAILY PO Last administered on 08/27/18 09: 25; Start 08/16/18 at 09:00 Dextrose (Dextrose 50%) 25 ml ASDIRECTED PRN IV SEE LABEL COMMENTS; Start 08/15/18 at 11:15 Digoxin (Lanoxin) 0.25 mg STAT STAT IV Last administered on 08/25/18 14:46; Start 08/25/18 at 13:48; Stop 08/25/18 at 13:49; Status DC Diltiazem HCl (Cardizem) 90 mg Q8H PO Last administered on 08/27/18 05:47; Start 08/15/18 at 14:00 Docusate Sodium (Colace) 100 mg BID PO Last administered on 08/27/18 09:25; Start 08/15/18 at 21:00 Doxycycline Hyclate (Vibramycin) 100 mg BID PO Last administered on 08/27/18 09:25; Start 08/22/18 at 21:00 EZETIMIBE (Zetia) 10 mg DAILY PO Last administered on 08/27/18 09:26; Start 08/16/18 at 09:00 Furosemide (LASIX injection) 20 mg ASDIRECTED PRN IV SEE LABEL COMMENTS; Start 08/21/18 at 13:00; Stop 08/21/18 at 13:26; Status DC Furosemide (LASIX injection) 20 mg DAILY IV Last administered on 08/27/18 09:25; Start 08/26/18 at 09:00 Furosemide (LASIX injection) 40 mg DAILY IV Last administered on 08/25/18 09:20; Start 08/24/18 at 09:00; Stop 08/25/18 at 13:49; Status DC Furosemide (Lasix) 40 mg BID@ PO Last administered on 08/23/18at 08:13; Start 08/16/18 at 09:00; Stop 08/23/18 at 16:06; Status DC Gabapentin (Neurontin) 200 mg TID PO Last administered on 08/21/18 07:52; Start 08/15/18 at 16:00; Stop 08/21/18 at 12:57; Status DC Gabapentin (Neurontin) 200 mg TID PO Last administered on 08/27/18at 09:25; Start 08/23/18 at 16:00 Gabapentin (Neurontin) 400 mg TID PO Last administered on 08/23/18at 08:12; Start 08/21/18 at 16:00; Stop 08/23/18 at 10:17; Status DC Glipizide (Glucotrol Xl) 5 mg DAILY@0730 PO Last administered on 08/26/18at 08:11; Start 08/16/18 at 07:30; Stop 08/26/18 at 09:02; Status DC Glucagon (Glucagon) 1 mg ASDIRECTED PRN SC SEE LABEL COMMENTS; Start 08/15/18 at 11:15 Glucose (Glucose) 16 GM ASDIRECTED PRN PO SEE LABEL COMMENTS; Start 08/15/18 at 11:15 Heparin Sodium (Porcine) (Heparin) ASDIRECTED PRN IV SEE LABEL COMMENTS; Start 08/15/18 at 14:15; Stop 08/16/18 at 08:34; Status DC Heparin Sodium (Porcine) 32592 units/IV Miscellaneous Supplies 250 ml @ 0 mls/hr Q0M IV Last administered on 08/15/18at 12:00; Start 08/15/18 at 14:05; Stop 08/16/18 at 08:34; Status DC Heparin Sodium (Porcine) 79842 units/IV Miscellaneous Supplies 250 ml @ 0 mls/hr Q0M IV ; Start 08/15/18 at 14:05; Status UNV Insulin Human Lispro (HumaLOG INSULIN) SEE PROTOCOL TABLE AC SC Last administered on 08/27/18at 12:10; Start 08/15/18 at 12:00 Insulin Human Lispro (HumaLOG INSULIN) SEE PROTOCOL TABLE QHS SC ; Start 08/15/18 at 21:00 Latanoprost (Xalatan 0.005% Op Soln) 1 drop QHS OU Last administered on 08/26/18at 20:19; Start 08/15/18 at 21:00 Magnesium Hydroxide (Milk Of Magnesia) 30 ml DAILYPRN PRN PO CONSTIPATION; Start 08/15/18 at 11:15 Magnesium Oxide (Mag-Ox) 400 mg BID PO Last administered on 08/27/18at 09:25; Start 08/19/18 at 21:00 Magnesium Oxide (Mag-Ox) 400 mg DAILY PO Last administered on 08/19/18 08:07; Start 08/16/18 at 09:00; Stop 08/19/18 at 09:58; Status DC Menthol/Methyl Salicylate (Bengay Cream) right upper thigh TID TOP Last administered on 08/27/18 09:33; Start 08/20/18 at 16:00 Nitroglycerin (Nitrostat (1/ 150)) 0.4 mg Q5MP PRN SL CHEST PAIN; Start 08/15/18 at 11:15 Non-Formulary Medication (Heparin Iv Rate Change Documentation ml/ Hr) ASDIRECTED XX ; Start 08/15/18 at 14:15; Stop 08/16/18 at 08:34; Status DC Oxycodone HCl (Roxicodone, Oxyir) 5 mg Q4HP PRN PO PAIN; Start 08/15/18 at 11:15; Stop 08/15/18 at 19:45; Status DC Pantoprazole Sodium (Protonix) 40 mg BID PO Last administered on 08/27/18 09:26; Start 08/15/18 at 21:00 Ramelteon (Rozerem) 8 mg QHS PO Last administered on 08/19/18 21:05; Start 08/18/18 at 21:00; Stop 08/20/18 at 16:18; Status DC Senna (Senokot) 1 tab QHS PO Last administered on 08/26/18 20:17; Start 08/15/18 at 21:00 Sitagliptin Phosphate (Januvia) 50 mg DAILY PO Last administered on 08/27/18 09:25; Start 08/16/18 at 09:00 Sodium Chloride (Saline Lock Flush) 2 ml ASDIRECTED PRN IV SEE LABEL COMMENTS Last administered on 08/27/18 09:27; Start 08/21/18 at 14:15 Sodium Chloride (Saline Lock Flush) 2 ml SLF IV Last administered on 08/27/18 05:47; Start 08/21/18 at 22:00 Spironolactone (Aldactone) 25 mg QAM PO Last administered on 08/27/18 09:25; Start 08/20/18 at 19:15 Tizanidine HCl (Zanaflex) 2 mg TIDP PRN PO SPASMS Last administered on 08/20/18 08:52; Start 08/15/18 at 11:15; Stop 08/20/18 at 16:18; Status DC Trazodone HCl (Desyrel) 50 mg QHS PO Last administered on 08/22/18 20:31; Start 08/20/18 at 21:00; Stop 08/23/18 at 10:17; Status DC Warfarin Sodium (Coumadin) 2 mg DAILY@1700 PO Last administered on 08/24/18 16:57; Start 08/24/18 at 17:00; Stop 08/25/18 at 13:55; Status DC Warfarin Sodium (Coumadin) 5 mg DAILY@1700 PO Last administered on 08/26/18 16:32; Start 08/24/18 at 17:00 Warfarin Sodium (Coumadin) 5 mg DAILY@1700 PO Last administered on 08/26/18 16:32; Start 08/25/18 at 17:00 Warfarin Sodium (Coumadin) 7.5 mg DAILY@1700 PO Last administered on 08/17/18 17:02; Start 08/17/18 at 17:00; Stop 08/18/18 at 09:39; Status DC Warfarin Sodium (Coumadin) 10 mg DAILY@1700 PO Last administered on 08/16/18 17:15; Start 08/16/18 at 17:00; Stop 08/17/18 at 09:25; Status DC Warfarin Sodium (Coumadin) 10 mg DAILY@1700 PO Last administered on 08/19/18 16:54; Start 08/18/18 at 17:00; Stop 08/20/18 at 08:38; Status DC Warfarin Sodium (Coumadin) 10 mg DAILY@1700 PO Last administered on 08/23/18 17:22; Start 08/21/18 at 17:00; Stop 08/24/18 at 12:13; Status DC THIERRY PRICE MD Aug 27, 2018 12:58
[2018-08-27 14:00] VITALS: BP 100/56
[2018-08-27] MEDS: WARFARIN SOD 5 MG TAB PO SCH ×2 (17:12→17:19)
--- NOTE | 2018-08-27 17:39 | IPNPDOC ---
Subjective Date Seen The patient was seen on 08/27/18. Subjective Chief Complaint/HPI Patient is a 77-year-old male, past medical history significant for mitral valve disease status post mechanical mitral valve, admitted on account of right iliopsoas hematoma. Currently in rehabilitation due to significant right leg pain Events since last encounter Has increased right leg pain today. Reports he was able to complete his therapy sessions today without issues Denies any signs or symptoms of acute bleeding. Denies chills, fever, chest pain, shortness of breath. Objective Physical Examination General Exam: Positive: Alert, Cooperative, No Acute Distress Eye Exam: Positive: PERRLA, EOMI ENT Exam: Positive: Atraumatic, Mucous membr. moist/pink Neck Exam: Positive: Supple; Negative: JVD Chest Exam: Positive: Rales, Rhonchi (with inspiration in posterior gonzales) Heart Exam: Positive: Rate Normal, Regular Rhythm, Other (S1, S2 heard, no rubs or gallops) Abdomen Exam: Positive: Normal bowel sounds, Soft; Negative: Tenderness Extremity Exam: Positive: Edema, Other (3+ edema to BLE with venous stasis sanchez ges, rubor) Skin Exam: Positive: Other skin issue (BLE stasis changes) Neuro Exam: Positive: Normal Speech, Strength at 5/5 X4 ext Psych Exam: Positive: Mental status NL, Mood NL, Oriented x 3 Assessment /Plan Assessment Right leg pain - 2/2 Right iliopsoas hematoma with right lumber plexopathy -Continued on tizanidine, gabapentin, oxycodone PRN for pain control -continued in rehab unit for mobilization/strengthening by primary team Diastolic heart Failure -Transitioned to oral Lasix 60 mg daily -continue fluid restriction, low sodium diet, other GDMT for treatment of heart failure Valvular Heart disease -S/P Mechanical Aortic valve placement (Model # [id number]-505; Serial # [id number]) -INR target is 2.5 to 3.5 -continue warfarin 10 mg daily 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 -fingerstick checks ACHS -Continue sitagliptin, glipizide, sliding scale and gabapentin Hypertension - controlled -target SBP<140mmHg -continue Diltiazem, Carvedilol, furosemide, spironolactone CAD s/p CABG -stenting (07/30/18) -no signs of angina -Continue Plavix, Carvedilol, Atorvastatin CKD -Stable, avoid nephrotoxic medications -cautious diuresis Tachycardia -Coreg dose increased today to 25 mg twice a day -Continue to monitor blood pressure and heart rate Altered Mental Status -resolved -MRI brain showing small punctate subacute stroke DVT prophylaxis -fully anticoagulated on Coumadin Plan/VTE VTE Prophylaxis Ordered?: Yes VS, I&O, 24H, Fishbone Vital Signs/I&O Vital Signs Date Time Temp Pulse Resp B/P (MAP) Pulse Ox O2 Delivery O2 Flow Rate FiO2 08/27/18 14:00 97.7 93 19 100/56 (71) 96 3.0 08/24/18 20:26 Nasal Cannula I&O- Last 24 Hours up to 6 AM 08/27/18 06:00 Intake Total 1320 ml Output Total 1600 ml Balance -280 ml Laboratory Data 24H LABS Laboratory Tests 2 08/26/18 20:16: Bedside Glucose (Misc Panel) 123H 08/27/18 05:36: Nucleated Red Blood Cells % (auto) 0.0, Prothrombin Time 32.1H, Prothromb Time International Ratio 3.03, Anion Gap 5L, Glomerular Filtration Rate > 60.0, Blood Urea Nitrogen 29H, Creatinine 1.01, Sodium Level 142, Potassium Level 4.1, Chloride Level 104, Carbon Dioxide Level 33H, Calcium Level 9.0, Aspartate Amino Transf (AST/SGOT) 18, Alanine Aminotransferase (ALT/SGPT) 19, Alkaline Phosphatase 94, Total Bilirubin 0.4, Total Protein 7.6, Albumin 3.1L, Magnesium Level 1.9, Albumin/Globulin Ratio 0.69L 08/27/18 05:49: Bedside Glucose (Misc Panel) 98 08/27/18 11:18: Bedside Glucose (Misc Panel) 134H 08/27/18 16:30: Bedside Glucose (Misc Panel) 114H CBC/BMP Laboratory Tests 08/27/18 05:36 Red Blood Count 3.66 L, Mean Corpuscular Volume 94.8, Mean Corpuscular Hemoglobin 28.1, Mean Corpuscular Hemoglobin Concent 29.7 L, Red Cell Distribution Width 17.2 H, Calcium Level 9.0, Aspartate Amino Transf (AST/SGOT) 18, Alanine Aminotransferase (ALT/SGPT) 19, Alkaline Phosphatase 94, Total Bilirubin 0.4, Total Protein 7.6, Albumin 3.1 L Microbiology Microbiology 6/2/19 Blood Culture - Preliminary, Resulted No Growth after 48 hours. All Specime... JURGEN FERGUSON. [facility] Aug 27, 2018 17:39
[2018-08-27 20:00] VITALS: BP 137/62
[2018-08-27] MEDS: SENNA 8.6 MG TAB (SENOKOT) PO SCH (21:14)
[2018-08-27] MEDS: ATORVASTATIN 20 MG TAB PO SCH (21:15)
[2018-08-27] MEDS: LATANOPROST 0.005% OPHTH SOLN 2.5 ML OU SCH (21:16)
[2018-08-28] MEDS: SLF 3 ML SYR IV SCH ×3 (05:44→21:00)
[2018-08-28 06:00] VITALS: BP 138/65
[2018-08-28 07:07] LABS: INR 3.23; PROTHROMBIN TIME 33.7 SECONDS (12.1-14.4)
[2018-08-28] MEDS: IPRATROPIUM 0.5MG/ALBUTEROL 2.5MG INH SOL UD 3ML (DUONEB)(J7620) NEB SCH ×3 (08:46→20:13)
[2018-08-28] MEDS: DOCUSATE SODIUM 100 MG CAP PO SCH ×2 (09:00→20:53)
[2018-08-28] MEDS: CLOPIDOGREL 75 MG TAB PO SCH (09:04)
[2018-08-28] MEDS: GABAPENTIN 100 MG CAP PO SCH ×3 (09:04→20:55)
[2018-08-28] MEDS: ALLOPURINOL 300 MG TAB PO SCH (09:04)
[2018-08-28] MEDS: DOXYCYCLINE HYCLATE 100 MG TAB PO SCH ×2 (09:05→20:53)
[2018-08-28] MEDS: MAGNESIUM OXIDE 400 MG TAB (MAG-OX) PO SCH ×2 (09:05→20:53)
[2018-08-28] MEDS: SITagliptin 50 MG TAB (JANUVIA) PO SCH (09:05)
[2018-08-28] MEDS: CARVedilol 12.5 MG TAB PO SCH ×2 (09:05→20:54)
[2018-08-28] MEDS: PANTOPRAZOLE 40MG TAB (PROTONIX) PO SCH ×2 (09:05→21:01)
[2018-08-28] MEDS: ACETAMINOPHEN 500 MG TAB PO SCH ×3 (09:05→21:03)
[2018-08-28] MEDS: EZETIMIBE 10 MG TAB (ZETIA) PO SCH (09:05)
[2018-08-28] MEDS: SPIRONOLACTONE 25 MG TAB PO SCH (09:06)
[2018-08-28] MEDS: FUROSEMIDE 20 MG TAB PO SCH (09:06)
[2018-08-28] MEDS: HumaLOG INSULIN (NovoLOG) PER UNIT SC SCH ×4 (09:06→20:57)
[2018-08-28] MEDS: ANALGESIC BALM CRM 120 GM TOP SCH ×3 (09:07→20:56)
--- NOTE | 2018-08-28 11:24 | IPNPDOC ---
Text Note Date of Service The patient was seen on 08/28/18. 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 Patient has reported that upon catheterization on 07/31/18 the had difficulty in the right groin and subsequently used the left groin. Patient was discharged home after procedures but presented on 08/05 with severe pain. Patient was found to have right ileopsoas hematoma causing right lumber plexopathy. He was admitted to the hospital service for further evaluation and treatment. Orthopedic surgery and neurology were called on consultation. He was transitioned to ARU on 08/15 under the care of Dr. Espinal for continued rehabilitation. Patient was seen and examined at the bedside. Patient reported clinical improvement and has been making progress with physical therapy. He denies any chest pain, shortness of breath, palpitations. Denies nausea, vomiting, abdominal pain, constipation or diarrhea. Objective: Vitals (See below) General: Sitting up in chair, appears comfortable, no acute distress, AAOx3 HEENT: NC, AT CVS: RRR, +S1S2 Lungs: Fair b/l, without rhonchi / rales / wheezing Abdomen: Soft, ND, and non-tender Extremities: No calf tenderness, venous stasis changes noted, no appreciable edema Imaging: - MRI lumbar spine 08/06: 1. Diffuse disc bulges at the L3-4 and L4-5 levels with minimal thecal sac compression. 2. Diffuse disc bulge at the L5-S1 level. This abuts the thecal sac and S1 nerves. - CT pelvis 08/07: Somewhat elongate right iliopsoas hematoma as described above. No other acute abnormality. Moderate bilateral hip joint osteoarthritis. - CT pelvis 08/09: Stable right iliopsoas hematoma. - CT pelvis 08/13: Stable hematoma involving the right iliacus and iliopsoas muscles compared to prior CT of 08/09/2018. - CT head 08/23: 1. Old left basal ganglia lacunar infarction. 2. Small vessel ischemic disease per 3. Mild volume loss. - Vascular US 08/23: No evidence for deep venous thrombosis bilateral lower extremities . - CXR 08/23: Pulmonary edema with bibasilar opacities and small pleural effusions increased from prior examination. - Brain MRI 08/23: 1. There is a punctate subacute infarction in the right parietal lobe. 2. Small vessel ischemic disease. 3. Minimal volume loss. Assessment and plan: Right leg pain / weakness / numbness - likely 2/2 Right iliopsoas hematoma with right lumber plexopathy - Patient is reported that there has been improvement in his right leg pain; still reports sensory loss - Physical remains relatively unchanged - c/w Tizanidine, Gabapentin and Oxycodone for pain control as per ARU / Dr. Espinal - c/w Physical therapy as per ARU / Dr. Espinal Hematoma - Remains stable - c/w Anticoagulation s/p Confusion - possibly 2/2 acute CVA - Imaging via MRI was consistent with infarction - Patient has been on Full dose anticoagulation with Warfarin and anti-platelet therapy with Plavix; - c/w Atorvastatin s/p Leukocytosis - likely 2/2 reactive etiology; less likely 2/2 infectious etiology - No fevers noted s/p Constipation - c/w Bowel regimen DM2 with Diabetic neuropathy - c/w ISS and Gabapentin - c/w Sitagliptin and Glipizide CAD s/p CABG and stent (07/30/18) - c/w Plavix, Carvedilol, Atorvastatin HTN - BP appears well controlled - In the lower limits of normal today - c/w Diltiazem and Carvedilol DLP - c/w Atorvastatin and Ezetimibe Mechanical Aortic valve - Model # [id number]; Serial # [id number] - Patient has indicated that his INR target is 2.5 to 3.5 - INR has been within target range - c/w Coumadin - s/p Heparin drip Gout - c/w Allopurinol GERD -c/w Protonix Elevation of Cr - likely 2/2 CKD3 - Baseline Cr of 1.3-1.6 - Cr has improved significantly - s/p IV fluids Chronic bilateral venous stasis with stasis dermatitis - c/w Furosemide 60 daily DVT prophylaxis - c/w Coumadin Disposition: - c/w PT / OT - Disposition plan as per ARU VS,Curtbone, I+O VS, Fishbone, I+O Vital Signs Date Time Temp Pulse Resp B/P (MAP) Pulse Ox O2 Delivery O2 Flow Rate FiO2 08/28/18 09:05 76 138/65 08/28/18 06:00 97.9 18 92 3.0 08/24/18 20:26 Nasal Cannula I&O- Last 24 Hours up to 6 AM 08/28/18 06:00 Intake Total 1420 ml Output Total 2120 ml Balance -700 ml JA RUBIN MD Aug 28, 2018 11:24
[2018-08-28 14:46] VITALS: BP 120/65
[2018-08-28] MEDS: WARFARIN SOD 5 MG TAB PO SCH ×2 (18:07)
[2018-08-28 20:00] VITALS: BP 121/55
[2018-08-28] MEDS: SENNA 8.6 MG TAB (SENOKOT) PO SCH (20:53)
[2018-08-28] MEDS: ATORVASTATIN 20 MG TAB PO SCH (20:53)
[2018-08-28] MEDS: LATANOPROST 0.005% OPHTH SOLN 2.5 ML OU SCH (20:57)
[2018-08-29 05:27] VITALS: BP 103/52
[2018-08-29] MEDS: SLF 3 ML SYR IV SCH ×3 (05:57→21:48)
[2018-08-29 06:33] LABS: INR 3.38
[2018-08-29] MEDS: IPRATROPIUM 0.5MG/ALBUTEROL 2.5MG INH SOL UD 3ML (DUONEB)(J7620) NEB SCH ×3 (07:35→20:02)
[2018-08-29] MEDS: CARVedilol 12.5 MG TAB PO SCH ×2 (08:52→21:49)
[2018-08-29] MEDS: SITagliptin 50 MG TAB (JANUVIA) PO SCH (08:52)
[2018-08-29] MEDS: ACETAMINOPHEN 500 MG TAB PO SCH ×3 (08:52→21:44)
[2018-08-29] MEDS: SPIRONOLACTONE 25 MG TAB PO SCH (08:53)
[2018-08-29] MEDS: PANTOPRAZOLE 40MG TAB (PROTONIX) PO SCH ×2 (08:53→21:46)
[2018-08-29] MEDS: DOXYCYCLINE HYCLATE 100 MG TAB PO SCH ×2 (08:53→21:43)
[2018-08-29] MEDS: ALLOPURINOL 300 MG TAB PO SCH (08:53)
[2018-08-29] MEDS: GABAPENTIN 100 MG CAP PO SCH ×3 (08:53→21:42)
[2018-08-29] MEDS: CLOPIDOGREL 75 MG TAB PO SCH (08:53)
[2018-08-29] MEDS: EZETIMIBE 10 MG TAB (ZETIA) PO SCH (08:53)
[2018-08-29] MEDS: FUROSEMIDE 20 MG TAB PO SCH (08:53)
[2018-08-29] MEDS: MAGNESIUM OXIDE 400 MG TAB (MAG-OX) PO SCH ×2 (08:53→21:43)
[2018-08-29] MEDS: ANALGESIC BALM CRM 120 GM TOP SCH ×3 (08:54→21:45)
[2018-08-29] MEDS: DOCUSATE SODIUM 100 MG CAP PO SCH ×2 (08:54→21:49)
[2018-08-29] MEDS: HumaLOG INSULIN (NovoLOG) PER UNIT SC SCH (08:54)
[2018-08-29 14:00] VITALS: BP 125/62
--- NOTE | 2018-08-29 16:03 | IPNPDOC ---
PM&R Progress Note DATE OF SERVICE: Aug 28, 2018 [employer] Progress Note Subjective: Patient seen in his room following his home eval which he says went well. He no longer feels confused. REVIEW OF SYSTEMS: The following is a completed review of systems and has been reviewed. Review of systems otherwise unremarkable. PAIN: Patient self reports ache in right leg EYES: Negative for recent vision changes EARS, NOSE, & THROAT: denies dysphagia, hearing difficulty, or throat pain CARDIOVASCULAR: denies chest pain or palpitations PULMONARY: denies cough, +mild dyspnea at rest (improving during the day) GASTROINTESTINAL: Negative for diarrhea or constipation GENITOURINARY: Negative for dysuria MUSCULOSKELETAL: right LE weakness (gradually improving) NEUROLOGICAL: right lumbosacral plexopathy SKIN: +hyperpigmented calves PSYCHIATRIC: Unremarkable All other review of systems found to be negative. PHYSICAL EXAMINATION: VITAL SIGNS: Please see below. GENERAL: Pleasant and cooperative. No acute distress. HEENT: PERRL. Extraocular movements intact. Clear conjunctiva. no facial droop CARDIOVASCULAR: Regular rate and rhythm. No murmurs, rubs, or gallops LUNGS: CTA. no wheeze, No rhonchi ABDOMEN: Soft, nontender, nondistended. Positive bowel sounds. Normal active bowel sounds NEUROLOGICAL: Alert and oriented times three. Cranial nerves II through XII grossly intact. Sensation grossly intact in bilat UE and left LE, diminished in the anterior right thigh and lateral calf EXTREMITIES: 5\\5 strength bilateral upper extremities. 5\\5 strength right ankle DF, EHL and PF, 2/5 hip flexion and 3-/5 knee extension 5/5 strength in left lower extremity. -bilat LE edema (slightly better) (-) Bhavya's bilat SKIN: +hyperpigmented calves ASSESSMENT:77-year-old M with past medical history of mechanical aortic valve replacement who presents status post cardiac/mesenteric artery stenting complicated by iliopsoas hematoma with right lumbosacral plexopathy PLAN: 1. rehab: PT, OT, assess for DMEs, knee buckling improving and ambulating further in therapy with RW 2. Neuro: acute onset right lumbosacral compression plexothapy causing profound RLE paralysis and decreased sensation- will refer to outpatient neurology for NCS/EMG -positive Lyme titers, will discuss results with ID-consulted c/u 3 week course of doxycycline, recs appreciated -On 08/23/18 patient reported confusion and feeling drunk-stat CT negative for acute bleed, pt has mechanical valve so cleared valve and mesenteric artery stent with radiology for MRI - 08/23/18 MRI- punctate subacute infarction in the right parietal lobe, patient already on statin and Eliquis, will optimize his blood pressure and refer to neurology outpatient, his clinical symptoms at this time do not correlate with the lesion seen on MRI- discussed and educated patient on modifiable risk factors -suspect trazodone and recent addition of Elavil contributing to morning confusion-improved now off meds 3. CArdio: pmh mechanical aortic valve-s/p heparin drip bridge, now on COumadin goal 2.5-3.5 medicine consulted to manage - clinical suspicion for congestive heart failure- c/u IV lasix, spironolactone, fluid restriction-medicine recs appreciated -patient with sinus tachycardia s/p one time dose of Digoxin, c/u carvedilol and diltiazem, will consider increasing-medicine following 4. Resp: ex-smoker with COPD, c/u breathing treatments and supplemental oxygen, c/u Duonebs, patient requesting oxygen at night c/u -noc-ox test 08/24/18 showed, "Time spent with an oxygen saturation less than 88% was 22 minutes and 16 seconds" will re-order 24-48 hours prior to discharge to set up coverage for home nocturnal oxygen -repeat CXR 08/23/18 showed increased vascular congestion, s/p IV Lasix, now on oral 60mg daily will monitor while receiving more intensive therapy 5. Endo: pmh DM c/u Januvia, d/c'd glipizide for low FS, and ISS- c/u to monitor and adjust prn 6. GI px: protonix BID 7. DVT ppx: on warfarin 8. Pain: avoid opioids, c/u tylenol 1000mg standing, c/u gabapentin back down to 200mg TID to avoid, d/c'd Elavil on 08/23/18 as can cause confusion and dizziness, c/u to hold trazodone as suspect these meds contributed to patient's earlier confusion-resolved 9. Skin: acewrap and elevate legs while in bed, moisturize with Eucerin 9. Dispo: 09/03/18 to home, progressing towards goals Allergies Coded Allergies: No Known Allergies (Verified , 09/19/16) Vital Signs Vital Signs Date Time Temp Pulse Resp B/P (MAP) Pulse Ox O2 Delivery O2 Flow Rate FiO2 08/29/18 15:48 100 125/62 08/29/18 14:00 97.2 19 93 08/29/18 10:24 3.0 08/24/18 20:26 Nasal Cannula Laboratory Data Labs 24H Laboratory Tests 2 08/28/18 16:51: Bedside Glucose (Misc Panel) 123H 08/28/18 19:49: Bedside Glucose (Misc Panel) 138H 08/29/18 06:03: Bedside Glucose (Misc Panel) 127H 08/29/18 06:06: Prothrombin Time 35.0H, Prothromb Time International Ratio 3.38 08/29/18 11:43: Bedside Glucose (Misc Panel) 122H Microbiology Microbiology 08/25/18 Blood Culture - Preliminary, Resulted No Growth after 72 hours. All specime... Current Medications Current Medications Current Medications Acetaminophen (Tylenol Tab) 650 mg Q4HP PRN PO MILD PAIN (PS 1-4); Start 08/15/18 at 11:15; Stop 08/15/18 at 19:45; Status DC Acetaminophen (Tylenol Tab) 1,000 mg TID PO Last administered on 08/29/18at 15:47; Start 08/15/18 at 21:00 Al Hydrox/Mg Hydrox/Simethicone (Mylanta) 30 ml Q4HP PRN PO DYSPEPSIA; Start 08/15/18 at 11:15 Albuterol Sulfate (Proventil Neb) 2.5 mg RBID NEB Last administered on 08/15/18at 12:00; Start 08/15/18 at 20:00; Stop 08/16/18 at 16:59; Status DC Albuterol Sulfate (Proventil, Ventolin Hfa) 2 puff Q4HP PRN INH SHORTNESS OF BREATH Last administered on 08/16/18at 11:11; Start 08/15/18 at 11:15 Albuterol/ Ipratropium (Duoneb (Ipr 0.5mg/Alb 2.5mg)) 3 ml RTID NEB Last administered on 08/29/18at 14:01; Start 08/16/18 at 20:00 Allopurinol (Zyloprim) 300 mg DAILY PO Last administered on 08/29/18 08:53; Start 08/16/18 at 09:00 Amitriptyline HCl (Elavil) 25 mg QHS PO Last administered on 08/22/18 20:31; Start 08/21/18 at 21:00; Stop 08/23/18 at 10:31; Status DC Atorvastatin Calcium (Lipitor) 80 mg QHS PO Last administered on 08/28/18 20:53; Start 08/15/18 at 21:00 Bisacodyl (Dulcolax Suppository) 10 mg DAILYPRN PRN AR CONSTIPATION; Start 08/15/18 at 11:15 Carvedilol (COReg) 12.5 mg BID PO Last administered on 08/27/18 09:26; Start 08/15/18 at 21:00; Stop 08/27/18 at 10:08; Status DC Carvedilol (COReg) 12.5 mg BID PO ; Start 08/29/18 at 21:00 Carvedilol (COReg) 25 mg BID PO Last administered on 08/28/18 20:54; Start 08/27/18 at 21:00; Stop 08/29/18 at 12:49; Status DC Clopidogrel Bisulfate (PLAVix) 75 mg DAILY PO Last administered on 08/29/18 08:53; Start 08/16/18 at 09:00 Dextrose (Dextrose 50%) 25 ml ASDIRECTED PRN IV SEE LABEL COMMENTS; Start 08/15/18 at 11:15 Digoxin (Lanoxin) 0.25 mg STAT STAT IV Last administered on 08/25/18 14:46; Start 08/25/18 at 13:48; Stop 08/25/18 at 13:49; Status DC Diltiazem HCl (Cardizem) 90 mg Q8H PO Last administered on 08/29/18 15:48; Start 08/15/18 at 14:00 Docusate Sodium (Colace) 100 mg BID PO Last administered on 08/28/18 20:53; Start 08/15/18 at 21:00 Doxycycline Hyclate (Vibramycin) 100 mg BID PO Last administered on 08/29/18 08:53; Start 08/22/18 at 21:00 EZETIMIBE (Zetia) 10 mg DAILY PO Last administered on 08/29/18at 08:53; Start 08/16/18 at 09:00 Furosemide (LASIX injection) 20 mg ASDIRECTED PRN IV SEE LABEL COMMENTS; Start 08/21/18 at 13:00; Stop 08/21/18 at 13:26; Status DC Furosemide (LASIX injection) 20 mg DAILY IV Last administered on 08/27/18at 09:25; Start 08/26/18 at 09:00; Stop 08/27/18 at 17:32; Status DC Furosemide (LASIX injection) 40 mg DAILY IV Last administered on 08/25/18at 09:20; Start 08/24/18 at 09:00; Stop 08/25/18 at 13:49; Status DC Furosemide (Lasix) 40 mg BID@ PO Last administered on 08/23/18at 08:13; Start 08/16/18 at 09:00; Stop 08/23/18 at 16:06; Status DC Furosemide (Lasix) 60 mg DAILY PO Last administered on 08/29/18at 08:53; Start 08/28/18 at 09:00 Gabapentin (Neurontin) 200 mg TID PO Last administered on 08/21/18at 07:52; Start 08/15/18 at 16:00; Stop 08/21/18 at 12:57; Status DC Gabapentin (Neurontin) 200 mg TID PO Last administered on 08/29/18at 15:46; Start 08/23/18 at 16:00 Gabapentin (Neurontin) 400 mg TID PO Last administered on 08/23/18at 08:12; Start 08/21/18 at 16:00; Stop 08/23/18 at 10:17; Status DC Glipizide (Glucotrol Xl) 5 mg DAILY@0730 PO Last administered on 08/26/18at 08:11; Start 08/16/18 at 07:30; Stop 08/26/18 at 09:02; Status DC Glucagon (Glucagon) 1 mg ASDIRECTED PRN SC SEE LABEL COMMENTS; Start 08/15/18 at 11:15 Glucose (Glucose) 16 GM ASDIRECTED PRN PO SEE LABEL COMMENTS; Start 08/15/18 at 11:15 Heparin Sodium (Porcine) (Heparin) ASDIRECTED PRN IV SEE LABEL COMMENTS; Start 08/15/18 at 14:15; Stop 08/16/18 at 08:34; Status DC Heparin Sodium (Porcine) 79715 units/IV Miscellaneous Supplies 250 ml @ 0 mls/hr Q0M IV Last administered on 08/15/18at 12:00; Start 08/15/18 at 14:05; Stop 08/16/18 at 08:34; Status DC Heparin Sodium (Porcine) 27371 units/IV Miscellaneous Supplies 250 ml @ 0 mls/hr Q0M IV ; Start 08/15/18 at 14:05; Status UNV Insulin Human Lispro (HumaLOG INSULIN) SEE PROTOCOL TABLE AC SC Last administered on 08/29/18at 08:54; Start 08/15/18 at 12:00; Stop 08/29/18 at 12:48; Status DC Insulin Human Lispro (HumaLOG INSULIN) SEE PROTOCOL TABLE QHS SC ; Start 08/15/18 at 21:00; Stop 08/29/18 at 12:48; Status DC Latanoprost (Xalatan 0.005% Op Soln) 1 drop QHS OU Last administered on 08/28/18at 20:57; Start 08/15/18 at 21:00 Magnesium Hydroxide (Milk Of Magnesia) 30 ml DAILYPRN PRN PO CONSTIPATION; Start 08/15/18 at 11:15 Magnesium Oxide (Mag-Ox) 400 mg BID PO Last administered on 08/29/18at 08:53; Start 08/19/18 at 21:00 Magnesium Oxide (Mag-Ox) 400 mg DAILY PO Last administered on 08/19/18at 08:07; Start 08/16/18 at 09:00; Stop 08/19/18 at 09:58; Status DC Menthol/Methyl Salicylate (Bengay Cream) right upper thigh ... TID TOP Last administered on 08/29/18at 15:48; Start 08/20/18 at 16:00 Miscellaneous (Unresolved Clarification Entry) SEE LABEL COMMENTS DAILY XX Last administered on 08/29/18at 09:00; Start 08/29/18 at 09:00; Stop 08/29/18 at 12:52; Status DC Nitroglycerin (Nitrostat (1/ 150)) 0.4 mg Q5MP PRN SL CHEST PAIN; Start 08/15/18 at 11:15 Non-Formulary Medication (Heparin Iv Rate Change Documentation ml/ Hr) ASDIRECTED XX ; Start 08/15/18 at 14:15; Stop 08/16/18 at 08:34; Status DC Oxycodone HCl (Roxicodone, Oxyir) 5 mg Q4HP PRN PO PAIN; Start 08/15/18 at 11:15; Stop 08/15/18 at 19:45; Status DC Pantoprazole Sodium (Protonix) 40 mg BID PO Last administered on 08/29/18 08:53; Start 08/15/18 at 21:00 Ramelteon (Rozerem) 8 mg QHS PO Last administered on 08/19/18 21:05; Start 08/18/18 at 21:00; Stop 08/20/18 at 16:18; Status DC Senna (Senokot) 1 tab QHS PO Last administered on 08/28/18 20:53; Start 08/15/18 at 21:00 Sitagliptin Phosphate (Januvia) 50 mg DAILY PO Last administered on 08/29/18 08:52; Start 08/16/18 at 09:00 Sodium Chloride (Saline Lock Flush) 2 ml ASDIRECTED PRN IV SEE LABEL COMMENTS Last administered on 08/27/18 09:27; Start 08/21/18 at 14:15 Sodium Chloride (Saline Lock Flush) 2 ml SLF IV Last administered on 08/29/18 14:00; Start 08/21/18 at 22:00 Spironolactone (Aldactone) 25 mg QAM PO Last administered on 08/29/18 08:53; Start 08/20/18 at 19:15 Tizanidine HCl (Zanaflex) 2 mg TIDP PRN PO SPASMS Last administered on 08/20/18 08:52; Start 08/15/18 at 11:15; Stop 08/20/18 at 16:18; Status DC Trazodone HCl (Desyrel) 50 mg QHS PO Last administered on 08/22/18 20:31; Start 08/20/18 at 21:00; Stop 08/23/18 at 10:17; Status DC Warfarin Sodium (Coumadin) 2 mg DAILY@1700 PO Last administered on 08/24/18 16:57; Start 08/24/18 at 17:00; Stop 08/25/18 at 13:55; Status DC Warfarin Sodium (Coumadin) 5 mg DAILY@1700 PO Last administered on 08/28/18 18:07; Start 08/24/18 at 17:00; Stop 08/29/18 at 12:46; Status DC Warfarin Sodium (Coumadin) 5 mg DAILY@1700 PO Last administered on 08/28/18at 18:07; Start 08/25/18 at 17:00; Stop 08/29/18 at 12:46; Status DC Warfarin Sodium (Coumadin) 7.5 mg DAILY@1700 PO Last administered on 08/17/18at 17:02; Start 08/17/18 at 17:00; Stop 08/18/18 at 09:39; Status DC Warfarin Sodium (Coumadin) 10 mg DAILY@1700 PO Last administered on 08/16/18at 17:15; Start 08/16/18 at 17:00; Stop 08/17/18 at 09:25; Status DC Warfarin Sodium (Coumadin) 10 mg DAILY@1700 PO Last administered on 08/19/18at 16:54; Start 08/18/18 at 17:00; Stop 08/20/18 at 08:38; Status DC Warfarin Sodium (Coumadin) 10 mg DAILY@1700 PO Last administered on 08/23/18at 17:22; Start 08/21/18 at 17:00; Stop 08/24/18 at 12:13; Status DC THIERRY PRICE MD Aug 29, 2018 16:03
--- NOTE | 2018-08-29 16:06 | IPNPDOC ---
PM&R Progress Note DATE OF SERVICE: Aug 29, 2018 [employer] Progress Note Subjective: Patient seen in hisroom stating his breathing feels better and was wondering if his hematoma was resolved. He would like another scan to make sure it's getting smaller. REVIEW OF SYSTEMS: The following is a completed review of systems and has been reviewed. Review of systems otherwise unremarkable. PAIN: Patient self reports ache in right leg EYES: Negative for recent vision changes EARS, NOSE, & THROAT: denies dysphagia, hearing difficulty, or throat pain CARDIOVASCULAR: denies chest pain or palpitations PULMONARY: denies cough, +mild dyspnea at rest (improving during the day) GASTROINTESTINAL: Negative for diarrhea or constipation GENITOURINARY: Negative for dysuria MUSCULOSKELETAL: right LE weakness (gradually improving) NEUROLOGICAL: right lumbosacral plexopathy SKIN: +hyperpigmented calves PSYCHIATRIC: Unremarkable All other review of systems found to be negative. PHYSICAL EXAMINATION: VITAL SIGNS: Please see below. GENERAL: Pleasant and cooperative. No acute distress. HEENT: PERRL. Extraocular movements intact. Clear conjunctiva. no facial droop CARDIOVASCULAR: Regular rate and rhythm. No murmurs, rubs, or gallops LUNGS: CTA. no wheeze, No rhonchi ABDOMEN: Soft, nontender, nondistended. Positive bowel sounds. Normal active bowel sounds NEUROLOGICAL: Alert and oriented times three. Cranial nerves II through XII grossly intact. Sensation grossly intact in bilat UE and left LE, diminished in the anterior right thigh and lateral calf EXTREMITIES: 5\\5 strength bilateral upper extremities. 5\\5 strength right ankle DF, EHL and PF, 2/5 hip flexion and 3-/5 knee extension 5/5 strength in left lower extremity. -bilat LE edema (slightly better) (-) Bhavya's bilat SKIN: +hyperpigmented calves ASSESSMENT:77-year-old M with past medical history of mechanical aortic valve replacement who presents status post cardiac/mesenteric artery stenting complicated by iliopsoas hematoma with right lumbosacral plexopathy PLAN: 1. rehab: PT, OT, assess for DMEs, knee buckling improving and ambulating furt her in therapy with RW, nearing Mod-I for slide board transfers 2. 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 CArdio: pmh mechanical aortic valve-s/p heparin drip bridge, now on COumadin goal 2.5-3.5 medicine consulted to manage - clinical suspicion for congestive heart failure- c/u IV lasix, spironolactone, fluid restriction-medicine recs appreciated -patient with sinus tachycardia s/p one time dose of Digoxin, c/u carvedilol and diltiazem, will consider increasing-medicine following 4. Resp: ex-smoker with COPD, c/u breathing treatments and supplemental oxygen, c/u Duonebs, patient requesting oxygen at night c/u -noc-ox test 08/24/18 showed, "Time spent with an oxygen saturation less than 88% was 22 minutes and 16 seconds" will re-order 24-48 hours prior to discharge to set up coverage for home nocturnal oxygen -repeat CXR 08/23/18 showed increased vascular congestion, s/p IV Lasix, now on oral 60mg daily will monitor while receiving more intensive therapy 5. Endo: pmh DM c/u Januvia, d/c'd glipizide for low FS, will d/c ISS and check FS BID- c/u to monitor and adjust prn 6. GI px: protonix BID 7. DVT ppx: on warfarin 8. Pain: avoid opioids, c/u tylenol 1000mg standing, c/u gabapentin back down to 200mg TID to avoid, d/c'd Elavil on 08/23/18 as can cause confusion and dizziness, c/u to hold trazodone as suspect these meds contributed to patient's earlier confusion-resolved 9. Skin: acewrap and elevate legs while in bed, moisturize with Eucerin 9. Dispo: 09/03/18 to home, progressing towards goals Allergies Coded Allergies: No Known Allergies (Verified , 09/19/16) Vital Signs Vital Signs Date Time Temp Pulse Resp B/P (MAP) Pulse Ox O2 Delivery O2 Flow Rate FiO2 08/29/18 15:48 100 125/62 08/29/18 14:00 97.2 19 93 08/29/18 10:24 3.0 08/24/18 20:26 Nasal Cannula Laboratory Data Labs 24H Laboratory Tests 2 08/28/18 16:51: Bedside Glucose (Misc Panel) 123H 08/28/18 19:49: Bedside Glucose (Misc Panel) 138H 08/29/18 06:03: Bedside Glucose (Misc Panel) 127H 08/29/18 06:06: Prothrombin Time 35.0H, Prothromb Time International Ratio 3.38 08/29/18 11:43: Bedside Glucose (Misc Panel) 122H Microbiology Microbiology 08/25/18 Blood Culture - Preliminary, Resulted No Growth after 72 hours. All specime... Current Medications Current Medications Current Medications Acetaminophen (Tylenol Tab) 650 mg Q4HP PRN PO MILD PAIN (PS 1-4); Start 08/15/18 at 11:15; Stop 08/15/18 at 19:45; Status DC Acetaminophen (Tylenol Tab) 1,000 mg TID PO Last administered on 08/29/18at 15:47; Start 08/15/18 at 21:00 Al Hydrox/Mg Hydrox/Simethicone (Mylanta) 30 ml Q4HP PRN PO DYSPEPSIA; Start 08/15/18 at 11:15 Albuterol Sulfate (Proventil Neb) 2.5 mg RBID NEB Last administered on 08/15/18at 12:00; Start 08/15/18 at 20:00; Stop 08/16/18 at 16:59; Status DC Albuterol Sulfate (Proventil, Ventolin Hfa) 2 puff Q4HP PRN INH SHORTNESS OF BREATH Last administered on 08/16/18at 11:11; Start 08/15/18 at 11:15 Albuterol/ Ipratropium (Duoneb (Ipr 0.5mg/Alb 2.5mg)) 3 ml RTID NEB Last administered on 08/29/18 14:01; Start 08/16/18 at 20:00 Allopurinol (Zyloprim) 300 mg DAILY PO Last administered on 08/29/18 08:53; Start 08/16/18 at 09:00 Amitriptyline HCl (Elavil) 25 mg QHS PO Last administered on 08/22/18 20:31; Start 08/21/18 at 21:00; Stop 08/23/18 at 10:31; Status DC Atorvastatin Calcium (Lipitor) 80 mg QHS PO Last administered on 08/28/18 20:53; Start 08/15/18 at 21:00 Bisacodyl (Dulcolax Suppository) 10 mg DAILYPRN PRN NE CONSTIPATION; Start 08/15/18 at 11:15 Carvedilol (COReg) 12.5 mg BID PO Last administered on 08/27/18 09:26; Start 08/15/18 at 21:00; Stop 08/27/18 at 10:08; Status DC Carvedilol (COReg) 12.5 mg BID PO ; Start 08/29/18 at 21:00 Carvedilol (COReg) 25 mg BID PO Last administered on 08/28/18 20:54; Start 08/27/18 at 21:00; Stop 08/29/18 at 12:49; Status DC Clopidogrel Bisulfate (PLAVix) 75 mg DAILY PO Last administered on 08/29/18 08:53; Start 08/16/18 at 09:00 Dextrose (Dextrose 50%) 25 ml ASDIRECTED PRN IV SEE LABEL COMMENTS; Start 08/15/18 at 11:15 Digoxin (Lanoxin) 0.25 mg STAT STAT IV Last administered on 08/25/18 14:46; Start 08/25/18 at 13:48; Stop 08/25/18 at 13:49; Status DC Diltiazem HCl (Cardizem) 90 mg Q8H PO Last administered on 08/29/18 15:48; Start 08/15/18 at 14:00 Docusate Sodium (Colace) 100 mg BID PO Last administered on 08/28/18 20:53; Start 08/15/18 at 21:00 Doxycycline Hyclate (Vibramycin) 100 mg BID PO Last administered on 08/29/18 08:53; Start 08/22/18 at 21:00 EZETIMIBE (Zetia) 10 mg DAILY PO Last administered on 08/29/18 08:53; Start 08/16/18 at 09:00 Furosemide (LASIX injection) 20 mg ASDIRECTED PRN IV SEE LABEL COMMENTS; Start 08/21/18 at 13:00; Stop 08/21/18 at 13:26; Status DC Furosemide (LASIX injection) 20 mg DAILY IV Last administered on 08/27/18at 09:25; Start 08/26/18 at 09:00; Stop 08/27/18 at 17:32; Status DC Furosemide (LASIX injection) 40 mg DAILY IV Last administered on 08/25/18 09:20; Start 08/24/18 at 09:00; Stop 08/25/18 at 13:49; Status DC Furosemide (Lasix) 40 mg BID@09,17 PO Last administered on 08/23/18 08:13; Start 08/16/18 at 09:00; Stop 08/23/18 at 16:06; Status DC Furosemide (Lasix) 60 mg DAILY PO Last administered on 08/29/18 08:53; Start 08/28/18 at 09:00 Gabapentin (Neurontin) 200 mg TID PO Last administered on 08/21/18at 07:52; Start 08/15/18 at 16:00; Stop 08/21/18 at 12:57; Status DC Gabapentin (Neurontin) 200 mg TID PO Last administered on 08/29/18 15:46; Start 08/23/18 at 16:00 Gabapentin (Neurontin) 400 mg TID PO Last administered on 08/23/18at 08:12; Start 08/21/18 at 16:00; Stop 08/23/18 at 10:17; Status DC Glipizide (Glucotrol Xl) 5 mg DAILY@0730 PO Last administered on 08/26/18 08:11; Start 08/16/18 at 07:30; Stop 08/26/18 at 09:02; Status DC Glucagon (Glucagon) 1 mg ASDIRECTED PRN SC SEE LABEL COMMENTS; Start 08/15/18 at 11:15 Glucose (Glucose) 16 GM ASDIRECTED PRN PO SEE LABEL COMMENTS; Start 08/15/18 at 11:15 Heparin Sodium (Porcine) (Heparin) ASDIRECTED PRN IV SEE LABEL COMMENTS; Start 08/15/18 at 14:15; Stop 08/16/18 at 08:34; Status DC Heparin Sodium (Porcine) 69547 units/IV Miscellaneous Supplies 250 ml @ 0 mls/hr Q0M IV Last administered on 08/15/18at 12:00; Start 08/15/18 at 14:05; Stop 08/16/18 at 08:34; Status DC Heparin Sodium (Porcine) 91767 units/IV Miscellaneous Supplies 250 ml @ 0 mls/hr Q0M IV ; Start 08/15/18 at 14:05; Status UNV Insulin Human Lispro (HumaLOG INSULIN) SEE PROTOCOL TABLE AC SC Last administered on 08/29/18at 08:54; Start 08/15/18 at 12:00; Stop 08/29/18 at 12:48; Status DC Insulin Human Lispro (HumaLOG INSULIN) SEE PROTOCOL TABLE QHS SC ; Start 08/15/18 at 21:00; Stop 08/29/18 at 12:48; Status DC Latanoprost (Xalatan 0.005% Op Soln) 1 drop QHS OU Last administered on 08/28/18at 20:57; Start 08/15/18 at 21:00 Magnesium Hydroxide (Milk Of Magnesia) 30 ml DAILYPRN PRN PO CONSTIPATION; Start 08/15/18 at 11:15 Magnesium Oxide (Mag-Ox) 400 mg BID PO Last administered on 08/29/18at 08:53; Start 08/19/18 at 21:00 Magnesium Oxide (Mag-Ox) 400 mg DAILY PO Last administered on 08/19/18at 08:07; Start 08/16/18 at 09:00; Stop 08/19/18 at 09:58; Status DC Menthol/Methyl Salicylate (Bengay Cream) right upper thigh ... TID TOP Last administered on 08/29/18at 15:48; Start 08/20/18 at 16:00 Miscellaneous (Unresolved Clarification Entry) SEE LABEL COMMENTS DAILY XX Last administered on 08/29/18at 09:00; Start 08/29/18 at 09:00; Stop 08/29/18 at 12:52; Status DC Nitroglycerin (Nitrostat (1/ 150)) 0.4 mg Q5MP PRN SL CHEST PAIN; Start 08/15/18 at 11:15 Non-Formulary Medication (Heparin Iv Rate Change Documentation ml/ Hr) ASDIRECTED XX ; Start 08/15/18 at 14:15; Stop 08/16/18 at 08:34; Status DC Oxycodone HCl (Roxicodone, Oxyir) 5 mg Q4HP PRN PO PAIN; Start 08/15/18 at 11:15; Stop 08/15/18 at 19:45; Status DC Pantoprazole Sodium (Protonix) 40 mg BID PO Last administered on 08/29/18 08:53; Start 08/15/18 at 21:00 Ramelteon (Rozerem) 8 mg QHS PO Last administered on 08/19/18 21:05; Start 08/18/18 at 21:00; Stop 08/20/18 at 16:18; Status DC Senna (Senokot) 1 tab QHS PO Last administered on 08/28/18 20:53; Start 08/15/18 at 21:00 Sitagliptin Phosphate (Januvia) 50 mg DAILY PO Last administered on 08/29/18 08:52; Start 08/16/18 at 09:00 Sodium Chloride (Saline Lock Flush) 2 ml ASDIRECTED PRN IV SEE LABEL COMMENTS Last administered on 08/27/18 09:27; Start 08/21/18 at 14:15 Sodium Chloride (Saline Lock Flush) 2 ml SLF IV Last administered on 08/29/18 14:00; Start 08/21/18 at 22:00 Spironolactone (Aldactone) 25 mg QAM PO Last administered on 08/29/18 08:53; Start 08/20/18 at 19:15 Tizanidine HCl (Zanaflex) 2 mg TIDP PRN PO SPASMS Last administered on 08/20/18 08:52; Start 08/15/18 at 11:15; Stop 08/20/18 at 16:18; Status DC Trazodone HCl (Desyrel) 50 mg QHS PO Last administered on 08/22/18 20:31; Start 08/20/18 at 21:00; Stop 08/23/18 at 10:17; Status DC Warfarin Sodium (Coumadin) 2 mg DAILY@1700 PO Last administered on 08/24/18 16:57; Start 08/24/18 at 17:00; Stop 08/25/18 at 13:55; Status DC Warfarin Sodium (Coumadin) 5 mg DAILY@1700 PO Last administered on 08/28/18 18:07; Start 08/24/18 at 17:00; Stop 08/29/18 at 12:46; Status DC Warfarin Sodium (Coumadin) 5 mg DAILY@1700 PO Last administered on 08/28/18 18:07; Start 08/25/18 at 17:00; Stop 08/29/18 at 12:46; Status DC Warfarin Sodium (Coumadin) 7.5 mg DAILY@1700 PO Last administered on 08/17/18 17:02; Start 08/17/18 at 17:00; Stop 08/18/18 at 09:39; Status DC Warfarin Sodium (Coumadin) 10 mg DAILY@1700 PO Last administered on 08/16/18 17:15; Start 08/16/18 at 17:00; Stop 08/17/18 at 09:25; Status DC Warfarin Sodium (Coumadin) 10 mg DAILY@1700 PO Last administered on 08/19/18at 16:54; Start 08/18/18 at 17:00; Stop 08/20/18 at 08:38; Status DC Warfarin Sodium (Coumadin) 10 mg DAILY@1700 PO Last administered on 08/23/18 17:22; Start 08/21/18 at 17:00; Stop 08/24/18 at 12:13; Status DC THIERRY PRICE MD Aug 29, 2018 16:06
[2018-08-29] MEDS ORDERED: WARFARIN SOD 5 MG TAB PO ONE (17:00)
--- NOTE | 2018-08-29 18:31 | REP ---
HISTORY: Hematoma. COMPARISON: 08/13/2018 There is abnormal thickening and abnormal density involving the right iliacus and iliopsoas muscles completely stable from 08/13/2018. No new abnormal musculoskeletal findings have developed. IMPRESSION: No change from 08/13/2018. All findings from that exam seen today are stable. Electronically Signed by Ward Oneal DO 08/29/2018 07:46 P
[2018-08-29 20:00] VITALS: BP 117/54
[2018-08-29] MEDS: ATORVASTATIN 20 MG TAB PO SCH (21:42)
[2018-08-29] MEDS: SENNA 8.6 MG TAB (SENOKOT) PO SCH (21:43)
[2018-08-29] MEDS: LATANOPROST 0.005% OPHTH SOLN 2.5 ML OU SCH (21:45)
[2018-08-30 05:13] VITALS: BP 121/60
[2018-08-30] MEDS: SLF 3 ML SYR IV SCH ×4 (05:34→22:10)
[2018-08-30] MEDS: IPRATROPIUM 0.5MG/ALBUTEROL 2.5MG INH SOL UD 3ML (DUONEB)(J7620) NEB SCH ×3 (06:04→18:16)
[2018-08-30 07:02] LABS: BASO % 0.5 % (0.0-1.0); EOS # 0.4 10^3/uL (0.0-0.50); EOS % 5.7 % (0.0-3.0); HEMOGLOBIN 9.8 g/dl (13.5-17.5); LYMPH # 0.8 10^3/uL (1.5-4.5); LYMPH % 10.5 % (24.0-44.0); MEAN CORPUSCULAR HEMOGLOBIN 28.5 pg (27.0-33.0); MEAN CORPUSCULAR HGB CONC 30.6 g/dl (32.0-36.5); MONO # 0.5 10^3/uL (0.0-0.8); MONO % 7.2 % (0.0-5.0); NEUTROPHILS # 5.7 10^3/uL (1.8-7.7); NEUTROPHILS % 75.8 % (36.0-66.0); PLATELET COUNT, AUTOMATED 164 10^3/uL (150-450); RED BLOOD COUNT 3.44 10^6/uL (4.30-6.10); WHITE BLOOD COUNT 7.5 10^3/uL (4.0-10.0)
[2018-08-30 07:13] LABS: INR 3.32; PROTHROMBIN TIME 34.5 SECONDS (12.1-14.4)
[2018-08-30 07:27] LABS: BLOOD UREA NITROGEN 38 MG/DL (7-18); CALCIUM LEVEL 8.3 MG/DL (8.8-10.2); CARBON DIOXIDE LEVEL 32 MEQ/L (21-32); CHLORIDE LEVEL 103 MEQ/L (98-107); CREATININE FOR GFR 1.14 MG/DL (0.70-1.30); GLOMERULAR FILTRATION RATE > 60.0 (>42); GLUCOSE, FASTING 131 MG/DL (70-100); POTASSIUM SERUM 4.1 MEQ/L (3.5-5.1); SODIUM LEVEL 140 MEQ/L (136-145)
[2018-08-30] MEDS: DOCUSATE SODIUM 100 MG CAP PO SCH ×2 (08:11→22:09)
[2018-08-30] MEDS: SPIRONOLACTONE 25 MG TAB PO SCH (08:11)
[2018-08-30] MEDS: SITagliptin 50 MG TAB (JANUVIA) PO SCH (08:12)
[2018-08-30] MEDS: DOXYCYCLINE HYCLATE 100 MG TAB PO SCH ×2 (08:12→22:09)
[2018-08-30] MEDS: ALLOPURINOL 300 MG TAB PO SCH (08:12)
[2018-08-30] MEDS: EZETIMIBE 10 MG TAB (ZETIA) PO SCH (08:12)
[2018-08-30] MEDS: PANTOPRAZOLE 40MG TAB (PROTONIX) PO SCH ×2 (08:12→22:08)
[2018-08-30] MEDS: GABAPENTIN 100 MG CAP PO SCH ×3 (08:12→22:08)
[2018-08-30] MEDS: MAGNESIUM OXIDE 400 MG TAB (MAG-OX) PO SCH ×2 (08:12→22:09)
[2018-08-30] MEDS: FUROSEMIDE 20 MG TAB PO SCH (08:13)
[2018-08-30] MEDS: CARVedilol 12.5 MG TAB PO SCH ×2 (08:14→22:09)
[2018-08-30] MEDS: CLOPIDOGREL 75 MG TAB PO SCH (08:15)
[2018-08-30] MEDS: ACETAMINOPHEN 500 MG TAB PO SCH ×3 (08:15→22:08)
[2018-08-30] MEDS: ANALGESIC BALM CRM 120 GM TOP SCH ×3 (08:15→22:10)
--- NOTE | 2018-08-30 08:57 | IPNPDOC ---
PM&R Progress Note DATE OF SERVICE: Aug 30, 2018 Rn Clinical Trials Progress Note Subjective: Patient seen in his room, relieved to know his hematoma did not get bigger. He is complaining of dry mouth due to fluid restriction REVIEW OF SYSTEMS: The following is a completed review of systems and has been reviewed. Review of systems otherwise unremarkable. PAIN: Patient self reports ache in right leg EYES: Negative for recent vision changes EARS, NOSE, & THROAT: denies dysphagia, hearing difficulty, or throat pain CARDIOVASCULAR: denies chest pain or palpitations PULMONARY: denies cough, +mild dyspnea at rest (improving during the day) GASTROINTESTINAL: Negative for diarrhea or constipation GENITOURINARY: Negative for dysuria MUSCULOSKELETAL: right LE weakness (gradually improving) NEUROLOGICAL: right lumbosacral plexopathy SKIN: +hyperpigmented calves PSYCHIATRIC: Unremarkable All other review of systems found to be negative. PHYSICAL EXAMINATION: VITAL SIGNS: Please see below. GENERAL: Pleasant and cooperative. No acute distress. HEENT: PERRL. Extraocular movements intact. Clear conjunctiva. no facial droop CARDIOVASCULAR: Regular rate and rhythm. No murmurs, rubs, or gallops LUNGS: CTA. no wheeze, No rhonchi ABDOMEN: Soft, nontender, nondistended. Positive bowel sounds. Normal active bowel sounds NEUROLOGICAL: Alert and oriented times three. Cranial nerves II through XII grossly intact. Sensation grossly intact in bilat UE and left LE, diminished in the anterior right thigh and lateral calf EXTREMITIES: 5\\5 strength bilateral upper extremities. 5\\5 strength right ankle DF, EHL and PF, 2/5 hip flexion and 3-/5 knee extension 5/5 strength in left lower extremity. -bilat LE edema (slightly better) (-) Bhavya's bilat SKIN: +hyperpigmented calves ASSESSMENT:77-year-old M with past medical history of mechanical aortic valve replacement who presents status post cardiac/mesenteric artery stenting complicated by iliopsoas hematoma with right lumbosacral plexopathy PLAN: 1. rehab: PT, OT, assess for DMEs, knee buckling improving and ambulating further in therapy with RW, nearing Mod-I for slide board transfers, however still having inconsistent levels of assistance neede for his right leg buckling- will need a wheelchair 2. 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 CArdio: pmh mechanical aortic valve-s/p heparin drip bridge, now on COumadin goal 2.5-3.5 medicine consulted to manage - clinical suspicion for congestive heart failure- c/u IV lasix, spironolactone, fluid restriction increased to 1500cc per medicine-recs appreciated -patient with sinus tachycardia s/p one time dose of Digoxin, c/u carvedilol and diltiazem, will consider increasing-medicine following 4. Resp: ex-smoker with COPD, c/u breathing treatments and supplemental oxygen, c/u Duonebs, patient requesting oxygen at night c/u -noc-ox test 08/24/18 showed, "Time spent with an oxygen saturation less than 88% was 22 minutes and 16 seconds" will re-order 24-48 hours prior to discharge to set up coverage for home nocturnal oxygen -repeat CXR 08/23/18 showed increased vascular congestion, s/p IV Lasix, now on oral 60mg daily will monitor while receiving more intensive therapy 5. Endo: pmh DM c/u Januvia, d/c'd glipizide for low FS, will d/c ISS and check FS BID- c/u to monitor and adjust prn 6. GI px: protonix BID 7. DVT ppx: on warfarin 8. Pain: avoid opioids, c/u tylenol 1000mg standing, c/u gabapentin back down to 200mg TID to avoid, d/c'd Elavil on 08/23/18 as can cause confusion and dizziness, c/u to hold trazodone as suspect these meds contributed to patient's earlier confusion-resolved 9. Skin: acewrap and elevate legs while in bed, moisturize with Eucerin 9. Dispo: 09/03/18 to home, progressing towards goals DME: Patient would benefit from a wheelchair. He is unable to perform his MRADLs without one. His home is accessible, he is agreeable to use one, and his caregivers are comfortable helping him with his wheelchair. Allergies Coded Allergies: No Known Allergies (Verified , 09/19/16) Vital Signs Vital Signs Date Time Temp Pulse Resp B/P (MAP) Pulse Ox O2 Delivery O2 Flow Rate FiO2 08/30/18 08:14 68 115/70 08/30/18 06:04 Nasal Cannula 3.0 08/30/18 05:13 98.1 18 97 Laboratory Data CBC/BMP Laboratory Tests 08/30/18 06:24 Red Blood Count 3.44 L, Mean Corpuscular Volume 93.0, Mean Corpuscular Hemoglob in 28.5, Mean Corpuscular Hemoglobin Concent 30.6 L, Red Cell Distribution Width 17.3 H, Neutrophils (%) (Auto) 75.8 H, Lymphocytes (%) (Auto) 10.5 L, Monocytes (%) (Auto) 7.2 H, Eosinophils (%) (Auto) 5.7 H, Basophils (%) (Auto) 0.5, Neutrophils # (Auto) 5.7, Lymphocytes # (Auto) 0.8 L, Monocytes # (Auto) 0.5, Eosinophils # (Auto) 0.4, Basophils # (Auto) 0.0, Calcium Level 8.3 L Labs 24H Laboratory Tests 2 08/29/18 11:43: Bedside Glucose (Misc Panel) 122H 08/29/18 17:57: Bedside Glucose (Misc Panel) 110 08/30/18 06:24: Immature Granulocyte % (Auto) 0.3, White Blood Count 7.5, Red Blood Count 3.44L, Hemoglobin 9.8L, Hematocrit 32.0L, Mean Corpuscular Volume 93.0, Mean Corpuscular Hemoglobin 28.5, Mean Corpuscular Hemoglobin Concent 30.6L, Red Cell Distribution Width 17.3H, Platelet Count 164, Neutrophils (%) (Auto) 75.8H, Lymphocytes (%) (Auto) 10.5L, Monocytes (%) (Auto) 7.2H, Eosinophils (%) (Auto) 5.7H, Basophils (%) (Auto) 0.5, Neutrophils # (Auto) 5.7, Lymphocytes # (Auto) 0.8L, Monocytes # (Auto) 0.5, Eosinophils # (Auto) 0.4, Basophils # (Auto) 0.0, Nucleated Red Blood Cells % (auto) 0.0, Prothrombin Time 34.5H, Prothromb Time International Ratio 3.32, Anion Gap 5L, Glomerular Filtration Rate > 60.0, Blood Urea Nitrogen 38H, Creatinine 1.14, Sodium Level 140, Potassium Level 4.1, Chloride Level 103, Carbon Dioxide Level 32, Calcium Level 8.3L Microbiology Microbiology 08/25/18 Blood Culture - Preliminary, Resulted No Growth after 72 hours. All specime... Current Medications Current Medications Current Medications Acetaminophen (Tylenol Tab) 650 mg Q4HP PRN PO MILD PAIN (PS 1-4); Start 08/15/18 at 11:15; Stop 08/15/18 at 19:45; Status DC Acetaminophen (Tylenol Tab) 1,000 mg TID PO Last administered on 08/30/18at 08:15; Start 08/15/18 at 21:00 Al Hydrox/Mg Hydrox/Simethicone (Mylanta) 30 ml Q4HP PRN PO DYSPEPSIA; Start 08/15/18 at 11:15 Albuterol Sulfate (Proventil Neb) 2.5 mg RBID NEB Last administered on 08/15/18at 12:00; Start 08/15/18 at 20:00; Stop 08/16/18 at 16:59; Status DC Albuterol Sulfate (Proventil, Ventolin Hfa) 2 puff Q4HP PRN INH SHORTNESS OF BREATH Last administered on 08/16/18at 11:11; Start 08/15/18 at 11:15 Albuterol/ Ipratropium (Duoneb (Ipr 0.5mg/Alb 2.5mg)) 3 ml RTID NEB Last administered on 08/30/18at 06:04; Start 08/16/18 at 20:00 Allopurinol (Zyloprim) 300 mg DAILY PO Last administered on 08/30/18at 08:12; Start 08/16/18 at 09:00 Amitriptyline HCl (Elavil) 25 mg QHS PO Last administered on 08/22/18 20:31; Start 08/21/18 at 21:00; Stop 08/23/18 at 10:31; Status DC Atorvastatin Calcium (Lipitor) 80 mg QHS PO Last administered on 08/29/18 21:42; Start 08/15/18 at 21:00 Bisacodyl (Dulcolax Suppository) 10 mg DAILYPRN PRN ID CONSTIPATION; Start 08/15/18 at 11:15 Carvedilol (COReg) 12.5 mg BID PO Last administered on 08/27/18 09:26; Start 08/15/18 at 21:00; Stop 08/27/18 at 10:08; Status DC Carvedilol (COReg) 12.5 mg BID PO Last administered on 08/29/18 21:49; Start 08/29/18 at 21:00 Carvedilol (COReg) 25 mg BID PO Last administered on 08/28/18 20:54; Start 08/27/18 at 21:00; Stop 08/29/18 at 12:49; Status DC Clopidogrel Bisulfate (PLAVix) 75 mg DAILY PO Last administered on 08/30/18 08:15; Start 08/16/18 at 09:00 Dextrose (Dextrose 50%) 25 ml ASDIRECTED PRN IV SEE LABEL COMMENTS; Start 08/15/18 at 11:15 Digoxin (Lanoxin) 0.25 mg STAT STAT IV Last administered on 08/25/18 14:46; Start 08/25/18 at 13:48; Stop 08/25/18 at 13:49; Status DC Diltiazem HCl (Cardizem) 90 mg Q8H PO Last administered on 08/30/18 05:25; Start 08/15/18 at 14:00 Docusate Sodium (Colace) 100 mg BID PO Last administered on 08/29/18 21:49; Start 08/15/18 at 21:00 Doxycycline Hyclate (Vibramycin) 100 mg BID PO Last administered on 08/30/18 08:12; Start 08/22/18 at 21:00 EZETIMIBE (Zetia) 10 mg DAILY PO Last administered on 08/30/18 08:12; Start 08/16/18 at 09:00 Furosemide (LASIX injection) 20 mg ASDIRECTED PRN IV SEE LABEL COMMENTS; Start 08/21/18 at 13:00; Stop 08/21/18 at 13:26; Status DC Furosemide (LASIX injection) 20 mg DAILY IV Last administered on 08/27/18at 09:25; Start 08/26/18 at 09:00; Stop 08/27/18 at 17:32; Status DC Furosemide (LASIX injection) 40 mg DAILY IV Last administered on 08/25/18at 09:20; Start 08/24/18 at 09:00; Stop 08/25/18 at 13:49; Status DC Furosemide (Lasix) 40 mg BID@,17 PO Last administered on 08/23/18at 08:13; Start 08/16/18 at 09:00; Stop 08/23/18 at 16:06; Status DC Furosemide (Lasix) 60 mg DAILY PO Last administered on 08/30/18at 08:13; Start 08/28/18 at 09:00 Gabapentin (Neurontin) 200 mg TID PO Last administered on 08/21/18at 07:52; Start 08/15/18 at 16:00; Stop 08/21/18 at 12:57; Status DC Gabapentin (Neurontin) 200 mg TID PO Last administered on 08/30/18at 08:12; Start 08/23/18 at 16:00 Gabapentin (Neurontin) 400 mg TID PO Last administered on 08/23/18at 08:12; Start 08/21/18 at 16:00; Stop 08/23/18 at 10:17; Status DC Glipizide (Glucotrol Xl) 5 mg DAILY@0730 PO Last administered on 08/26/18at 08:11; Start 08/16/18 at 07:30; Stop 08/26/18 at 09:02; Status DC Glucagon (Glucagon) 1 mg ASDIRECTED PRN SC SEE LABEL COMMENTS; Start 08/15/18 at 11:15 Glucose (Glucose) 16 GM ASDIRECTED PRN PO SEE LABEL COMMENTS; Start 08/15/18 at 11:15 Heparin Sodium (Porcine) (Heparin) ASDIRECTED PRN IV SEE LABEL COMMENTS; Start 08/15/18 at 14:15; Stop 08/16/18 at 08:34; Status DC Heparin Sodium (Porcine) 93996 units/IV Miscellaneous Supplies 250 ml @ 0 mls/hr Q0M IV Last administered on 08/15/18at 12:00; Start 08/15/18 at 14:05; Stop 08/16/18 at 08:34; Status DC Heparin Sodium (Porcine) 75139 units/IV Miscellaneous Supplies 250 ml @ 0 mls/hr Q0M IV ; Start 08/15/18 at 14:05; Status UNV Insulin Human Lispro (HumaLOG INSULIN) SEE PROTOCOL TABLE AC SC Last administered on 08/29/18at 08:54; Start 08/15/18 at 12:00; Stop 08/29/18 at 12:48; Status DC Insulin Human Lispro (HumaLOG INSULIN) SEE PROTOCOL TABLE QHS SC ; Start 08/15/18 at 21:00; Stop 08/29/18 at 12:48; Status DC Latanoprost (Xalatan 0.005% Op Soln) 1 drop QHS OU Last administered on 08/29/18at 21:45; Start 08/15/18 at 21:00 Magnesium Hydroxide (Milk Of Magnesia) 30 ml DAILYPRN PRN PO CONSTIPATION; Start 08/15/18 at 11:15 Magnesium Oxide (Mag-Ox) 400 mg BID PO Last administered on 08/30/18at 08:12; Start 08/19/18 at 21:00 Magnesium Oxide (Mag-Ox) 400 mg DAILY PO Last administered on 08/19/18at 08:07; Start 08/16/18 at 09:00; Stop 08/19/18 at 09:58; Status DC Menthol/Methyl Salicylate (Bengay Cream) right upper thigh ... TID TOP Last administered on 08/30/18at 08:15; Start 08/20/18 at 16:00 Miscellaneous (Unresolved Clarification Entry) SEE LABEL COMMENTS DAILY XX Last administered on 08/29/18at 09:00; Start 08/29/18 at 09:00; Stop 08/29/18 at 12:52; Status DC Nitroglycerin (Nitrostat (1/ 150)) 0.4 mg Q5MP PRN SL CHEST PAIN; Start 08/15/18 at 11:15 Non-Formulary Medication (Heparin Iv Rate Change Documentation ml/ Hr) ASDIRECTED XX ; Start 08/15/18 at 14:15; Stop 08/16/18 at 08:34; Status DC Oxycodone HCl (Roxicodone, Oxyir) 5 mg Q4HP PRN PO PAIN; Start 08/15/18 at 11:15; Stop 08/15/18 at 19:45; Status DC Pantoprazole Sodium (Protonix) 40 mg BID PO Last administered on 08/30/18 08:12; Start 08/15/18 at 21:00 Ramelteon (Rozerem) 8 mg QHS PO Last administered on 08/19/18 21:05; Start 08/18/18 at 21:00; Stop 08/20/18 at 16:18; Status DC Senna (Senokot) 1 tab QHS PO Last administered on 08/29/18 21:43; Start 08/15/18 at 21:00 Sitagliptin Phosphate (Januvia) 50 mg DAILY PO Last administered on 08/30/18 08:12; Start 08/16/18 at 09:00 Sodium Chloride (Saline Lock Flush) 2 ml ASDIRECTED PRN IV SEE LABEL COMMENTS Last administered on 08/27/18 09:27; Start 08/21/18 at 14:15 Sodium Chloride (Saline Lock Flush) 2 ml SLF IV Last administered on 08/30/18 05:34; Start 08/21/18 at 22:00 Spironolactone (Aldactone) 25 mg QAM PO Last administered on 08/30/18 08:11; Start 08/20/18 at 19:15 Tizanidine HCl (Zanaflex) 2 mg TIDP PRN PO SPASMS Last administered on 08/20/18 08:52; Start 08/15/18 at 11:15; Stop 08/20/18 at 16:18; Status DC Trazodone HCl (Desyrel) 50 mg QHS PO Last administered on 08/22/18 20:31; Start 08/20/18 at 21:00; Stop 08/23/18 at 10:17; Status DC Warfarin Sodium (Coumadin) 2 mg DAILY@1700 PO Last administered on 08/24/18 16:57; Start 08/24/18 at 17:00; Stop 08/25/18 at 13:55; Status DC Warfarin Sodium (Coumadin) 5 mg DAILY@1700 PO Last administered on 08/28/18 18:07; Start 08/24/18 at 17:00; Stop 08/29/18 at 12:46; Status DC Warfarin Sodium (Coumadin) 5 mg DAILY@1700 PO Last administered on 08/28/18 18:07; Start 08/25/18 at 17:00; Stop 08/29/18 at 12:46; Status DC Warfarin Sodium (Coumadin) 7.5 mg DAILY@1700 PO Last administered on 08/17/18 17:02; Start 08/17/18 at 17:00; Stop 08/18/18 at 09:39; Status DC Warfarin Sodium (Coumadin) 10 mg DAILY@1700 PO Last administered on 08/16/18 17:15; Start 08/16/18 at 17:00; Stop 08/17/18 at 09:25; Status DC Warfarin Sodium (Coumadin) 10 mg DAILY@1700 PO Last administered on 08/19/18at 16:54; Start 08/18/18 at 17:00; Stop 08/20/18 at 08:38; Status DC Warfarin Sodium (Coumadin) 10 mg DAILY@1700 PO Last administered on 08/23/18 17:22; Start 08/21/18 at 17:00; Stop 08/24/18 at 12:13; Status DC THIERRY PRICE MD Aug 30, 2018 08:57
[2018-08-30 09:00] VITALS: BP 115/70
[2018-08-30] MEDS ORDERED: SALIVA SUBSTITUTE(MOUTHKOTE) BTL MT PRN (10:30)
[2018-08-30 14:00] VITALS: BP 122/64
--- NOTE | 2018-08-30 16:49 | IPN ---
DATE: 08/30/2018 INFECTIOUS DISEASE PROGRESS NOTE SUBJECTIVE: The patient is examined at bedside. He has no acute complaints and is doing well on doxycycline, currently on day 9. No nausea, vomiting, abdominal pain, diarrhea, shortness of breath or coughing. No fevers or chills. Continues to work with physical therapy (PT) and occupational therapy (OT). He states that his right leg weakness is improving with more range of motion and sensation is returning. OBJECTIVE: VITAL SIGNS: Temperature 98.1, pulse 68, respirations 18, blood pressure 115/70, mean arterial pressure of 85, pulse oximetry 91% on 3 liters nasal cannula. GENERAL: Resting comfortably in bed. No acute distress. Alert and oriented times three. HEENT: Normocephalic, atraumatic. Anicteric sclerae. Moist mucous membranes without any lesions. LUNGS: Clear throughout without any adventitious sounds. CARDIOVASCULAR: Regular rate and rhythm without any murmurs, systolic click is present, likely from history of mechanical aortic valve. ABDOMEN: Soft, nondistended, nontender. Normoactive wounds. EXTREMITIES: 1 to 2+ pitting edema in bilateral lower extremities with chronic venous stasis changes. MUSCULOSKELETAL: 5/5 strength in all extremities, right lower extremity has 4/5 strength, less tender to palpation compared to prior examination. SKIN: No visible lesions or ulcerations. LABORATORIES: WBC 7.5, hemoglobin and hematocrit 9.8 and 32.0, platelets 164. Sodium and potassium 140 and 4.1. BUN and creatinine 38 and 1.14. Urine culture has no growth. Blood culture with no growth. ASSESSMENT AND PLAN: 77-year-old male here for right hip hematoma, in rehabilitation. Continues on doxycycline, day 9, for positive Lyme titers. He is tolerating medication well. He was again reeducated on risk of photosensitivity and counseled on sun precautions. Continue doxycycline for a total of 21 days. He was started on this on 08/22/2018 and his end date will be approximately 09/11/2018. Thank you for the consultation. Please contact us again if we can be of further assistance. VICKI
[2018-08-30 20:00] VITALS: BP 118/62
[2018-08-30] MEDS: SENNA 8.6 MG TAB (SENOKOT) PO SCH (22:08)
[2018-08-30] MEDS: ATORVASTATIN 20 MG TAB PO SCH (22:09)
[2018-08-30] MEDS: LATANOPROST 0.005% OPHTH SOLN 2.5 ML OU SCH (22:10)
[2018-08-31 06:00] VITALS: BP 107/61
[2018-08-31 08:25] LABS: INR 3.28; PROTHROMBIN TIME 34.1 SECONDS (12.1-14.4)
[2018-08-31] MEDS: FUROSEMIDE 20 MG TAB PO SCH (08:56)
[2018-08-31] MEDS: SITagliptin 50 MG TAB (JANUVIA) PO SCH (08:56)
[2018-08-31] MEDS: CLOPIDOGREL 75 MG TAB PO SCH (08:57)
[2018-08-31] MEDS: PANTOPRAZOLE 40MG TAB (PROTONIX) PO SCH ×2 (08:57→21:29)
[2018-08-31] MEDS: ACETAMINOPHEN 500 MG TAB PO SCH ×3 (08:57→21:28)
[2018-08-31] MEDS: MAGNESIUM OXIDE 400 MG TAB (MAG-OX) PO SCH ×2 (08:57→21:28)
[2018-08-31] MEDS: EZETIMIBE 10 MG TAB (ZETIA) PO SCH (08:58)
[2018-08-31] MEDS: DOCUSATE SODIUM 100 MG CAP PO SCH ×2 (08:58→21:27)
[2018-08-31] MEDS: SPIRONOLACTONE 25 MG TAB PO SCH (08:58)
[2018-08-31] MEDS: DOXYCYCLINE HYCLATE 100 MG TAB PO SCH ×2 (08:58→21:29)
[2018-08-31] MEDS: GABAPENTIN 100 MG CAP PO SCH ×3 (08:58→21:28)
[2018-08-31] MEDS: ALLOPURINOL 300 MG TAB PO SCH (08:58)
[2018-08-31 09:00] VITALS: BP 125/64
[2018-08-31] MEDS: CARVedilol 12.5 MG TAB PO SCH ×2 (09:01→21:00)
[2018-08-31] MEDS: IPRATROPIUM 0.5MG/ALBUTEROL 2.5MG INH SOL UD 3ML (DUONEB)(J7620) NEB SCH ×4 (09:02→19:42)
[2018-08-31] MEDS: ANALGESIC BALM CRM 120 GM TOP SCH ×3 (09:02→21:29)
[2018-08-31 14:00] VITALS: BP 131/60
[2018-08-31 20:00] VITALS: BP 107/59
[2018-08-31] MEDS: ATORVASTATIN 20 MG TAB PO SCH (21:28)
[2018-08-31] MEDS: LATANOPROST 0.005% OPHTH SOLN 2.5 ML OU SCH (21:29)
[2018-08-31] MEDS: SENNA 8.6 MG TAB (SENOKOT) PO SCH (21:29)
[2018-09-01 06:00] VITALS: BP 148/78
[2018-09-01] MEDS: IPRATROPIUM 0.5MG/ALBUTEROL 2.5MG INH SOL UD 3ML (DUONEB)(J7620) NEB SCH ×3 (06:14→20:28)
[2018-09-01 07:32] LABS: INR 2.61; PROTHROMBIN TIME 28.5 SECONDS (12.1-14.4)
[2018-09-01] MEDS: DOCUSATE SODIUM 100 MG CAP PO SCH ×2 (07:45→20:54)
[2018-09-01] MEDS: SPIRONOLACTONE 25 MG TAB PO SCH (07:45)
[2018-09-01] MEDS: MAGNESIUM OXIDE 400 MG TAB (MAG-OX) PO SCH ×2 (07:46→20:53)
[2018-09-01] MEDS: EZETIMIBE 10 MG TAB (ZETIA) PO SCH (07:46)
[2018-09-01] MEDS: DOXYCYCLINE HYCLATE 100 MG TAB PO SCH ×2 (07:46→20:54)
[2018-09-01] MEDS: PANTOPRAZOLE 40MG TAB (PROTONIX) PO SCH ×2 (07:46→20:54)
[2018-09-01] MEDS: CARVedilol 12.5 MG TAB PO SCH ×2 (07:46→20:54)
[2018-09-01] MEDS: ALLOPURINOL 300 MG TAB PO SCH (07:46)
[2018-09-01] MEDS: CLOPIDOGREL 75 MG TAB PO SCH (07:46)
[2018-09-01] MEDS: SITagliptin 50 MG TAB (JANUVIA) PO SCH (07:47)
[2018-09-01] MEDS: FUROSEMIDE 20 MG TAB PO SCH (07:47)
[2018-09-01] MEDS: GABAPENTIN 100 MG CAP PO SCH ×3 (07:47→20:54)
[2018-09-01] MEDS: ACETAMINOPHEN 500 MG TAB PO SCH ×3 (07:48→20:53)
[2018-09-01] MEDS: ANALGESIC BALM CRM 120 GM TOP SCH ×3 (07:51→20:55)
--- NOTE | 2018-09-01 09:49 | IPNPDOC ---
Subjective Date Seen The patient was seen on 09/01/18. Subjective Chief Complaint/HPI RIGHT iliopsoas hematoma Events since last encounter denies c/o. tolerating therapy well. Pulmonary: Denies: Dyspnea, Cough Cardiovascular: Reports: Edema (chronic); Denies: Chest Pain, Palpitations, Orthopnea, Paroxysmal Noc. Dyspnea, Lt Headedness, Other Symptoms Gastrointestinal: Denies: Nausea, Vomiting, Abdominal Pain, Diarrhea, Constipation Genitourinary: Denies: Dysuria, Frequency, Incontinence, Retention Objective Physical Examination General Exam: Positive: Alert, Cooperative, No Acute Distress Eye Exam: Positive: PERRLA, EOMI ENT Exam: Positive: Atraumatic, Mucous membr. moist/pink Neck Exam: Positive: Supple; Negative: JVD Heart Exam: Positive: Rate Normal, Regular Rhythm, Other (S1, S2 heard, no rubs or gallops) Abdomen Exam: Positive: Normal bowel sounds, Soft; Negative: Tenderness Extremity Exam: Positive: Edema, Other (3+ edema to BLE with venous stasis changes, rubor) Skin Exam: Positive: Other skin issue (BLE stasis changes) Neuro Exam: Positive: Normal Speech, Strength at 5/5 X4 ext Psych Exam: Positive: Mental status NL, Mood NL, Oriented x 3 Assessment /Plan Problems (1) Hematoma of iliopsoas muscle Status: Acute Problem Text: continue with PT/rehab recommendations. (2) Lyme disease Status: Acute Problem Text: Started on doxycycline on 08/22/18. Needs to finish 21 day course. (3) Aortic valve disorder Status: Chronic Problem Text: mechanical aortic valve. INRs stable on current regimen. 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 (5) Anemia, iron deficiency Status: Chronic (6) Diabetes Status: Chronic Response to Treatment: Stable (7) Hypertension Status: Chronic Response to Treatment: Stable (8) Hyperlipidemia Status: Chronic Response to Treatment: Stable (9) Gout Status: Chronic Response to Treatment: Stable (10) Paroxysmal a-fib Status: Chronic Problem Text: continue plavix, warfarin and statin Plan/VTE VTE Prophylaxis Ordered?: Yes VS, I&O, 24H, Fishbone Vital Signs/I&O Vital Signs Date Time Temp Pulse Resp B/P (MAP) Pulse Ox O2 Delivery O2 Flow Rate FiO2 09/01/18 07:46 98 148/78 09/01/18 06:00 98.4 18 97 3.0 08/30/18 06:04 Nasal Cannula I&O- Last 24 Hours up to 6 AM 09/01/18 06:00 Intake Total 600 ml Output Total 1600 ml Balance -1000 ml Laboratory Data 24H LABS Laboratory Tests 2 08/31/18 16:49: Bedside Glucose (Misc Panel) 203H 09/01/18 06:24: Bedside Glucose (Misc Panel) 126H 09/01/18 06:28: Prothrombin Time 28.5H, Prothromb Time International Ratio 2.61 Microbiology Microbiology 08/25/18 Blood Culture - Final, Complete NO GROWTH AFTER 5 DAYS Jaja Garza [facility] Sep 01, 2018 09:49
[2018-09-01 14:00] VITALS: BP 134/72
[2018-09-01] MEDS ORDERED: WARFARIN SOD 5 MG TAB PO SCH (17:00)
[2018-09-01 20:00] VITALS: BP 142/82
[2018-09-01] MEDS: ATORVASTATIN 20 MG TAB PO SCH (20:53)
[2018-09-01] MEDS: LATANOPROST 0.005% OPHTH SOLN 2.5 ML OU SCH (20:55)
[2018-09-01] MEDS: SENNA 8.6 MG TAB (SENOKOT) PO SCH (20:55)
[2018-09-02 04:45] VITALS: BP 160/90
[2018-09-02] MEDS: IPRATROPIUM 0.5MG/ALBUTEROL 2.5MG INH SOL UD 3ML (DUONEB)(J7620) NEB SCH ×3 (07:11→19:49)
[2018-09-02 07:49] LABS: INR 2.04; PROTHROMBIN TIME 23.4 SECONDS (12.1-14.4)
[2018-09-02] MEDS: ANALGESIC BALM CRM 120 GM TOP SCH ×3 (09:00→20:30)
[2018-09-02] MEDS: SITagliptin 50 MG TAB (JANUVIA) PO SCH (09:34)
[2018-09-02] MEDS: EZETIMIBE 10 MG TAB (ZETIA) PO SCH (09:34)
[2018-09-02] MEDS: SPIRONOLACTONE 25 MG TAB PO SCH (09:34)
[2018-09-02] MEDS: FUROSEMIDE 20 MG TAB PO SCH (09:34)
[2018-09-02] MEDS: CLOPIDOGREL 75 MG TAB PO SCH (09:35)
[2018-09-02] MEDS: ALLOPURINOL 300 MG TAB PO SCH (09:35)
[2018-09-02] MEDS: DOCUSATE SODIUM 100 MG CAP PO SCH ×2 (09:35→20:31)
[2018-09-02] MEDS: DOXYCYCLINE HYCLATE 100 MG TAB PO SCH ×2 (09:35→20:31)
[2018-09-02] MEDS: PANTOPRAZOLE 40MG TAB (PROTONIX) PO SCH ×2 (09:35→20:31)
[2018-09-02] MEDS: GABAPENTIN 100 MG CAP PO SCH ×3 (09:35→20:31)
[2018-09-02] MEDS: MAGNESIUM OXIDE 400 MG TAB (MAG-OX) PO SCH ×2 (09:35→20:31)
[2018-09-02] MEDS: CARVedilol 12.5 MG TAB PO SCH ×2 (09:35→20:32)
[2018-09-02] MEDS: ACETAMINOPHEN 500 MG TAB PO SCH ×3 (09:36→20:32)
[2018-09-02 14:00] VITALS: BP 120/56
--- NOTE | 2018-09-02 16:06 | IPNPDOC ---
PM&R Progress Note DATE OF SERVICE: Sep 02, 2018 [employer] Progress Note Subjective: Patient seen in his room, reporting his breathing is better overall and he is eager to return home tomorrow with his family. REVIEW OF SYSTEMS: The following is a completed review of systems and has been reviewed. Review of systems otherwise unremarkable. PAIN: Patient self reports ache in right leg EYES: Negative for recent vision changes EARS, NOSE, & THROAT: denies dysphagia, hearing difficulty, or throat pain CARDIOVASCULAR: denies chest pain or palpitations PULMONARY: denies cough, +mild dyspnea at rest (improving during the day) GASTROINTESTINAL: Negative for diarrhea or constipation GENITOURINARY: Negative for dysuria MUSCULOSKELETAL: right LE weakness (gradually improving) NEUROLOGICAL: right lumbosacral plexopathy SKIN: +hyperpigmented calves PSYCHIATRIC: Unremarkable All other review of systems found to be negative. PHYSICAL EXAMINATION: VITAL SIGNS: Please see below. GENERAL: Pleasant and cooperative. No acute distress. HEENT: PERRL. Extraocular movements intact. Clear conjunctiva. no facial droop CARDIOVASCULAR: Regular rate and rhythm. No murmurs, rubs, or gallops LUNGS: CTA. no wheeze, No rhonchi ABDOMEN: Soft, nontender, nondistended. Positive bowel sounds. Normal active bowel sounds NEUROLOGICAL: Alert and oriented times three. Cranial nerves II through XII grossly intact. Sensation grossly intact in bilat UE and left LE, diminished in the anterior right thigh and lateral calf EXTREMITIES: 5\\5 strength bilateral upper extremities. 5\\5 strength right ankle DF, EHL and PF, 2/5 hip flexion and 3-/5 knee extension 5/5 strength in left lower extremity. -bilat LE edema (slightly better) (-) Bhavya's bilat SKIN: +hyperpigmented calves ASSESSMENT:77-year-old M with past medical history of mechanical aortic valve replacement who presents status post cardiac/mesenteric artery stenting complicated by iliopsoas hematoma with right lumbosacral plexopathy PLAN: 1. rehab: PT, OT, assess for DMEs, knee buckling improving and ambulating further in therapy with RW, nearing Mod-I for slide board transfers, however still having inconsistent levels of assistance needed for his right leg buckling- will need a wheelchair 2. Neuro: acute onset right lumbosacral compression plexothapy causing profound RLE paralysis and decreased sensation- will refer to outpatient neurology for NCS/EMG -positive Lyme titers- ID-consulted c/u 3 week course of doxycycline, recs appreciated -On 08/23/18 patient reported confusion and feeling drunk-stat CT negative for acute bleed, pt has mechanical valve so cleared valve and mesenteric artery stent with radiology for MRI - 08/23/18 MRI- punctate subacute infarction in the right parietal lobe, patient already on statin and Eliquis, will optimize his blood pressure and refer to neurology outpatient, his clinical symptoms at this time do not correlate with the lesion seen on MRI- discussed and educated patient on modifiable risk factors- will refer to outpatient neurology at discharge -suspect trazodone and recent addition of Elavil contributing to morning confusion-improved now off meds 3. CArdio: pmh mechanical aortic valve-s/p heparin drip bridge, now on COumadin goal 2.5-3.5 medicine consulted to manage- INR subtherapeutic today at 2.03, will given 10mg tonight - clinical suspicion for congestive heart failure- c/u IV lasix, spironolactone, fluid restriction increased to 1500cc per medicine-recs appreciated -patient with sinus tachycardia s/p one time dose of Digoxin, c/u carvedilol and diltiazem, will consider increasing-medicine following 4. Resp: ex-smoker with COPD, c/u breathing treatments and supplemental oxygen, c/u Duonebs, patient requesting oxygen at night c/u -noc-ox test 08/24/18 showed, "Time spent with an oxygen saturation less than 88% was 22 minutes and 16 seconds" -repeat noc-ox ordered for tonight- will refer for outpatient sleep study -repeat CXR 08/23/18 showed increased vascular congestion, s/p IV Lasix, now on oral 60mg daily will monitor while receiving more intensive therapy 5. Endo: pmh DM c/u Januvia, d/c'd glipizide for low FS, will d/c ISS and check FS BID- c/u to monitor and adjust prn 6. GI px: protonix BID 7. DVT ppx: on warfarin 8. Pain: avoid opioids, c/u tylenol 1000mg standing, c/u gabapentin back down to 200mg TID to avoid, d/c'd Elavil on 08/23/18 as can cause confusion and dizziness, c/u to hold trazodone as suspect these meds contributed to patient's earlier confusion-resolved 9. Skin: acewrap and elevate legs while in bed, moisturize with Eucerin 9. Dispo: 09/03/18 to home, progressing towards goals DME: Patient would benefit from a wheelchair. He is unable to perform his MRADLs without one. His home is accessible, he is agreeable to use one, and his caregivers are comfortable helping him with his wheelchair. Allergies Coded Allergies: No Known Allergies (Verified , 09/19/16) Vital Signs Vital Signs Date Time Temp Pulse Resp B/P (MAP) Pulse Ox O2 Delivery O2 Flow Rate FiO2 09/02/18 14:00 98.1 99 18 120/56 (77) 92 09/02/18 04:45 3.0 09/01/18 14:12 Nasal Cannula Laboratory Data Labs 24H Laboratory Tests 2 09/01/18 16:35: Bedside Glucose (Misc Panel) 143H 09/02/18 06:04: Bedside Glucose (Misc Panel) 137H 09/02/18 07:09: Prothrombin Time 23.4H, Prothromb Time International Ratio 2.04 Microbiology Microbiology 08/25/18 Blood Culture - Final, Complete NO GROWTH AFTER 5 DAYS Current Medications Current Medications Current Medications Acetaminophen (Tylenol Tab) 650 mg Q4HP PRN PO MILD PAIN (PS 1-4); Start 08/15/18 at 11:15; Stop 08/15/18 at 19:45; Status DC Acetaminophen (Tylenol Tab) 1,000 mg TID PO Last administered on 09/02/18at 09:36; Start 08/15/18 at 21:00 Al Hydrox/Mg Hydrox/Simethicone (Mylanta) 30 ml Q4HP PRN PO DYSPEPSIA; Start 08/15/18 at 11:15 Albuterol Sulfate (Proventil Neb) 2.5 mg RBID NEB Last administered on 08/15/18at 12:00; Start 08/15/18 at 20:00; Stop 08/16/18 at 16:59; Status DC Albuterol Sulfate (Proventil, Ventolin Hfa) 2 puff Q4HP PRN INH SHORTNESS OF BREATH Last administered on 08/16/18at 11:11; Start 08/15/18 at 11:15 Albuterol/ Ipratropium (Duoneb (Ipr 0.5mg/Alb 2.5mg)) 3 ml RTID NEB Last administered on 09/02/18 14:43; Start 08/16/18 at 20:00 Allopurinol (Zyloprim) 300 mg DAILY PO Last administered on 09/02/18 09:35; Start 08/16/18 at 09:00 Amitriptyline HCl (Elavil) 25 mg QHS PO Last administered on 08/22/18 20:31; Start 08/21/18 at 21:00; Stop 08/23/18 at 10:31; Status DC Atorvastatin Calcium (Lipitor) 80 mg QHS PO Last administered on 09/01/18 20:53; Start 08/15/18 at 21:00 Bisacodyl (Dulcolax Suppository) 10 mg DAILYPRN PRN DC CONSTIPATION; Start 08/15/18 at 11:15 Carvedilol (COReg) 12.5 mg BID PO Last administered on 08/27/18 09:26; Start 08/15/18 at 21:00; Stop 08/27/18 at 10:08; Status DC Carvedilol (COReg) 12.5 mg BID PO Last administered on 09/02/18 09:35; Start 08/29/18 at 21:00 Carvedilol (COReg) 25 mg BID PO Last administered on 08/28/18 20:54; Start 08/27/18 at 21:00; Stop 08/29/18 at 12:49; Status DC Clopidogrel Bisulfate (PLAVix) 75 mg DAILY PO Last administered on 09/02/18 09:35; Start 08/16/18 at 09:00 Dextrose (Dextrose 50%) 25 ml ASDIRECTED PRN IV SEE LABEL COMMENTS; Start 08/15/18 at 11:15 Digoxin (Lanoxin) 0.25 mg STAT STAT IV Last administered on 08/25/18 14:46; Start 08/25/18 at 13:48; Stop 08/25/18 at 13:49; Status DC Diltiazem HCl (Cardizem) 90 mg Q8H PO Last administered on 09/02/18 06:07; Start 08/15/18 at 14:00 Docusate Sodium (Colace) 100 mg BID PO Last administered on 09/02/18 09:35; Start 08/15/18 at 21:00 Doxycycline Hyclate (Vibramycin) 100 mg BID PO Last administered on 09/02/18 09:35; Start 08/22/18 at 21:00 EZETIMIBE (Zetia) 10 mg DAILY PO Last administered on 09/02/18 09:34; Start 08/16/18 at 09:00 Furosemide (LASIX injection) 20 mg ASDIRECTED PRN IV SEE LABEL COMMENTS; Start 08/21/18 at 13:00; Stop 08/21/18 at 13:26; Status DC Furosemide (LASIX injection) 20 mg DAILY IV Last administered on 08/27/18 09:25; Start 08/26/18 at 09:00; Stop 08/27/18 at 17:32; Status DC Furosemide (LASIX injection) 40 mg DAILY IV Last administered on 08/25/18 09:20; Start 08/24/18 at 09:00; Stop 08/25/18 at 13:49; Status DC Furosemide (Lasix) 40 mg BID@,17 PO Last administered on 08/23/18 08:13; Start 08/16/18 at 09:00; Stop 08/23/18 at 16:06; Status DC Furosemide (Lasix) 60 mg DAILY PO Last administered on 09/02/18 09:34; Start 08/28/18 at 09:00 Gabapentin (Neurontin) 200 mg TID PO Last administered on 08/21/18at 07:52; Start 08/15/18 at 16:00; Stop 08/21/18 at 12:57; Status DC Gabapentin (Neurontin) 200 mg TID PO Last administered on 09/02/18 09:35; Start 08/23/18 at 16:00 Gabapentin (Neurontin) 400 mg TID PO Last administered on 08/23/18 08:12; Start 08/21/18 at 16:00; Stop 08/23/18 at 10:17; Status DC Glipizide (Glucotrol Xl) 5 mg DAILY@0730 PO Last administered on 08/26/18 08:11; Start 08/16/18 at 07:30; Stop 08/26/18 at 09:02; Status DC Glucagon (Glucagon) 1 mg ASDIRECTED PRN SC SEE LABEL COMMENTS; Start 08/15/18 at 11:15 Glucose (Glucose) 16 GM ASDIRECTED PRN PO SEE LABEL COMMENTS; Start 08/15/18 at 11:15 Heparin Sodium (Porcine) (Heparin) ASDIRECTED PRN IV SEE LABEL COMMENTS; Start 08/15/18 at 14:15; Stop 08/16/18 at 08:34; Status DC Heparin Sodium (Porcine) 68753 units/IV Miscellaneous Supplies 250 ml @ 0 mls/hr Q0M IV Last administered on 08/15/18at 12:00; Start 08/15/18 at 14:05; Stop 08/16/18 at 08:34; Status DC Heparin Sodium (Porcine) 99332 units/IV Miscellaneous Supplies 250 ml @ 0 mls/hr Q0M IV ; Start 08/15/18 at 14:05; Status UNV Insulin Human Lispro (HumaLOG INSULIN) SEE PROTOCOL TABLE AC SC Last administered on 08/29/18at 08:54; Start 08/15/18 at 12:00; Stop 08/29/18 at 12:48; Status DC Insulin Human Lispro (HumaLOG INSULIN) SEE PROTOCOL TABLE QHS SC ; Start 08/15/18 at 21:00; Stop 08/29/18 at 12:48; Status DC Latanoprost (Xalatan 0.005% Op Soln) 1 drop QHS OU Last administered on 09/01/18at 20:55; Start 08/15/18 at 21:00 Magnesium Hydroxide (Milk Of Magnesia) 30 ml DAILYPRN PRN PO CONSTIPATION; Start 08/15/18 at 11:15 Magnesium Oxide (Mag-Ox) 400 mg BID PO Last administered on 09/02/18at 09:35; Start 08/19/18 at 21:00 Magnesium Oxide (Mag-Ox) 400 mg DAILY PO Last administered on 08/19/18at 08:07; Start 08/16/18 at 09:00; Stop 08/19/18 at 09:58; Status DC Menthol/Methyl Salicylate (Bengay Cream) right upper thigh ... TID TOP Last administered on 09/01/18at 20:55; Start 08/20/18 at 16:00 Miscellaneous (Unresolved Clarification Entry) SEE LABEL COMMENTS DAILY XX Last administered on 08/29/18 09:00; Start 08/29/18 at 09:00; Stop 08/29/18 at 12:52; Status DC Nitroglycerin (Nitrostat (1/ 150)) 0.4 mg Q5MP PRN SL CHEST PAIN; Start 08/15/18 at 11:15 Non-Formulary Medication (Heparin Iv Rate Change Documentation ml/ Hr) ASDIRECTED XX ; Start 08/15/18 at 14:15; Stop 08/16/18 at 08:34; Status DC Oxycodone HCl (Roxicodone, Oxyir) 5 mg Q4HP PRN PO PAIN; Start 08/15/18 at 11:15; Stop 08/15/18 at 19:45; Status DC Pantoprazole Sodium (Protonix) 40 mg BID PO Last administered on 09/02/18 09:35; Start 08/15/18 at 21:00 Ramelteon (Rozerem) 8 mg QHS PO Last administered on 08/19/18at 21:05; Start 08/18/18 at 21:00; Stop 08/20/18 at 16:18; Status DC Saliva Substitute (Mouthkote) 1 sprays Q2HP PRN MT ORAL PAIN/DISCOMFORT; Start 08/30/18 at 10:30 Senna (Senokot) 1 tab QHS PO Last administered on 09/01/18at 20:55; Start 08/15/18 at 21:00 Sitagliptin Phosphate (Januvia) 50 mg DAILY PO Last administered on 09/02/18 09:34; Start 08/16/18 at 09:00 Sodium Chloride (Saline Lock Flush) 2 ml ASDIRECTED PRN IV SEE LABEL COMMENTS Last administered on 08/27/18 09:27; Start 08/21/18 at 14:15; Stop 08/31/18 at 01:48; Status DC Sodium Chloride (Saline Lock Flush) 2 ml SLF IV Last administered on 08/30/18 05:34; Start 08/21/18 at 22:00; Stop 08/31/18 at 01:48; Status DC Spironolactone (Aldactone) 25 mg QAM PO Last administered on 09/02/18 09:34; Start 08/20/18 at 19:15 Tizanidine HCl (Zanaflex) 2 mg TIDP PRN PO SPASMS Last administered on 08/20/18 08:52; Start 08/15/18 at 11:15; Stop 08/20/18 at 16:18; Status DC Trazodone HCl (Desyrel) 50 mg QHS PO Last administered on 08/22/18 20:31; Start 08/20/18 at 21:00; Stop 08/23/18 at 10:17; Status DC Warfarin Sodium (Coumadin) 2 mg DAILY@1700 PO Last administered on 08/24/18 16:57; Start 08/24/18 at 17:00; Stop 08/25/18 at 13:55; Status DC Warfarin Sodium (Coumadin) 5 mg DAILY@17 PO Last administered on 09/01/18 16:18; Start 09/01/18 at 17:00; Stop 09/02/18 at 14:13; Status DC Warfarin Sodium (Coumadin) 5 mg DAILY@1700 PO Last administered on 08/28/18 18:07; Start 08/24/18 at 17:00; Stop 08/29/18 at 12:46; Status DC Warfarin Sodium (Coumadin) 5 mg DAILY@1700 PO Last administered on 08/28/18 18:07; Start 08/25/18 at 17:00; Stop 08/29/18 at 12:46; Status DC Warfarin Sodium (Coumadin) 7.5 mg DAILY@1700 PO Last administered on 08/17/18at 17:02; Start 08/17/18 at 17:00; Stop 08/18/18 at 09:39; Status DC Warfarin Sodium (Coumadin) 10 mg DAILY@17 PO ; Start 09/02/18 at 17:00 Warfarin Sodium (Coumadin) 10 mg DAILY@1700 PO Last administered on 08/16/18 17:15; Start 08/16/18 at 17:00; Stop 08/17/18 at 09:25; Status DC Warfarin Sodium (Coumadin) 10 mg DAILY@1700 PO Last administered on 08/19/18 16:54; Start 08/18/18 at 17:00; Stop 08/20/18 at 08:38; Status DC Warfarin Sodium (Coumadin) 10 mg DAILY@1700 PO Last administered on 5/31/19at 17:22; Start 08/21/18 at 17:00; Stop 08/24/18 at 12:13; Status DC THIERRY PRICE MD Sep 02, 2018 16:06
--- NOTE | 2018-09-02 16:33 | IPNPDOC ---
Text Note Date of Service The patient was seen on 09/02/18. 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 on 07/31/18), HTN, DM2, DLP, Diabetic Neuropathy, Gout, AAA s/p repair (2001), Bilateral inguinal hernia repair who presented to [facility] because of right leg pain, numbness and weakness. Patient has reported that upon catheterization on 07/31/18 the had difficulty in the right groin and subsequently used the left groin. Patient was discharged home after procedures but presented on 08/05 with severe pain. Patient was found to have right ileopsoas hematoma causing right lumber plexopathy. He was admitted to the hospital service for further evaluation and treatment. Orthopedic surgery and neurology were called on consultation. He was transitioned to ARU on 08/15 under the care of Dr. Espinal for continued rehabilitation. Patient was seen and examined at the bedside. Patient has made progress with physical therapy has reported that he will likely leave tomorrow. Denies any chest pain, just by the palpitation reports that his leg does experience occasional pain, but is manageable. Denies any nausea, vomiting, abdominal pain, constipation or diarrhea. Objective: Vitals (See below) General: Sitting up in chair, appears comfortable, no acute distress, AAOx3 HEENT: NC, AT CVS: +S1S2 Lungs: Fair b/l, no evidence of wheezing / rhonchi / rales Abdomen: Soft, non-tender / non-distended Extremities: No calf tenderness, venous stasis changes noted, no appreciable edema Imaging: - MRI lumbar spine 08/06: 1. Diffuse disc bulges at the L3-4 and L4-5 levels with minimal thecal sac compression. 2. Diffuse disc bulge at the L5-S1 level. This abuts the thecal sac and S1 nerves. - CT pelvis 08/07: Somewhat elongate right iliopsoas hematoma as described above. No other acute abnormality. Moderate bilateral hip joint osteoarthritis. - CT pelvis 08/09: Stable right iliopsoas hematoma. - CT pelvis 08/13: Stable hematoma involving the right iliacus and iliopsoas muscles compared to prior CT of 08/09/2018. - CT head 08/23: 1. Old left basal ganglia lacunar infarction. 2. Small vessel ischemic disease per 3. Mild volume loss. - Vascular US 08/23: No evidence for deep venous thrombosis bilateral lower extremities . - CXR 08/23: Pulmonary edema with bibasilar opacities and small pleural effusions increased from prior examination. - Brain MRI 08/23: 1. There is a punctate subacute infarction in the right parietal lobe. 2. Small vessel ischemic disease. 3. Minimal volume loss. Assessment and plan: Right leg pain / weakness / numbness - likely 2/2 Right iliopsoas hematoma with right lumber plexopathy - Patient is reported that there has been improvement in his right leg pain; still reports sensory loss - Physical remains relatively unchanged - c/w Tizanidine, Gabapentin and Oxycodone for pain control as per ARU / Dr. Espinal - c/w Physical therapy as per ARU / Dr. Espinal - Anticipate DC within 24-48 hours Hematoma - Remains stable - c/w Anticoagulation s/p Confusion - possibly 2/2 acute CVA - Imaging via MRI was consistent with infarction - Patient has been on Full dose anticoagulation with Warfarin and anti-platelet therapy with Plavix; - c/w Atorvastatin s/p Leukocytosis - likely 2/2 reactive etiology; less likely 2/2 infectious etiology - No fevers noted s/p Constipation - c/w Bowel regimen DM2 with Diabetic neuropathy - c/w ISS and Gabapentin - c/w Sitagliptin and Glipizide CAD s/p CABG and stent (07/30/18) - c/w Plavix, Carvedilol, Atorvastatin HTN - BP appears well controlled - In the lower limits of normal today - c/w Diltiazem and Carvedilol DLP - c/w Atorvastatin and Ezetimibe Mechanical Aortic valve - Model # [id number]; Serial # [id number] - s/p Heparin drip; INR target is 2.5 to 3.5 - INR subtherapeutic - c/w Coumadin; dose was increased Gout - c/w Allopurinol GERD -c/w Protonix Elevation of Cr - likely 2/2 CKD3 - Baseline Cr of 1.3-1.6 - Cr has improved significantly - s/p IV fluids Chronic bilateral venous stasis with stasis dermatitis - c/w Furosemide 60 daily DVT prophylaxis - c/w Coumadin Disposition: - Anticipate that he will be discharged in next 24-48 hours VS,Grant, I+O VSGrant, I+O Vital Signs Date Time Temp Pulse Resp B/P (MAP) Pulse Ox O2 Delivery O2 Flow Rate FiO2 09/02/18 14:00 98.1 99 18 120/56 (77) 92 09/02/18 04:45 3.0 09/01/18 14:12 Nasal Cannula I&O- Last 24 Hours up to 6 AM 09/02/18 05:59 Intake Total 1020 ml Output Total 1750 ml Balance -730 ml JA RUBIN MD Sep 02, 2018 16:33
[2018-09-02] MEDS: SALIVA SUBSTITUTE(MOUTHKOTE) BTL MT SCH ×2 (17:00→20:34)
[2018-09-02] MEDS: WARFARIN SOD 5 MG TAB PO SCH (17:01)
[2018-09-02 20:00] VITALS: BP 116/60
[2018-09-02] MEDS: LATANOPROST 0.005% OPHTH SOLN 2.5 ML OU SCH (20:29)
[2018-09-02] MEDS: ATORVASTATIN 20 MG TAB PO SCH (20:30)
[2018-09-02] MEDS: SENNA 8.6 MG TAB (SENOKOT) PO SCH (20:32)
[2018-09-03 06:00] VITALS: BP 130/60
[2018-09-03 06:55] LABS: INR 2.11; PROTHROMBIN TIME 24.1 SECONDS (12.1-14.4)
[2018-09-03] MEDS: IPRATROPIUM 0.5MG/ALBUTEROL 2.5MG INH SOL UD 3ML (DUONEB)(J7620) NEB SCH ×2 (07:03→13:38)
[2018-09-03] MEDS: SITagliptin 50 MG TAB (JANUVIA) PO SCH (08:53)
[2018-09-03] MEDS: FUROSEMIDE 20 MG TAB PO SCH (08:53)
[2018-09-03] MEDS: CLOPIDOGREL 75 MG TAB PO SCH (08:53)
[2018-09-03] MEDS: ALLOPURINOL 300 MG TAB PO SCH (08:54)
[2018-09-03] MEDS: EZETIMIBE 10 MG TAB (ZETIA) PO SCH (08:54)
[2018-09-03] MEDS: MAGNESIUM OXIDE 400 MG TAB (MAG-OX) PO SCH (08:54)
[2018-09-03] MEDS: CARVedilol 12.5 MG TAB PO SCH (08:54)
[2018-09-03] MEDS: GABAPENTIN 100 MG CAP PO SCH ×2 (08:54→16:30)
[2018-09-03] MEDS: ACETAMINOPHEN 500 MG TAB PO SCH ×2 (08:55→16:31)
[2018-09-03] MEDS: DOXYCYCLINE HYCLATE 100 MG TAB PO SCH (08:55)
[2018-09-03] MEDS: PANTOPRAZOLE 40MG TAB (PROTONIX) PO SCH (08:55)
[2018-09-03] MEDS: SPIRONOLACTONE 25 MG TAB PO SCH (08:55)
[2018-09-03] MEDS: ANALGESIC BALM CRM 120 GM TOP SCH ×2 (08:56→16:00)
[2018-09-03] MEDS: SALIVA SUBSTITUTE(MOUTHKOTE) BTL MT SCH ×3 (08:56→16:31)
[2018-09-03] MEDS: DOCUSATE SODIUM 100 MG CAP PO SCH (08:59)
--- NOTE | 2018-09-03 09:52 | NOCOX ---
DATE OF PROCEDURE: 09/03/2018 INTERPRETATION For the entire oximetry, a total of 6 hours and 19 minutes of data was reviewed. This study was started on room air but his saturations persisted in the high 70s to low 80s and 3 liters of oxygen was applied. Overall, his mean saturation was 94% with his oxygen saturation beltran 76%, again at the beginning of the night. He spent 7.4% of the night with saturations less than or equal to 88%, including 17 minutes and 16 seconds at the beginning of the study. There were 1-2% variations in the SPO2 waveform that may be suggestive of sleep disordered breathing. IMPRESSION: 1. Nocturnal hypoxemia, acceptable replacement on 3 liters nasal cannula. 2. 1-2% variations in the SPO2 waveform that may be suggestive of sleep disordered breathing. Clinical correlation will be necessary. VICKI
[2018-09-03] MEDS ORDERED: GABA-1171 PO (11:53)
[2018-09-03] MEDS ORDERED: PANT40TA3 PO (11:53)
[2018-09-03] MEDS ORDERED: DILT30TA PO (11:53)
[2018-09-03] MEDS ORDERED: EZET10TA21 PO (11:53)
[2018-09-03] MEDS ORDERED: FURO20TA2 PO (11:53)
[2018-09-03] MEDS ORDERED: ZYLO300T6 PO (11:53)
[2018-09-03] MEDS ORDERED: CARV12.5 PO (11:53)
[2018-09-03] MEDS ORDERED: IPRA0.00 NEB (11:53)
[2018-09-03] MEDS ORDERED: CLOP75TA2 PO (11:53)
[2018-09-03] MEDS ORDERED: MAG400TA PO (11:53)
[2018-09-03] MEDS ORDERED: VENTAER INH (11:53)
[2018-09-03] MEDS ORDERED: ALDA25TA2 PO (11:53)
[2018-09-03] MEDS ORDERED: COUM1TAB17 PO (11:53)
[2018-09-03] MEDS ORDERED: ATOR1TAB21 PO (11:53)
[2018-09-03] MEDS ORDERED: SITA50TAB PO (11:53)
[2018-09-03] MEDS ORDERED: DOXY100T PO (12:46)
[2018-09-03 14:00] VITALS: BP 107/55
[2018-09-03] MEDS: WARFARIN SOD 5 MG TAB PO SCH (16:30)
== END 2018-09-03 17:00 | disposition home health service (06) | DRG 74 ==
LOC: M PM&R 08-15 11:30
PROVIDERS: ADMIT Physical Medicine & Rehabilitation; ATTEND Physical Medicine & Rehabilitation
DX: G54.8 Other nerve root and plexus disorders (principal); M96.841 Postprocedural hematoma of a musculoskeletal structure following other procedure; A69.20 Lyme disease, unspecified; I50.32 Chronic diastolic (congestive) heart failure; I13.0 Hypertensive heart and chronic kidney disease with heart failure and stage 1 through stage 4 chronic kidney disease, or unspecified chronic kidney disease; R20.0 Anesthesia of skin; I25.10 Atherosclerotic heart disease of native coronary artery without angina pectoris; E11.42 Type 2 diabetes mellitus with diabetic polyneuropathy; M62.81 Muscle weakness (generalized); M16.0 Bilateral primary osteoarthritis of hip; E11.22 Type 2 diabetes mellitus with diabetic chronic kidney disease; N18.3 Chronic kidney disease, stage 3 (moderate); E11.51 Type 2 diabetes mellitus with diabetic peripheral angiopathy without gangrene; R41.0 Disorientation, unspecified; M10.9 Gout, unspecified; I87.2 Venous insufficiency (chronic) (peripheral); T82.898D Other specified complication of vascular prosthetic devices, implants and grafts, subsequent encounter; Y83.1 Surgical operation with implant of artificial internal device as the cause of abnormal reaction of the patient, or of later complication, without mention of misadventure at the time of the procedure; Z87.891 Personal history of nicotine dependence; Z95.5 Presence of coronary angioplasty implant and graft; Z79.01 Long term (current) use of anticoagulants; Z79.899 Other long term (current) drug therapy; Z79.82 Long term (current) use of aspirin; Z95.1 Presence of aortocoronary bypass graft; T43.215A Adverse effect of selective serotonin and norepinephrine reuptake inhibitors, initial encounter; T43.015A Adverse effect of tricyclic antidepressants, initial encounter; K59.00 Constipation, unspecified; E78.5 Hyperlipidemia, unspecified; K21.9 Gastro-esophageal reflux disease without esophagitis; Z86.73 Personal history of transient ischemic attack (TIA), and cerebral infarction without residual deficits